=== PATIENT | male | born 1970 | race African-American/Black ===

== ENCOUNTER 2016-12-25 21:01 | Observation (INO) | payer OTHER ==
[2016-12-25 21:15] VITALS: BMI 26.3
--- NOTE | 2016-12-25 22:12 | PDOC ---
History of Present Illness - General History Source: Patient Exam Limitations: No Limitations - History of Present Illness Initial Comments: 12/25/16 22:19 The patient is a 46-year-old male, with a significant past medical history of NIDDM, hyperlipidemia, and hypertension, who presents to the ED with 3 days of chest pain. Patient states that the pain came on when he was ambulating. He states that the pain is intermittent, lasting 10-15 minutes before resolving when he sits down. Pts pain worsens about 1 hour after eating meals. He denies experiencing this pain in the past. The patient denies any shortness of breath. He denies any fever, chills, nausea , vomiting, or diarrhea. <Laury Henderson - Last Filed: 12/25/16 22:18> <Evelin Mosley - Last Filed: 12/26/16 00:54> - General Chief Complaint: Pain Stated Complaint: CHEST PAIN Time Seen by Provider: 12/25/16 21:17 Past History <Laury Henderson - Last Filed: 12/25/16 22:18> - Past Medical History Diabetes: Yes Hypercholesterolemia: Yes - Psycho/Social/Smoking Cessation Hx Anxiety: No Suicidal Ideation: No Smoking Status: Yes Smoking History: Current every day smoker Number of Cigarettes Smoked Daily: 1 Information on smoking cessation initiated: No Hx Alcohol Use: No Drug/Substance Use Hx: No Substance Use Type: None <Evelin Mosley - Last Filed: 12/26/16 00:54> - Past Medical History Allergies/Adverse Reactions: Allergies Allergy/AdvReac Type Severity Reaction Status Date / Time No Known Allergies Allergy Verified 12/25/16 21:10 Home Medications: Ambulatory Orders Albuterol Sulfate Inhaler - [Ventolin HFA Inhaler -] 2 inh IH PRN PRN 12/25/16 Metformin HCl [Metformin HCl ER] 1,000 mg PO BID 12/25/16 Simvastatin [Zocor] 5 mg PO HS 12/25/16 Review of Systems - Review of Systems Able to Perform ROS?: Yes Comments:: 12/25/16 22:19 GENERAL/CONSTITUTIONAL: No fever or chills. No weakness. HEAD, EYES, EARS, NOSE AND THROAT: No change in vision. No ear pain or discharge. No sore throat. CARDIOVASCULAR: +Chest pain. No shortness of breath. RESPIRATORY: No cough, wheezing, or hemoptysis. GASTROINTESTINAL: No nausea, vomiting, diarrhea or constipation. GENITOURINARY: No dysuria, frequency, or change in urination. MUSCULOSKELETAL: No joint or muscle swelling or pain. No neck or back pain. SKIN: No rash NEUROLOGIC: No headache, vertigo, loss of consciousness, or change in strength/ sensation. ENDOCRINE: No increased thirst. No abnormal weight change. HEMATOLOGIC/LYMPHATIC: No anemia, easy bleeding, or history of blood clots. ALLERGIC/IMMUNOLOGIC: No hives or skin allergy. <Laury Henderson - Last Filed: 12/25/16 22:18> *Physical Exam - Vital Signs Last Vital Signs Temp Pulse Resp BP Pulse Ox 97.9 F 78 18 150/88 99 12/25/16 21:10 12/25/16 21:10 12/25/16 21:10 12/25/16 21:10 12/25/16 21:10 <Laury Henderson - Last Filed: 12/25/16 22:18> - Vital Signs Last Vital Signs Temp Pulse Resp BP Pulse Ox 97.9 F 78 18 150/88 99 12/25/16 21:10 12/25/16 21:10 12/25/16 21:10 12/25/16 21:10 12/25/16 21:10 - Physical Exam Comments: GENERAL: Awake, alert, and fully oriented, in no acute distress HEAD: No signs of trauma EYES: PERRLA, EOMI, sclera anicteric, conjunctiva clear ENT: Auricles normal inspection, hearing grossly normal, nares patent, oropharynx clear without exudates. Moist mucosa NECK: Normal ROM, supple, no lymphadenopathy, JVD, or masses LUNGS: Breath sounds equal, clear to auscultation bilaterally. No wheezes, and no crackles HEART: Regular rate and rhythm, normal S1 and S2, no murmurs, rubs or gallops ABDOMEN: Soft, nontender, normoactive bowel sounds. No guarding, no rebound. No masses EXTREMITIES: Normal range of motion, no edema. No clubbing or cyanosis. No cords, erythema, or tenderness NEUROLOGICAL: Cranial nerves II through XII grossly intact. Normal speech, normal gait SKIN: Warm, Dry, normal turgor, no rashes or lesions noted. <Evelin Mosley - Last Filed: 12/26/16 00:54> Heart Score/ECG Review - History History: Moderately suspicious - Electrocardiogram EKG: Non specific repolarization disturbance - Age Age: 45-65 - Risk Factors Risk Factors Heart Score: Yes Hx Hypercholesterolemia, Yes Hx Diabetes, Yes Smoking History Based on the list above the patient has:: 1-2 risk factors - Troponin Troponin: </= normal limit - Score Heart Score - Total: 4 <Evelin Mosley - Last Filed: 12/26/16 00:54> ED Treatment Course - LABORATORY CBC & Chemistry Diagram: 12/25/16 22:18 12/25/16 22:18 <Evelin Mosley - Last Filed: 12/26/16 00:54> Medical Decision Making - Medical Decision Making Pt with history of DM, HL, smoker presents with chest pain intermittently for the past few days. It is associated with exertion. Today on the way into the ED he required a wheelchair, because the pain was so severe he could not walk. He denies SOB, N/V, diaphoresis, leg swelling. No recent travel. Low risk for PE by clinical eval. Concerning for possible ACS, and he has not had a prior workup for ACS. Will admit. <Evelin Mosley - Last Filed: 12/26/16 00:54> *DC/Admit/Observation/Transfer - Attestations Scribe Attestion: 12/25/16 22:20 Documentation prepared by Laury Henderson, acting as medical instructor for Evelin Mosley MD. <Laury Henderson - Last Filed: 12/25/16 22:18> - Discharge Dispostion Admit: Yes <Evelin Mosley - Last Filed: 12/26/16 00:54> Diagnosis at time of Disposition: Chest pain Qualifiers: Chest pain type: unspecified Qualified Code(s): R07.9 - Chest pain, unspecified - Discharge Dispostion Condition at time of disposition: Stable
[2016-12-25 22:33] LABS: BASOPHIL 1.1 % (0-2.0); EOSINOPHIL 6.8 % (0-4.5); MCH 29.1 pg (25.7-33.7); MCHC 32.5 g/dl (32.0-35.9); MEAN CELL VOLUME 89.6 fl (80-96); NEUTROPHILS 37.6 % (42.8-82.8); PLATELET COUNT 180 K/MM3 (134-434); RDW 13.5 % (11.9-15.9); WHITE BLOOD COUNT 6.3 K/mm3 (4.0-10.0)
[2016-12-25 23:04] LABS: ALBUMIN 3.7 g/dl (3.4-5.0); ANION GAP 7 (8-16); BILIRUBIN,TOTAL 0.3 mg/dL (0.2-1.0); CALCIUM 8.7 mg/dL (8.5-10.1); CO2 30 mmol/L (21-32); CREATININE 1.3 mg/dL (0.7-1.3); SGOT/AST 13 U/L (15-37); SGPT/ALT 32 U/L (12-78)
[2016-12-25 23:07] LABS: ALK PHOS 97 U/L (45-117); CPK 220 IU/L (39-308); TROPONIN I < 0.02 ng/ml (0.00-0.05)
[2016-12-25 23:09] LABS: GLUCOSE,RANDOM 418 mg/dL (74-106)
[2016-12-25] MEDS ORDERED: INSULIN REGULAR HUMAN 100 UNITS/ML *VIAL SQ ONE (23:44)
[2016-12-25] MEDS ORDERED: ASPIRIN 81 MG CHEWABLE TABLETS PO ONE (23:45)
--- NOTE | 2016-12-26 00:04 | HP ---
CHIEF COMPLAINT: "my chest really hurts while i walk" PCP: Does not remember name HISTORY OF PRESENT ILLNESS: Patient reports a 7/10 stabbing mid sternal chest pain radiating to his back, elicited by minimal physical activity and alleviated by rest, associated with dizziness. He has never has pain like this before. He denies associated LOC, sob , palpitations or cough. He has one episode on wed after dinner, no episodes on and several episodes today, to the point where he had to be placed into wheel chair because he could not get out of car in hospital parking lot. He has never had a cardiac workup. He denies recent travel, LE pain, edema or hemoptysis. CT chest from 2012 showed 1.1 cm RLL nodule ER course was notable for: (1)labs (2)ekg, chr (3)asa, 4 u insulin Recent Travel: denies PAST MEDICAL HISTORY: as above PAST SURGICAL HISTORY: denies Social History: lives with family Smoking: daily Alcohol:denieis Drugs: denies Family History: DM Allergies No Known Allergies Allergy (Verified 12/25/16 21:10) HOME MEDICATIONS: Home Medications Medication Instructions Recorded Albuterol Sulfate Inhaler - 2 inh IH PRN PRN 12/25/16 [Ventolin HFA Inhaler -] Metformin HCl [Metformin HCl ER] 1,000 mg PO BID 12/25/16 Simvastatin [Zocor] 5 mg PO HS 12/25/16 REVIEW OF SYSTEMS CONSTITUTIONAL: Absent: fever, chills, malaise, loss of appetite, weight change HEENT: Absent: rhinorrhea, nasal congestion, throat pain CARDIOVASCULAR: Absent: syncope, palpitations, irregular heart rate, peripheral edema RESPIRATORY: Absent: cough, shortness of breath, dyspnea with exertion, orthopnea, wheezing, stridor, hemoptysis GASTROINTESTINAL: Absent: abdominal pain, abdominal distension, nausea, vomiting, diarrhea, constipation, melena, hematochezia GENITOURINARY: Absent: dysuria, flank pain MUSCULOSKELETAL: Absent: myalgia, arthralgia SKIN: Absent: rash, itching, pallor HEMATOLOGIC/IMMUNOLOGIC: Absent: easy bleeding, easy bruising, frequent infections ENDOCRINE: Absent: unexplained weight gain, unexplained weight loss, heat intolerance, cold intolerance NEUROLOGIC: Absent: headache, focal weakness or paresthesias PSYCHIATRIC: Absent: anxiety, depression PHYSICAL EXAMINATION Vital Signs - 24 hr 12/25/16 12/25/16 21:10 22:51 Temperature 97.9 F 98.6 F Pulse Rate 78 Pulse Rate [ 79 Left Apical] Respiratory 18 16 Rate Blood Pressure 150/88 Blood Pressure 129/85 [Right Arm] O2 Sat by Pulse 99 98 Oximetry (%) GENERAL: Awake, alert, and fully oriented, in no acute distress. HEAD: Normal with no signs of trauma. EYES: Pupils equal, round and reactive to light, extraocular movements intact, sclera anicteric, conjunctiva clear. No lid lag. EARS, NOSE, THROAT: Moist mucous membranes. NECK: supple + JVD, + hepatojugular reflex, no masses, no adenopathy. LUNGS: bibasilar crackles HEART: Regular rate and rhythm, normal S1 and S2 ABDOMEN: Soft, nontender, not distended, normoactive bowel sounds, no guarding, no rebound, no masses. No hepatomegaly or splenomegaly. negative murphys MUSCULOSKELETAL: No CVA tenderness. UPPER EXTREMITIES: 2+ pulses, warm, well-perfused. No cyanosis. No clubbing. No peripheral edema. LOWER EXTREMITIES: 2+ pulses, warm, well-perfused. No calf tenderness. No peripheral edema. NEUROLOGICAL: Cranial nerves II-XII intact. Normal speech. PSYCHIATRIC: Cooperative. Good eye contact. Appropriate mood and affect. SKIN: Warm, dry Laboratory Results - last 24 hr 12/25/16 12/25/16 22:18 22:18 WBC 6.3 D RBC 4.74 Hgb 13.8 Hct 42.5 MCV 89.6 MCH 29.1 MCHC 32.5 RDW 13.5 Plt Count 180 D MPV 11.0 D Neutrophils % 37.6 L Lymphocytes % 42.7 H Monocytes % 11.8 H Eosinophils % 6.8 H D Basophils % 1.1 Sodium 138 Potassium 4.6 Chloride 101 Carbon Dioxide 30 Anion Gap 7 L BUN 22 H Creatinine 1.3 Creat Clearance w eGFR 59.17 Random Glucose 418 H* Calcium 8.7 Total Bilirubin 0.3 AST 13 L ALT 32 Alkaline Phosphatase 97 Creatine Kinase 220 Troponin I < 0.02 Total Protein 7.0 Albumin 3.7 ASSESSMENT/PLAN: This is a 46 yo M current smoker with PMH of HTN, HLD, IDDM (noncompliant), who presents with exertional severe chest pain since wed night. Severe stable exertional angina -trop negative x 1, trend -EKG nonspecific t inversions in inferior leads. No strain or sign of ACS. appears to be atrial bigeminy -s/p asa, lipitor in ed -TTE -NTG PRN for chest pain -TFTs, Lipid panel -Cardiology consult -anticipate need for stress test -tele monitoring HTN -currently normotensive -reconcile meds tomorrow am form pharmacy HLD -continue lipitor 80 hs IDDM -poorly controlled -gluc 418, given 4 u insulin in ed; no elevated gap -BGM TIDHS -Sliding scale -f/u a1c -f/u ua Pulmonary nodule -chest CT 2012 1.1 cm RLL nodule -CXR widened mediastinum -no supraclavicular adenopathy -requires pulm/ct f/u outpatient Current smoker -counseling on quitting FEN no ivf lytes stable diabetic Na restricted diet Hep, ppi Dispo: adm tele Problem List - Problem (1) Chest pain Code(s): R07.9 - CHEST PAIN, UNSPECIFIED Qualifiers: Chest pain type: unspecified Qualified Code(s): R07.9 - Chest pain, unspecified (2) Stable angina Code(s): I20.8 - OTHER FORMS OF ANGINA PECTORIS (3) Uncontrolled diabetes mellitus Code(s): E11.65 - TYPE 2 DIABETES MELLITUS WITH HYPERGLYCEMIA (4) HTN (hypertension) Code(s): I10 - ESSENTIAL (PRIMARY) HYPERTENSION (5) HLD (hyperlipidemia) Code(s): E78.5 - HYPERLIPIDEMIA, UNSPECIFIED Visit type - Emergency Visit Emergency Visit: Yes Care time: The patient presented to the Emergency Department on the above date and was hospitalized for further evaluation of their emergent condition. - New Patient This patient is new to me today: Yes Date on this admission: 12/26/16 - Critical Care Critical Care patient: No
[2016-12-26] MEDS ORDERED: ATORVASTATIN CA 80 MG TABLET (FP) PO ONE (00:12)
[2016-12-26] MEDS ORDERED: ALBUTEROL SO4 6.7 GM HFA INHALER IH PRN (00:13)
--- NOTE | 2016-12-26 00:14 | PN ---
Teaching Attending Note Name of Resident: Hugo Bellamy ATTENDING PHYSICIAN STATEMENT I saw and evaluated the patient. I reviewed the resident's note and discussed the case with the resident. I agree with the resident's findings and plan as documented. SUBJECTIVE: This patient is a 46-year-old male, with a significant past medical history of NIDDM, hyperlipidemia, and hypertension, who presents to the ED with 3 days of chest pain. Stated that every time he drinks alcohol with dinner, develops sub-sternal chest pain, this started this past 3 days. Pain is non-radiating to the back or to the Jaw. Denies any fever or chills, no shortness of breath. Each episode lasted around 15minutes. OBJECTIVE: Vital Signs Temperature 98.6 F 12/25/16 22:51 Pulse Rate 79 12/25/16 22:51 Respiratory Rate 16 12/25/16 22:51 Blood Pressure 129/85 12/25/16 22:51 O2 Sat by Pulse Oximetry (%) 98 12/25/16 22:51 CBCD WBC 6.3 K/mm3 (4.0-10.0) D 12/25/16 22:18 RBC 4.74 M/mm3 (4.00-5.60) 12/25/16 22:18 Hgb 13.8 GM/dL (11.7-16.9) 12/25/16 22:18 Hct 42.5 % (35.4-49) 12/25/16 22:18 MCV 89.6 fl (80-96) 12/25/16 22:18 MCHC 32.5 g/dl (32.0-35.9) 12/25/16 22:18 RDW 13.5 % (11.9-15.9) 12/25/16 22:18 Plt Count 180 K/MM3 (134-434) D 12/25/16 22:18 MPV 11.0 fl (7.5-11.1) D 12/25/16 22:18 CMP Sodium 138 mmol/L (136-145) 12/25/16 22:18 Potassium 4.6 mmol/L (3.5-5.1) 12/25/16 22:18 Chloride 101 mmol/L (98-107) 12/25/16 22:18 Carbon Dioxide 30 mmol/L (21-32) 12/25/16 22:18 Anion Gap 7 (8-16) L 12/25/16 22:18 BUN 22 mg/dL (7-18) H 12/25/16 22:18 Creatinine 1.3 mg/dL (0.7-1.3) 12/25/16 22:18 Creat Clearance w eGFR 59.17 (>60) 12/25/16 22:18 Random Glucose 418 mg/dL (74-106) H* 12/25/16 22:18 Calcium 8.7 mg/dL (8.5-10.1) 12/25/16 22:18 Total Bilirubin 0.3 mg/dL (0.2-1.0) 12/25/16 22:18 AST 13 U/L (15-37) L 12/25/16 22:18 ALT 32 U/L (12-78) 12/25/16 22:18 Alkaline Phosphatase 97 U/L (45-117) 12/25/16 22:18 Total Protein 7.0 g/dl (6.4-8.2) 12/25/16 22:18 Albumin 3.7 g/dl (3.4-5.0) 12/25/16 22:18 CARDIAC ENZYMES Creatine Kinase 220 IU/L (39-308) 12/25/16 22:18 Troponin I < 0.02 ng/ml (0.00-0.05) 12/25/16 22:18 Current Medications Generic Name Dose Route Start Last Admin Trade Name Freq PRN Reason Stop Dose Admin Atorvastatin Calcium 80 mg 12/26/16 00:12 Lipitor - PO 12/26/16 00:13 ONCE ONE Heparin Sodium (Porcine) 5,000 unit 12/26/16 10:00 Heparin - SQ BID [facility] Insulin Aspart 0 vial 12/26/16 07:00 Novolog Vial Sliding Scale - SQ ACHS [facility] Protocol Pantoprazole Sodium 40 mg 12/26/16 10:00 Protonix - PO DAILY [facility] Home Medications Medication Instructions Recorded Albuterol Sulfate Inhaler - 2 inh IH PRN PRN 12/25/16 [Ventolin HFA Inhaler -] Metformin HCl [Metformin HCl ER] 1,000 mg PO BID 12/25/16 Simvastatin [Zocor] 5 mg PO HS 12/25/16 PE: per resident's notes ASSESSMENT AND PLAN: The patient is a 46-year-old male, with a significant past medical history of NIDDM, hyperlipidemia, and hypertension, who presents to the ED with 3 days of chest pain. # Acute Chest Pain r/o ACS troponin q6h x 3 sets, EKG in am, Echo will order, cardiology consult , ecotrin 81mg daily Pain exacerbated on exertion relieved by rest : Stable angina . EKG nonspecific T- inversions in inferior leads. # T2DM on Metformin will hold it for now, SS with coverage, check hemoglobin A1c #Hx of HLD continue Zocor # Hx of Asthma continue as needed # HTN controlled now #Pulmonary nodule chest CT 2012 1.1 cm RLL nodule ; CXR widened mediastinum follow repeat chest CT # Smoker Current smoker ,counseling on quitting DVT Px: Heparin sq.
[2016-12-26] MEDS ORDERED: ASPIRIN 325 MG TABLET ONE (00:16)
[2016-12-26] MEDS ORDERED: INSULIN REGULAR HUMAN 100 UNITS/ML *VIAL ONE (00:16)
[2016-12-26] MEDS: INSULIN SLIDING SCALE (NOVOLOG) 1 VIAL SQ SCH ×4 (06:13→21:21)
[2016-12-26] MEDS: PANTOPRAZOLE 40 MG TABLET (FP) PO SCH (09:43)
[2016-12-26] MEDS: HEPARIN NA (PORCINE) 5,000 UNITS/ML 1ML VIAL SQ SCH ×2 (09:43→21:21)
--- NOTE | 2016-12-26 15:18 | PN ---
Progress Note (short form) - Note Progress Note: asymptomatic. states pain has resolved and had no repeated episodes since admission. had only 2 episodes both on exertion with assoc with SOB. no other symptoms. states he does smoke. not compliant with his medications as he often forgets (never takes his meds twice a day). denies CP, SOB, fever, chills, N/V/C /D Current Medications Generic Name Dose Route Start Last Admin Trade Name Freq PRN Reason Stop Dose Admin Albuterol Sulfate 2 puff 12/26/16 00:13 Ventolin Hfa Inhaler - IH Q4H PRN SHORT OF BREATH/WHEEZING Atorvastatin Calcium 80 mg 12/27/16 22:00 Lipitor - PO HS [facility] Heparin Sodium (Porcine) 5,000 unit 12/26/16 10:00 12/26/16 09:43 Heparin - SQ 5,000 unit BID [facility] Administration Insulin Aspart 1 vial 12/26/16 07:00 12/26/16 11:36 Novolog Vial Sliding Scale - SQ 6 units ACHS [facility] Administration Protocol Pantoprazole Sodium 40 mg 12/26/16 10:00 12/26/16 09:43 Protonix - PO 40 mg DAILY [facility] Administration Last Vital Signs Temp Pulse Resp BP Pulse Ox 98.8 F 62 18 125/78 100 12/26/16 10:00 12/26/16 10:00 12/26/16 10:00 12/26/16 10:00 12/26/16 10:00 General NAD CV S1 S2 RRR no murmur/rub/gallop Lungs CTA B/L no wheezing/rales/rhonchi ABdomen soft NT/ND Extremities no pedal edema CBCD WBC 6.3 K/mm3 (4.0-10.0) D 12/25/16 22:18 RBC 4.74 M/mm3 (4.00-5.60) 12/25/16 22:18 Hgb 13.8 GM/dL (11.7-16.9) 12/25/16 22:18 Hct 42.5 % (35.4-49) 12/25/16 22:18 MCV 89.6 fl (80-96) 12/25/16 22:18 MCHC 32.5 g/dl (32.0-35.9) 12/25/16 22:18 RDW 13.5 % (11.9-15.9) 12/25/16 22:18 Plt Count 180 K/MM3 (134-434) D 12/25/16 22:18 MPV 11.0 fl (7.5-11.1) D 12/25/16 22:18 CMP Sodium 138 mmol/L (136-145) 12/25/16 22:18 Potassium 4.6 mmol/L (3.5-5.1) 12/25/16 22:18 Chloride 101 mmol/L (98-107) 12/25/16 22:18 Carbon Dioxide 30 mmol/L (21-32) 12/25/16 22:18 Anion Gap 7 (8-16) L 12/25/16 22:18 BUN 22 mg/dL (7-18) H 12/25/16 22:18 Creatinine 1.3 mg/dL (0.7-1.3) 12/25/16 22:18 Creat Clearance w eGFR 59.17 (>60) 12/25/16 22:18 Calcium 8.7 mg/dL (8.5-10.1) 12/25/16 22:18 Total Bilirubin 0.3 mg/dL (0.2-1.0) 12/25/16 22:18 AST 13 U/L (15-37) L 12/25/16 22:18 ALT 32 U/L (12-78) 12/25/16 22:18 Alkaline Phosphatase 97 U/L (45-117) 12/25/16 22:18 Total Protein 7.0 g/dl (6.4-8.2) 12/25/16 22:18 Albumin 3.7 g/dl (3.4-5.0) 12/25/16 22:18 A/P 46yo M with PMH HLD, IDDM (noncompliant), who presents with exertional severe chest pain since wed night. 1. Atypical CP- no longer symptomatic. several insignificant pauses noted on radiation monitor. cardiac ensymes neg x2. no cardiac workup in the past. due to risk factors would recommend stress test. unsure if pt is likely to f/u as outpatient due to hx of non-compliance. echo pending. cardio consult. lipid panel pending 2. DM- uncontrolled. does not comply with home oral agents. iss and bgm for now. check A1c 3. RLL pulmonary nodule- seen on CT in 2012 and never followed up. will obtain repeat here as pt does not follow up as outpatient 4. Dyslipidemia- on low intensity statin. f/u lipid panel 5. DVT ppx- EAM Visit type - Emergency Visit Emergency Visit: Yes ED Registration Date: 12/25/16 Care time: The patient presented to the Emergency Department on the above date and was hospitalized for further evaluation of their emergent condition. - New Patient This patient is new to me today: Yes Date on this admission: 12/26/16 - Critical Care Critical Care patient: No - Discharge Referral Referred to [facility] No
--- NOTE | 2016-12-26 16:17 | CON.CARD ---
Consult Consult Specialty:: Cardiology Referred by:: Hospitalist Reason for Consultation:: Cardiac evaluation - History of Present Illness Chief Complaint: Chest pain History of Present Illness: Patient is a 46 year old male with underlying history of type 2 diabetes mellitus and hypertension who presented with 3 days of mid sternal chest discomfort. He states chest pain with exertion and has been intermittent. He denies shortness of breath or palpitations. He denies paroxysmal nocturnal dyspnea or orthopnea. He denies fever or chills. He denies headache or lightheadedness. He denies nausea, vomiting, diarrhea or abdominal pain. Cardiology consultation was called for further evaluation. - History Source History Provided By: Patient, Medical Record Limitations to Obtaining History: No Limitations - Past Medical History Cardio/Vascular: Yes: HTN Endocrine: Yes: Diabetes Mellitus - Alcohol/Substance Use Hx Alcohol Use: No - Smoking History Smoking history: Former smoker Have you smoked in the past 12 months: No Aproximately how many cigarettes per day: 1 Home Medications - Allergies Allergies/Adverse Reactions: Allergies Allergy/AdvReac Type Severity Reaction Status Date / Time No Known Allergies Allergy Verified 12/25/16 21:10 - Home Medications Home Medications: Ambulatory Orders Albuterol Sulfate Inhaler - [Ventolin HFA Inhaler -] 2 inh IH PRN PRN 12/25/16 Metformin HCl [Metformin HCl ER] 1,000 mg PO BID 12/25/16 Simvastatin [Zocor] 5 mg PO HS 12/25/16 Review of Systems - Review of Systems Constitutional: denies: Chills, Fever Cardiovascular: reports: Chest Pain. denies: Palpitations, Shortness of Breath Respiratory: denies: Cough, Hemoptysis, Orthopnea, PND, SOB, SOB on Exertion Gastrointestinal: denies: Abdominal Pain, Constipation, Diarrhea, Melena, Nausea , Rectal Bleeding, Vomiting Musculoskeletal: denies: Joint Pain Vital Signs: Vital Signs Temperature 981 F H 12/26/16 15:00 Pulse Rate 65 12/26/16 15:00 Respiratory Rate 16 12/26/16 15:00 Blood Pressure 133/75 12/26/16 15:00 O2 Sat by Pulse Oximetry (%) 100 12/26/16 10:00 Neck: Yes: Supple Respiratory: Yes: Regular, CTA Bilaterally Gastrointestinal: Yes: Normal Bowel Sounds, Soft. No: Tenderness Cardiovascular: Yes: Regular Rate and Rhythm JVD: No Carotid Bruit: No PMI: Non-Displaced Heart Sounds: Yes: S1, S2. No: Gallop Murmur: No: Systolic Murmur Edema: No Neurological: Yes: WNL - Other Data Labs, Other Data: 12/26/16 02:45 Troponin I < 0.02 CARDIAC ENZYMES Creatine Kinase 220 IU/L (39-308) 12/25/16 22:18 Troponin I < 0.02 ng/ml (0.00-0.05) 12/26/16 02:45 Sinus rhythm with nonspecific ST-T abnormality Echo: Pending Imaging - Results Chest X-ray: Report Reviewed (Unremarkable) EKG: Report Reviewed Problem List - Problems (1) Chest pain Code(s): R07.9 - CHEST PAIN, UNSPECIFIED Qualifiers: Chest pain type: unspecified Qualified Code(s): R07.9 - Chest pain, unspecified (2) HLD (hyperlipidemia) Code(s): E78.5 - HYPERLIPIDEMIA, UNSPECIFIED (3) HTN (hypertension) Code(s): I10 - ESSENTIAL (PRIMARY) HYPERTENSION (4) Uncontrolled diabetes mellitus Code(s): E11.65 - TYPE 2 DIABETES MELLITUS WITH HYPERGLYCEMIA Assessment/Plan 1. Chest pain syndrome, rule out coronary artery disease with abnormal ECG 2. Type 2 diabetes mellitus 3. Hypertension 4. Hypercholesterolemia PLAN: 1. Start ASA 81 mg once a day 2. Consider Amlodipine 5 mg once a day 3. Continue Atorvastatin and follow lipid panel 4. Continue diabetes management 5. Transthoracic echocardiography to assess LV/RV and valvular function 6. Consider nuclear myocardial perfusion imaging. Further plans are to follow Edi Sage MD
[2016-12-26] MEDS ORDERED: INSULIN (NOVOLOG) ASPART 100 UNITS/ML 10ML VIAL ONE (20:51)
[2016-12-27] MEDS: INSULIN SLIDING SCALE (NOVOLOG) 1 VIAL SQ SCH ×4 (06:03→21:23)
[2016-12-27 07:54] LABS: MCH 29.8 pg (25.7-33.7); MCHC 33.3 g/dl (32.0-35.9); MEAN CELL VOLUME 89.5 fl (80-96); MEAN PLT VOLUME 11.1 fl (7.5-11.1); PLATELET COUNT 177 K/MM3 (134-434); RDW 13.5 % (11.9-15.9); WHITE BLOOD COUNT 5.7 K/mm3 (4.0-10.0)
[2016-12-27 08:32] LABS: ALBUMIN 3.5 g/dl (3.4-5.0); ANION GAP 7 (8-16); CALCIUM 8.3 mg/dL (8.5-10.1); CO2 30 mmol/L (21-32); GLUCOSE,RANDOM 238 mg/dL (74-106)
[2016-12-27 08:39] LABS: ALK PHOS 80 U/L (45-117); BILIRUBIN,TOTAL 0.3 mg/dL (0.2-1.0); CHOLESTEROL 198 mg/dL (50-200); CREATININE 0.9 mg/dL (0.7-1.3); LDL CHOLESTEROL (ONLY SJRH) 127 mg/dL (5-100); PHOSPHOROUS 3.3 mg/dL (2.5-4.9); SGOT/AST 16 U/L (15-37); SGPT/ALT 27 U/L (12-78); THYROID STIMULATING HORMONE 2.77 uIU/ml (0.358-3.74); TOT PROT 6.7 g/dl (6.4-8.2)
--- NOTE | 2016-12-27 08:45 | PN ---
Progress Note (short form) - Note Progress Note: asymptomatic. states pain has resolved and had no repeated episodes since admission. had only 2 episodes both on exertion with assoc with SOB. no other symptoms. states he does smoke. not compliant with his medications as he often forgets (never takes his meds twice a day). denies CP, SOB, fever, chills, N/V/C /D Current Medications Generic Name Dose Route Start Last Admin Trade Name Freq PRN Reason Stop Dose Admin Albuterol Sulfate 2 puff 12/26/16 00:13 Ventolin Hfa Inhaler - IH Q4H PRN SHORT OF BREATH/WHEEZING Atorvastatin Calcium 80 mg 12/27/16 22:00 Lipitor - PO HS CHETNA Heparin Sodium (Porcine) 5,000 unit 12/26/16 10:00 12/26/16 21:21 Heparin - SQ 5,000 unit BID CHETNA Administration Insulin Aspart 1 vial 12/26/16 07:00 12/27/16 06:03 Novolog Vial Sliding Scale - SQ 4 units ACHS CHETNA Administration Protocol Pantoprazole Sodium 40 mg 12/26/16 10:00 12/26/16 09:43 Protonix - PO 40 mg DAILY CHETNA Administration Last Vital Signs Temp Pulse Resp BP Pulse Ox 98 F 60 18 142/74 100 12/27/16 06:00 12/27/16 06:00 12/27/16 06:00 12/27/16 06:00 12/26/16 21:00 General NAD CV S1 S2 RRR no murmur/rub/gallop Lungs CTA B/L no wheezing/rales/rhonchi ABdomen soft NT/ND Extremities no pedal edema A/P 46yo M with PMH HLD, IDDM (noncompliant), who presents with exertional severe chest pain since wed. 1. Atypical CP- no longer symptomatic. several insignificant pauses noted on chip mucker. cardiac ensymes neg x2. no cardiac workup in the past. due to risk factors would recommend stress test. unsure if pt is likely to f/u as outpatient due to hx of non-compliance. echo pending. cardio consult. lipid panel pending 2. DM- uncontrolled. does not comply with home oral agents. iss and bgm for now. check A1c 3. RLL pulmonary nodule- seen on CT in 2012 and never followed up. will obtain repeat here as pt does not follow up as outpatient 4. Dyslipidemia- on low intensity statin. f/u lipid panel 5. DVT ppx- EAM Visit type - Emergency Visit Emergency Visit: Yes ED Registration Date: 12/25/16 Care time: The patient presented to the Emergency Department on the above date and was hospitalized for further evaluation of their emergent condition. - New Patient This patient is new to me today: No - Critical Care Critical Care patient: No - Discharge Referral Referred to [facility] Med P.C.: No
[2016-12-27] MEDS ORDERED: INSULIN DETEMIR 100 UNITS/ML MDV SQ STA (08:55)
[2016-12-27] MEDS: PANTOPRAZOLE 40 MG TABLET (FP) PO SCH (09:20)
[2016-12-27] MEDS: HEPARIN NA (PORCINE) 5,000 UNITS/ML 1ML VIAL SQ SCH ×2 (09:20→21:24)
--- NOTE | 2016-12-27 10:12 | PN ---
Progress Note, Physician Chief Complaint: Not in distress History of Present Illness: Patient was seen and examined. Awake and alert. Chart was reviewed Denies chest pain, SOB or palpitations - Current Medication List Current Medications: Active Medications Albuterol Sulfate (Ventolin Hfa Inhaler -) 2 puff IH Q4H PRN PRN Reason: SHORT OF BREATH/WHEEZING Atorvastatin Calcium (Lipitor -) 80 mg PO HS CHETNA Heparin Sodium (Porcine) (Heparin -) 5,000 unit SQ BID [facility] Last Admin: 12/26/16 21:21 Dose: 5,000 unit Insulin Aspart (Novolog Vial Sliding Scale -) 1 vial SQ ACHS CHETNA PRN Reason: Protocol Last Admin: 12/27/16 06:03 Dose: 4 units Pantoprazole Sodium (Protonix -) 40 mg PO DAILY [facility] Last Admin: 12/26/16 09:43 Dose: 40 mg - Objective Vital Signs: Vital Signs Temperature 98 F 12/27/16 06:00 Pulse Rate 60 12/27/16 06:00 Respiratory Rate 18 12/27/16 06:00 Blood Pressure 142/74 12/27/16 06:00 O2 Sat by Pulse Oximetry (%) 100 12/26/16 21:00 Neck: Yes: Supple Cardiovascular: Yes: Regular Rate and Rhythm, S1, S2. No: Murmur Respiratory: Yes: CTA Bilaterally Gastrointestinal: Yes: Normal Bowel Sounds, Soft. No: Tenderness Edema: No Additional Findings/Remarks: - Review of Systems Constitutional: denies: Chills, Fever Cardiovascular: reports: Chest Pain. denies: Palpitations, Shortness of Breath Respiratory: denies: Cough, Hemoptysis, Orthopnea, PND, SOB, SOB on Exertion Gastrointestinal: denies: Abdominal Pain, Constipation, Diarrhea, Melena, Nausea , Rectal Bleeding, Vomiting Musculoskeletal: denies: Joint Pain Labs: CBC, BMP 12/27/16 05:35 12/27/16 05:35 INR, PTT INR 1.00 (0.82-1.09) 12/27/16 05:35 Problem List - Problems (1) Chest pain Code(s): R07.9 - CHEST PAIN, UNSPECIFIED Qualifiers: Chest pain type: unspecified Qualified Code(s): R07.9 - Chest pain, unspecified (2) HLD (hyperlipidemia) Code(s): E78.5 - HYPERLIPIDEMIA, UNSPECIFIED (3) HTN (hypertension) Code(s): I10 - ESSENTIAL (PRIMARY) HYPERTENSION (4) Uncontrolled diabetes mellitus Code(s): E11.65 - TYPE 2 DIABETES MELLITUS WITH HYPERGLYCEMIA Assessment/Plan 1. Chest pain syndrome, rule out coronary artery disease with abnormal ECG 2. Type 2 diabetes mellitus 3. Hypertension 4. Hypercholesterolemia PLAN: 1. ASA 81 mg once a day 2. Consider initiating Amlodipine 5 mg once a day 3. Continue Atorvastatin and follow lipid panel 4. Continue diabetes management 5. Transthoracic echocardiography to assess LV/RV and valvular function 6. Nuclear myocardial perfusion imaging in AM Further plans are to follow Edi Sage MD
--- NOTE | 2016-12-27 10:16 | PN ---
Progress Note (short form) - Note Progress Note: asymptomatic. no repeated episodes of CP. denies CP, SOB, fever, chills, N/V/C/D Current Medications Generic Name Dose Route Start Last Admin Trade Name Angella PRN Reason Stop Dose Admin Albuterol Sulfate 2 puff 12/26/16 00:13 Ventolin Hfa Inhaler - IH Q4H PRN SHORT OF BREATH/WHEEZING Atorvastatin Calcium 80 mg 12/27/16 22:00 Lipitor - PO HS CHETNA Heparin Sodium (Porcine) 5,000 unit 12/26/16 10:00 12/26/16 21:21 Heparin - SQ 5,000 unit BID CHETNA Administration Insulin Aspart 1 vial 12/26/16 07:00 12/27/16 06:03 Novolog Vial Sliding Scale - SQ 4 units ACHS CHETNA Administration Protocol Pantoprazole Sodium 40 mg 12/26/16 10:00 12/26/16 09:43 Protonix - PO 40 mg DAILY CHETNA Administration Last Vital Signs Temp Pulse Resp BP Pulse Ox 98 F 60 18 142/74 100 12/27/16 06:00 12/27/16 06:00 12/27/16 06:00 12/27/16 06:00 12/26/16 21:00 General NAD CV S1 S2 RRR no murmur/rub/gallop Lungs CTA B/L no wheezing/rales/rhonchi ABdomen soft NT/ND Extremities no pedal edema CBCD WBC 5.7 K/mm3 (4.0-10.0) 12/27/16 05:35 RBC 5.04 M/mm3 (4.00-5.60) 12/27/16 05:35 Hgb 15.0 GM/dL (11.7-16.9) 12/27/16 05:35 Hct 45.1 % (35.4-49) 12/27/16 05:35 MCV 89.5 fl (80-96) 12/27/16 05:35 MCHC 33.3 g/dl (32.0-35.9) 12/27/16 05:35 RDW 13.5 % (11.9-15.9) 12/27/16 05:35 Plt Count 177 K/MM3 (134-434) 12/27/16 05:35 MPV 11.1 fl (7.5-11.1) 12/27/16 05:35 CMP Sodium 139 mmol/L (136-145) 12/27/16 05:35 Potassium 3.8 mmol/L (3.5-5.1) 12/27/16 05:35 Chloride 102 mmol/L (98-107) 12/27/16 05:35 Carbon Dioxide 30 mmol/L (21-32) 12/27/16 05:35 Anion Gap 7 (8-16) L 12/27/16 05:35 BUN 14 mg/dL (7-18) D 12/27/16 05:35 Creatinine 0.9 mg/dL (0.7-1.3) D 12/27/16 05:35 Creat Clearance w eGFR > 60 (>60) 12/27/16 05:35 Calcium 8.3 mg/dL (8.5-10.1) L 12/27/16 05:35 Total Bilirubin 0.3 mg/dL (0.2-1.0) 12/27/16 05:35 AST 16 U/L (15-37) D 12/27/16 05:35 ALT 27 U/L (12-78) 12/27/16 05:35 Alkaline Phosphatase 80 U/L (45-117) 12/27/16 05:35 Total Protein 6.7 g/dl (6.4-8.2) 12/27/16 05:35 Albumin 3.5 g/dl (3.4-5.0) 12/27/16 05:35 A/P 46yo M with PMH HLD, IDDM (noncompliant), who presents with exertional severe chest pain since wed. 1. Atypical CP- asymptomatic. plan for NMST tomorrow. NPO tonight. cont asa/ statin cardio consult. 2. DM- A1c 12.2. will need to be on insulin therapy at this time. start levemir 10 units now and then titrate to improve control. insulin administration teaching by RN. counseled on importance of diabetic control and risks associated without controlling it is not limited to blindness, cardiac disease, renal failure needing HD and infection with loss of limb, verbalized understanding of risk. 3. elevated BP -started on acei 4. RLL pulmonary nodule- seen on CT in 2012 and never followed up. will obtain repeat here as pt does not follow up as outpatient 5. Dyslipidemia- statin 6. DVT ppx- EAM 7. family present at bedside. explained plan. answered all questions. verbalized understanding of plan and agreement Visit type - Emergency Visit Emergency Visit: Yes ED Registration Date: 12/25/16 Care time: The patient presented to the Emergency Department on the above date and was hospitalized for further evaluation of their emergent condition. - New Patient This patient is new to me today: No - Critical Care Critical Care patient: No - Discharge Referral Referred to [facility] Med P.C.: No
[2016-12-27] MEDS: LISINOPRIL 5 MG TABLET (FP) PO SCH (12:13)
[2016-12-27] MEDS: ASPIRIN COATED 81 MG TABLET.EC PO SCH (12:13)
--- NOTE | 2016-12-27 18:43 | EKG ---
Test Reason : Blood Pressure : / mmHG Vent. Rate : 076 BPM Atrial Rate : 076 BPM P-R Int : 150 ms QRS Dur : 094 ms QT Int : 338 ms P-R-T Axes : 012 049 -36 degrees QTc Int : 380 ms SINUS RHYTHM WITH PREMATURE ATRIAL COMPLEXES IN A PATTERN OF BIGEMINY NONSPECIFIC T WAVE ABNORMALITY ABNORMAL ECG NO PREVIOUS ECGS AVAILABLE REPEAT INDICATED Confirmed by ALIYA RICO MD ([id number]) on 12/27/2016 6:43:13 PM Referred By: Confirmed By:ALIYA RICO MD
[2016-12-27] MEDS ORDERED: INSULIN (NOVOLOG) ASPART 100 UNITS/ML 10ML VIAL ONE (21:10)
[2016-12-27] MEDS ORDERED: LORATADINE 10 MG TABLET PO ONE (21:49)
[2016-12-27] MEDS ORDERED: ATORVASTATIN CA 80 MG TABLET (FP) PO SCH (22:00)
[2016-12-27] MEDS ORDERED: ATORVASTATIN CA 40 MG TABLET (FP) PO SCH (22:00)
[2016-12-28] MEDS ORDERED: INSULIN (NOVOLOG) ASPART 100 UNITS/ML 10ML VIAL ONE (05:23)
[2016-12-28] MEDS: INSULIN SLIDING SCALE (NOVOLOG) 1 VIAL SQ SCH ×3 (06:24→17:02)
[2016-12-28] MEDS ORDERED: INSULIN DETEMIR 100 UNITS/ML MDV SQ ONE (08:29)
--- NOTE | 2016-12-28 12:14 | PN ---
Teaching Attending Note Name of Resident: Hugo Bellamy ATTENDING PHYSICIAN STATEMENT I saw and evaluated the patient. I reviewed the resident's note and discussed the case with the resident. I agree with the resident's findings and plan as documented. SUBJECTIVE:asymptomatic. denies CP, SOB<fever, chills, N/V/C/D OBJECTIVE: Last Vital Signs Temp Pulse Resp BP Pulse Ox 98.2 F 64 14 120/72 99 12/28/16 08:00 12/28/16 08:00 12/28/16 08:00 12/28/16 08:00 12/27/16 20:34 General NAD CV S1 S2 RRR no murmur/rub/gallop ASSESSMENT AND PLAN: 46yo M with PMH HLD, IDDM (noncompliant), who presents with exertional severe chest pain since wed night. 1. Atypical CP- asymptomatic. NMST today. will f/u results. cont asa/statin cardio consult. 2. DM- A1c 12.2. started on levemir 10 units. sugars improved. will ronnie require further titration. explained to pt to document and log his fingersticks and amount amount of insulin he uses and bring to appt with PMD this week. will ronnie require further adjustment. 3. elevated BP -improved. on acei 4. RLL pulmonary nodule- seen on CT in 2012, repeat done is not visable. cont routine screening. 5. Dyslipidemia- statin 6. DVT ppx- EAM 7. d/c planning pending result of stress test
--- NOTE | 2016-12-28 12:42 | PN ---
Progress Note, Physician History of Present Illness: No chest pain or dyspnea, awaiting study results. - Current Medication List Current Medications: Active Medications Albuterol Sulfate (Ventolin Hfa Inhaler -) 2 puff IH Q4H PRN PRN Reason: SHORT OF BREATH/WHEEZING Aspirin (Ecotrin -) 81 mg PO DAILY [facility] Last Admin: 12/27/16 12:13 Dose: 81 mg Atorvastatin Calcium (Lipitor -) 40 mg PO HS [facility] Last Admin: 12/27/16 21:25 Dose: 40 mg Heparin Sodium (Porcine) (Heparin -) 5,000 unit SQ BID [facility] Last Admin: 12/27/16 21:24 Dose: 5,000 unit Insulin Aspart (Novolog Vial Sliding Scale -) 1 vial SQ ACHS [facility] PRN Reason: Protocol Last Admin: 12/28/16 06:24 Dose: Not Given Lisinopril (Prinivil) 5 mg PO DAILY [facility] Last Admin: 12/27/16 12:13 Dose: 5 mg Pantoprazole Sodium (Protonix -) 40 mg PO DAILY [facility] Last Admin: 12/27/16 09:20 Dose: 40 mg - Objective Vital Signs: Vital Signs Temperature 98.2 F 12/28/16 08:00 Pulse Rate 64 12/28/16 08:00 Respiratory Rate 14 12/28/16 08:00 Blood Pressure 120/72 12/28/16 08:00 O2 Sat by Pulse Oximetry (%) 96 12/28/16 08:00 Constitutional: Yes: No Distress, Calm Neck: Yes: Supple Cardiovascular: Yes: Regular Rate and Rhythm, Murmur (2/6 SM) Respiratory: Yes: Regular, CTA Bilaterally Gastrointestinal: Yes: Normal Bowel Sounds, Soft Edema: No Labs: CBC, BMP 12/27/16 05:35 12/27/16 05:35 INR, PTT INR 1.00 (0.82-1.09) 12/27/16 05:35 Problem List - Problems (1) Chest pain Code(s): R07.9 - CHEST PAIN, UNSPECIFIED Qualifiers: Chest pain type: unspecified Qualified Code(s): R07.9 - Chest pain, unspecified (2) HLD (hyperlipidemia) Code(s): E78.5 - HYPERLIPIDEMIA, UNSPECIFIED Qualifiers: Hyperlipidemia type: pure hypercholesterolemia Qualified Code(s): E78.00 - Pure hypercholesterolemia, unspecified; E78.0 - Pure hypercholesterolemia (3) HTN (hypertension) Code(s): I10 - ESSENTIAL (PRIMARY) HYPERTENSION Qualifiers: Hypertension type: essential hypertension Qualified Code(s): I10 - Essential (primary) hypertension (4) Stable angina Code(s): I20.8 - OTHER FORMS OF ANGINA PECTORIS (5) Uncontrolled diabetes mellitus Code(s): E11.65 - TYPE 2 DIABETES MELLITUS WITH HYPERGLYCEMIA Qualifiers: Diabetes mellitus type: type 2 (6) Abnormal pharmacologic myocardial perfusion study Code(s): R94.30 - ABNORMAL RESULT OF CARDIOVASCULAR FUNCTION STUDY, [facility] Assessment/Plan 12/28/2016 Echo: Normal LV size and fxn, mod TR, mild MR 12/28/2016 ETT-Myoview: Small-moderate size mild inferolateral ischemia, LVEF 57 % 1. Chest pain syndrome with mildly abnormal MPI 2. Type 2 diabetes mellitus (poorly controlled) 3. Hypertension 4. Hypercholesterolemia PLAN: 1. Continue ASA 81 mg once a day, Lipitor 40 qhs, added Lisinopril 5 qd 2. Initiated carvedilol 3.125 bid with uptitration as tolerated 3. Optimize antidiabetic regimen 4. May d/c from cardiovascular standpoint with f/u in office.
[2016-12-28] MEDS ORDERED: DIPYRIDAMOLE 50 MG/10 ML VIAL IVPB ONE ×2 (12:48→13:00)
[2016-12-28] MEDS: HEPARIN NA (PORCINE) 5,000 UNITS/ML 1ML VIAL SQ SCH (14:22)
[2016-12-28] MEDS: PANTOPRAZOLE 40 MG TABLET (FP) PO SCH (14:22)
[2016-12-28] MEDS: LISINOPRIL 5 MG TABLET (FP) PO SCH (14:22)
[2016-12-28] MEDS: ASPIRIN COATED 81 MG TABLET.EC PO SCH (14:22)
--- NOTE | 2016-12-28 17:03 | PN ---
Physical Exam: SUBJECTIVE: Patient seen and examined No acute events overnight. Patient is asymptomatic this morning OBJECTIVE: Vital Signs Period Temp Pulse Resp BP Sys/Coffman Pulse Ox Last 24 Hr 97.7 F-98.2 F 56-74 14-18 100-137/55-74 96-99 GENERAL: The patient is awake, alert, and fully oriented, in no acute distress. HEAD: Normal with no signs of trauma. EYES: Extraocular movements intact, sclera anicteric, conjunctiva clear. No ptosis. ENT: Oropharynx clear without exudates, moist mucous membranes. NECK: Trachea midline, full range of motion, supple. LUNGS: Breath sounds equal, clear to auscultation bilaterally, no wheezes, no crackles, no accessory muscle use. HEART: Regular rate and rhythm, S1, S2 without murmur, rub or gallop. ABDOMEN: Soft, nontender, nondistended, normoactive bowel sounds, no guarding, no rebound, no hepatosplenomegaly, no masses. EXTREMITIES: 2+ pulses, warm, well-perfused, no edema. NEUROLOGICAL: Cranial nerves II through XII grossly intact. Normal speech, gait not observed. PSYCH: Normal mood, normal affect. SKIN: Warm, dry, normal turgor, no rashes or lesions noted Laboratory Results - last 24 hr 12/27/16 12/27/16 12/28/16 16:51 21:20 05:27 POC Glucometer 256 233 203 12/28/16 14:20 POC Glucometer 254 Active Medications Generic Name Dose Route Start Last Admin Trade Name Freq PRN Reason Stop Dose Admin Albuterol Sulfate 2 puff 12/26/16 00:13 Ventolin Hfa Inhaler - IH Q4H PRN SHORT OF BREATH/WHEEZING Aspirin 81 mg 12/27/16 10:15 12/28/16 14:22 Ecotrin - PO 81 mg DAILY CHETNA Administration Atorvastatin Calcium 40 mg 12/27/16 22:00 12/27/16 21:25 Lipitor - PO 40 mg HS CHETNA Administration Heparin Sodium (Porcine) 5,000 unit 12/26/16 10:00 12/28/16 14:22 Heparin - SQ 5,000 unit BID CHETNA Administration Insulin Aspart 1 vial 12/26/16 07:00 12/28/16 14:22 Novolog Vial Sliding Scale - SQ 4 units ACHS CHETNA Administration Protocol Lisinopril 5 mg 12/27/16 10:15 12/28/16 14:22 Prinivil PO 5 mg DAILY CHETNA Administration Pantoprazole Sodium 40 mg 12/26/16 10:00 12/28/16 14:22 Protonix - PO 40 mg DAILY CHETNA Administration ASSESSMENT/PLAN: This is a 46 yo M current smoker with PMH of HTN, HLD, IDDM (noncompliant), who presents with exertional severe chest pain since wed night. #Atypical Chest pain -Stress test pending -Continue aspirin 81 mg po daily -Continue Lipitor 40 mg PO hs -Cardiology on board #HTN -currently normotensive -on lisinopril 5 mg po daily #HLD -continue lipitor 80 hs #IDDM -poorly controlled -A1c is 12.2 -Continue levemir 10 units -BGM TIDHS -Insulin Sliding scale #Pulmonary nodule -chest CT 2012 1.1 cm RLL nodule -Repeat chest ct today shows no evidence of pulmonary nodule -Should follow up in 3 months for routine screening with pulm #Dyslipidemia -Continue lipitor 40 mg po hs #Dvt/GI ppx -heparin 5000 units sq bid -Protonix 40 mg po daily #FEN -no ivf -Electrolytes stable -Diabetic Na restricted diet Visit type - Emergency Visit Emergency Visit: No - New Patient This patient is new to me today: Yes Date on this admission: 12/28/16 - Critical Care Critical Care patient: No
[2016-12-28] MEDS ORDERED: CARVEDILOL 3.125 MG TABLET (FP) PO ONE (17:15)
[2016-12-28] MEDS ORDERED: CARVEDILOL 3.125 MG TABLET (FP) PO SCH ×2 (19:00→22:00)
--- NOTE | 2016-12-28 20:13 | DS ---
Physical Exam: LABS Laboratory Results - last 24 hr Selected Entries 12/25/16 12/28/16 21:10 15:00 Temperature 97.9 F 97.7 F Pulse Rate 63 Respiratory 18 Rate Blood Pressure 150/88 115/74 Laboratory Tests 12/25/16 12/25/16 12/26/16 22:18 22:18 06:08 WBC 6.3 D Sodium Potassium Chloride Carbon Dioxide Anion Gap BUN Creatinine POC Glucometer 294 Random Glucose 418 H* Hemoglobin A1c % Calcium Total Protein Albumin Triglycerides Cholesterol Total LDL Cholesterol HDL Cholesterol 12/27/16 12/27/16 12/27/16 05:35 05:35 05:35 WBC 5.7 Sodium 139 Potassium 3.8 Chloride 102 Carbon Dioxide 30 Anion Gap 7 L BUN 14 D Creatinine 0.9 D POC Glucometer Random Glucose 238 H D Hemoglobin A1c % 12.2 H Calcium 8.3 L Total Protein 6.7 Albumin 3.5 Triglycerides 165 H Cholesterol 198 Total LDL Cholesterol 127 H HDL Cholesterol 32 L 12/27/16 12/27/16 12/28/16 12:06 21:20 17:01 WBC Sodium Potassium Chloride Carbon Dioxide Anion Gap BUN Creatinine POC Glucometer 222 233 326 Random Glucose Hemoglobin A1c % Calcium Total Protein Albumin Triglycerides Cholesterol Total LDL Cholesterol HDL Cholesterol 12/25- Chest X ray - no acute pathology12/25- EKG- Sinus rhythm with PAC12/27- Chest CT- No abnormalities in chest, small left renal stone and 2 small accessory spleens vs nodes in LUQ12/28- NMST- small to moderate zone of inferolateral reversible defect suggesting mild intensity ischemia with underlying diaphragmatic attenuation artifact. EF 57%12/28- Echo- LV normal size , LV function is normal, no wall notion abnormalities HOSPITAL COURSE: Date of Admission:12/25/16 Date of Discharge: 12/28/16 46 yo M current smoker with PMH of HTN, HLD, IDDM (noncompliant), who presents with exertional severe chest pain. Patient reports a 7/10 stabbing mid sternal chest pain radiating to his back, elicited by minimal physical activity and alleviated by rest, associated with dizziness. He has never has pain like this before. He denies associated LOC, sob, palpitations or cough. He has one episode on wed night after dinner, no episodes on and several episodes today, to the point where he had to be placed into wheel chair because he could not get out of car in hospital parking lot. He has never had a cardiac workup. He denies recent travel, LE pain, edema or hemoptysis. CT chest from 2012 showed 1.1 cm RLL nodule.Patient was admitted for r/o ACS.Patient was found to have negative trops x2. Patient underwent echo and NMST (results above). Patient will follow up with cardiology within 1 week.Patient was found to have uncontrolled DM. A1c was 12.2. He was started on levemir 10 units. Patient's sugars improved. Patient was told to log his fingersticks and insulin usage and bring to his PCP.Patient had a previous RLL pulmonary nodule in 2013. A repeat was done, which was not visible. Patient was told to follow up with routine screening with pulmonology. Minutes to complete discharge: 30 Discharge Summary Reason For Visit: CHEST PAIN Current Active Problems Abnormal pharmacologic myocardial perfusion study (Acute) Pulmonary nodule (Acute) Stable angina (Acute) Uncontrolled diabetes mellitus (Acute) HLD (hyperlipidemia) (Chronic) HTN (hypertension) (Chronic) Condition: Stable - Instructions Diet, Activity, Other Instructions: You were in the hospital due to chest pain. Please follow up with your primary care provider in 1 week. Keep a log of your sugars and the amount amount of insulin you use and bring it to the appointment with your primary care provider. You will need to have your A1c (diabetic number ) checked in [address] scan of your chest was negative for nodule. you should continue routine screening. Monitor for signs of low blood sugar. refer to hand out. if you experience any of these symptoms check your sugar immediately. and then drink OJ or eat a piece of candy. Insulin sliding scale sugar #units of insulin <200 0 201-250 2 251-300 4 301-350 6 351-400 8 >401 10 and call your primary care doctor Please follow up with cardiology within 1 week. Start these medications: -Aspirin 81 mg by mouth daily -Insulin as needed based on your sugars -Levemir 10 units subcutaneously in the morning before eating breakfast -Lisinopril 5 mg by mouth daily -Protonix 40 mg by mouth daily -coreg 3.125mg by mouth twice a day -Lipitor 40mg by mouth at bedtime Stop taking these medications: -Metformin 1000 mg by mouth twice per day -Zocor 5 mg by mouth at night Continue taking these medicatinos -Albuterol inhaler as needed If you have chest pain, shortness of breath, or any new symptoms please return to the hospital immediately. Referrals: Juan Ramon Joshua MD [Staff Physician] - Tess Tian MD [Staff Physician] - Disposition: HOME - Home Medications Comprehensive Discharge Medication List: Ambulatory Orders Albuterol Sulfate Inhaler - [Ventolin HFA Inhaler -] 2 inh IH PRN PRN 12/25/16 Simvastatin [Zocor] 5 mg PO HS 12/25/16 Aspirin Coated [Ecotrin -] 81 mg PO DAILY #30 tablet 12/28/16 Atorvastatin Ca [Lipitor] 40 mg PO HS #30 tablet 12/28/16 Carvedilol [Coreg -] 3.125 mg PO BID #60 tablet 12/28/16 Insulin (Levemir) [Levemir Flexpen -] 10 units SQ AM #1 pen 12/28/16 Insulin Aspart [Novolog Flexpen] 100 unit SQ ACHS #1 insuln.pen 12/28/16 Lisinopril [Prinivil] 5 mg PO DAILY #30 tablet 12/28/16 Pantoprazole Sodium [Protonix -] 40 mg PO DAILY #30 tablet 12/28/16 This patient is new to me today: Yes Date on this admission: 12/29/16 Emergency Visit: No Critical Care patient: No - Discharge Referral Referred to [facility] No
[2016-12-28 20:50] VITALS: BP 128/62; PULSE 61; TEMP 98
== END 2016-12-28 20:17 | disposition home or self-care (01) ==
LOC: JER 21:01 → JERBED 23:47 → UNDOADMOB 23:58 → J4W 12-26 00:54
PROVIDERS: ADMIT Internal Medicine; ATTEND Internal Medicine
PROC: 3E033GC Introduction of Other Therapeutic Substance into Peripheral Vein, Percutaneous Approach (ICD-10-PCS; principal; 2016-12-25)
PROC: 3E013VG Introduction of Insulin into Subcutaneous Tissue, Percutaneous Approach (ICD-10-PCS; 2016-12-25)
DX: R07.9 Chest pain, unspecified (principal); I10 Essential (primary) hypertension; E11.9 Type 2 diabetes mellitus without complications; Z72.0 Tobacco use; Z79.84 Long term (current) use of oral hypoglycemic drugs; Z91.14 Patient's other noncompliance with medication regimen; R91.1 Solitary pulmonary nodule; I20.8 Other forms of angina pectoris; R94.30 Abnormal result of cardiovascular function study, unspecified; Z79.4 Long term (current) use of insulin
CPT/HCPCS: 36415; 71010-TC; 71250-TC; 78452-TC; 80048; 80053; 80061; 83036; 83721; 83735; 84100; 84443; 84484; 85025; 85027; 85610; 93005; 93010; 93017; 93306-TC; 99283-25; A9502; G0378; J1644

== ENCOUNTER 2017-07-26 16:23 | Emergency (ER) | payer OTHER ==
--- NOTE | 2017-07-26 16:42 | PDOC ---
Rapid Medical Evaluation Time Seen by Provider: 07/26/17 16:40 Medical Evaluation: Allergies Allergy/AdvReac Type Severity Reaction Status Date / Time No Known Allergies Allergy Verified 12/25/16 21:10 07/26/17 16:40 Brief RME eval: c/o splinter [facility]
[2017-07-26 16:45] VITALS: BP 160/77; PULSE 85; TEMP 97.6; BMI 25.9
[2017-07-26] MEDS ORDERED: DIPHTH,PERTUSS(ACELL),TET 0.5 ML DISP.SYRIN IM ONE (17:10)
--- NOTE | 2017-07-26 17:44 | PDOC ---
History of Present Illness - General Chief Complaint: Injury Stated Complaint: PAIN Time Seen by Provider: 07/26/17 16:40 History Source: Patient Exam Limitations: No Limitations - History of Present Illness Occurred: reports: just prior to arrival Pain Location: reports: upper extremity Modifying Factors: improves with: None Past History - Travel Traveled outside of the country in the last 30 days: No Close contact w/someone who was outside of country & ill: No - Past Medical History Allergies/Adverse Reactions: Allergies Allergy/AdvReac Type Severity Reaction Status Date / Time No Known Allergies Allergy Verified 07/26/17 16:42 Home Medications: Ambulatory Orders Albuterol Sulfate Inhaler - [Ventolin HFA Inhaler -] 2 inh IH PRN PRN 12/25/16 Simvastatin [Zocor] 5 mg PO HS 12/25/16 Aspirin Coated [Ecotrin -] 81 mg PO DAILY #30 tablet 12/28/16 Atorvastatin Ca [Lipitor] 40 mg PO HS #30 tablet 12/28/16 Carvedilol [Coreg -] 3.125 mg PO BID #60 tablet 12/28/16 Insulin (Levemir) [Levemir Flexpen -] 10 units SQ AM #1 pen 12/28/16 Insulin Aspart [Novolog Flexpen] 100 unit SQ ACHS #1 insuln.pen 12/28/16 Lisinopril [Prinivil] 5 mg PO DAILY #30 tablet 12/28/16 Pantoprazole Sodium [Protonix -] 40 mg PO DAILY #30 tablet 12/28/16 COPD: No DVT: No Diabetes: Yes HTN: Yes Hypercholesterolemia: Yes - Suicide/Smoking/Psychosocial Hx Smoking Status: Yes Smoking History: Former smoker Have you smoked in the past 12 months: No Number of Cigarettes Smoked Daily: 2 Information on smoking cessation initiated: No Hx Alcohol Use: No Drug/Substance Use Hx: No Substance Use Type: None Review of Systems - Review of Systems Able to Perform ROS?: Yes Is the patient limited [place] proficient: Yes Constitutional: Yes: Symptoms Reported, See HPI, Malaise HEENTM: No: Symptoms Reported Integumentary: Yes: Symptoms Reported, See HPI *Physical Exam - Vital Signs Last Vital Signs Temp Pulse Resp BP Pulse Ox 97.6 F 85 18 160/77 100 07/26/17 16:42 07/26/17 16:42 07/26/17 16:42 07/26/17 16:42 07/26/17 16:42 ED Treatment Course - Medications Given in the ED: ED Medications Discontinued Medications Generic Name Dose Route Start Last Admin Trade Name Angella PRN Reason Stop Dose Admin Diphtheria/Tetanus/Acell Pertussis 0.5 ml 07/26/17 17:10 07/26/17 17:22 Boostrix - IM 07/26/17 17:11 0.5 ml .ONCE ONE Administration *DC/Admit/Observation/Transfer Diagnosis at time of Disposition: Splinter in skin - Discharge Dispostion Disposition: HOME Condition at time of disposition: Stable Admit: No - Referrals Referrals: Silver Underwood [Primary Care Provider] - - Patient Instructions Printed Discharge Instructions: DI for Splinter Removal Additional Instructions: Rest, keep area elevated. Avoid strenuous activity or exercise until wound is healed Use hot soaks to area to bring more blood to the surface and encourage drainage 4-5 times daily until healed and reapply bacitracin ointment May change dressings as needed to keep clean Change his dressing daily until the wound is completely healed. May use Tylenol or Motrin for mild pain relief Followup with private physician in 2-3 days for wound check as needed Return to emergency Department for worsening swelling, pain, redness, fevers as needed - Post Discharge Activity Forms/Work/School Notes: Back to Work
== END 2017-07-26 17:56 | disposition home or self-care (01) ==
LOC: JERFT 16:23
PROC: 0HCFXZZ Extirpation of Matter from Right Hand Skin, External Approach (ICD-10-PCS; principal; 2017-07-26)
PROC: 3E0234Z Introduction of Serum, Toxoid and Vaccine into Muscle, Percutaneous Approach (ICD-10-PCS; 2017-07-26)
DX: S60.452A Superficial foreign body of right middle finger, initial encounter (principal); W45.8XXA Other foreign body or object entering through skin, initial encounter; Y93.89 Activity, other specified; Y92.59 Other trade areas as the place of occurrence of the external cause; Y99.0 Civilian activity done for income or pay
CPT/HCPCS: 10120-25; 90471; 90715; 99281-25

== ENCOUNTER 2020-02-26 10:27 | Emergency (ER) | payer OTHER ==
[2020-02-26 10:38] VITALS: BP 153/87; PULSE 75; TEMP 97.1; BMI 25.8
[2020-02-26] MEDS ORDERED: FLUORESCEIN NA 1 EA STRIP ONE (10:58)
--- NOTE | 2020-02-26 11:15 | PDOC ---
History of Present Illness - General Chief Complaint: Eye Problem Stated Complaint: EYE PROBLEM Time Seen by Provider: 02/26/20 10:43 History Source: Patient Exam Limitations: Clinical Condition - History of Present Illness Initial Comments: 02/26/20 11:36 Patient with history of diabetes presented with complaint of persistent left eye pain for a week status post accidentally spilling a chemical on his body a week ago while doing car cleaning. Patient reported chemical did not go into his eye. Patient reported he washes body of from the chemical immediately but the next morning started having pain in bilateral eye upon wake. Reported right eye pain is improved by left eye pain still persisting keep him up at night. Denies blurry vision, change in vision, headache, nausea, vomiting, dizziness. Denies any other symptoms. Patient has not taken anything for symptoms. Patient reported getting frequent annual eye checks due to history of diabetes. Is this a multiple visit Asthma Patient?: No Timing/Duration: 1 week Past History - Medical History Allergies/Adverse Reactions: Allergies Allergy/AdvReac Type Severity Reaction Status Date / Time No Known Allergies Allergy Verified 02/26/20 10:35 Home Medications: Ambulatory Orders Albuterol Sulfate Inhaler - [Ventolin HFA Inhaler -] 2 inh IH PRN PRN 12/25/16 Simvastatin [Zocor] 5 mg PO HS 12/25/16 Aspirin Coated [Ecotrin -] 81 mg PO DAILY #30 tablet 12/28/16 Atorvastatin Ca [Lipitor] 40 mg PO HS #30 tablet 12/28/16 Carvedilol [Coreg -] 3.125 mg PO BID #60 tablet 12/28/16 Insulin (Levemir) [Levemir Flexpen -] 10 units SQ AM #1 pen 12/28/16 Insulin Aspart [Novolog Flexpen] 100 unit SQ ACHS #1 insuln.pen 12/28/16 Lisinopril [Prinivil] 5 mg PO DAILY #30 tablet 12/28/16 Pantoprazole Sodium [Protonix -] 40 mg PO DAILY #30 tablet 12/28/16 COPD: No DVT: No Diabetes: Yes HTN: Yes Hypercholesterolemia: Yes - Immunization History Immunization Up to Date: Yes - Psycho-Social/Smoking History Smoking Status: Yes Smoking History: Never smoked Have you smoked in the past 12 months: No Number of Cigarettes Smoked Daily: 2 - Substance Abuse Hx (Audit-C & DAST Scrn) How often the patient has a drink containing alcohol: Never Score: In Men: 4 or > Positive; In Women: 3 or > Positive: 0 Screen Result (Pos requires Nsg. Audit-10AR): Negative In the last yr the pt used illegal drug/Rx for NonMed reason: No Score: Yes response is considered Positive: 0 Screen Result (Positive result requires Nsg. DAST-10): Negative Review of Systems - Review of Systems Able to Perform ROS?: Yes Is the patient limited [place] proficient: No Constitutional: No: Chills, Fever HEENTM: Yes: Symptoms Reported, See HPI, Eye Pain (left eye pain). No: Blurred Vision, Tearing, Recent change in vision, Double Vision, Cataracts, Ear Pain, Ocular Prothesis, Ear Discharge, Nose Pain, Nose Congestion, Tinnitus, Nose Bleeding, Hearing Loss, Throat Pain, Throat Swelling, Mouth Pain, Dental Problems, Difficulty Swallowing, Mouth Swelling, Other Respiratory: No: Symptoms reported, See HPI, Cough, Orthopnea, Shortness of Breath, SOB with Exertion, SOB at Rest, Stridor, Wheezing, Productive cough, Hemoptysis, Other Cardiac (ROS): No: Symptoms Reported, See HPI, Chest Pain, Edema, Irregular Heart Rate, Lightheadedness, Palpitations, Syncope, Chest Tightness, Other ABD/GI: No: Symptoms Reported, Nausea, Vomiting Musculoskeletal: No: Symptoms Reported Integumentary: No: Symptoms Reported Neurological: No: Symptoms reported, Headache, Dizziness All Other Systems: Reviewed and Negative *Physical Exam - Vital Signs Last Vital Signs Temp Pulse Resp BP Pulse Ox 97.1 F L 75 18 153/87 100 02/26/20 10:36 02/26/20 10:36 02/26/20 10:36 02/26/20 10:36 02/26/20 10:36 - Physical Exam 02/26/20 11:10 GENERAL: Well developed, well nourished. Awake and alert. No acute distress. HEENT: Mildly injected left conjunctiva. No evidence of foreign body or corneal abrasion on exam with fluorescein stain. Eye pH 7.5. Normocephalic, atraumatic. 20/20 in right eye, 20/40 in left eye and 20/20 in bilateral eyes on visual acuity test. PERRLA, EOMI. No conjunctival pallor. Sclera are non- icteric. Moist mucous membranes. Oropharynx is clear. NECK: Supple. Full ROM. PULMONARY: No evidence of respiratory distress. MUSCULOSKELETAL Normal range of motion at all joints. SKIN: Warm and dry. Normal capillary refill. No erythema or swelling to bilateral eyelids NEUROLOGICAL: Alert, awake, appropriate. Gait is normal without ataxia. PSYCHIATRIC: Cooperative. Good eye contact. Appropriate mood General Appearance: Yes: Nourished, Appropriately Dressed. No: Apparent Distress Medical Decision Making - Medical Decision Making 02/26/20 11:41 Patient with history of diabetes presented with complaint of persistent left eye pain for a week status post accidentally spilling a chemical on his body a week ago while doing car cleaning. Patient reported chemical did not go into his eye. Patient reported he washes body of from the chemical immediately but the next morning started having pain in bilateral eye upon wake. Reported right eye pain is improved by left eye pain still persisting keep him up at night. Denies blurry vision, change in vision, headache, nausea, vomiting, dizziness. Denies any other symptoms. Patient has not taken anything for symptoms. Patient reported getting frequent annual eye checks due to history of diabetes. Exam significant for mildly injected left conjunctiva otherwise unremarkable exam. Pupil equal and reflective to light bilateral. Extraocular muscle intact bilateral. pH 7.5. No foreign body or corneal abrasion on exam with fluorescein stain and tetracaine. Bilateral eyes irrigated and eyewash station. Repeat pH is 7.0. Patient reported improvement of pain. Patient stable for discharge with ophthalmology follow-up. Patient left department without discomfort with normal gait Discharge - Discharge Information Problems reviewed: Yes Clinical Impression/Diagnosis: Acute left eye pain Condition: Stable Disposition: HOME - Admission No - Follow up/Referral Referrals: Koffi Lomeli MD [Staff Physician] - Uzair Ott MD [Staff Physician] - - Patient Discharge Instructions Patient Printed Discharge Instructions: DI for Eye Pain Additional Instructions: No cut or abrasion is seen in the eye on exam. Follow-up with referred eye doctor soon as possible - Post Discharge Activity
--- OUTSIDE RECORDS SUMMARY | 2020-02-26 11:28 | XMS ---
:[address] [facility] Care Team Providers Name Role Phone KEILY BONDS PATRICIA Unavailable KEILY BONDS VALDEZ Unavailable MiguelGlendy cool Unavailable Unavailable Miguel, Glendy Unavailable Unavailable Miguel, Glendy Unavailable Unavailable Miguel, Glendy Unavailable Unavailable Miguel, Glendy Unavailable Unavailable MELINA WHYTE MD Unavailable NAHUM DUDLEY Unavailable Unavailable MiVangie louise Unavailable [email or web address] [email or web address] Velitchka Unavailable [email or web address] Miaspen Velitchka Unavailable [email or web address] [email or web address] Velitchka Unavailable [email or web address] Miaspen Velitchka Unavailable [email or web address] MIKKI KULKARNI Unavailable MIKKI KULKARNI Unavailable PHIL MONROY MD Unavailable Unavailable PHIL MONROY MD Unavailable Unavailable PHIL MONROY MD Unavailable Unavailable PHIL MONROY MD Unavailable Unavailable PHIL MONROY MD Unavailable Unavailable PHIL MONROY MD Unavailable Unavailable PHIL MONROY MD Unavailable Unavailable PHIL MONROY MD Unavailable Unavailable PHIL MONROY MD Unavailable Unavailable PHIL MONROY MD Unavailable Unavailable PHIL MONROY MD Unavailable Unavailable ARIN DPRosa, MAZDA Unavailable ARIN MUÑOZM, MAZDA Unavailable ROSIE FARI MD Unavailable DEON MUELLER MD Unavailable AMI SUMMERS, DARALYN Unavailable SANJANA SUMMERS, MARLIN Unavailable SANJANA SUMMERS, MARLIN Unavailable SANJANA SUMMERS, MARLIN Unavailable Trae Underwood Unavailable [email or web address] Clayton Underwood Unavailable [email or web address] Clayton Underwood Unavailable [email or web address] Clayton Underwood Unavailable [email or web address] Clayton Underwood Unavailable [email or web address] [place] DPM Unavailable [place] DPM Unavailable BACON Unavailable MONIQUE SUMMERS Unavailable SHAHRAM PT BREEZY Unavailable HAILE TECH Unavailable HANSEN Unavailable Re-disclosure Warning The records that you are about to access may contain information from federally- assisted alcohol or drug abuse programs. If such information is present, then the following federally mandated warning applies: This information has been disclosed to you from records protected by federal confidentiality rules (42 CFR part 2). The federal rules prohibit you from making any further disclosure of this information unless further disclosure is expressly permitted by the written consent of the person to whom it pertains or as otherwise permitted by 42 CFR part 2. A general authorization for the release of medical or other information is NOT sufficient for this purpose. The Federal rules restrict any use of the information to criminally investigate or prosecute any alcohol or drug abuse patient.The records that you are about to access may contain highly sensitive health information, the redisclosure of which is protected by Article 27-F of the [facility] Public Health law. If you continue you may haveaccess to information: Regarding HIV / AIDS; Provided by facilities licensed or operated by the [facility] Office of Mental Health; or Provided by the [facility] Office for People With Developmental Disabilities. If such information is present, then the following [facility] mandated warning applies: This information has been disclosed to you from confidential records which are protected by state law. State law prohibits you from making any further disclosure of this information without the specific written consent of the person to whom it pertains, or as otherwise permitted by law. Any unauthorized further disclosure in violation of state law may result in a fine or care home sentence or both. A general authorization for the release of medical or other information is NOT sufficient authorization for further disclosure. Allergies and Adverse Reactions Type Description Substance Reaction Status Data Source(s ) Allergy to No Known Allergies No known GREENW AY ([place] substance allergies [facility] ) Allergy to No Known Allergies No known GREENW AY ([facility] substance allergies [facility] ([facility] ) Allergy to No Known Allergies No known GREENW AY ([facility] substance allergies [facility] ) Allergy to No Known Allergies No known GREENW AY ([facility] substance allergies [facility] ([facility] ) Allergy to No Known Allergies No known GREENW AY ([facility] ([facility] ) Allergy to No Known Allergies No known GREENW AY ([facility] ([facility] ) Allergy to No Known Allergies No known GREENW AY ([place] substance [facility] ([facility] ) Allergy to No Known Allergies No known GREENW AY ([place] substance [facility] ) Allergy to No Known Allergies No known GREENW AY ([place] substance [facility] ([facility] ) Allergy to No Known Allergies No known GREENW AY ([place] substance [facility] ([facility] ) Allergy to No Known Allergies No known GREENW AY ([place] substance [facility] ([facility] ) Allergy to No Known Allergies No known GREENW AY ([place] [facility] ) Allergy to No Known Allergies No known GREENW AY ([place] substance [facility] ([facility] ) Allergy to No Known Allergies No known GREENW AY ([place] substance [facility] ) Allergy to No Known Allergies No known GREENW AY ([place] substance [facility] ([facility] ) Allergy to No Known Allergies No known GREENW AY ([facility] substance allergies [facility] (situation[facility] ) Allergy to No Known Allergies No known GREENW AY ([facility] substance allergies [facility] ([facility]) [facility] ) Encounters Encounter Providers Location Date Indications Data Source(s ) Outpatient<td Attender: Jimbo Triplett Diab W/ Diab GREENWA Y ID="encounterTypeDe [facility] 020 Retinopathy Mi ld ([place] scriptionID0">[facility] 11:00:0 [facility] VISIT</td><td>TREE EDT - [facility] PEBBLES FAIR Diabetic </td><td>[facility] 020 Retinopathy [facility] 11:59:0 Nonproliferative Health 0 PM Mild Left Eye Center</td><td>05 EDT 12/2019</td><td><con tent ID="encounterDiagno sisID0-0">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</content>, <content ID="encounterDiagno sisID0-1">Diab W/ Diab Retinopathy Mild Nonprolif Without Macular Edema</content></td > Diab W/ Diab Retinopathy Mild Nonprolif Without Macular Edema Diabetes with Diabetic Retinopathy Nonpr oliferative Mild Left Eye Outpatient<td Attender: Jimbo Triplett 10/02/2019 JOSE ID="encounterTypeDescriptionID1">OFFICE [facility] 10:30 :00 AM ([place] VISIT</td><td>ROSIE FAIR MD Health Center EDT - [facility] </td><td>[facility] 10/02/2019 Health Health 11:59:00 PM Center) Center</td><td>10/02/2019</td><td></td> EDT Outpatient<td Attender: Jimbo Triplett 08/08/2019 JOSE ID="encounterTypeDescriptionID2">PATIENT LADY Aviles 02:2 6:00 PM (Jimbo Triplett ADVOCACY</td><td>[facility] EDT - [facility] HANSEN</td><td>[facility] 2019 Health Health 11:59:00 PM Center) Center</td><td>08/08/2019</td><td></td> EDT Outpatient<td Attender: [place] 08/07/2019 E JOSE ID="encounterTypeDescriptionID3">OFFICE Trae [facility] 04:00 :00 PM s ([place] VISIT</td><td>TRAE UNDERWOOD [facility] EDT - s Neighborhood MD</td><td>[facility] 08/07/2019 e [facility] Health 04:40:02 PM n [place]) [place]</td><td>08/07/2019</td><td><doug EDT t nt ID="encounterDiagnosisID3-0">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, a Uncontrolled</content>, <content l ID="encounterDiagnosisID3-1">Essential H Hypertension Benign</content>, <content y ID="encounterDiagnosisID3-2">Hyperlipide p roberto carlos</content>, <content e ID="encounterDiagnosisID3-3">Noncomplian r ce with Medical Treatment</content></td> t e n s i o n B e n i g n E s s e n t i a l H y p e r t e n s i o n B e n i g n E s s e n t i a l H y p e r t e n s i o n B e n i g n H y p e r l i p i d e m i a H y p e r l i p i d e m i a H y p e r l i p i d e m i a N o n c o m p l i a n c e w i t h M e d i c a l T r e a t m e n t N o n c o m p l i a n c e w i t h M e d i c a l T r e a t m e n t N o n c o m p l i a n c e w i t h M e d i c a l T r e a t m e n t D i a b e t e s M e l l i t u s T y p e 2 - U n c o m p l i c a t e d , U n c o n t r o l l e d D i a b e t e s M e l l i t u s T y p e 2 - U n c o m p l i c a t e d , U n c o n t r o l l e d D i a b e t e s M e l l i t u s T y p e 2 - U n c o m p l i c a t e d , U n c o n t r o l l e d Essential Hypertension Benign Essential Hypertension Benign Essential Hypertension Benign Hyperlipidemia Hyperlipidemia Hyperlipidemia Noncompliance with Medical Treatment Noncompliance with Medical Treatment Noncompliance with Medical Treatment Diabetes Mellitus Type 2 - Uncomplicated , 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 , 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 , Uncontrolled Outpatient<td Attender: [place] 06/28/2019 Diabetes Mellitus [facility] ID="encounterTypeDescriptionID4">ENDOCRINOLOGY MARLIN romero 03:30:00 PM Poorly ([place] OFFICE VISIT</td><td>MARLIN ALLAN (ENDO) SANJANA DE [facility] EST - ControlledMatthew [facility] </td><td>[facility] Mellitus [facility] Health [place]</td><td>06/28/2019</td><td><content 05:5 3:55 PM [facility]) ID="encounterDiagnosisID4-0">Hypertension EST Mellitus Poorly (systemic)</content>, <content [facility] ID="encounterDiagnosisID4-1">Diabetes Mellitus Mellitus Poorly Poorly Controlled</content></td> Con trolledHypertension (systemic)Hypertension (systemic)Hypertension (systemic)Hypertension (systemic) Diabetes Mellitus Poorly Controlled Diabetes Mellitus Poorly Controlled Diabetes Mellitus Poorly Controlled Diabetes Mellitus Poorly Controlled Hypertension (systemic) Hypertension (systemic) Hypertension (systemic) Hypertension (systemic) Outpatient<td Attender: [place] 06/09/2019 [place] ID="encounterTypeDescriptionID5">*[facility] PHIL Aviles 04:04 :00 PM ([place] Update*</td><td>PHIL MONROY MD Health Center EST - Neighborhood </td><td>[facility] 06/09/2019 Health Health 11:59:00 PM Center) Center</td><td>06/09/2019</td><td></td> EST Outpatient<td Attender: Jimbo Triplett 05/16/2019 Aga GARCIA ID="encounterTypeDescriptionID6">[facility] 03[facility]00 PM i (Jimbo Triplett VISIT</td><td>[facility] EST - a Neighborhood </td><td>[place] Av[place] MD 05/16/2019 Health Health 05:38:08 PM e Center) Center</td><td>05/16/2019</td><td><doug EST t nt e ID="encounterDiagnosisID6-0">Presbyopia< s /content>, <content M ID="encounterDiagnosisID6-1">Diabetes e Mellitus Type 2 Without Complication l Retinopathy</content></td> l i t u s T y p e 2 W i t h o u t C o m p l i c a t i o n R e t i n o p a t h y P r e s b y o p i a D i a b e t e s M e l l i t u s T y p e 2 W i t h o u t C o m p l i c a t i o n R e t i n o p a t h y P r e s b y o p i a D i a b e t e s M e l l i t u s T y p e 2 W i t h o u t C o m p l i c a t i o n R e t i n o p a t h y P r e s b y o p i a D i a b e t e s M e l l i t u s T y p e 2 W i t h o u t C o m p l i c a t i o n R e t i n o p a t h y P r e s b y o p i a D i a b e t e s M e l l i t u s T y p e 2 W i t h o u t C o m p l i c a t i o n R e t i n o p a t h y P r e s b y o p i a Diabetes Mellitus Type 2 Without Complic ation Retinopathy Presbyopia Diabetes Mellitus Type 2 Without Complic ation Retinopathy Presbyopia Diabetes Mellitus Type 2 Without Complic ation Retinopathy Presbyopia Diabetes Mellitus Type 2 Without Complic ation Retinopathy Presbyopia Diabetes Mellitus Type 2 Without Complic ation Retinopathy Presbyopia Outpatient<td Attender: [place] 04/10/2019 [place] ID="encounterTypeDescriptionID7">*No ROSIE [facility] 03:39:00 PM ([place] Show*</td><td>ROSIE FAIR MD Health Center EST - Neighborhood </td><td>[facility] 04/10/2019 Health Health 11:59:00 PM Center) Center</td><td>04/10/2019</td><td></td> EST Outpatient<td Attender: 03/23/2019 [place] ID="encounterTypeDescriptionID8">*JACQUELINE Sheppard 11:12: 00 AM ([place] CH*</td><td>TRAE UNDERWOOD MD</td><td> Kj EDT - Neighborhood 03/23/2019 Health </td><td>03/23/2019</td><td></td> 11:59:00 PM Center) EDT Outpatient<td Attender: Jimbo Triplett 03/20/2019 E [place] ID="encounterTypeDescriptionID9">OFFICE Trae [facility] 02:30 :00 PM s ([place] VISIT</td><td>[facility] s Neighborhood </td><td>[facility] 03/20/2019 e Health Health 03:46:24 PM n Center) Center</td><td>03/20/2019</td><td><doug EDT t nt ID="encounterDiagnosisID9-0">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, a Uncontrolled</content>, <content l ID="encounterDiagnosisID9-1">Essential H Hypertension Benign</content>, <content y ID="encounterDiagnosisID9-2">Hyperlipide p roberto carlos</content>, <content e ID="encounterDiagnosisID9-3">Noncomplian r ce with Medical Treatment</content>, t <content e ID="encounterDiagnosisID9-4">Overweight< n /content></td> s i o n B e n i g n E s s e n t i a l H y p e r t e n s i o n B e n i g n E s s e n t i a l H y p e r t e n s i o n B e n i g n E s s e n t i a l H y p e r t e n s i o n B e n i g n E s s e n t i a l H y p e r t e n s i o n B e n i g n E s s e n t i a l H y p e r t e n s i o n B e n i g n E s s e n t i a l H y p e r t e n s i o n B e n i g n E s s e n t i a l H y p e r t e n s i o n B e n i g n H y p e r l i p i d e m i a H y p e r l i p i d e m i a H y p e r l i p i d e m i a H y p e r l i p i d e m i a H y p e r l i p i d e m i a H y p e r l i p i d e m i a H y p e r l i p i d e m i a H y p e r l i p i d e m i a O v e r w e i g h t N o n c o m p l i a n c e w i t h M e d i c a l T r e a t m e n t O v e r w e i g h t N o n c o m p l i a n c e w i t h M e d i c a l T r e a t m e n t O v e r w e i g h t N o n c o m p l i a n c e w i t h M e d i c a l T r e a t m e n t O v e r w e i g h t N o n c o m p l i a n c e w i t h M e d i c a l T r e a t m e n t O v e r w e i g h t N o n c o m p l i a n c e w i t h M e d i c a l T r e a t m e n t O v e r w e i g h t N o n c o m p l i a n c e w i t h M e d i c a l T r e a t m e n t O v e r w e i g h t N o n c o m p l i a n c e w i t h M e d i c a l T r e a t m e n t O v e r w e i g h t N o n c o m p l i a n c e w i t h M e d i c a l T r e a t m e n t D i a b e t e s M e l l i t u s T y p e 2 - U n c o m p l i c a t e d , U n c o n t r o l l e d D i a b e t e s M e l l i t u s T y p e 2 - U n c o m p l i c a t e d , U n c o n t r o l l e d D i a b e t e s M e l l i t u s T y p e 2 - U n c o m p l i c a t e d , U n c o n t r o l l e d D i a b e t e s M e l l i t u s T y p e 2 - U n c o m p l i c a t e d , U n c o n t r o l l e d D i a b e t e s M e l l i t u s T y p e 2 - U n c o m p l i c a t e d , U n c o n t r o l l e d D i a b e t e s M e l l i t u s T y p e 2 - U n c o m p l i c a t e d , U n c o n t r o l l e d D i a b e t e s M e l l i t u s T y p e 2 - U n c o m p l i c a t e d , U n c o n t r o l l e d D i a b e t e s M e l l i t u s T y p e 2 - U n c o m p l i c a t e d , U n c o n t r o l l e d Essential Hypertension 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 Hypertension Benign Hyperlipidemia Hyperlipidemia Hyperlipidemia Hyperlipidemia Hyperlipidemia Hyperlipidemia Hyperlipidemia Hyperlipidemia Overweight Noncompliance with Medical Treatment Overweight Noncompliance with Medical Treatment Overweight Noncompliance with Medical Treatment Overweight Noncompliance with Medical Treatment Overweight Noncompliance with Medical Treatment Overweight Noncompliance with Medical Treatment Overweight Noncompliance with Medical Treatment Overweight Noncompliance with Medical Treatment Diabetes Mellitus Type 2 - Uncomplicated , 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 , 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 , 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 , 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 , 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 , 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 , 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 , Uncontrolled Outpatient<td Attender: 02/14/2019 [place] ID="[id number]">*OUTREACH*</td><td>PHIL MEYERS MONICO 09:34:00 AM (Jimbo MONROY MD</td><td> ELIANA SUMMERS EDT - [facility] o </td><td>02/14/2019</td><td></td> 02/14/2019 Health 11:59:00 PM [place]) EDT Outpatient<td Attender: 08/22/2018 [place] ID="[id number]">*OUTREACH*</td><td>TRAE Sheppard 06:46:00 PM (Jimbo UNDERWOOD MD</td><td> [place] EDT - [place] </td><td>08/22/2018</td><td></td> 08/22/2018 Health 11:59:00 PM [place]) EDT Outpatient<td ID="[id number]">OFFICE Attender: 08/10/2018 E [place] VISIT</td><td>TRAE UNDERWOOD MD</td><td>Jimbo Sheppard o 04:30:00 PM s (Jimbo Underwood u EDT - s [facility]</td><td>08/10/2018</td><td><content n 07/29 e Health ID="[id number]">Diabetes Mellitus Type 2 - t 06:14:20 PM n Center) Uncomplicated, Uncontrolled</content>, <content V EDT t ID="[id number]">Essential Hypertension e i Benign</content>, <content r a ID="[id number]">Hyperlipidemia</content>, n l <content ID="[id number]">Noncompliance with o H Medical Treatment</content>, <content n y ID="[id number]">Trichomoniasis N p Urethritis</content></td> e e i r g t h e b n o s r i h o o n o B d e H n e i a g l n t E h s C s e e n n t t e i r a l H y p e r t e n s i o n B e n i g n E s s e n t i a l H y p e r t e n s i o n B e n i g n E s s e n t i a l H y p e r t e n s i o n B e n i g n E s s e n t i a l H y p e r t e n s i o n B e n i g n E s s e n t i a l H y p e r t e n s i o n B e n i g n E s s e n t i a l H y p e r t e n s i o n B e n i g n E s s e n t i a l H y p e r t e n s i o n B e n i g n E s s e n t i a l H y p e r t e n s i o n B e n i g n E s s e n t i a l H y p e r t e n s i o n B e n i g n T r i c h o m o n i a s i s U r e t h r i t i s H y p e r l i p i d e m i a T r i c h o m o n i a s i s U r e t h r i t i s H y p e r l i p i d e m i a T r i c h o m o n i a s i s U r e t h r i t i s H y p e r l i p i d e m i a T r i c h o m o n i a s i s U r e t h r i t i s H y p e r l i p i d e m i a T r i c h o m o n i a s i s U r e t h r i t i s H y p e r l i p i d e m i a T r i c h o m o n i a s i s U r e t h r i t i s H y p e r l i p i d e m i a T r i c h o m o n i a s i s U r e t h r i t i s H y p e r l i p i d e m i a T r i c h o m o n i a s i s U r e t h r i t i s H y p e r l i p i d e m i a T r i c h o m o n i a s i s U r e t h r i t i s H y p e r l i p i d e m i a T r i c h o m o n i a s i s U r e t h r i t i s H y p e r l i p i d e m i a N o n c o m p l i a n c e w i t h M e d i c a l T r e a t m e n t N o n c o m p l i a n c e w i t h M e d i c a l T r e a t m e n t N o n c o m p l i a n c e w i t h M e d i c a l T r e a t m e n t N o n c o m p l i a n c e w i t h M e d i c a l T r e a t m e n t N o n c o m p l i a n c e w i t h M e d i c a l T r e a t m e n t N o n c o m p l i a n c e w i t h M e d i c a l T r e a t m e n t N o n c o m p l i a n c e w i t h M e d i c a l T r e a t m e n t N o n c o m p l i a n c e w i t h M e d i c a l T r e a t m e n t N o n c o m p l i a n c e w i t h M e d i c a l T r e a t m e n t N o n c o m p l i a n c e w i t h M e d i c a l T r e a t m e n t D i a b e t e s M e l l i t u s T y p e 2 - U n c o m p l i c a t e d , U n c o n t r o l l e d D i a b e t e s M e l l i t u s T y p e 2 - U n c o m p l i c a t e d , U n c o n t r o l l e d D i a b e t e s M e l l i t u s T y p e 2 - U n c o m p l i c a t e d , U n c o n t r o l l e d D i a b e t e s M e l l i t u s T y p e 2 - U n c o m p l i c a t e d , U n c o n t r o l l e d D i a b e t e s M e l l i t u s T y p e 2 - U n c o m p l i c a t e d , U n c o n t r o l l e d D i a b e t e s M e l l i t u s T y p e 2 - U n c o m p l i c a t e d , U n c o n t r o l l e d D i a b e t e s M e l l i t u s T y p e 2 - U n c o m p l i c a t e d , U n c o n t r o l l e d D i a b e t e s M e l l i t u s T y p e 2 - U n c o m p l i c a t e d , U n c o n t r o l l e d D i a b e t e s M e l l i t u s T y p e 2 - U n c o m p l i c a t e d , U n c o n t r o l l e d D i a b e t e s M e l l i t u s T y p e 2 - U n c o m p l i c a t e d , U n c o n t r o l l e d Essential Hypertension 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 Hypertension Benign Trichomoniasis Urethritis Hyperlipidemia Trichomoniasis Urethritis Hyperlipidemia Trichomoniasis Urethritis Hyperlipidemia Trichomoniasis Urethritis Hyperlipidemia Trichomoniasis Urethritis Hyperlipidemia Trichomoniasis Urethritis Hyperlipidemia Trichomoniasis Urethritis Hyperlipidemia Trichomoniasis Urethritis Hyperlipidemia Trichomoniasis Urethritis Hyperlipidemia Trichomoniasis Urethritis Hyperlipidemia Noncompliance with Medical Treatment Noncompliance with Medical Treatment Noncompliance with Medical Treatment Noncompliance with Medical Treatment Noncompliance with Medical Treatment Noncompliance with Medical Treatment Noncompliance with Medical Treatment Noncompliance with Medical Treatment Noncompliance with Medical Treatment Noncompliance with Medical Treatment Diabetes Mellitus Type 2 - Uncomplicated , 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 , 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 , 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 , 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 , 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 , 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 , 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 , 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 , 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 , Uncontrolled Outpatient<td Attender: Jimbo Triplett 06/27/2018 [place] ID="[id number]">OFFICE [facility] 12:3 0:00 PM (iJmbo Triplett VISIT</td><td>[facility]nie [facility] Health Center EST - Neighborhood [facility]</td><td>[place] [facility] [address] [place] [address] Health 12:56:11 PM Center) Center</td><td>06/27/2018</td><td></td> EST Outpatient<td Attender: [place] 06/06/2018 [place] ID="[id number]">*No ROSIE Aviles 03:37:0 0 PM ([place] Show*</td><td>[facility] EST - Neighborhood MD</td><td>[facility] 06/06/2018 Health Health 11:59:00 PM Center) Center</td><td>06/06/2018</td><td></td> EST Outpatient<td Attender: [place] 05/26/2018 D [place] ID="[id number]">WALK-IN [facility] 03: 30:00 PM i ([place] SPECIALTY</td><td>[facility] ([place] EST - a Neighborhood </td><td>[facility] 05/26/2018 b Health Health 11:59:00 PM e Center) Center</td><td>05/26/2018</td><td><conten EST t t ID="[id number]">Diabetes e Mellitus Poorly Controlled</content>, s <content M ID="[id number]">Overweight< e /content>, <content l ID="[id number]">Hyperlipide l roberto carlos</content></td> i t u s P o o r l y C o n t r o l l e d D i a b e t e s M e l l i t u s P o o r l y C o n t r o l l e d D i a b e t e s M e l l i t u s P o o r l y C o n t r o l l e d D i a b e t e s M e l l i t u s P o o r l y C o n t r o l l e d D i a b e t e s M e l l i t u s P o o r l y C o n t r o l l e d D i a b e t e s M e l l i t u s P o o r l y C o n t r o l l e d D i a b e t e s M e l l i t u s P o o r l y C o n t r o l l e d D i a b e t e s M e l l i t u s P o o r l y C o n t r o l l e d D i a b e t e s M e l l i t u s P o o r l y C o n t r o l l e d D i a b e t e s M e l l i t u s P o o r l y C o n t r o l l e d D i a b e t e s M e l l i t u s P o o r l y C o n t r o l l e d D i a b e t e s M e l l i t u s P o o r l y C o n t r o l l e d D i a b e t e s M e l l i t u s P o o r l y C o n t r o l l e d H y p e r l i p i d e m i a H y p e r l i p i d e m i a H y p e r l i p i d e m i a H y p e r l i p i d e m i a H y p e r l i p i d e m i a H y p e r l i p i d e m i a H y p e r l i p i d e m i a H y p e r l i p i d e m i a H y p e r l i p i d e m i a H y p e r l i p i d e m i a H y p e r l i p i d e m i a H y p e r l i p i d e m i a H y p e r l i p i d e m i a O v e r w e i g h t O v e r w e i g h t O v e r w e i g h t O v e r w e i g h t O v e r w e i g h t O v e r w e i g h t O v e r w e i g h t O v e r w e i g h t O v e r w e i g h t O v e r w e i g h t O v e r w e i g h t O v e r w e i g h t O v e r w e i g h t Diabetes Mellitus Poorly Controlled Diabetes Mellitus Poorly Controlled Diabetes Mellitus Poorly Controlled Diabetes Mellitus Poorly Controlled Diabetes Mellitus Poorly Controlled Diabetes Mellitus Poorly Controlled Diabetes Mellitus Poorly Controlled Diabetes Mellitus Poorly Controlled Diabetes Mellitus Poorly Controlled Diabetes Mellitus Poorly Controlled Diabetes Mellitus Poorly Controlled Diabetes Mellitus Poorly Controlled Diabetes Mellitus Poorly Controlled Hyperlipidemia Hyperlipidemia Hyperlipidemia Hyperlipidemia Hyperlipidemia Hyperlipidemia Hyperlipidemia Hyperlipidemia Hyperlipidemia Hyperlipidemia Hyperlipidemia Hyperlipidemia Hyperlipidemia Overweight Overweight Overweight Overweight Overweight Overweight Overweight Overweight Overweight Overweight Overweight Overweight Overweight Outpatient<td Attender: Jimbo Triplett 05/23/2018 [place] ID="[id number]">OFFICE [facility] 03:3 0:00 PM (Jimbo Triplett VISIT</td><td>[facility] EST - Neighborhood D[facility]</td><td>[facility] Health Health 02:27:38 PM Center) Center</td><td>05/23/2018</td><td></td> EST Outpatient<td Attender: Jimbo Triplett 05/23/2018 [place] ID="[id number]">[facility] 02: 26:00 PM (Jimbo Triplett NAVIGATION</td><td>[facility] EST - Neighborhood Patient Navigator</td><td>Jimbo Triplett 05/23/[address] [facility] Health 11:59:00 PM Cent er) Center</td><td>05/23/2018</td><td></td> EST Outpatient<td Attender: Jimbo Triplett 05/23/2018 [place] ID="[id number]">NUTRITI NAHUM Neighborhood 01: 30:00 PM (Jimbo Triplett ON</td><td>NAHUM [facility] EST - Neighborhood RD</td><td>[facility] 05/23/2018 Health Health 02:46:09 PM Center) Center</td><td>05/23/2018</td><td></td> EST Outpatient<td Attender: Jimbo Triplett 05/16/2018 [place] ID="[id number]">[facility] 12: [facility] PM (Jimbo Triplett </td><td[facility] EST - Neighborhood MD</td><td>[facility] 05/16/2018 Health Health 04:19:52 PM Center) Center</td><td>05/16/2018</td><td></td> EST Outpatient<td Attender: 04/25/2018 [place] ID="[id number]">*JACQUELINE Sheppard 07:08 :00 PM ([place] CH*</td><td>TRAE UNDERWOOD MD</td><td> Kj EST - Neighborhood 04/25/2018 Health </td><td>04/25/2018</td><td></td> 11:59:00 PM Center) EST Outpatient<td Attender: [place] 04/18/2018 E [place] ID="[id number]">OFFICE [facility] 12:3 0:00 PM s ([place] VISIT</td><td>[facility] s Neighborhood </td><td>[facility] 04/18/2018 e Health Health 02:48:16 PM n Center) Center</td><td>04/18/2018</td><td><conten EST t t ID="[id number]">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, a Uncontrolled</content>, <content l ID="[id number]">Essential H Hypertension Benign</content>, <content y ID="[id number]">Hyperlipide p roberto carlos</content>, <content e ID="[id number]">Noncomplian r ce with Medical Treatment</content></td> t e n s i o n B e n i g n E s s e n t i a l H y p e r t e n s i o n B e n i g n E s s e n t i a l H y p e r t e n s i o n B e n i g n E s s e n t i a l H y p e r t e n s i o n B e n i g n E s s e n t i a l H y p e r t e n s i o n B e n i g n E s s e n t i a l H y p e r t e n s i o n B e n i g n E s s e n t i a l H y p e r t e n s i o n B e n i g n E s s e n t i a l H y p e r t e n s i o n B e n i g n E s s e n t i a l H y p e r t e n s i o n B e n i g n E s s e n t i a l H y p e r t e n s i o n B e n i g n E s s e n t i a l H y p e r t e n s i o n B e n i g n E s s e n t i a l H y p e r t e n s i o n B e n i g n E s s e n t i a l H y p e r t e n s i o n B e n i g n E s s e n t i a l H y p e r t e n s i o n B e n i g n E s s e n t i a l H y p e r t e n s i o n B e n i g n E s s e n t i a l H y p e r t e n s i o n B e n i g n E s s e n t i a l H y p e r t e n s i o n B e n i g n H y p e r l i p i d e m i a H y p e r l i p i d e m i a H y p e r l i p i d e m i a H y p e r l i p i d e m i a H y p e r l i p i d e m i a H y p e r l i p i d e m i a H y p e r l i p i d e m i a H y p e r l i p i d e m i a H y p e r l i p i d e m i a H y p e r l i p i d e m i a H y p e r l i p i d e m i a H y p e r l i p i d e m i a H y p e r l i p i d e m i a H y p e r l i p i d e m i a H y p e r l i p i d e m i a H y p e r l i p i d e m i a H y p e r l i p i d e m i a N o n c o m p l i a n c e w i t h M e d i c a l T r e a t m e n t N o n c o m p l i a n c e w i t h M e d i c a l T r e a t m e n t N o n c o m p l i a n c e w i t h M e d i c a l T r e a t m e n t N o n c o m p l i a n c e w i t h M e d i c a l T r e a t m e n t N o n c o m p l i a n c e w i t h M e d i c a l T r e a t m e n t N o n c o m p l i a n c e w i t h M e d i c a l T r e a t m e n t N o n c o m p l i a n c e w i t h M e d i c a l T r e a t m e n t N o n c o m p l i a n c e w i t h M e d i c a l T r e a t m e n t N o n c o m p l i a n c e w i t h M e d i c a l T r e a t m e n t N o n c o m p l i a n c e w i t h M e d i c a l T r e a t m e n t N o n c o m p l i a n c e w i t h M e d i c a l T r e a t m e n t N o n c o m p l i a n c e w i t h M e d i c a l T r e a t m e n t N o n c o m p l i a n c e w i t h M e d i c a l T r e a t m e n t N o n c o m p l i a n c e w i t h M e d i c a l T r e a t m e n t N o n c o m p l i a n c e w i t h M e d i c a l T r e a t m e n t N o n c o m p l i a n c e w i t h M e d i c a l T r e a t m e n t N o n c o m p l i a n c e w i t h M e d i c a l T r e a t m e n t D i a b e t e s M e l l i t u s T y p e 2 - U n c o m p l i c a t e d , U n c o n t r o l l e d D i a b e t e s M e l l i t u s T y p e 2 - U n c o m p l i c a t e d , U n c o n t r o l l e d D i a b e t e s M e l l i t u s T y p e 2 - U n c o m p l i c a t e d , U n c o n t r o l l e d D i a b e t e s M e l l i t u s T y p e 2 - U n c o m p l i c a t e d , U n c o n t r o l l e d D i a b e t e s M e l l i t u s T y p e 2 - U n c o m p l i c a t e d , U n c o n t r o l l e d D i a b e t e s M e l l i t u s T y p e 2 - U n c o m p l i c a t e d , U n c o n t r o l l e d D i a b e t e s M e l l i t u s T y p e 2 - U n c o m p l i c a t e d , U n c o n t r o l l e d D i a b e t e s M e l l i t u s T y p e 2 - U n c o m p l i c a t e d , U n c o n t r o l l e d D i a b e t e s M e l l i t u s T y p e 2 - U n c o m p l i c a t e d , U n c o n t r o l l e d D i a b e t e s M e l l i t u s T y p e 2 - U n c o m p l i c a t e d , U n c o n t r o l l e d D i a b e t e s M e l l i t u s T y p e 2 - U n c o m p l i c a t e d , U n c o n t r o l l e d D i a b e t e s M e l l i t u s T y p e 2 - U n c o m p l i c a t e d , U n c o n t r o l l e d D i a b e t e s M e l l i t u s T y p e 2 - U n c o m p l i c a t e d , U n c o n t r o l l e d D i a b e t e s M e l l i t u s T y p e 2 - U n c o m p l i c a t e d , U n c o n t r o l l e d D i a b e t e s M e l l i t u s T y p e 2 - U n c o m p l i c a t e d , U n c o n t r o l l e d D i a b e t e s M e l l i t u s T y p e 2 - U n c o m p l i c a t e d , U n c o n t r o l l e d D i a b e t e s M e l l i t u s T y p e 2 - U n c o m p l i c a t e d , U n c o n t r o l l e d Essential Hypertension 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 Hypertension Benign Hyperlipidemia Hyperlipidemia Hyperlipidemia Hyperlipidemia Hyperlipidemia Hyperlipidemia Hyperlipidemia Hyperlipidemia Hyperlipidemia Hyperlipidemia Hyperlipidemia Hyperlipidemia Hyperlipidemia Hyperlipidemia Hyperlipidemia Hyperlipidemia Hyperlipidemia Noncompliance with Medical Treatment Noncompliance with Medical Treatment Noncompliance with Medical Treatment Noncompliance with Medical Treatment Noncompliance with Medical Treatment Noncompliance with Medical Treatment Noncompliance with Medical Treatment Noncompliance with Medical Treatment Noncompliance with Medical Treatment Noncompliance with Medical Treatment Noncompliance with Medical Treatment Noncompliance with Medical Treatment Noncompliance with Medical Treatment Noncompliance with Medical Treatment Noncompliance with Medical Treatment Noncompliance with Medical Treatment Noncompliance with Medical Treatment Diabetes Mellitus Type 2 - Uncomplicated , 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 , 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 , 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 , 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 , 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 , 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 , 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 , 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 , 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 , 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 , 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 , 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 , 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 , 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 , 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 , 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 , Uncontrolled Outpatient<td Attender: Jimbo Triplett 11/22/2017 [place] ID="[id number]">[facility] ([place] [facility]*</td><td>[facility] EDT - Neighborhood RD</td><td>[place] Traci 11/22/2017 Health Health 11:59:00 PM Center) Center</td><td>11/22/2017</td><td></td> EDT Outpatient<td Attender: Jimbo Triplett 10/19/2017 [place] ID="[id number]">*[facility] ([place] Show*</td><td[facility] </td><td>[place] 10/19/2017 Health Health 11:59:00 PM Center) Center</td><td>10/19/2017</td><td></td> EDT Outpatient<td Attender: [place] 10/18/2017 E [place] ID="[id number]">OFFICE [facility] 03:3 0:00 PM s (Jimbo Triplett VISIT</td><td>TRAE UNDEROWOD [facility] EDT - s Neighborhood MD</td><td>[facility] 10/18/2017 e [facility] 02:52:04 PM [facility]</td><td>10/18/2017</td><td><doug EDT t nt i ID="[id number]">Diabetes a Mellitus Type 2 - Uncomplicated, l Uncontrolled</content>, <content H ID="[id number]">Essential y Hypertension Benign</content>, <content p ID="[id number]">Hyperlipid e emia</content>, <content r ID="[id number]">Noncomplia t nce with Medical e Treatment</content></td> n s i o n B e n i g n E s s e n t i a l H y p e r t e n s i o n B e n i g n E s s e n t i a l H y p e r t e n s i o n B e n i g n E s s e n t i a l H y p e r t e n s i o n B e n i g n E s s e n t i a l H y p e r t e n s i o n B e n i g n E s s e n t i a l H y p e r t e n s i o n B e n i g n E s s e n t i a l H y p e r t e n s i o n B e n i g n E s s e n t i a l H y p e r t e n s i o n B e n i g n E s s e n t i a l H y p e r t e n s i o n B e n i g n E s s e n t i a l H y p e r t e n s i o n B e n i g n E s s e n t i a l H y p e r t e n s i o n B e n i g n E s s e n t i a l H y p e r t e n s i o n B e n i g n E s s e n t i a l H y p e r t e n s i o n B e n i g n E s s e n t i a l H y p e r t e n s i o n B e n i g n E s s e n t i a l H y p e r t e n s i o n B e n i g n E s s e n t i a l H y p e r t e n s i o n B e n i g n E s s e n t i a l H y p e r t e n s i o n B e n i g n H y p e r l i p i d e m i a H y p e r l i p i d e m i a H y p e r l i p i d e m i a H y p e r l i p i d e m i a H y p e r l i p i d e m i a H y p e r l i p i d e m i a H y p e r l i p i d e m i a H y p e r l i p i d e m i a H y p e r l i p i d e m i a H y p e r l i p i d e m i a H y p e r l i p i d e m i a H y p e r l i p i d e m i a H y p e r l i p i d e m i a H y p e r l i p i d e m i a H y p e r l i p i d e m i a H y p e r l i p i d e m i a H y p e r l i p i d e m i a N o n c o m p l i a n c e w i t h M e d i c a l T r e a t m e n t N o n c o m p l i a n c e w i t h M e d i c a l T r e a t m e n t N o n c o m p l i a n c e w i t h M e d i c a l T r e a t m e n t N o n c o m p l i a n c e w i t h M e d i c a l T r e a t m e n t N o n c o m p l i a n c e w i t h M e d i c a l T r e a t m e n t N o n c o m p l i a n c e w i t h M e d i c a l T r e a t m e n t N o n c o m p l i a n c e w i t h M e d i c a l T r e a t m e n t N o n c o m p l i a n c e w i t h M e d i c a l T r e a t m e n t N o n c o m p l i a n c e w i t h M e d i c a l T r e a t m e n t N o n c o m p l i a n c e w i t h M e d i c a l T r e a t m e n t N o n c o m p l i a n c e w i t h M e d i c a l T r e a t m e n t N o n c o m p l i a n c e w i t h M e d i c a l T r e a t m e n t N o n c o m p l i a n c e w i t h M e d i c a l T r e a t m e n t N o n c o m p l i a n c e w i t h M e d i c a l T r e a t m e n t N o n c o m p l i a n c e w i t h M e d i c a l T r e a t m e n t N o n c o m p l i a n c e w i t h M e d i c a l T r e a t m e n t N o n c o m p l i a n c e w i t h M e d i c a l T r e a t m e n t D i a b e t e s M e l l i t u s T y p e 2 - U n c o m p l i c a t e d , U n c o n t r o l l e d D i a b e t e s M e l l i t u s T y p e 2 - U n c o m p l i c a t e d , U n c o n t r o l l e d D i a b e t e s M e l l i t u s T y p e 2 - U n c o m p l i c a t e d , U n c o n t r o l l e d D i a b e t e s M e l l i t u s T y p e 2 - U n c o m p l i c a t e d , U n c o n t r o l l e d D i a b e t e s M e l l i t u s T y p e 2 - U n c o m p l i c a t e d , U n c o n t r o l l e d D i a b e t e s M e l l i t u s T y p e 2 - U n c o m p l i c a t e d , U n c o n t r o l l e d D i a b e t e s M e l l i t u s T y p e 2 - U n c o m p l i c a t e d , U n c o n t r o l l e d D i a b e t e s M e l l i t u s T y p e 2 - U n c o m p l i c a t e d , U n c o n t r o l l e d D i a b e t e s M e l l i t u s T y p e 2 - U n c o m p l i c a t e d , U n c o n t r o l l e d D i a b e t e s M e l l i t u s T y p e 2 - U n c o m p l i c a t e d , U n c o n t r o l l e d D i a b e t e s M e l l i t u s T y p e 2 - U n c o m p l i c a t e d , U n c o n t r o l l e d D i a b e t e s M e l l i t u s T y p e 2 - U n c o m p l i c a t e d , U n c o n t r o l l e d D i a b e t e s M e l l i t u s T y p e 2 - U n c o m p l i c a t e d , U n c o n t r o l l e d D i a b e t e s M e l l i t u s T y p e 2 - U n c o m p l i c a t e d , U n c o n t r o l l e d D i a b e t e s M e l l i t u s T y p e 2 - U n c o m p l i c a t e d , U n c o n t r o l l e d D i a b e t e s M e l l i t u s T y p e 2 - U n c o m p l i c a t e d , U n c o n t r o l l e d D i a b e t e s M e l l i t u s T y p e 2 - U n c o m p l i c a t e d , U n c o n t r o l l e d Essential Hypertension 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 Hypertension Benign Hyperlipidemia Hyperlipidemia Hyperlipidemia Hyperlipidemia Hyperlipidemia Hyperlipidemia Hyperlipidemia Hyperlipidemia Hyperlipidemia Hyperlipidemia Hyperlipidemia Hyperlipidemia Hyperlipidemia Hyperlipidemia Hyperlipidemia Hyperlipidemia Hyperlipidemia Noncompliance with Medical Treatment Noncompliance with Medical Treatment Noncompliance with Medical Treatment Noncompliance with Medical Treatment Noncompliance with Medical Treatment Noncompliance with Medical Treatment Noncompliance with Medical Treatment Noncompliance with Medical Treatment Noncompliance with Medical Treatment Noncompliance with Medical Treatment Noncompliance with Medical Treatment Noncompliance with Medical Treatment Noncompliance with Medical Treatment Noncompliance with Medical Treatment Noncompliance with Medical Treatment Noncompliance with Medical Treatment Noncompliance with Medical Treatment Diabetes Mellitus Type 2 - Uncomplicated , 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 , 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 , 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 , 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 , 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 , 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 , 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 , 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 , 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 , 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 , 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 , 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 , 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 , 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 , 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 , 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 , Uncontrolled Outpatient<td Attender: Jimbo Triplett 10/11/2017 [place] ID="[id number]">[facility] Neighborhood 0 2:00:00 PM (Jimbo Triplett INITIAL VISIT</td><td>[facility] EDT - Neighborhood RD</td><td>[facility]</td><td>10/11/2017</td><td></td> 03:10:1 5 PM Center) EDT Outpatient<td Attender: 10/07/2017 [place] ID="[id number]">*OUTREACH* Trae 02 :08:00 PM (Jimbo Triplett </td><td>TRAE UNDERWOOD MD</td><td> Kj EDT - [facility] </td><td>10/07/2017</td><td></td> 09/28 Health 11:59:00 PM Center) EDT Outpatient<td Attender: Jimbo Triplett 10/04/2017 [place] ID="[id number]">OFFICE Trae [facility] 01:0 0:00 PM s (Jimbo Triplett VISIT</td><td>[facility]</td><td>[facility] 11[facility]2017 [facility]</td><td>10/04/2017</td><td><content 02:4 5:38 PM Center) ID="[id number]">Chronic EDT t Sinusitis - Maxillary</content>, <content i ID="[id number]">Diabetes a Mellitus Type 2 - Uncomplicated, l Uncontrolled</content>, <content H ID="[id number]">Essential y Hypertension Benign</content>, <content p ID="[id number]">Hyperlipidemia e </content>, <content r ID="[id number]">Noncompliance t with Medical Treatment</content></td> e n s i o n B e n i g n C h r o n i c S i n u s i t i s - M a x i l l a r y E s s e n t i a l H y p e r t e n s i o n B e n i g n C h r o n i c S i n u s i t i s - M a x i l l a r y E s s e n t i a l H y p e r t e n s i o n B e n i g n C h r o n i c S i n u s i t i s - M a x i l l a r y E s s e n t i a l H y p e r t e n s i o n B e n i g n C h r o n i c S i n u s i t i s - M a x i l l a r y E s s e n t i a l H y p e r t e n s i o n B e n i g n C h r o n i c S i n u s i t i s - M a x i l l a r y E s s e n t i a l H y p e r t e n s i o n B e n i g n C h r o n i c S i n u s i t i s - M a x i l l a r y E s s e n t i a l H y p e r t e n s i o n B e n i g n C h r o n i c S i n u s i t i s - M a x i l l a r y E s s e n t i a l H y p e r t e n s i o n B e n i g n C h r o n i c S i n u s i t i s - M a x i l l a r y E s s e n t i a l H y p e r t e n s i o n B e n i g n C h r o n i c S i n u s i t i s - M a x i l l a r y E s s e n t i a l H y p e r t e n s i o n B e n i g n C h r o n i c S i n u s i t i s - M a x i l l a r y E s s e n t i a l H y p e r t e n s i o n B e n i g n C h r o n i c S i n u s i t i s - M a x i l l a r y E s s e n t i a l H y p e r t e n s i o n B e n i g n C h r o n i c S i n u s i t i s - M a x i l l a r y E s s e n t i a l H y p e r t e n s i o n B e n i g n C h r o n i c S i n u s i t i s - M a x i l l a r y E s s e n t i a l H y p e r t e n s i o n B e n i g n C h r o n i c S i n u s i t i s - M a x i l l a r y E s s e n t i a l H y p e r t e n s i o n B e n i g n C h r o n i c S i n u s i t i s - M a x i l l a r y E s s e n t i a l H y p e r t e n s i o n B e n i g n C h r o n i c S i n u s i t i s - M a x i l l a r y E s s e n t i a l H y p e r t e n s i o n B e n i g n C h r o n i c S i n u s i t i s - M a x i l l a r y H y p e r l i p i d e m i a H y p e r l i p i d e m i a H y p e r l i p i d e m i a H y p e r l i p i d e m i a H y p e r l i p i d e m i a H y p e r l i p i d e m i a H y p e r l i p i d e m i a H y p e r l i p i d e m i a H y p e r l i p i d e m i a H y p e r l i p i d e m i a H y p e r l i p i d e m i a H y p e r l i p i d e m i a H y p e r l i p i d e m i a H y p e r l i p i d e m i a H y p e r l i p i d e m i a H y p e r l i p i d e m i a H y p e r l i p i d e m i a N o n c o m p l i a n c e w i t h M e d i c a l T r e a t m e n t N o n c o m p l i a n c e w i t h M e d i c a l T r e a t m e n t N o n c o m p l i a n c e w i t h M e d i c a l T r e a t m e n t N o n c o m p l i a n c e w i t h M e d i c a l T r e a t m e n t N o n c o m p l i a n c e w i t h M e d i c a l T r e a t m e n t N o n c o m p l i a n c e w i t h M e d i c a l T r e a t m e n t N o n c o m p l i a n c e w i t h M e d i c a l T r e a t m e n t N o n c o m p l i a n c e w i t h M e d i c a l T r e a t m e n t N o n c o m p l i a n c e w i t h M e d i c a l T r e a t m e n t N o n c o m p l i a n c e w i t h M e d i c a l T r e a t m e n t N o n c o m p l i a n c e w i t h M e d i c a l T r e a t m e n t N o n c o m p l i a n c e w i t h M e d i c a l T r e a t m e n t N o n c o m p l i a n c e w i t h M e d i c a l T r e a t m e n t N o n c o m p l i a n c e w i t h M e d i c a l T r e a t m e n t N o n c o m p l i a n c e w i t h M e d i c a l T r e a t m e n t N o n c o m p l i a n c e w i t h M e d i c a l T r e a t m e n t N o n c o m p l i a n c e w i t h M e d i c a l T r e a t m e n t D i a b e t e s M e l l i t u s T y p e 2 - U n c o m p l i c a t e d , U n c o n t r o l l e d D i a b e t e s M e l l i t u s T y p e 2 - U n c o m p l i c a t e d , U n c o n t r o l l e d D i a b e t e s M e l l i t u s T y p e 2 - U n c o m p l i c a t e d , U n c o n t r o l l e d D i a b e t e s M e l l i t u s T y p e 2 - U n c o m p l i c a t e d , U n c o n t r o l l e d D i a b e t e s M e l l i t u s T y p e 2 - U n c o m p l i c a t e d , U n c o n t r o l l e d D i a b e t e s M e l l i t u s T y p e 2 - U n c o m p l i c a t e d , U n c o n t r o l l e d D i a b e t e s M e l l i t u s T y p e 2 - U n c o m p l i c a t e d , U n c o n t r o l l e d D i a b e t e s M e l l i t u s T y p e 2 - U n c o m p l i c a t e d , U n c o n t r o l l e d D i a b e t e s M e l l i t u s T y p e 2 - U n c o m p l i c a t e d , U n c o n t r o l l e d D i a b e t e s M e l l i t u s T y p e 2 - U n c o m p l i c a t e d , U n c o n t r o l l e d D i a b e t e s M e l l i t u s T y p e 2 - U n c o m p l i c a t e d , U n c o n t r o l l e d D i a b e t e s M e l l i t u s T y p e 2 - U n c o m p l i c a t e d , U n c o n t r o l l e d D i a b e t e s M e l l i t u s T y p e 2 - U n c o m p l i c a t e d , U n c o n t r o l l e d D i a b e t e s M e l l i t u s T y p e 2 - U n c o m p l i c a t e d , U n c o n t r o l l e d D i a b e t e s M e l l i t u s T y p e 2 - U n c o m p l i c a t e d , U n c o n t r o l l e d D i a b e t e s M e l l i t u s T y p e 2 - U n c o m p l i c a t e d , U n c o n t r o l l e d D i a b e t e s M e l l i t u s T y p e 2 - U n c o m p l i c a t e d , U n c o n t r o l l e d 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 - Maxillary Hyperlipidemia Hyperlipidemia Hyperlipidemia Hyperlipidemia Hyperlipidemia Hyperlipidemia Hyperlipidemia Hyperlipidemia Hyperlipidemia Hyperlipidemia Hyperlipidemia Hyperlipidemia Hyperlipidemia Hyperlipidemia Hyperlipidemia Hyperlipidemia Hyperlipidemia Noncompliance with Medical Treatment Noncompliance with Medical Treatment Noncompliance with Medical Treatment Noncompliance with Medical Treatment Noncompliance with Medical Treatment Noncompliance with Medical Treatment Noncompliance with Medical Treatment Noncompliance with Medical Treatment Noncompliance with Medical Treatment Noncompliance with Medical Treatment Noncompliance with Medical Treatment Noncompliance with Medical Treatment Noncompliance with Medical Treatment Noncompliance with Medical Treatment Noncompliance with Medical Treatment Noncompliance with Medical Treatment Noncompliance with Medical Treatment Diabetes Mellitus Type 2 - Uncomplicated , 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 , 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 , 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 , 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 , 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 , 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 , 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 , 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 , 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 , 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 , 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 , 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 , 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 , 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 , 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 , 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 , Uncontrolled Outpatient<td Attender: 09/27/2017 [employer] ID="[id number]">*OUTREACH*</td><td>TRAE Sheppard 12:31:00 PM (Jimbo UNDERWOOD MD</td><td> [facility] </td><td>09/27/2017</td><td></td> 09/27/2017 Health 11:59:00 PM Center) EDT Outpatient<td ID="[id number]">OFFICE Attender: 02/22/2017 A [employer] VISIT</td><td>TRAE UNDERWOOD MD</td><td>Jimbo Sheppard o 05:00:00 PM n ([facility] EDT - [facility]</td><td>02/22/2017</td><td><content n 01/30 i Health ID="[id number]">Diabetes Mellitus Type 2 - t 06:43:58 PM n [place]) Uncomplicated, Uncontrolled</content>, <content V EDT a ID="[id number]">Essential Hypertension e P Benign</content>, <content r e ID="[id number]">Hyperlipidemia</content>, n c <content ID="[id number]">Angina o t Pectoris</content></td> n o N r e i i s g A h n b g o i r n h a o P o e d c H t e o a r l i t s h A C n e g n i t n e a r P e c t o r i s A n g i n a P e c t o r i s A n g i n a P e c t o r i s A n g i n a P e c t o r i s A n g i n a P e c t o r i s A n g i n a P e c t o r i s A n g i n a P e c t o r i s A n g i n a P e c t o r i s A n g i n a P e c t o r i s A n g i n a P e c t o r i s A n g i n a P e c t o r i s A n g i n a P e c t o r i s A n g i n a P e c t o r i s A n g i n a P e c t o r i s A n g i n a P e c t o r i s E s s e n t i a l H y p e r t e n s i o n B e n i g n E s s e n t i a l H y p e r t e n s i o n B e n i g n E s s e n t i a l H y p e r t e n s i o n B e n i g n E s s e n t i a l H y p e r t e n s i o n B e n i g n E s s e n t i a l H y p e r t e n s i o n B e n i g n E s s e n t i a l H y p e r t e n s i o n B e n i g n E s s e n t i a l H y p e r t e n s i o n B e n i g n E s s e n t i a l H y p e r t e n s i o n B e n i g n E s s e n t i a l H y p e r t e n s i o n B e n i g n E s s e n t i a l H y p e r t e n s i o n B e n i g n E s s e n t i a l H y p e r t e n s i o n B e n i g n E s s e n t i a l H y p e r t e n s i o n B e n i g n E s s e n t i a l H y p e r t e n s i o n B e n i g n E s s e n t i a l H y p e r t e n s i o n B e n i g n E s s e n t i a l H y p e r t e n s i o n B e n i g n E s s e n t i a l H y p e r t e n s i o n B e n i g n E s s e n t i a l H y p e r t e n s i o n B e n i g n H y p e r l i p i d e m i a H y p e r l i p i d e m i a H y p e r l i p i d e m i a H y p e r l i p i d e m i a H y p e r l i p i d e m i a H y p e r l i p i d e m i a H y p e r l i p i d e m i a H y p e r l i p i d e m i a H y p e r l i p i d e m i a H y p e r l i p i d e m i a H y p e r l i p i d e m i a H y p e r l i p i d e m i a H y p e r l i p i d e m i a H y p e r l i p i d e m i a H y p e r l i p i d e m i a H y p e r l i p i d e m i a H y p e r l i p i d e m i a D i a b e t e s M e l l i t u s T y p e 2 - U n c o m p l i c a t e d , U n c o n t r o l l e d D i a b e t e s M e l l i t u s T y p e 2 - U n c o m p l i c a t e d , U n c o n t r o l l e d D i a b e t e s M e l l i t u s T y p e 2 - U n c o m p l i c a t e d , U n c o n t r o l l e d D i a b e t e s M e l l i t u s T y p e 2 - U n c o m p l i c a t e d , U n c o n t r o l l e d D i a b e t e s M e l l i t u s T y p e 2 - U n c o m p l i c a t e d , U n c o n t r o l l e d D i a b e t e s M e l l i t u s T y p e 2 - U n c o m p l i c a t e d , U n c o n t r o l l e d D i a b e t e s M e l l i t u s T y p e 2 - U n c o m p l i c a t e d , U n c o n t r o l l e d D i a b e t e s M e l l i t u s T y p e 2 - U n c o m p l i c a t e d , U n c o n t r o l l e d D i a b e t e s M e l l i t u s T y p e 2 - U n c o m p l i c a t e d , U n c o n t r o l l e d D i a b e t e s M e l l i t u s T y p e 2 - U n c o m p l i c a t e d , U n c o n t r o l l e d D i a b e t e s M e l l i t u s T y p e 2 - U n c o m p l i c a t e d , U n c o n t r o l l e d D i a b e t e s M e l l i t u s T y p e 2 - U n c o m p l i c a t e d , U n c o n t r o l l e d D i a b e t e s M e l l i t u s T y p e 2 - U n c o m p l i c a t e d , U n c o n t r o l l e d D i a b e t e s M e l l i t u s T y p e 2 - U n c o m p l i c a t e d , U n c o n t r o l l e d D i a b e t e s M e l l i t u s T y p e 2 - U n c o m p l i c a t e d , U n c o n t r o l l e d D i a b e t e s M e l l i t u s T y p e 2 - U n c o m p l i c a t e d , U n c o n t r o l l e d D i a b e t e s M e l l i t u s T y p e 2 - U n c o m p l i c a t e d , U n c o n t r o l l e d Angina Pectoris Angina Pectoris Angina Pectoris Angina Pectoris Angina Pectoris Angina Pectoris Angina Pectoris Angina Pectoris Angina Pectoris Angina Pectoris Angina Pectoris Angina Pectoris Angina Pectoris Angina Pectoris Angina Pectoris Angina Pectoris Angina Pectoris Essential Hypertension 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 Hypertension Benign Hyperlipidemia Hyperlipidemia Hyperlipidemia Hyperlipidemia Hyperlipidemia Hyperlipidemia Hyperlipidemia Hyperlipidemia Hyperlipidemia Hyperlipidemia Hyperlipidemia Hyperlipidemia Hyperlipidemia Hyperlipidemia Hyperlipidemia Hyperlipidemia Hyperlipidemia Diabetes Mellitus Type 2 - Uncomplicated , 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 , 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 , 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 , 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 , 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 , 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 , 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 , 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 , 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 , 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 , 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 , 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 , 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 , 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 , 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 , 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 , Uncontrolled Outpatient<td Attender: Jimbo Triplett 02/17/2017 [place] ID="[id number]">*No [facility] 01:34:0 0 PM (Jimbo Triplett Show*</td><td>[facility] SRAVANIT Stephie Aviles MD</td><td>[facility] 02/17/2017 Health Health 11:59:00 PM Center) [place]</td><td>02/17/2017</td><td></td> EDT Outpatient<td Attender: Jimbo Triplett 01/04/2017 [facility] [employer] ID="[id number]">OFFICE [facility] 05:4 5:00 PM h (Jimbo Triplett VISIT</td><td>[facility] ERNIE Aviles MD</td><td>Jimbo Triplett [facility] 01/04/2017 o Health [facility] 07:21:20 PM [facility]</td><td>01/04/2017</td><td><doug EDT i nt c ID="[id number]">Diabetes O Mellitus Type 2 - Uncomplicated, b Uncontrolled</content>, <content s ID="[id number]">Essential t Hypertension Benign</content>, <content r ID="[id number]">Chronic u Obstructive Pulmonary Disease</content>, c <content t ID="[id number]">Hyperlipid i emia</content></td> v e P u l m o n a r y D i s e a s e E s s e n t i a l H y p e r t e n s i o n B e n i g n C h r o n i c O b s t r u c t i v e P u l m o n a r y D i s e a s e E s s e n t i a l H y p e r t e n s i o n B e n i g n C h r o n i c O b s t r u c t i v e P u l m o n a r y D i s e a s e E s s e n t i a l H y p e r t e n s i o n B e n i g n C h r o n i c O b s t r u c t i v e P u l m o n a r y D i s e a s e E s s e n t i a l H y p e r t e n s i o n B e n i g n C h r o n i c O b s t r u c t i v e P u l m o n a r y D i s e a s e E s s e n t i a l H y p e r t e n s i o n B e n i g n C h r o n i c O b s t r u c t i v e P u l m o n a r y D i s e a s e E s s e n t i a l H y p e r t e n s i o n B e n i g n C h r o n i c O b s t r u c t i v e P u l m o n a r y D i s e a s e E s s e n t i a l H y p e r t e n s i o n B e n i g n C h r o n i c O b s t r u c t i v e P u l m o n a r y D i s e a s e E s s e n t i a l H y p e r t e n s i o n B e n i g n C h r o n i c O b s t r u c t i v e P u l m o n a r y D i s e a s e E s s e n t i a l H y p e r t e n s i o n B e n i g n C h r o n i c O b s t r u c t i v e P u l m o n a r y D i s e a s e E s s e n t i a l H y p e r t e n s i o n B e n i g n C h r o n i c O b s t r u c t i v e P u l m o n a r y D i s e a s e E s s e n t i a l H y p e r t e n s i o n B e n i g n C h r o n i c O b s t r u c t i v e P u l m o n a r y D i s e a s e E s s e n t i a l H y p e r t e n s i o n B e n i g n C h r o n i c O b s t r u c t i v e P u l m o n a r y D i s e a s e E s s e n t i a l H y p e r t e n s i o n B e n i g n C h r o n i c O b s t r u c t i v e P u l m o n a r y D i s e a s e E s s e n t i a l H y p e r t e n s i o n B e n i g n C h r o n i c O b s t r u c t i v e P u l m o n a r y D i s e a s e E s s e n t i a l H y p e r t e n s i o n B e n i g n C h r o n i c O b s t r u c t i v e P u l m o n a r y D i s e a s e E s s e n t i a l H y p e r t e n s i o n B e n i g n C h r o n i c O b s t r u c t i v e P u l m o n a r y D i s e a s e E s s e n t i a l H y p e r t e n s i o n B e n i g n H y p e r l i p i d e m i a H y p e r l i p i d e m i a H y p e r l i p i d e m i a H y p e r l i p i d e m i a H y p e r l i p i d e m i a H y p e r l i p i d e m i a H y p e r l i p i d e m i a H y p e r l i p i d e m i a H y p e r l i p i d e m i a H y p e r l i p i d e m i a H y p e r l i p i d e m i a H y p e r l i p i d e m i a H y p e r l i p i d e m i a H y p e r l i p i d e m i a H y p e r l i p i d e m i a H y p e r l i p i d e m i a H y p e r l i p i d e m i a D i a b e t e s M e l l i t u s T y p e 2 - U n c o m p l i c a t e d , U n c o n t r o l l e d D i a b e t e s M e l l i t u s T y p e 2 - U n c o m p l i c a t e d , U n c o n t r o l l e d D i a b e t e s M e l l i t u s T y p e 2 - U n c o m p l i c a t e d , U n c o n t r o l l e d D i a b e t e s M e l l i t u s T y p e 2 - U n c o m p l i c a t e d , U n c o n t r o l l e d D i a b e t e s M e l l i t u s T y p e 2 - U n c o m p l i c a t e d , U n c o n t r o l l e d D i a b e t e s M e l l i t u s T y p e 2 - U n c o m p l i c a t e d , U n c o n t r o l l e d D i a b e t e s M e l l i t u s T y p e 2 - U n c o m p l i c a t e d , U n c o n t r o l l e d D i a b e t e s M e l l i t u s T y p e 2 - U n c o m p l i c a t e d , U n c o n t r o l l e d D i a b e t e s M e l l i t u s T y p e 2 - U n c o m p l i c a t e d , U n c o n t r o l l e d D i a b e t e s M e l l i t u s T y p e 2 - U n c o m p l i c a t e d , U n c o n t r o l l e d D i a b e t e s M e l l i t u s T y p e 2 - U n c o m p l i c a t e d , U n c o n t r o l l e d D i a b e t e s M e l l i t u s T y p e 2 - U n c o m p l i c a t e d , U n c o n t r o l l e d D i a b e t e s M e l l i t u s T y p e 2 - U n c o m p l i c a t e d , U n c o n t r o l l e d D i a b e t e s M e l l i t u s T y p e 2 - U n c o m p l i c a t e d , U n c o n t r o l l e d D i a b e t e s M e l l i t u s T y p e 2 - U n c o m p l i c a t e d , U n c o n t r o l l e d D i a b e t e s M e l l i t u s T y p e 2 - U n c o m p l i c a t e d , U n c o n t r o l l e d D i a b e t e s M e l l i t u s T y p e 2 - U n c o m p l i c a t e d , U n c o n t r o l l e d Chronic Obstructive Pulmonary Disease Essential Hypertension Benign Chronic Obstructive Pulmonary Disease Essential Hypertension Benign Chronic Obstructive Pulmonary Disease Essential Hypertension Benign Chronic Obstructive Pulmonary Disease Essential Hypertension Benign Chronic Obstructive Pulmonary Disease Essential Hypertension Benign Chronic Obstructive Pulmonary Disease Essential Hypertension Benign Chronic Obstructive Pulmonary Disease Essential Hypertension Benign Chronic Obstructive Pulmonary Disease Essential Hypertension Benign Chronic Obstructive Pulmonary Disease Essential Hypertension Benign Chronic Obstructive Pulmonary Disease Essential Hypertension Benign Chronic Obstructive Pulmonary Disease Essential Hypertension Benign Chronic Obstructive Pulmonary Disease Essential Hypertension Benign Chronic Obstructive Pulmonary Disease Essential Hypertension Benign Chronic Obstructive Pulmonary Disease Essential Hypertension Benign Chronic Obstructive Pulmonary Disease Essential Hypertension Benign Chronic Obstructive Pulmonary Disease Essential Hypertension Benign Chronic Obstructive Pulmonary Disease Essential Hypertension Benign Hyperlipidemia Hyperlipidemia Hyperlipidemia Hyperlipidemia Hyperlipidemia Hyperlipidemia Hyperlipidemia Hyperlipidemia Hyperlipidemia Hyperlipidemia Hyperlipidemia Hyperlipidemia Hyperlipidemia Hyperlipidemia Hyperlipidemia Hyperlipidemia Hyperlipidemia Diabetes Mellitus Type 2 - Uncomplicated , 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 , 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 , 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 , 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 , 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 , 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 , 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 , 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 , 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 , 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 , 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 , 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 , 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 , 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 , 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 , 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 , Uncontrolled Outpatient<td ID="[id number]">OFFICE Attender: Jimbo Triplett 11/04/2016 Essential Hypertension BenignEssential H ypertension BenignEssential Hypertension BenignEssential Hypertension BenignEssential Hypertension BenignEssential Hypertension BenignEssential Hypertension BenignEssential [facility]SE VISIT</td><td>TRAE UNDERWOOD MD</td><td>[facility] 04:00:00 PM Hypertension BenignEssential Hypertensio n BenignEssential Hypertension BenignEssential Hypertension BenignEssential Hypertension BenignEssential Hypertension BenignEssential Hypertension BenignEssential Hypertension ([facility] EDT - BenignE ssential Hypertension BenignEssential Hypertension [facility]</td><td>11/04/2016</td><td><content 11/04/2016 BenignHyperlipidemiaHyperlipidemiaHyperlipidemiaHyperlipidemiaHyperlipidemiaHype iaHyperlipidemiaBer[facility] ID="[id number]">Diabetes Mellitus Type 2 - 02:20:08 PM yperlipidemiaHyperlipidemiaNoncompliance with Medical TreatmentNoncompliance with Medical TreatmentNoncompliance with Medical TreatmentNoncompliance with Medical TreatmentNoncompliance with Medical Center) Uncomplicated, Uncontrolled</content>, <content EDT TreatmentNoncompliance with Medical TreatmentNoncompliance with Medical TreatmentNoncompliance with Medical TreatmentNoncompliance with Medical TreatmentNoncompliance with Medical TreatmentNoncompliance with Medical ID="[id number]">Essential Hypertension TreatmentNoncompliance with Medical TreatmentNoncompliance with Medical TreatmentNoncompliance with Medical TreatmentNoncompliance with Medical TreatmentNoncompliance with Medical TreatmentNoncompliance with Medical Benign</content>, <content T reatmentDiabetes Mellitus Type 2 - Uncomplicated, UncontrolledDiabetes Mellitus Type 2 - Uncomplicated, UncontrolledDiabetes Mellitus Type 2 - Uncomplicated, UncontrolledDiabetes Mellitus Type 2 - Un complicated, [id number]">Hyperlipidemia</content>, UncontrolledDiabetes Mellitus Type 2 - Uncomplicated, UncontrolledDiabetes Mellitus Type 2 - Uncomplicated, UncontrolledDiabetes Mellitus Type 2 - Uncomplicated, UncontrolledDiabetes Mellitus Type 2 - Uncomplicated, <content ID="[id number]">Noncompliance UncontrolledDiabetes Mellitus Type 2 - Uncomplicated, UncontrolledDiabetes Mellitus Type 2 - Uncomplicated, UncontrolledDiabetes Mellitus Type 2 - Uncomplicated, UncontrolledDiabetes Mellitus Type 2 - Uncomplicated, with Medical Treatment</content></td> UncontrolledDiabetes Mellitus Type 2 - Uncomplicated, UncontrolledDiabetes Mellitus Type 2 - Uncomplicated, UncontrolledDiabetes Mellitus Type 2 - Uncomplicated, UncontrolledDiabetes Mellitus Type 2 - Uncomplicated, UncontrolledDiabetes Pam itus Type 2 - Uncomplicated, Uncontrolled Essential Hypertension 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 Hypertension Benign Hyperlipidemia Hyperlipidemia Hyperlipidemia Hyperlipidemia Hyperlipidemia Hyperlipidemia Hyperlipidemia Hyperlipidemia Hyperlipidemia Hyperlipidemia Hyperlipidemia Hyperlipidemia Hyperlipidemia Hyperlipidemia Hyperlipidemia Hyperlipidemia Hyperlipidemia Noncompliance with Medical Treatment Noncompliance with Medical Treatment Noncompliance with Medical Treatment Noncompliance with Medical Treatment Noncompliance with Medical Treatment Noncompliance with Medical Treatment Noncompliance with Medical Treatment Noncompliance with Medical Treatment Noncompliance with Medical Treatment Noncompliance with Medical Treatment Noncompliance with Medical Treatment Noncompliance with Medical Treatment Noncompliance with Medical Treatment Noncompliance with Medical Treatment Noncompliance with Medical Treatment Noncompliance with Medical Treatment Noncompliance with Medical Treatment Diabetes Mellitus Type 2 - Uncomplicated , 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 , 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 , 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 , 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 , 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 , 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 , 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 , 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 , 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 , 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 , 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 , 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 , 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 , 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 , 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 , 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 , Uncontrolled Outpatient<td Attender: Jimbo Triplett 10/29/2016 [place] ID="[id number]">*[facility] Trae Traci 11:2 3:00 AM (Jimbo Triplett Update*</td><td>TRAE [facility] EDT - Traci [place]</td><td>Jimbo Aviles 10/29/2016 Health Health 11:59:00 PM Center) Center</td><td>10/29/2016</td><td></td> EDT Outpatient<td Attender: Jimbo Triplett 09/14/2016 Oralia GARCIA ID="[id number]">OFFICE Trae [place] 05:3 0:00 PM s ([place] VISIT</td><td>TRAE UNDERWOOD [facility] EDT - s Neighborhood </td><td>[facility] 09/14/2016 e Health Health 06:53:22 PM n Center) Center</td><td>09/14/2016</td><td><conten EDT t t ID="[id number]">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, a Uncontrolled</content>, <content l ID="[id number]">Essential H Hypertension Benign</content>, <content y ID="[id number]">Hyperlipide p roberto carlos</content>, <content e ID="[id number]">Overweight< r /content></td> t e n s i o n B e n i g n E s s e n t i a l H y p e r t e n s i o n B e n i g n E s s e n t i a l H y p e r t e n s i o n B e n i g n E s s e n t i a l H y p e r t e n s i o n B e n i g n E s s e n t i a l H y p e r t e n s i o n B e n i g n E s s e n t i a l H y p e r t e n s i o n B e n i g n E s s e n t i a l H y p e r t e n s i o n B e n i g n E s s e n t i a l H y p e r t e n s i o n B e n i g n E s s e n t i a l H y p e r t e n s i o n B e n i g n E s s e n t i a l H y p e r t e n s i o n B e n i g n E s s e n t i a l H y p e r t e n s i o n B e n i g n E s s e n t i a l H y p e r t e n s i o n B e n i g n E s s e n t i a l H y p e r t e n s i o n B e n i g n E s s e n t i a l H y p e r t e n s i o n B e n i g n E s s e n t i a l H y p e r t e n s i o n B e n i g n E s s e n t i a l H y p e r t e n s i o n B e n i g n E s s e n t i a l H y p e r t e n s i o n B e n i g n H y p e r l i p i d e m i a H y p e r l i p i d e m i a H y p e r l i p i d e m i a H y p e r l i p i d e m i a H y p e r l i p i d e m i a H y p e r l i p i d e m i a H y p e r l i p i d e m i a H y p e r l i p i d e m i a H y p e r l i p i d e m i a H y p e r l i p i d e m i a H y p e r l i p i d e m i a H y p e r l i p i d e m i a H y p e r l i p i d e m i a H y p e r l i p i d e m i a H y p e r l i p i d e m i a H y p e r l i p i d e m i a H y p e r l i p i d e m i a O v e r w e i g h t O v e r w e i g h t O v e r w e i g h t O v e r w e i g h t O v e r w e i g h t O v e r w e i g h t O v e r w e i g h t O v e r w e i g h t O v e r w e i g h t O v e r w e i g h t O v e r w e i g h t O v e r w e i g h t O v e r w e i g h t O v e r w e i g h t O v e r w e i g h t O v e r w e i g h t O v e r w e i g h t D i a b e t e s M e l l i t u s T y p e 2 - U n c o m p l i c a t e d , U n c o n t r o l l e d D i a b e t e s M e l l i t u s T y p e 2 - U n c o m p l i c a t e d , U n c o n t r o l l e d D i a b e t e s M e l l i t u s T y p e 2 - U n c o m p l i c a t e d , U n c o n t r o l l e d D i a b e t e s M e l l i t u s T y p e 2 - U n c o m p l i c a t e d , U n c o n t r o l l e d D i a b e t e s M e l l i t u s T y p e 2 - U n c o m p l i c a t e d , U n c o n t r o l l e d D i a b e t e s M e l l i t u s T y p e 2 - U n c o m p l i c a t e d , U n c o n t r o l l e d D i a b e t e s M e l l i t u s T y p e 2 - U n c o m p l i c a t e d , U n c o n t r o l l e d D i a b e t e s M e l l i t u s T y p e 2 - U n c o m p l i c a t e d , U n c o n t r o l l e d D i a b e t e s M e l l i t u s T y p e 2 - U n c o m p l i c a t e d , U n c o n t r o l l e d D i a b e t e s M e l l i t u s T y p e 2 - U n c o m p l i c a t e d , U n c o n t r o l l e d D i a b e t e s M e l l i t u s T y p e 2 - U n c o m p l i c a t e d , U n c o n t r o l l e d D i a b e t e s M e l l i t u s T y p e 2 - U n c o m p l i c a t e d , U n c o n t r o l l e d D i a b e t e s M e l l i t u s T y p e 2 - U n c o m p l i c a t e d , U n c o n t r o l l e d D i a b e t e s M e l l i t u s T y p e 2 - U n c o m p l i c a t e d , U n c o n t r o l l e d D i a b e t e s M e l l i t u s T y p e 2 - U n c o m p l i c a t e d , U n c o n t r o l l e d D i a b e t e s M e l l i t u s T y p e 2 - U n c o m p l i c a t e d , U n c o n t r o l l e d D i a b e t e s M e l l i t u s T y p e 2 - U n c o m p l i c a t e d , U n c o n t r o l l e d Essential Hypertension 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 Hypertension Benign Hyperlipidemia Hyperlipidemia Hyperlipidemia Hyperlipidemia Hyperlipidemia Hyperlipidemia Hyperlipidemia Hyperlipidemia Hyperlipidemia Hyperlipidemia Hyperlipidemia Hyperlipidemia Hyperlipidemia Hyperlipidemia Hyperlipidemia Hyperlipidemia Hyperlipidemia Overweight Overweight Overweight Overweight Overweight Overweight Overweight Overweight Overweight Overweight Overweight Overweight Overweight Overweight Overweight Overweight Overweight Diabetes Mellitus Type 2 - Uncomplicated , 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 , 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 , 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 , 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 , 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 , 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 , 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 , 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 , 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 , 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 , 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 , 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 , 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 , 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 , 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 , 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 , Uncontrolled Outpatient<td Attender: Jimbo Triplett 09/07/2016 [place] ID="[id number]">*No NAHUM [facility] 05:36:0 0 PM (Jimbo Triplett Show*</td><td>[facility] EDT - Neighborhood RD</td><td>Jimbo Triplett [facility] 09/07/2016 [facility] Health 11:59:00 PM Center) Center</td><td>09/07/2016</td><td></td> EDT Outpatient<td Attender: 08/27/2016 [place] ID="[id number]">*JAMEL Sheppard 05:20: 00 PM ([place] [facility]*</td><td>TRAE UNDERWOOD MD</td><td> Kj EDT - Neighborhood 08/27/2016 [facility] </td><td>08/27/2016</td><td></td> 11:59:00 PM Center) EDT Outpatient<td Attender: Jimbo Triplett 08/24/2016 [place] ID="[id number]">MIGUEL JACOB [facility] 02:5 8:00 PM (Jimbo Triplett T NAVIGATION</td><td>[facility] EDT - Neighborhood Patient Navigator</td><td>Jimbo Triplett 08/25/[address] [facility] Health 11:59:00 PM Cent ) Center</td><td>08/24/2016</td><td></td> EDT Outpatient<td Attender: [place] 08/24/2016 E JOSE ID="[id number]">OFFICE Trae [facility] 12:4 5:00 PM s (Jimbo Triplett VISIT</td><td>TRAE UNDERWOOD [facility] EDT - s Neighborhood </td><td>[place] [facility] 08/24/2016 e [facility] Health 02:32:51 PM n Center) [place]</td><td>08/24/2016</td><td><doug EDT t nt i ID="[id number]">Diabetes a Mellitus Type 2 - Uncomplicated, l Uncontrolled</content>, <content H ID="[id number]">Essential y Hypertension Benign</content>, <content p ID="[id number]">Hyperlipid e emia</content>, <content r ID="[id number]">Noncomplia t nce with Medical Treatment</content>, e <content n ID="[id number]">Overweight s </content></td> i o n B e n i g n E s s e n t i a l H y p e r t e n s i o n B e n i g n E s s e n t i a l H y p e r t e n s i o n B e n i g n E s s e n t i a l H y p e r t e n s i o n B e n i g n E s s e n t i a l H y p e r t e n s i o n B e n i g n E s s e n t i a l H y p e r t e n s i o n B e n i g n E s s e n t i a l H y p e r t e n s i o n B e n i g n E s s e n t i a l H y p e r t e n s i o n B e n i g n E s s e n t i a l H y p e r t e n s i o n B e n i g n E s s e n t i a l H y p e r t e n s i o n B e n i g n E s s e n t i a l H y p e r t e n s i o n B e n i g n E s s e n t i a l H y p e r t e n s i o n B e n i g n E s s e n t i a l H y p e r t e n s i o n B e n i g n E s s e n t i a l H y p e r t e n s i o n B e n i g n E s s e n t i a l H y p e r t e n s i o n B e n i g n E s s e n t i a l H y p e r t e n s i o n B e n i g n E s s e n t i a l H y p e r t e n s i o n B e n i g n H y p e r l i p i d e m i a H y p e r l i p i d e m i a H y p e r l i p i d e m i a H y p e r l i p i d e m i a H y p e r l i p i d e m i a H y p e r l i p i d e m i a H y p e r l i p i d e m i a H y p e r l i p i d e m i a H y p e r l i p i d e m i a H y p e r l i p i d e m i a H y p e r l i p i d e m i a H y p e r l i p i d e m i a H y p e r l i p i d e m i a H y p e r l i p i d e m i a H y p e r l i p i d e m i a H y p e r l i p i d e m i a H y p e r l i p i d e m i a O v e r w e i g h t N o n c o m p l i a n c e w i t h M e d i c a l T r e a t m e n t O v e r w e i g h t N o n c o m p l i a n c e w i t h M e d i c a l T r e a t m e n t O v e r w e i g h t N o n c o m p l i a n c e w i t h M e d i c a l T r e a t m e n t O v e r w e i g h t N o n c o m p l i a n c e w i t h M e d i c a l T r e a t m e n t O v e r w e i g h t N o n c o m p l i a n c e w i t h M e d i c a l T r e a t m e n t O v e r w e i g h t N o n c o m p l i a n c e w i t h M e d i c a l T r e a t m e n t O v e r w e i g h t N o n c o m p l i a n c e w i t h M e d i c a l T r e a t m e n t O v e r w e i g h t N o n c o m p l i a n c e w i t h M e d i c a l T r e a t m e n t O v e r w e i g h t N o n c o m p l i a n c e w i t h M e d i c a l T r e a t m e n t O v e r w e i g h t N o n c o m p l i a n c e w i t h M e d i c a l T r e a t m e n t O v e r w e i g h t N o n c o m p l i a n c e w i t h M e d i c a l T r e a t m e n t O v e r w e i g h t N o n c o m p l i a n c e w i t h M e d i c a l T r e a t m e n t O v e r w e i g h t N o n c o m p l i a n c e w i t h M e d i c a l T r e a t m e n t O v e r w e i g h t N o n c o m p l i a n c e w i t h M e d i c a l T r e a t m e n t O v e r w e i g h t N o n c o m p l i a n c e w i t h M e d i c a l T r e a t m e n t O v e r w e i g h t N o n c o m p l i a n c e w i t h M e d i c a l T r e a t m e n t O v e r w e i g h t N o n c o m p l i a n c e w i t h M e d i c a l T r e a t m e n t D i a b e t e s M e l l i t u s T y p e 2 - U n c o m p l i c a t e d , U n c o n t r o l l e d D i a b e t e s M e l l i t u s T y p e 2 - U n c o m p l i c a t e d , U n c o n t r o l l e d D i a b e t e s M e l l i t u s T y p e 2 - U n c o m p l i c a t e d , U n c o n t r o l l e d D i a b e t e s M e l l i t u s T y p e 2 - U n c o m p l i c a t e d , U n c o n t r o l l e d D i a b e t e s M e l l i t u s T y p e 2 - U n c o m p l i c a t e d , U n c o n t r o l l e d D i a b e t e s M e l l i t u s T y p e 2 - U n c o m p l i c a t e d , U n c o n t r o l l e d D i a b e t e s M e l l i t u s T y p e 2 - U n c o m p l i c a t e d , U n c o n t r o l l e d D i a b e t e s M e l l i t u s T y p e 2 - U n c o m p l i c a t e d , U n c o n t r o l l e d D i a b e t e s M e l l i t u s T y p e 2 - U n c o m p l i c a t e d , U n c o n t r o l l e d D i a b e t e s M e l l i t u s T y p e 2 - U n c o m p l i c a t e d , U n c o n t r o l l e d D i a b e t e s M e l l i t u s T y p e 2 - U n c o m p l i c a t e d , U n c o n t r o l l e d D i a b e t e s M e l l i t u s T y p e 2 - U n c o m p l i c a t e d , U n c o n t r o l l e d D i a b e t e s M e l l i t u s T y p e 2 - U n c o m p l i c a t e d , U n c o n t r o l l e d D i a b e t e s M e l l i t u s T y p e 2 - U n c o m p l i c a t e d , U n c o n t r o l l e d D i a b e t e s M e l l i t u s T y p e 2 - U n c o m p l i c a t e d , U n c o n t r o l l e d D i a b e t e s M e l l i t u s T y p e 2 - U n c o m p l i c a t e d , U n c o n t r o l l e d D i a b e t e s M e l l i t u s T y p e 2 - U n c o m p l i c a t e d , U n c o n t r o l l e d Essential Hypertension 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 Hypertension Benign Hyperlipidemia Hyperlipidemia Hyperlipidemia Hyperlipidemia Hyperlipidemia Hyperlipidemia Hyperlipidemia Hyperlipidemia Hyperlipidemia Hyperlipidemia Hyperlipidemia Hyperlipidemia Hyperlipidemia Hyperlipidemia Hyperlipidemia Hyperlipidemia Hyperlipidemia Overweight Noncompliance with Medical Treatment Overweight Noncompliance with Medical Treatment Overweight Noncompliance with Medical Treatment Overweight Noncompliance with Medical Treatment Overweight Noncompliance with Medical Treatment Overweight Noncompliance with Medical Treatment Overweight Noncompliance with Medical Treatment Overweight Noncompliance with Medical Treatment Overweight Noncompliance with Medical Treatment Overweight Noncompliance with Medical Treatment Overweight Noncompliance with Medical Treatment Overweight Noncompliance with Medical Treatment Overweight Noncompliance with Medical Treatment Overweight Noncompliance with Medical Treatment Overweight Noncompliance with Medical Treatment Overweight Noncompliance with Medical Treatment Overweight Noncompliance with Medical Treatment Diabetes Mellitus Type 2 - Uncomplicated , 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 , 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 , 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 , 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 , 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 , 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 , 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 , 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 , 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 , 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 , 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 , 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 , 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 , 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 , 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 , 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 , Uncontrolled Outpatient<td ID="[id number]">OFFICE Attender: [place] 12/31/2015 PresbyopiaPresbyopiaPresbyopiaPresbyopiaPresbyopiaPresbyopiaPresbyopiaPresbyopia PresbyopiaPresbyopiaPresbyopiaPresbyopiaPresbyopiaPresbyopiaPresbyopiaPresbyopia Presbyopia JOSE VISIT</td><td>MELINA WHYTE MD</td><td>[facility] 03:00:00 PM ([facility] EDT - [facility]</td><td>12/31/2015</td><td><content MD 07/2015 Health ID="[id number]">Presbyopia</content></td> 04:45:08 PM Center) EDT Presbyopia Presbyopia Presbyopia Presbyopia Presbyopia Presbyopia Presbyopia Presbyopia Presbyopia Presbyopia Presbyopia Presbyopia Presbyopia Presbyopia Presbyopia Presbyopia Presbyopia Outpatient<td ID="[id number]">OFFICE Attender: Jimbo Triplett 12/24/2015 PresbyopiaPresbyopiaPresbyopiaPresbyopiaPresbyopiaPresbyopiaPresbyopiaPresbyopia PresbyopiaPresbyopiaPresbyopiaPresbyopiaPresbyopiaPresbyopiaPresbyopiaPresbyopia Presbyopia JOSE VISIT</td><td>MELINA WHYTE MD</td><td>[facility] 03:00:00 PM ([facility] EDT - Ne [facility]</td><td>12/24/2015</td><td><content MD 11/29 Health ID="[id number]">Presbyopia</content></td> 05:13:33 PM Center) EDT Presbyopia Presbyopia Presbyopia Presbyopia Presbyopia Presbyopia Presbyopia Presbyopia Presbyopia Presbyopia Presbyopia Presbyopia Presbyopia Presbyopia Presbyopia Presbyopia Presbyopia Outpatient<td Attender: [place] 11/18/2015 JOSE ID="[id number]">PATIENT YONATAN [place] 07: 10:00 PM ([place] NAVIGATION</td><td>YONATAN [facility] EDT - [facility] BREEZY</td><td>[facility] [place]REEZ[place] [address] [place] [address] Health 11:59:00 PM Center) Center</td><td>11/18/2015</td><td></td> EDT Outpatient<td Attender: [place] 11/18/2015 [place] ID="[id number]">WALKINS< Trae [facility] 04 :00:00 PM u ([place] /td><td>TRAE UNDERWOOD MD</td><td>[facility] 11/18/2015 [facility]</td><td>11/18/2015</td><td><content 07:3 6:45 PM [facility]) ID="[id number]">Diabetes EDT a Mellitus Type 2 - Uncomplicated, s Uncontrolled</content>, <content s ID="[id number]">Essential E Hypertension Benign</content>, <content s ID="[id number]">Hyperlipidem s ia</content>, <content e ID="[id number]">Noncomplianc n e with Medical Treatment</content>, t <content i ID="[id number]">Chronic a Obstructive Pulmonary Disease</content>, l <content H ID="[id number]">Chronic y Sinusitis - Maxillary</content>, <content p ID="[id number]">Diabetes e Mellitus Type 2 - Uncomplicated, r Uncontrolled</content>, <content t ID="[id number]">Essential e Hypertension Benign</content>, <content n ID="[id number]">Hyperlipidem s ia</content>, <content i ID="[id number]">Lung o Mass</content></td> n B e n i g n C h r o n i c S i n u s i t i s - M a x i l l a r y C h r o n i c O b s t r u c t i v e P u l m o n a r y D i s e a s e E s s e n t i a l H y p e r t e n s i o n B e n i g n L u n g M a s s E s s e n t i a l H y p e r t e n s i o n B e n i g n C h r o n i c S i n u s i t i s - M a x i l l a r y C h r o n i c O b s t r u c t i v e P u l m o n a r y D i s e a s e E s s e n t i a l H y p e r t e n s i o n B e n i g n L u n g M a s s E s s e n t i a l H y p e r t e n s i o n B e n i g n C h r o n i c S i n u s i t i s - M a x i l l a r y C h r o n i c O b s t r u c t i v e P u l m o n a r y D i s e a s e E s s e n t i a l H y p e r t e n s i o n B e n i g n L u n g M a s s E s s e n t i a l H y p e r t e n s i o n B e n i g n C h r o n i c S i n u s i t i s - M a x i l l a r y C h r o n i c O b s t r u c t i v e P u l m o n a r y D i s e a s e E s s e n t i a l H y p e r t e n s i o n B e n i g n L u n g M a s s E s s e n t i a l H y p e r t e n s i o n B e n i g n C h r o n i c S i n u s i t i s - M a x i l l a r y C h r o n i c O b s t r u c t i v e P u l m o n a r y D i s e a s e E s s e n t i a l H y p e r t e n s i o n B e n i g n L u n g M a s s E s s e n t i a l H y p e r t e n s i o n B e n i g n C h r o n i c S i n u s i t i s - M a x i l l a r y C h r o n i c O b s t r u c t i v e P u l m o n a r y D i s e a s e E s s e n t i a l H y p e r t e n s i o n B e n i g n L u n g M a s s E s s e n t i a l H y p e r t e n s i o n B e n i g n C h r o n i c S i n u s i t i s - M a x i l l a r y C h r o n i c O b s t r u c t i v e P u l m o n a r y D i s e a s e E s s e n t i a l H y p e r t e n s i o n B e n i g n L u n g M a s s E s s e n t i a l H y p e r t e n s i o n B e n i g n C h r o n i c S i n u s i t i s - M a x i l l a r y C h r o n i c O b s t r u c t i v e P u l m o n a r y D i s e a s e E s s e n t i a l H y p e r t e n s i o n B e n i g n L u n g M a s s E s s e n t i a l H y p e r t e n s i o n B e n i g n C h r o n i c S i n u s i t i s - M a x i l l a r y C h r o n i c O b s t r u c t i v e P u l m o n a r y D i s e a s e E s s e n t i a l H y p e r t e n s i o n B e n i g n L u n g M a s s E s s e n t i a l H y p e r t e n s i o n B e n i g n C h r o n i c S i n u s i t i s - M a x i l l a r y C h r o n i c O b s t r u c t i v e P u l m o n a r y D i s e a s e E s s e n t i a l H y p e r t e n s i o n B e n i g n L u n g M a s s E s s e n t i a l H y p e r t e n s i o n B e n i g n C h r o n i c S i n u s i t i s - M a x i l l a r y C h r o n i c O b s t r u c t i v e P u l m o n a r y D i s e a s e E s s e n t i a l H y p e r t e n s i o n B e n i g n L u n g M a s s E s s e n t i a l H y p e r t e n s i o n B e n i g n C h r o n i c S i n u s i t i s - M a x i l l a r y C h r o n i c O b s t r u c t i v e P u l m o n a r y D i s e a s e E s s e n t i a l H y p e r t e n s i o n B e n i g n L u n g M a s s E s s e n t i a l H y p e r t e n s i o n B e n i g n C h r o n i c S i n u s i t i s - M a x i l l a r y C h r o n i c O b s t r u c t i v e P u l m o n a r y D i s e a s e E s s e n t i a l H y p e r t e n s i o n B e n i g n L u n g M a s s E s s e n t i a l H y p e r t e n s i o n B e n i g n C h r o n i c S i n u s i t i s - M a x i l l a r y C h r o n i c O b s t r u c t i v e P u l m o n a r y D i s e a s e E s s e n t i a l H y p e r t e n s i o n B e n i g n L u n g M a s s E s s e n t i a l H y p e r t e n s i o n B e n i g n C h r o n i c S i n u s i t i s - M a x i l l a r y C h r o n i c O b s t r u c t i v e P u l m o n a r y D i s e a s e E s s e n t i a l H y p e r t e n s i o n B e n i g n L u n g M a s s E s s e n t i a l H y p e r t e n s i o n B e n i g n C h r o n i c S i n u s i t i s - M a x i l l a r y C h r o n i c O b s t r u c t i v e P u l m o n a r y D i s e a s e E s s e n t i a l H y p e r t e n s i o n B e n i g n L u n g M a s s E s s e n t i a l H y p e r t e n s i o n B e n i g n C h r o n i c S i n u s i t i s - M a x i l l a r y C h r o n i c O b s t r u c t i v e P u l m o n a r y D i s e a s e E s s e n t i a l H y p e r t e n s i o n B e n i g n H y p e r l i p i d e m i a H y p e r l i p i d e m i a H y p e r l i p i d e m i a H y p e r l i p i d e m i a H y p e r l i p i d e m i a H y p e r l i p i d e m i a H y p e r l i p i d e m i a H y p e r l i p i d e m i a H y p e r l i p i d e m i a H y p e r l i p i d e m i a H y p e r l i p i d e m i a H y p e r l i p i d e m i a H y p e r l i p i d e m i a H y p e r l i p i d e m i a H y p e r l i p i d e m i a H y p e r l i p i d e m i a H y p e r l i p i d e m i a H y p e r l i p i d e m i a H y p e r l i p i d e m i a H y p e r l i p i d e m i a H y p e r l i p i d e m i a H y p e r l i p i d e m i a H y p e r l i p i d e m i a H y p e r l i p i d e m i a H y p e r l i p i d e m i a H y p e r l i p i d e m i a H y p e r l i p i d e m i a H y p e r l i p i d e m i a H y p e r l i p i d e m i a H y p e r l i p i d e m i a H y p e r l i p i d e m i a H y p e r l i p i d e m i a H y p e r l i p i d e m i a H y p e r l i p i d e m i a N o n c o m p l i a n c e w i t h M e d i c a l T r e a t m e n t N o n c o m p l i a n c e w i t h M e d i c a l T r e a t m e n t N o n c o m p l i a n c e w i t h M e d i c a l T r e a t m e n t N o n c o m p l i a n c e w i t h M e d i c a l T r e a t m e n t N o n c o m p l i a n c e w i t h M e d i c a l T r e a t m e n t N o n c o m p l i a n c e w i t h M e d i c a l T r e a t m e n t N o n c o m p l i a n c e w i t h M e d i c a l T r e a t m e n t N o n c o m p l i a n c e w i t h M e d i c a l T r e a t m e n t N o n c o m p l i a n c e w i t h M e d i c a l T r e a t m e n t N o n c o m p l i a n c e w i t h M e d i c a l T r e a t m e n t N o n c o m p l i a n c e w i t h M e d i c a l T r e a t m e n t N o n c o m p l i a n c e w i t h M e d i c a l T r e a t m e n t N o n c o m p l i a n c e w i t h M e d i c a l T r e a t m e n t N o n c o m p l i a n c e w i t h M e d i c a l T r e a t m e n t N o n c o m p l i a n c e w i t h M e d i c a l T r e a t m e n t N o n c o m p l i a n c e w i t h M e d i c a l T r e a t m e n t N o n c o m p l i a n c e w i t h M e d i c a l T r e a t m e n t D i a b e t e s M e l l i t u s T y p e 2 - U n c o m p l i c a t e d , U n c o n t r o l l e d D i a b e t e s M e l l i t u s T y p e 2 - U n c o m p l i c a t e d , U n c o n t r o l l e d D i a b e t e s M e l l i t u s T y p e 2 - U n c o m p l i c a t e d , U n c o n t r o l l e d D i a b e t e s M e l l i t u s T y p e 2 - U n c o m p l i c a t e d , U n c o n t r o l l e d D i a b e t e s M e l l i t u s T y p e 2 - U n c o m p l i c a t e d , U n c o n t r o l l e d D i a b e t e s M e l l i t u s T y p e 2 - U n c o m p l i c a t e d , U n c o n t r o l l e d D i a b e t e s M e l l i t u s T y p e 2 - U n c o m p l i c a t e d , U n c o n t r o l l e d D i a b e t e s M e l l i t u s T y p e 2 - U n c o m p l i c a t e d , U n c o n t r o l l e d D i a b e t e s M e l l i t u s T y p e 2 - U n c o m p l i c a t e d , U n c o n t r o l l e d D i a b e t e s M e l l i t u s T y p e 2 - U n c o m p l i c a t e d , U n c o n t r o l l e d D i a b e t e s M e l l i t u s T y p e 2 - U n c o m p l i c a t e d , U n c o n t r o l l e d D i a b e t e s M e l l i t u s T y p e 2 - U n c o m p l i c a t e d , U n c o n t r o l l e d D i a b e t e s M e l l i t u s T y p e 2 - U n c o m p l i c a t e d , U n c o n t r o l l e d D i a b e t e s M e l l i t u s T y p e 2 - U n c o m p l i c a t e d , U n c o n t r o l l e d D i a b e t e s M e l l i t u s T y p e 2 - U n c o m p l i c a t e d , U n c o n t r o l l e d D i a b e t e s M e l l i t u s T y p e 2 - U n c o m p l i c a t e d , U n c o n t r o l l e d D i a b e t e s M e l l i t u s T y p e 2 - U n c o m p l i c a t e d , U n c o n t r o l l e d D i a b e t e s M e l l i t u s T y p e 2 - U n c o m p l i c a t e d , U n c o n t r o l l e d D i a b e t e s M e l l i t u s T y p e 2 - U n c o m p l i c a t e d , U n c o n t r o l l e d D i a b e t e s M e l l i t u s T y p e 2 - U n c o m p l i c a t e d , U n c o n t r o l l e d D i a b e t e s M e l l i t u s T y p e 2 - U n c o m p l i c a t e d , U n c o n t r o l l e d D i a b e t e s M e l l i t u s T y p e 2 - U n c o m p l i c a t e d , U n c o n t r o l l e d D i a b e t e s M e l l i t u s T y p e 2 - U n c o m p l i c a t e d , U n c o n t r o l l e d D i a b e t e s M e l l i t u s T y p e 2 - U n c o m p l i c a t e d , U n c o n t r o l l e d D i a b e t e s M e l l i t u s T y p e 2 - U n c o m p l i c a t e d , U n c o n t r o l l e d D i a b e t e s M e l l i t u s T y p e 2 - U n c o m p l i c a t e d , U n c o n t r o l l e d D i a b e t e s M e l l i t u s T y p e 2 - U n c o m p l i c a t e d , U n c o n t r o l l e d D i a b e t e s M e l l i t u s T y p e 2 - U n c o m p l i c a t e d , U n c o n t r o l l e d D i a b e t e s M e l l i t u s T y p e 2 - U n c o m p l i c a t e d , U n c o n t r o l l e d D i a b e t e s M e l l i t u s T y p e 2 - U n c o m p l i c a t e d , U n c o n t r o l l e d D i a b e t e s M e l l i t u s T y p e 2 - U n c o m p l i c a t e d , U n c o n t r o l l e d D i a b e t e s M e l l i t u s T y p e 2 - U n c o m p l i c a t e d , U n c o n t r o l l e d D i a b e t e s M e l l i t u s T y p e 2 - U n c o m p l i c a t e d , U n c o n t r o l l e d D i a b e t e s M e l l i t u s T y p e 2 - U n c o m p l i c a t e d , U n c o n t r o l l e d Lung Mass Essential Hypertension 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 Essential Hypertension Benign Lung Mass Essential Hypertension 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 Essential Hypertension Benign Lung Mass Essential Hypertension 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 Essential Hypertension Benign Lung Mass Essential Hypertension 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 Essential Hypertension Benign Lung Mass Essential Hypertension 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 Essential Hypertension Benign Lung Mass Essential Hypertension 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 Essential Hypertension Benign Lung Mass Essential Hypertension 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 Essential Hypertension Benign Lung Mass Essential Hypertension 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 Essential Hypertension Benign Lung Mass Essential Hypertension 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 Essential Hypertension Benign Lung Mass Essential Hypertension 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 Essential Hypertension Benign Lung Mass Essential Hypertension 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 Essential Hypertension Benign Lung Mass Essential Hypertension 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 Essential Hypertension Benign Lung Mass Essential Hypertension 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 Essential Hypertension Benign Lung Mass Essential Hypertension 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 Essential Hypertension Benign Lung Mass Essential Hypertension 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 Essential Hypertension Benign Lung Mass Essential Hypertension 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 Essential Hypertension Benign Lung Mass Essential Hypertension 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 Essential Hypertension Benign Hyperlipidemia Hyperlipidemia Hyperlipidemia Hyperlipidemia Hyperlipidemia Hyperlipidemia Hyperlipidemia Hyperlipidemia Hyperlipidemia Hyperlipidemia Hyperlipidemia Hyperlipidemia Hyperlipidemia Hyperlipidemia Hyperlipidemia Hyperlipidemia Hyperlipidemia Hyperlipidemia Hyperlipidemia Hyperlipidemia Hyperlipidemia Hyperlipidemia Hyperlipidemia Hyperlipidemia Hyperlipidemia Hyperlipidemia Hyperlipidemia Hyperlipidemia Hyperlipidemia Hyperlipidemia Hyperlipidemia Hyperlipidemia Hyperlipidemia Hyperlipidemia Noncompliance with Medical Treatment Noncompliance with Medical Treatment Noncompliance with Medical Treatment Noncompliance with Medical Treatment Noncompliance with Medical Treatment Noncompliance with Medical Treatment Noncompliance with Medical Treatment Noncompliance with Medical Treatment Noncompliance with Medical Treatment Noncompliance with Medical Treatment Noncompliance with Medical Treatment Noncompliance with Medical Treatment Noncompliance with Medical Treatment Noncompliance with Medical Treatment Noncompliance with Medical Treatment Noncompliance with Medical Treatment Noncompliance with Medical Treatment Diabetes Mellitus Type 2 - Uncomplicated , 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 , 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 , 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 , 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 , 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 , 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 , 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 , 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 , 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 , 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 , 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 , 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 , 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 , 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 , 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 , 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 , 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 , 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 , 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 , 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 , 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 , 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 , 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 , 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 , 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 , 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 , 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 , 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 , 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 , 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 , 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 , 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 , 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 , Uncontrolled Outpatient<td Attender: 11/08/2015 [employer] ID="[id number]">*OUTREACH*</td><td>TRAE Sheppard 05:25:00 PM (Jimbo UNDERWOOD MD</td><td> Kj [facility]ASSITERT - [facility] </td><td>11/08/2015</td><td></td> 11/08/2015 Health 11:59:00 PM [place]) EDT Outpatient<td ID="[id number]">[Patient Attender: 10/25/2015 [employer] Encounter]</td><td>PHIL MONROY MD</td><td>Jimbo VILLARREAL o 04:34:00 PM ([facility]</td><td>10/25/2015</td><td></td> ELIANA SUMMERS u EDT - [facility] n 10/25/2015 Health t 11:59:00 PM [place]) V EDT e r n o n N e i g h b o r h o o d H e a l t h C e n t e r Outpatient<td ID="[id number]">COMPLETE Attender: 10/21/2015 [facility] PHYSICAL EXAM</td><td>TRAE UNDERWOOD MD</td><td>Jimbo Sheppard [facility] 02:30:00 [facility]</td><td>10/21/2015</td><td><content n 09/29 e Health ID="[id number]">Diabetes Mellitus Type 2 - t 06:11:13 PM n Center) Uncomplicated, Uncontrolled</content>, <content V EDT t ID="[id number]">Essential Hypertension e i Benign</content>, <content r a ID="[id number]">Hyperlipidemia</content></td> n l o H n y N p e e i r g t h e b n o s r i h o o n o B d e H n e i a g l n t E h s C s e e n n t t e i r a l H y p e r t e n s i o n B e n i g n E s s e n t i a l H y p e r t e n s i o n B e n i g n E s s e n t i a l H y p e r t e n s i o n B e n i g n E s s e n t i a l H y p e r t e n s i o n B e n i g n E s s e n t i a l H y p e r t e n s i o n B e n i g n E s s e n t i a l H y p e r t e n s i o n B e n i g n E s s e n t i a l H y p e r t e n s i o n B e n i g n E s s e n t i a l H y p e r t e n s i o n B e n i g n E s s e n t i a l H y p e r t e n s i o n B e n i g n E s s e n t i a l H y p e r t e n s i o n B e n i g n E s s e n t i a l H y p e r t e n s i o n B e n i g n E s s e n t i a l H y p e r t e n s i o n B e n i g n E s s e n t i a l H y p e r t e n s i o n B e n i g n E s s e n t i a l H y p e r t e n s i o n B e n i g n E s s e n t i a l H y p e r t e n s i o n B e n i g n E s s e n t i a l H y p e r t e n s i o n B e n i g n H y p e r l i p i d e m i a H y p e r l i p i d e m i a H y p e r l i p i d e m i a H y p e r l i p i d e m i a H y p e r l i p i d e m i a H y p e r l i p i d e m i a H y p e r l i p i d e m i a H y p e r l i p i d e m i a H y p e r l i p i d e m i a H y p e r l i p i d e m i a H y p e r l i p i d e m i a H y p e r l i p i d e m i a H y p e r l i p i d e m i a H y p e r l i p i d e m i a H y p e r l i p i d e m i a H y p e r l i p i d e m i a H y p e r l i p i d e m i a D i a b e t e s M e l l i t u s T y p e 2 - U n c o m p l i c a t e d , U n c o n t r o l l e d D i a b e t e s M e l l i t u s T y p e 2 - U n c o m p l i c a t e d , U n c o n t r o l l e d D i a b e t e s M e l l i t u s T y p e 2 - U n c o m p l i c a t e d , U n c o n t r o l l e d D i a b e t e s M e l l i t u s T y p e 2 - U n c o m p l i c a t e d , U n c o n t r o l l e d D i a b e t e s M e l l i t u s T y p e 2 - U n c o m p l i c a t e d , U n c o n t r o l l e d D i a b e t e s M e l l i t u s T y p e 2 - U n c o m p l i c a t e d , U n c o n t r o l l e d D i a b e t e s M e l l i t u s T y p e 2 - U n c o m p l i c a t e d , U n c o n t r o l l e d D i a b e t e s M e l l i t u s T y p e 2 - U n c o m p l i c a t e d , U n c o n t r o l l e d D i a b e t e s M e l l i t u s T y p e 2 - U n c o m p l i c a t e d , U n c o n t r o l l e d D i a b e t e s M e l l i t u s T y p e 2 - U n c o m p l i c a t e d , U n c o n t r o l l e d D i a b e t e s M e l l i t u s T y p e 2 - U n c o m p l i c a t e d , U n c o n t r o l l e d D i a b e t e s M e l l i t u s T y p e 2 - U n c o m p l i c a t e d , U n c o n t r o l l e d D i a b e t e s M e l l i t u s T y p e 2 - U n c o m p l i c a t e d , U n c o n t r o l l e d D i a b e t e s M e l l i t u s T y p e 2 - U n c o m p l i c a t e d , U n c o n t r o l l e d D i a b e t e s M e l l i t u s T y p e 2 - U n c o m p l i c a t e d , U n c o n t r o l l e d D i a b e t e s M e l l i t u s T y p e 2 - U n c o m p l i c a t e d , U n c o n t r o l l e d D i a b e t e s M e l l i t u s T y p e 2 - U n c o m p l i c a t e d , U n c o n t r o l l e d Essential Hypertension 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 Hypertension Benign Hyperlipidemia Hyperlipidemia Hyperlipidemia Hyperlipidemia Hyperlipidemia Hyperlipidemia Hyperlipidemia Hyperlipidemia Hyperlipidemia Hyperlipidemia Hyperlipidemia Hyperlipidemia Hyperlipidemia Hyperlipidemia Hyperlipidemia Hyperlipidemia Hyperlipidemia Diabetes Mellitus Type 2 - Uncomplicated , 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 , 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 , 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 , 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 , 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 , 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 , 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 , 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 , 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 , 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 , 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 , 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 , 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 , 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 , 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 , 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 , Uncontrolled Outpatient<td Attender: Jimbo Triplett 08/29/2015 [place] (hordeolu m Externum) - Left EyeStye (hordeolum Externum) - Left EyeStye (hordeolum Externum) - [employer] ID="[id number]">LILIAINS</td><td>MIKKI [facility] 03:00:00 PM Left EyeStye (hordeolum Externum) - Left EyeStye (hordeolum Externum) - Left EyeStye (hordeolum ([facility] 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</td><td>[facility] EDT - Externum) - Left EyeStye (hordeolum Exte rnum) - Left EyeStye (hordeolum Externum) - Left EyeStye [facility]</td><td>08/29/2015</td><td><content 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 08/29/2015 (hordeolum Externum) - Left EyeStye (hordeolum Externum) - Left EyeStye (hordeolum Externum) - [facility] ID="[id number]">Stye (hordeolum Externum) 06:27:24 PM EyeStye (hordeolum Externum) - Left EyeStye (hordeolum Externum) - Left EyeStye (hordeolum Externum) Center) - Left Eye</content>, <content EDT - Left EyeStye (hordeolum Externum) - Left EyeStye (hordeolum Externum) - Left EyeStye (hordeolum ID="[id number]">Overweight</content></td> Externum) - Left EyeOverweightOverweightOverweightOverweightOverweightOverweightOverweightOverwei ghtOverweightOverweig htOverweightOverweightOve rweightOverweightOverweightOverweightOverweight Stye (hordeolum Externum) - Left Eye Stye (hordeolum Externum) - Left Eye Stye (hordeolum Externum) - Left Eye Stye (hordeolum Externum) - Left Eye Stye (hordeolum Externum) - Left Eye Stye (hordeolum Externum) - Left Eye Stye (hordeolum Externum) - Left Eye Stye (hordeolum Externum) - Left Eye Stye (hordeolum Externum) - Left Eye Stye (hordeolum Externum) - Left Eye Stye (hordeolum Externum) - Left Eye Stye (hordeolum Externum) - Left Eye Stye (hordeolum Externum) - Left Eye Stye (hordeolum Externum) - Left Eye Stye (hordeolum Externum) - Left Eye Stye (hordeolum Externum) - Left Eye Stye (hordeolum Externum) - Left Eye Overweight Overweight Overweight Overweight Overweight Overweight Overweight Overweight Overweight Overweight Overweight Overweight Overweight Overweight Overweight Overweight Overweight Outpatient<td Attender: [place] 07/26/2015 [employer] ID="[id number]">*No ROSIE [facility] 03:50:0 0 PM ([place] [facility]*</td><td>[facility] EST - Neighborhood </td><td>[facility] 07/26/2015 Health Health 11:59:00 PM Center) Center</td><td>07/26/2015</td><td></td> EST Outpatient<td Attender: [place] 04/23/2015 E [employer] ID="[id number]">PENNIE Sheppard [facility] 04:1 5:00 PM s ([facility]</td><td>TRAETALITA UNDEROWOD [facility] Center EST - s Neighborhood </td><td>[facility] 04/23/2015 e Health Health 04:42:02 PM n Center) Center</td><td>04/23/2015</td><td><doug EST t nt i ID="[id number]">Diabetes a Mellitus Type 2 - Uncomplicated, l Uncontrolled</content>, <content H ID="[id number]">Essential y Hypertension Benign</content>, <content p ID="[id number]">Hyperlipid e emia</content>, <content r ID="[id number]">Noncomplia t nce with Medical e Treatment</content></td> n s i o n B e n i g n E s s e n t i a l H y p e r t e n s i o n B e n i g n E s s e n t i a l H y p e r t e n s i o n B e n i g n E s s e n t i a l H y p e r t e n s i o n B e n i g n E s s e n t i a l H y p e r t e n s i o n B e n i g n E s s e n t i a l H y p e r t e n s i o n B e n i g n E s s e n t i a l H y p e r t e n s i o n B e n i g n E s s e n t i a l H y p e r t e n s i o n B e n i g n E s s e n t i a l H y p e r t e n s i o n B e n i g n E s s e n t i a l H y p e r t e n s i o n B e n i g n E s s e n t i a l H y p e r t e n s i o n B e n i g n E s s e n t i a l H y p e r t e n s i o n B e n i g n E s s e n t i a l H y p e r t e n s i o n B e n i g n E s s e n t i a l H y p e r t e n s i o n B e n i g n E s s e n t i a l H y p e r t e n s i o n B e n i g n E s s e n t i a l H y p e r t e n s i o n B e n i g n E s s e n t i a l H y p e r t e n s i o n B e n i g n H y p e r l i p i d e m i a H y p e r l i p i d e m i a H y p e r l i p i d e m i a H y p e r l i p i d e m i a H y p e r l i p i d e m i a H y p e r l i p i d e m i a H y p e r l i p i d e m i a H y p e r l i p i d e m i a H y p e r l i p i d e m i a H y p e r l i p i d e m i a H y p e r l i p i d e m i a H y p e r l i p i d e m i a H y p e r l i p i d e m i a H y p e r l i p i d e m i a H y p e r l i p i d e m i a H y p e r l i p i d e m i a H y p e r l i p i d e m i a N o n c o m p l i a n c e w i t h M e d i c a l T r e a t m e n t N o n c o m p l i a n c e w i t h M e d i c a l T r e a t m e n t N o n c o m p l i a n c e w i t h M e d i c a l T r e a t m e n t N o n c o m p l i a n c e w i t h M e d i c a l T r e a t m e n t N o n c o m p l i a n c e w i t h M e d i c a l T r e a t m e n t N o n c o m p l i a n c e w i t h M e d i c a l T r e a t m e n t N o n c o m p l i a n c e w i t h M e d i c a l T r e a t m e n t N o n c o m p l i a n c e w i t h M e d i c a l T r e a t m e n t N o n c o m p l i a n c e w i t h M e d i c a l T r e a t m e n t N o n c o m p l i a n c e w i t h M e d i c a l T r e a t m e n t N o n c o m p l i a n c e w i t h M e d i c a l T r e a t m e n t N o n c o m p l i a n c e w i t h M e d i c a l T r e a t m e n t N o n c o m p l i a n c e w i t h M e d i c a l T r e a t m e n t N o n c o m p l i a n c e w i t h M e d i c a l T r e a t m e n t N o n c o m p l i a n c e w i t h M e d i c a l T r e a t m e n t N o n c o m p l i a n c e w i t h M e d i c a l T r e a t m e n t N o n c o m p l i a n c e w i t h M e d i c a l T r e a t m e n t D i a b e t e s M e l l i t u s T y p e 2 - U n c o m p l i c a t e d , U n c o n t r o l l e d D i a b e t e s M e l l i t u s T y p e 2 - U n c o m p l i c a t e d , U n c o n t r o l l e d D i a b e t e s M e l l i t u s T y p e 2 - U n c o m p l i c a t e d , U n c o n t r o l l e d D i a b e t e s M e l l i t u s T y p e 2 - U n c o m p l i c a t e d , U n c o n t r o l l e d D i a b e t e s M e l l i t u s T y p e 2 - U n c o m p l i c a t e d , U n c o n t r o l l e d D i a b e t e s M e l l i t u s T y p e 2 - U n c o m p l i c a t e d , U n c o n t r o l l e d D i a b e t e s M e l l i t u s T y p e 2 - U n c o m p l i c a t e d , U n c o n t r o l l e d D i a b e t e s M e l l i t u s T y p e 2 - U n c o m p l i c a t e d , U n c o n t r o l l e d D i a b e t e s M e l l i t u s T y p e 2 - U n c o m p l i c a t e d , U n c o n t r o l l e d D i a b e t e s M e l l i t u s T y p e 2 - U n c o m p l i c a t e d , U n c o n t r o l l e d D i a b e t e s M e l l i t u s T y p e 2 - U n c o m p l i c a t e d , U n c o n t r o l l e d D i a b e t e s M e l l i t u s T y p e 2 - U n c o m p l i c a t e d , U n c o n t r o l l e d D i a b e t e s M e l l i t u s T y p e 2 - U n c o m p l i c a t e d , U n c o n t r o l l e d D i a b e t e s M e l l i t u s T y p e 2 - U n c o m p l i c a t e d , U n c o n t r o l l e d D i a b e t e s M e l l i t u s T y p e 2 - U n c o m p l i c a t e d , U n c o n t r o l l e d D i a b e t e s M e l l i t u s T y p e 2 - U n c o m p l i c a t e d , U n c o n t r o l l e d D i a b e t e s M e l l i t u s T y p e 2 - U n c o m p l i c a t e d , U n c o n t r o l l e d Essential Hypertension 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 Hypertension Benign Hyperlipidemia Hyperlipidemia Hyperlipidemia Hyperlipidemia Hyperlipidemia Hyperlipidemia Hyperlipidemia Hyperlipidemia Hyperlipidemia Hyperlipidemia Hyperlipidemia Hyperlipidemia Hyperlipidemia Hyperlipidemia Hyperlipidemia Hyperlipidemia Hyperlipidemia Noncompliance with Medical Treatment Noncompliance with Medical Treatment Noncompliance with Medical Treatment Noncompliance with Medical Treatment Noncompliance with Medical Treatment Noncompliance with Medical Treatment Noncompliance with Medical Treatment Noncompliance with Medical Treatment Noncompliance with Medical Treatment Noncompliance with Medical Treatment Noncompliance with Medical Treatment Noncompliance with Medical Treatment Noncompliance with Medical Treatment Noncompliance with Medical Treatment Noncompliance with Medical Treatment Noncompliance with Medical Treatment Noncompliance with Medical Treatment Diabetes Mellitus Type 2 - Uncomplicated , 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 , 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 , 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 , 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 , 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 , Uncontrolled Diabetes Mellitus Type 2 - Uncomplicated , Uncontrolled Diabetes Mellitus Type 2 - Uncomplicated , Uncontrolled Diabetes Mellitus Type 2 - Uncomplicated , Uncontrolled Diabetes Mellitus Type 2 - Uncomplicated , Uncontrolled Diabetes Mellitus Type 2 - Uncomplicated , Uncontrolled Diabetes Mellitus Type 2 - Uncomplicated , Uncontrolled Diabetes Mellitus Type 2 - Uncomplicated , Uncontrolled Diabetes Mellitus Type 2 - Uncomplicated , Uncontrolled Diabetes Mellitus Type 2 - Uncomplicated , Uncontrolled Diabetes Mellitus Type 2 - Uncomplicated , Uncontrolled Diabetes Mellitus Type 2 - Uncomplicated , Uncontrolled Outpatient<td Attender: Jimbo Triplett 04/15/2015 JOSE ID="[id number]">*[facility] 02:4 9:00 PM ([place] Update*</td><td>[facility] EST - Neighborhood MD</td><td>[facility] 04/15/2015 Health Health 11:59:00 PM Center) Center</td><td>04/15/2015</td><td></td> EST Outpatient<td Attender: Jimbo Triplett 03/25/2015 JOSE ID="[id number]">PATIENT YONATAN [place] 12: 34:00 PM (Jimbo Triplett NAVIGATION</td><td>YONATAN [facility] EDT - Neighborhood BREEZY</td><td>[facility] PT BREEZY Health Health 11:59:00 PM Center) Center</td><td>03/25/2015</td><td></td> EDT Outpatient<td Attender: Jimbo Triplett 03/15/2015 A JOSE ID="[id number]">Follow [facility] 03:0 0:00 PM b (Jimbo Triplett Up</td><td>[facility] EDT - n Neighborhood MD</td><td>[facility] 03/15/2015 o Health Health 04:25:38 PM r Center) Center</td><td>03/15/2015</td><td><conten EDT m t ID="[id number]">Chronic a Obstructive Pulmonary Disease</content>, l <content E ID="[id number]">Diabetes l Mellitus Type 2 - Uncomplicated, e Uncontrolled</content>, <content c ID="[id number]">Essential t Hypertension Benign</content>, <content r ID="[id number]">Hematuria</ o content>, <content c ID="[id number]">Hyperlipide a roberto carlos</content>, <content r ID="[id number]">Lung d Mass</content>, <content i ID="[id number]">Nicotine o Dependence</content>, <content g ID="[id number]">Overweight< r /content>, <content a ID="[id number]">[place]om[place] m sis Urethritis</content>, <content C ID="[id number]">Chronic h Sinusitis - Maxillary</content>, <content r ID="[id number]">Abnormal o Electrocardiogram</content></td> n i c S i n u s i t i s - M a x i l l a r y L u n g M a s s E s s e n t i a l H y p e r t e n s i o n B e n i g n C h r o n i c O b s t r u c t i v e P u l m o n a r y D i s e a s e A b n o r m a l E l e c t r o c a r d i o g r a m C h r o n i c S i n u s i t i s - M a x i l l a r y L u n g M a s s E s s e n t i a l H y p e r t e n s i o n B e n i g n C h r o n i c O b s t r u c t i v e P u l m o n a r y D i s e a s e A b n o r m a l E l e c t r o c a r d i o g r a m C h r o n i c S i n u s i t i s - M a x i l l a r y L u n g M a s s E s s e n t i a l H y p e r t e n s i o n B e n i g n C h r o n i c O b s t r u c t i v e P u l m o n a r y D i s e a s e A b n o r m a l E l e c t r o c a r d i o g r a m C h r o n i c S i n u s i t i s - M a x i l l a r y L u n g M a s s E s s e n t i a l H y p e r t e n s i o n B e n i g n C h r o n i c O b s t r u c t i v e P u l m o n a r y D i s e a s e A b n o r m a l E l e c t r o c a r d i o g r a m C h r o n i c S i n u s i t i s - M a x i l l a r y L u n g M a s s E s s e n t i a l H y p e r t e n s i o n B e n i g n C h r o n i c O b s t r u c t i v e P u l m o n a r y D i s e a s e A b n o r m a l E l e c t r o c a r d i o g r a m C h r o n i c S i n u s i t i s - M a x i l l a r y L u n g M a s s E s s e n t i a l H y p e r t e n s i o n B e n i g n C h r o n i c O b s t r u c t i v e P u l m o n a r y D i s e a s e A b n o r m a l E l e c t r o c a r d i o g r a m C h r o n i c S i n u s i t i s - M a x i l l a r y L u n g M a s s E s s e n t i a l H y p e r t e n s i o n B e n i g n C h r o n i c O b s t r u c t i v e P u l m o n a r y D i s e a s e A b n o r m a l E l e c t r o c a r d i o g r a m C h r o n i c S i n u s i t i s - M a x i l l a r y L u n g M a s s E s s e n t i a l H y p e r t e n s i o n B e n i g n C h r o n i c O b s t r u c t i v e P u l m o n a r y D i s e a s e A b n o r m a l E l e c t r o c a r d i o g r a m C h r o n i c S i n u s i t i s - M a x i l l a r y L u n g M a s s E s s e n t i a l H y p e r t e n s i o n B e n i g n C h r o n i c O b s t r u c t i v e P u l m o n a r y D i s e a s e A b n o r m a l E l e c t r o c a r d i o g r a m C h r o n i c S i n u s i t i s - M a x i l l a r y L u n g M a s s E s s e n t i a l H y p e r t e n s i o n B e n i g n C h r o n i c O b s t r u c t i v e P u l m o n a r y D i s e a s e A b n o r m a l E l e c t r o c a r d i o g r a m C h r o n i c S i n u s i t i s - M a x i l l a r y L u n g M a s s E s s e n t i a l H y p e r t e n s i o n B e n i g n C h r o n i c O b s t r u c t i v e P u l m o n a r y D i s e a s e A b n o r m a l E l e c t r o c a r d i o g r a m C h r o n i c S i n u s i t i s - M a x i l l a r y L u n g M a s s E s s e n t i a l H y p e r t e n s i o n B e n i g n C h r o n i c O b s t r u c t i v e P u l m o n a r y D i s e a s e A b n o r m a l E l e c t r o c a r d i o g r a m C h r o n i c S i n u s i t i s - M a x i l l a r y L u n g M a s s E s s e n t i a l H y p e r t e n s i o n B e n i g n C h r o n i c O b s t r u c t i v e P u l m o n a r y D i s e a s e A b n o r m a l E l e c t r o c a r d i o g r a m C h r o n i c S i n u s i t i s - M a x i l l a r y L u n g M a s s E s s e n t i a l H y p e r t e n s i o n B e n i g n C h r o n i c O b s t r u c t i v e P u l m o n a r y D i s e a s e A b n o r m a l E l e c t r o c a r d i o g r a m C h r o n i c S i n u s i t i s - M a x i l l a r y L u n g M a s s E s s e n t i a l H y p e r t e n s i o n B e n i g n C h r o n i c O b s t r u c t i v e P u l m o n a r y D i s e a s e A b n o r m a l E l e c t r o c a r d i o g r a m C h r o n i c S i n u s i t i s - M a x i l l a r y L u n g M a s s E s s e n t i a l H y p e r t e n s i o n B e n i g n C h r o n i c O b s t r u c t i v e P u l m o n a r y D i s e a s e A b n o r m a l E l e c t r o c a r d i o g r a m C h r o n i c S i n u s i t i s - M a x i l l a r y L u n g M a s s E s s e n t i a l H y p e r t e n s i o n B e n i g n C h r o n i c O b s t r u c t i v e P u l m o n a r y D i s e a s e T r i c h o m o n i a s i s U r e t h r i t i s H y p e r l i p i d e m i a H e m a t u r i a T r i c h o m o n i a s i s U r e t h r i t i s H y p e r l i p i d e m i a H e m a t u r i a T r i c h o m o n i a s i s U r e t h r i t i s H y p e r l i p i d e m i a H e m a t u r i a T r i c h o m o n i a s i s U r e t h r i t i s H y p e r l i p i d e m i a H e m a t u r i a T r i c h o m o n i a s i s U r e t h r i t i s H y p e r l i p i d e m i a H e m a t u r i a T r i c h o m o n i a s i s U r e t h r i t i s H y p e r l i p i d e m i a H e m a t u r i a T r i c h o m o n i a s i s U r e t h r i t i s H y p e r l i p i d e m i a H e m a t u r i a T r i c h o m o n i a s i s U r e t h r i t i s H y p e r l i p i d e m i a H e m a t u r i a T r i c h o m o n i a s i s U r e t h r i t i s H y p e r l i p i d e m i a H e m a t u r i a T r i c h o m o n i a s i s U r e t h r i t i s H y p e r l i p i d e m i a H e m a t u r i a T r i c h o m o n i a s i s U r e t h r i t i s H y p e r l i p i d e m i a H e m a t u r i a T r i c h o m o n i a s i s U r e t h r i t i s H y p e r l i p i d e m i a H e m a t u r i a T r i c h o m o n i a s i s U r e t h r i t i s H y p e r l i p i d e m i a H e m a t u r i a T r i c h o m o n i a s i s U r e t h r i t i s H y p e r l i p i d e m i a H e m a t u r i a T r i c h o m o n i a s i s U r e t h r i t i s H y p e r l i p i d e m i a H e m a t u r i a T r i c h o m o n i a s i s U r e t h r i t i s H y p e r l i p i d e m i a H e m a t u r i a T r i c h o m o n i a s i s U r e t h r i t i s H y p e r l i p i d e m i a H e m a t u r i a O v e r w e i g h t N i c o t i n e D e p e n d e n c e O v e r w e i g h t N i c o t i n e D e p e n d e n c e O v e r w e i g h t N i c o t i n e D e p e n d e n c e O v e r w e i g h t N i c o t i n e D e p e n d e n c e O v e r w e i g h t N i c o t i n e D e p e n d e n c e O v e r w e i g h t N i c o t i n e D e p e n d e n c e O v e r w e i g h t N i c o t i n e D e p e n d e n c e O v e r w e i g h t N i c o t i n e D e p e n d e n c e O v e r w e i g h t N i c o t i n e D e p e n d e n c e O v e r w e i g h t N i c o t i n e D e p e n d e n c e O v e r w e i g h t N i c o t i n e D e p e n d e n c e O v e r w e i g h t N i c o t i n e D e p e n d e n c e O v e r w e i g h t N i c o t i n e D e p e n d e n c e O v e r w e i g h t N i c o t i n e D e p e n d e n c e O v e r w e i g h t N i c o t i n e D e p e n d e n c e O v e r w e i g h t N i c o t i n e D e p e n d e n c e O v e r w e i g h t N i c o t i n e D e p e n d e n c e D i a b e t e s M e l l i t u s T y p e 2 - U n c o m p l i c a t e d , U n c o n t r o l l e d D i a b e t e s M e l l i t u s T y p e 2 - U n c o m p l i c a t e d , U n c o n t r o l l e d D i a b e t e s M e l l i t u s T y p e 2 - U n c o m p l i c a t e d , U n c o n t r o l l e d D i a b e t e s M e l l i t u s T y p e 2 - U n c o m p l i c a t e d , U n c o n t r o l l e d D i a b e t e s M e l l i t u s T y p e 2 - U n c o m p l i c a t e d , U n c o n t r o l l e d D i a b e t e s M e l l i t u s T y p e 2 - U n c o m p l i c a t e d , U n c o n t r o l l e d D i a b e t e s M e l l i t u s T y p e 2 - U n c o m p l i c a t e d , U n c o n t r o l l e d D i a b e t e s M e l l i t u s T y p e 2 - U n c o m p l i c a t e d , U n c o n t r o l l e d D i a b e t e s M e l l i t u s T y p e 2 - U n c o m p l i c a t e d , U n c o n t r o l l e d D i a b e t e s M e l l i t u s T y p e 2 - U n c o m p l i c a t e d , U n c o n t r o l l e d D i a b e t e s M e l l i t u s T y p e 2 - U n c o m p l i c a t e d , U n c o n t r o l l e d D i a b e t e s M e l l i t u s T y p e 2 - U n c o m p l i c a t e d , U n c o n t r o l l e d D i a b e t e s M e l l i t u s T y p e 2 - U n c o m p l i c a t e d , U n c o n t r o l l e d D i a b e t e s M e l l i t u s T y p e 2 - U n c o m p l i c a t e d , U n c o n t r o l l e d D i a b e t e s M e l l i t u s T y p e 2 - U n c o m p l i c a t e d , U n c o n t r o l l e d D i a b e t e s M e l l i t u s T y p e 2 - U n c o m p l i c a t e d , U n c o n t r o l l e d D i a b e t e s M e l l i t u s T y p e 2 - U n c o m p l i c a t e d , U n c o n t r o l l e d Abnormal Electrocardiogram Chronic Sinusitis - Maxillary Lung Mass Essential Hypertension Benign Chronic Obstructive Pulmonary Disease Abnormal Electrocardiogram Chronic Sinusitis - Maxillary Lung Mass Essential Hypertension Benign Chronic Obstructive Pulmonary Disease Abnormal Electrocardiogram Chronic Sinusitis - Maxillary Lung Mass Essential Hypertension Benign Chronic Obstructive Pulmonary Disease Abnormal Electrocardiogram Chronic Sinusitis - Maxillary Lung Mass Essential Hypertension Benign Chronic Obstructive Pulmonary Disease Abnormal Electrocardiogram Chronic Sinusitis - Maxillary Lung Mass Essential Hypertension Benign Chronic Obstructive Pulmonary Disease Abnormal Electrocardiogram Chronic Sinusitis - Maxillary Lung Mass Essential Hypertension Benign Chronic Obstructive Pulmonary Disease Abnormal Electrocardiogram Chronic Sinusitis - Maxillary Lung Mass Essential Hypertension Benign Chronic Obstructive Pulmonary Disease Abnormal Electrocardiogram Chronic Sinusitis - Maxillary Lung Mass Essential Hypertension Benign Chronic Obstructive Pulmonary Disease Abnormal Electrocardiogram Chronic Sinusitis - Maxillary Lung Mass Essential Hypertension Benign Chronic Obstructive Pulmonary Disease Abnormal Electrocardiogram Chronic Sinusitis - Maxillary Lung Mass Essential Hypertension Benign Chronic Obstructive Pulmonary Disease Abnormal Electrocardiogram Chronic Sinusitis - Maxillary Lung Mass Essential Hypertension Benign Chronic Obstructive Pulmonary Disease Abnormal Electrocardiogram Chronic Sinusitis - Maxillary Lung Mass Essential Hypertension Benign Chronic Obstructive Pulmonary Disease Abnormal Electrocardiogram Chronic Sinusitis - Maxillary Lung Mass Essential Hypertension Benign Chronic Obstructive Pulmonary Disease Abnormal Electrocardiogram Chronic Sinusitis - Maxillary Lung Mass Essential Hypertension Benign Chronic Obstructive Pulmonary Disease Abnormal Electrocardiogram Chronic Sinusitis - Maxillary Lung Mass Essential Hypertension Benign Chronic Obstructive Pulmonary Disease Abnormal Electrocardiogram Chronic Sinusitis - Maxillary Lung Mass Essential Hypertension Benign Chronic Obstructive Pulmonary Disease Abnormal Electrocardiogram Chronic Sinusitis - Maxillary Lung Mass Essential Hypertension Benign Chronic Obstructive Pulmonary Disease Trichomoniasis Urethritis Hyperlipidemia Hematuria Trichomoniasis Urethritis Hyperlipidemia Hematuria Trichomoniasis Urethritis Hyperlipidemia Hematuria Trichomoniasis Urethritis Hyperlipidemia Hematuria Trichomoniasis Urethritis Hyperlipidemia Hematuria Trichomoniasis Urethritis Hyperlipidemia Hematuria Trichomoniasis Urethritis Hyperlipidemia Hematuria Trichomoniasis Urethritis Hyperlipidemia Hematuria Trichomoniasis Urethritis Hyperlipidemia Hematuria Trichomoniasis Urethritis Hyperlipidemia Hematuria Trichomoniasis Urethritis Hyperlipidemia Hematuria Trichomoniasis Urethritis Hyperlipidemia Hematuria Trichomoniasis Urethritis Hyperlipidemia Hematuria Trichomoniasis Urethritis Hyperlipidemia Hematuria Trichomoniasis Urethritis Hyperlipidemia Hematuria Trichomoniasis Urethritis Hyperlipidemia Hematuria Trichomoniasis Urethritis Hyperlipidemia Hematuria Overweight Nicotine Dependence Overweight Nicotine Dependence Overweight Nicotine Dependence Overweight Nicotine Dependence Overweight Nicotine Dependence Overweight Nicotine Dependence Overweight Nicotine Dependence Overweight Nicotine Dependence Overweight Nicotine Dependence Overweight Nicotine Dependence Overweight Nicotine Dependence Overweight Nicotine Dependence Overweight Nicotine Dependence Overweight Nicotine Dependence Overweight Nicotine Dependence Overweight Nicotine Dependence Overweight Nicotine Dependence Diabetes Mellitus Type 2 - Uncomplicated , 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 , Uncontrolled Diabetes Mellitus Type 2 - Uncomplicated , Uncontrolled Diabetes Mellitus Type 2 - Uncomplicated , Uncontrolled Diabetes Mellitus Type 2 - Uncomplicated , Uncontrolled Diabetes Mellitus Type 2 - Uncomplicated , Uncontrolled Diabetes Mellitus Type 2 - Uncomplicated , Uncontrolled Diabetes Mellitus Type 2 - Uncomplicated , Uncontrolled Diabetes Mellitus Type 2 - Uncomplicated , Uncontrolled Diabetes Mellitus Type 2 - Uncomplicated , Uncontrolled Diabetes Mellitus Type 2 - Uncomplicated , Uncontrolled Diabetes Mellitus Type 2 - Uncomplicated , Uncontrolled Diabetes Mellitus Type 2 - Uncomplicated , Uncontrolled Diabetes Mellitus Type 2 - Uncomplicated , Uncontrolled Diabetes Mellitus Type 2 - Uncomplicated , Uncontrolled Diabetes Mellitus Type 2 - Uncomplicated , Uncontrolled Diabetes Mellitus Type 2 - Uncomplicated , Uncontrolled Outpatient<td Attender: 03/12/2015 [place] [employer] ID="[id number]">*OUTREACH*</td><td>DEON MORENO 04:07:00 PM (Jimbo MUELLER MD</td><td> [facility] EDT - [facility] </td><td>03/12/2015</td><td></td> 03/12/2015 Health 11:59:00 PM Center) EDT Outpatient<td ID="[id number]">OFFICE Attender: 03/06/2015 D [place] VISIT</td><td>BO HINKLE DPM</td><td>[place] [facility] o 05:45:00 PM i ([facility] ARIN DPM u EDT - a [facility]</td><td>03/06/2015</td><td><content n 11/2014 b Health ID="[id number]">Diabetes t 07:17:30 PM e Center) Mellitus</content></td> V EDT t e e r s n M o e n l N l e i i t g u h s b D o i r a h b o e o t d e H s e M a e l l t l h i C t e u n s t D e i r a b e t e s M e l l i t u s D i a b e t e s M e l l i t u s D i a b e t e s M e l l i t u s D i a b e t e s M e l l i t u s D i a b e t e s M e l l i t u s D i a b e t e s M e l l i t u s D i a b e t e s M e l l i t u s D i a b e t e s M e l l i t u s D i a b e t e s M e l l i t u s D i a b e t e s M e l l i t u s D i a b e t e s M e l l i t u s D i a b e t e s M e l l i t u s D i a b e t e s M e l l i t u s D i a b e t e s M e l l i t u s D i a b e t e s M e l l i t u s Diabetes Mellitus Diabetes Mellitus Diabetes Mellitus Diabetes Mellitus Diabetes Mellitus Diabetes Mellitus Diabetes Mellitus Diabetes Mellitus Diabetes Mellitus Diabetes Mellitus Diabetes Mellitus Diabetes Mellitus Diabetes Mellitus Diabetes Mellitus Diabetes Mellitus Diabetes Mellitus Diabetes Mellitus Outpatient<td Attender: Jimbo Triplett 03/04/2015 [employer] [employer] ID="[id number]">[facility] 04[facility] PM (Jimbo OSUNA</td><td>KIKI AMAYA MD</td><td>Jimbo AMAYA MD Health Center ED T - Neighborhood [facility] 03/04/2015 Health Center</td><td>03/04/2015</td><td></td> 05:18:0 1 PM Center) EDT Outpatient<td Attender: Jimbo Triplett 03/01/2015 [place] [employer] ID="[id number]">*No [facility] 04:30:0 0 PM (Jimbo Triplett Show*</td><td>DEON MUELLER MD Health Center EDT - Tr[facility]</td><td>[facility] 03/01/2015 [facility] Health 11:59:00 PM Center) Center</td><td>03/01/2015</td><td></td> EDT Outpatient<td Attender: Jimbo Triplett 03/01/2015 R [employer] [employer] ID="[id number]">Follow [facility] 04:0 0:00 PM o (Jimbo Triplett Up</td><td>DEON MUELLER MD Health Center EDT - u [facility]</td><td>[facility] 03/01/2015 [facility] 04:57:45 PM i [facility] [place]</td><td>03/01/2015</td><td><content EDT n ID="[id number]">Routine e History and Physical</content></td> H i s t o r y a n d P h y s i c a l R o u t i n e H i s t o r y a n d P h y s i c a l R o u t i n e H i s t o r y a n d P h y s i c a l R o u t i n e H i s t o r y a n d P h y s i c a l R o u t i n e H i s t o r y a n d P h y s i c a l R o u t i n e H i s t o r y a n d P h y s i c a l R o u t i n e H i s t o r y a n d P h y s i c a l R o u t i n e H i s t o r y a n d P h y s i c a l R o u t i n e H i s t o r y a n d P h y s i c a l R o u t i n e H i s t o r y a n d P h y s i c a l R o u t i n e H i s t o r y a n d P h y s i c a l R o u t i n e H i s t o r y a n d P h y s i c a l R o u t i n e H i s t o r y a n d P h y s i c a l R o u t i n e H i s t o r y a n d P h y s i c a l R o u t i n e H i s t o r y a n d P h y s i c a l R o u t i n e H i s t o r y a n d P h y s i c a l R o u t i n e H i s t o r y a n d P h y s i c a l Routine History and Physical Routine History and Physical Routine History and Physical Routine History and Physical Routine History and Physical Routine History and Physical Routine History and Physical Routine History and Physical Routine History and Physical Routine History and Physical Routine History and Physical Routine History and Physical Routine History and Physical Routine History and Physical Routine History and Physical Routine History and Physical Routine History and Physical Outpatient<td Attender: Jimbo Triplett 02/27/2015 [employer] [employer] ID="[id number]">EKG</td><td>[facility] ([place] [facility]</td><td>[facility] - [facility]</td><td>02/27/2015</td><td></td> TECH [address] [place] [address] 05:19:28 PM Center) EDT Outpatient<td Attender: [place] 02/26/2015 [employer] [employer] ID="[id number]">REGULAR KIKI [facility] 04: 00:00 PM ([place] XR</td><td>KIKI AMAYA MD</td><td>Jimbo AMAYA MD Health Ce nter EDT - [facility] 02/26/[address] [facility]</td><td>02/26/2015</td><td></td> 04:38:5 9 PM [place]) EDT Outpatient<td Attender: [place] 02/21/2015 [place] ID="[id number]">[place]</td><td>SOFI DEON [facility] 04:00:00 PM b ([place] BOBBY MUELLER MD</td><td>[place] Traci [facility]UE[facility] EDT - [facility]</td><td>02/21/2015</td><td><content 02/21/2015 [facility] ID="[id number]">Otorhinolaryngology - 06:55:23 PM Center) Nose Disorder</content>, <content EDT t ID="[id number]">Diabetes Mellitus Type 2 y with Complication Uncontrolled</content>, <content P ID="[id number]">Diabetes Mellitus Type 2 r with Complication</content>, <content e ID="[id number]">Diabetes Mellitus Type v 2</content>, <content e ID="[id number]">Diabetes n Mellitus</content>, <content t ID="[id number]">Preventive Med i Standardized Depression Screening: Negative For v Symptoms</content>, <content e ID="[id number]">Obesity</content></td> M e d S t a n d a r d i z e d D e p r e s s i o n S c r e e n i n g : N e g a t i v e F o r S y m p t o m s D i a b e t e s M e l l i t u s D i a b e t e s M e l l i t u s T y p e 2 D i a b e t e s M e l l i t u s T y p e 2 w i t h C o m p l i c a t i o n D i a b e t e s M e l l i t u s T y p e 2 w i t h C o m p l i c a t i o n U n c o n t r o l l e d O t o r h i n o l a r y n g o l o g y - N o s e D i s o r d e r O b e s i t y P r e v e n t i v e M e d S t a n d a r d i z e d D e p r e s s i o n S c r e e n i n g : N e g a t i v e F o r S y m p t o m s D i a b e t e s M e l l i t u s D i a b e t e s M e l l i t u s T y p e 2 D i a b e t e s M e l l i t u s T y p e 2 w i t h C o m p l i c a t i o n D i a b e t e s M e l l i t u s T y p e 2 w i t h C o m p l i c a t i o n U n c o n t r o l l e d O t o r h i n o l a r y n g o l o g y - N o s e D i s o r d e r O b e s i t y P r e v e n t i v e M e d S t a n d a r d i z e d D e p r e s s i o n S c r e e n i n g : N e g a t i v e F o r S y m p t o m s D i a b e t e s M e l l i t u s D i a b e t e s M e l l i t u s T y p e 2 D i a b e t e s M e l l i t u s T y p e 2 w i t h C o m p l i c a t i o n D i a b e t e s M e l l i t u s T y p e 2 w i t h C o m p l i c a t i o n U n c o n t r o l l e d O t o r h i n o l a r y n g o l o g y - N o s e D i s o r d e r O b e s i t y P r e v e n t i v e M e d S t a n d a r d i z e d D e p r e s s i o n S c r e e n i n g : N e g a t i v e F o r S y m p t o m s D i a b e t e s M e l l i t u s D i a b e t e s M e l l i t u s T y p e 2 D i a b e t e s M e l l i t u s T y p e 2 w i t h C o m p l i c a t i o n D i a b e t e s M e l l i t u s T y p e 2 w i t h C o m p l i c a t i o n U n c o n t r o l l e d O t o r h i n o l a r y n g o l o g y - N o s e D i s o r d e r O b e s i t y P r e v e n t i v e M e d S t a n d a r d i z e d D e p r e s s i o n S c r e e n i n g : N e g a t i v e F o r S y m p t o m s D i a b e t e s M e l l i t u s D i a b e t e s M e l l i t u s T y p e 2 D i a b e t e s M e l l i t u s T y p e 2 w i t h C o m p l i c a t i o n D i a b e t e s M e l l i t u s T y p e 2 w i t h C o m p l i c a t i o n U n c o n t r o l l e d O t o r h i n o l a r y n g o l o g y - N o s e D i s o r d e r O b e s i t y P r e v e n t i v e M e d S t a n d a r d i z e d D e p r e s s i o n S c r e e n i n g : N e g a t i v e F o r S y m p t o m s D i a b e t e s M e l l i t u s D i a b e t e s M e l l i t u s T y p e 2 D i a b e t e s M e l l i t u s T y p e 2 w i t h C o m p l i c a t i o n D i a b e t e s M e l l i t u s T y p e 2 w i t h C o m p l i c a t i o n U n c o n t r o l l e d O t o r h i n o l a r y n g o l o g y - N o s e D i s o r d e r O b e s i t y P r e v e n t i v e M e d S t a n d a r d i z e d D e p r e s s i o n S c r e e n i n g : N e g a t i v e F o r S y m p t o m s D i a b e t e s M e l l i t u s D i a b e t e s M e l l i t u s T y p e 2 D i a b e t e s M e l l i t u s T y p e 2 w i t h C o m p l i c a t i o n D i a b e t e s M e l l i t u s T y p e 2 w i t h C o m p l i c a t i o n U n c o n t r o l l e d O t o r h i n o l a r y n g o l o g y - N o s e D i s o r d e r O b e s i t y P r e v e n t i v e M e d S t a n d a r d i z e d D e p r e s s i o n S c r e e n i n g : N e g a t i v e F o r S y m p t o m s D i a b e t e s M e l l i t u s D i a b e t e s M e l l i t u s T y p e 2 D i a b e t e s M e l l i t u s T y p e 2 w i t h C o m p l i c a t i o n D i a b e t e s M e l l i t u s T y p e 2 w i t h C o m p l i c a t i o n U n c o n t r o l l e d O t o r h i n o l a r y n g o l o g y - N o s e D i s o r d e r O b e s i t y P r e v e n t i v e M e d S t a n d a r d i z e d D e p r e s s i o n S c r e e n i n g : N e g a t i v e F o r S y m p t o m s D i a b e t e s M e l l i t u s D i a b e t e s M e l l i t u s T y p e 2 D i a b e t e s M e l l i t u s T y p e 2 w i t h C o m p l i c a t i o n D i a b e t e s M e l l i t u s T y p e 2 w i t h C o m p l i c a t i o n U n c o n t r o l l e d O t o r h i n o l a r y n g o l o g y - N o s e D i s o r d e r O b e s i t y P r e v e n t i v e M e d S t a n d a r d i z e d D e p r e s s i o n S c r e e n i n g : N e g a t i v e F o r S y m p t o m s D i a b e t e s M e l l i t u s D i a b e t e s M e l l i t u s T y p e 2 D i a b e t e s M e l l i t u s T y p e 2 w i t h C o m p l i c a t i o n D i a b e t e s M e l l i t u s T y p e 2 w i t h C o m p l i c a t i o n U n c o n t r o l l e d O t o r h i n o l a r y n g o l o g y - N o s e D i s o r d e r O b e s i t y P r e v e n t i v e M e d S t a n d a r d i z e d D e p r e s s i o n S c r e e n i n g : N e g a t i v e F o r S y m p t o m s D i a b e t e s M e l l i t u s D i a b e t e s M e l l i t u s T y p e 2 D i a b e t e s M e l l i t u s T y p e 2 w i t h C o m p l i c a t i o n D i a b e t e s M e l l i t u s T y p e 2 w i t h C o m p l i c a t i o n U n c o n t r o l l e d O t o r h i n o l a r y n g o l o g y - N o s e D i s o r d e r O b e s i t y P r e v e n t i v e M e d S t a n d a r d i z e d D e p r e s s i o n S c r e e n i n g : N e g a t i v e F o r S y m p t o m s D i a b e t e s M e l l i t u s D i a b e t e s M e l l i t u s T y p e 2 D i a b e t e s M e l l i t u s T y p e 2 w i t h C o m p l i c a t i o n D i a b e t e s M e l l i t u s T y p e 2 w i t h C o m p l i c a t i o n U n c o n t r o l l e d O t o r h i n o l a r y n g o l o g y - N o s e D i s o r d e r O b e s i t y P r e v e n t i v e M e d S t a n d a r d i z e d D e p r e s s i o n S c r e e n i n g : N e g a t i v e F o r S y m p t o m s D i a b e t e s M e l l i t u s D i a b e t e s M e l l i t u s T y p e 2 D i a b e t e s M e l l i t u s T y p e 2 w i t h C o m p l i c a t i o n D i a b e t e s M e l l i t u s T y p e 2 w i t h C o m p l i c a t i o n U n c o n t r o l l e d O t o r h i n o l a r y n g o l o g y - N o s e D i s o r d e r O b e s i t y P r e v e n t i v e M e d S t a n d a r d i z e d D e p r e s s i o n S c r e e n i n g : N e g a t i v e F o r S y m p t o m s D i a b e t e s M e l l i t u s D i a b e t e s M e l l i t u s T y p e 2 D i a b e t e s M e l l i t u s T y p e 2 w i t h C o m p l i c a t i o n D i a b e t e s M e l l i t u s T y p e 2 w i t h C o m p l i c a t i o n U n c o n t r o l l e d O t o r h i n o l a r y n g o l o g y - N o s e D i s o r d e r O b e s i t y P r e v e n t i v e M e d S t a n d a r d i z e d D e p r e s s i o n S c r e e n i n g : N e g a t i v e F o r S y m p t o m s D i a b e t e s M e l l i t u s D i a b e t e s M e l l i t u s T y p e 2 D i a b e t e s M e l l i t u s T y p e 2 w i t h C o m p l i c a t i o n D i a b e t e s M e l l i t u s T y p e 2 w i t h C o m p l i c a t i o n U n c o n t r o l l e d O t o r h i n o l a r y n g o l o g y - N o s e D i s o r d e r O b e s i t y P r e v e n t i v e M e d S t a n d a r d i z e d D e p r e s s i o n S c r e e n i n g : N e g a t i v e F o r S y m p t o m s D i a b e t e s M e l l i t u s D i a b e t e s M e l l i t u s T y p e 2 D i a b e t e s M e l l i t u s T y p e 2 w i t h C o m p l i c a t i o n D i a b e t e s M e l l i t u s T y p e 2 w i t h C o m p l i c a t i o n U n c o n t r o l l e d O t o r h i n o l a r y n g o l o g y - N o s e D i s o r d e r O b e s i t y P r e v e n t i v e M e d S t a n d a r d i z e d D e p r e s s i o n S c r e e n i n g : N e g a t i v e F o r S y m p t o m s D i a b e t e s M e l l i t u s D i a b e t e s M e l l i t u s T y p e 2 D i a b e t e s M e l l i t u s T y p e 2 w i t h C o m p l i c a t i o n D i a b e t e s M e l l i t u s T y p e 2 w i t h C o m p l i c a t i o n U n c o n t r o l l e d O t o r h i n o l a r y n g o l o g y - N o s e D i s o r d e r Obesity Preventive Med Standardized Depression S creening: Negative For Symptoms Diabetes Mellitus Diabetes Mellitus Type 2 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 with Complicati on Uncontrolled Otorhinolaryngology - Nose Disorder Obesity Preventive Med Standardized Depression S creening: Negative For Symptoms Diabetes Mellitus Diabetes Mellitus Type 2 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 with Complicati on Uncontrolled Otorhinolaryngology - Nose Disorder Obesity Preventive Med Standardized Depression S creening: Negative For Symptoms Diabetes Mellitus Diabetes Mellitus Type 2 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 with Complicati on Uncontrolled Otorhinolaryngology - Nose Disorder Obesity Preventive Med Standardized Depression S creening: Negative For Symptoms Diabetes Mellitus Diabetes Mellitus Type 2 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 with Complicati on Uncontrolled Otorhinolaryngology - Nose Disorder Obesity Preventive Med Standardized Depression S creening: Negative For Symptoms Diabetes Mellitus Diabetes Mellitus Type 2 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 with Complicati on Uncontrolled Otorhinolaryngology - Nose Disorder Obesity Preventive Med Standardized Depression S creening: Negative For Symptoms Diabetes Mellitus Diabetes Mellitus Type 2 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 with Complicati on Uncontrolled Otorhinolaryngology - Nose Disorder Obesity Preventive Med Standardized Depression S creening: Negative For Symptoms Diabetes Mellitus Diabetes Mellitus Type 2 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 with Complicati on Uncontrolled Otorhinolaryngology - Nose Disorder Obesity Preventive Med Standardized Depression S creening: Negative For Symptoms Diabetes Mellitus Diabetes Mellitus Type 2 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 with Complicati on Uncontrolled Otorhinolaryngology - Nose Disorder Obesity Preventive Med Standardized Depression S creening: Negative For Symptoms Diabetes Mellitus Diabetes Mellitus Type 2 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 with Complicati on Uncontrolled Otorhinolaryngology - Nose Disorder Obesity Preventive Med Standardized Depression S creening: Negative For Symptoms Diabetes Mellitus Diabetes Mellitus Type 2 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 with Complicati on Uncontrolled Otorhinolaryngology - Nose Disorder Obesity Preventive Med Standardized Depression S creening: Negative For Symptoms Diabetes Mellitus Diabetes Mellitus Type 2 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 with Complicati on Uncontrolled Otorhinolaryngology - Nose Disorder Obesity Preventive Med Standardized Depression S creening: Negative For Symptoms Diabetes Mellitus Diabetes Mellitus Type 2 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 with Complicati on Uncontrolled Otorhinolaryngology - Nose Disorder Obesity Preventive Med Standardized Depression S creening: Negative For Symptoms Diabetes Mellitus Diabetes Mellitus Type 2 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 with Complicati on Uncontrolled Otorhinolaryngology - Nose Disorder Obesity Preventive Med Standardized Depression S creening: Negative For Symptoms Diabetes Mellitus Diabetes Mellitus Type 2 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 with Complicati on Uncontrolled Otorhinolaryngology - Nose Disorder Obesity Preventive Med Standardized Depression S creening: Negative For Symptoms Diabetes Mellitus Diabetes Mellitus Type 2 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 with Complicati on Uncontrolled Otorhinolaryngology - Nose Disorder Obesity Preventive Med Standardized Depression S creening: Negative For Symptoms Diabetes Mellitus Diabetes Mellitus Type 2 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 with Complicati on Uncontrolled Otorhinolaryngology - Nose Disorder Obesity Preventive Med Standardized Depression S creening: Negative For Symptoms Diabetes Mellitus Diabetes Mellitus Type 2 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 with Complicati on Uncontrolled Otorhinolaryngology - Nose Disorder Outpatient<td Attender: [place] 08/21/2014 Disorder of Nasal GR EENWAY ID="[id number]">[facility]</td><td>[facility] 03:30:00 PM SinusesDisorder of ([facility]</td><td>[facility] EDT - [facility]</td><td>08/21/2014</td><td><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 SinusesDisorder of Health ID="[id number]">Disorder of Nasal 04:45:47 PM Nasal Center) Sinuses</content>, <content EDT SinusesD isorder of ID="[id number]">Nicotine Nasal Dependence</content></td> SinusesDis order of Nasal SinusesDisorder of Nasal SinusesDisorder of Nasal SinusesDisorder of Nasal SinusesDisorder of Nasal SinusesDisorder of Nasal SinusesDisorder of Nasal SinusesDisorder of Nasal SinusesDisorder of Nasal SinusesDisorder of Nasal SinusesDisorder of Nasal SinusesDisorder of Nasal SinusesDisorder of Nasal SinusesNicotine DependenceNicotine DependenceNicotine DependenceNicotine DependenceNicotine DependenceNicotine DependenceNicotine DependenceNicotine DependenceNicotine DependenceNicotine DependenceNicotine DependenceNicotine DependenceNicotine DependenceNicotine DependenceNicotine DependenceNicotine DependenceNicotine Dependence Disorder of Nasal Sinuses Disorder of Nasal Sinuses Disorder of Nasal Sinuses Disorder of Nasal Sinuses Disorder of Nasal Sinuses Disorder of Nasal Sinuses Disorder of Nasal Sinuses Disorder of Nasal Sinuses Disorder of Nasal Sinuses Disorder of Nasal Sinuses Disorder of Nasal Sinuses Disorder of Nasal Sinuses Disorder of Nasal Sinuses Disorder of Nasal Sinuses Disorder of Nasal Sinuses Disorder of Nasal Sinuses Disorder of Nasal Sinuses Nicotine Dependence Nicotine Dependence Nicotine Dependence Nicotine Dependence Nicotine Dependence Nicotine Dependence Nicotine Dependence Nicotine Dependence Nicotine Dependence Nicotine Dependence Nicotine Dependence Nicotine Dependence Nicotine Dependence Nicotine Dependence Nicotine Dependence Nicotine Dependence Nicotine Dependence Outpatient<td Attender: [place] 05/22/2014 JOSE ID="[id number]">*[facility] PHIL [facility] 03:0 5:00 PM ([place] Update*</td><td>PHIL MONROY MD Health Center EST - Neighborhood </td><td>[facility] 05/22/2014 Health Health 11:59:00 PM Center) Center</td><td>05/22/2014</td><td></td> EST Outpatient<td Attender: [place] 04/20/2014 JOSE ID="[id number]">*[facility] 01:2 9:00 PM ([place] Update*</td><td>DEON MUELLER MD Health Center EST - Neighborhood </td><td>[facility] 04/20/2014 Health Health 11:59:00 PM Center) Center</td><td>04/20/2014</td><td></td> EST Outpatient<td Attender: 03/07/2014 JOSE ID="[id number]">*No DEON 04:24:00 PM ([place] Show*</td><td>DEON MUELLER MD</td><td> [facility] EDT - Neighborhood 03/07/2014 Health </td><td>03/07/2014</td><td></td> 11:59:00 PM Center) EDT Outpatient<td Attender: [place] 02/28/2014 JOSE ID="[id number]">*Chart PHIL [facility] 12:1 8:00 PM ([place] Update*</td><td>PHIL [facility]ROY DE [facility] EDT - [facility]</td><td>[facility] 02/28/2014 Health Health 11:59:00 PM Center) Center</td><td>02/28/2014</td><td></td> EDT Outpatient<td Attender: [place] 02/14/2014 Aga GARCIA ID="[id number]">Follow DEON [facility] 02:4 8:00 PM i ([place] Up</td><td>DEON MUELLER MD Health Center EDT - a [facility]</td><td>[facility] 02/14/2014 b Health Health 04:08:59 PM e Center) Center</td><td>02/14/2014</td><td><conten EDT t t ID="[id number]">Diabetes e Mellitus with Complication</content>, s <content M ID="[id number]">Diabetes e Mellitus Type 2</content>, <content l ID="[id number]">Diabetes l Mellitus</content></td> i t u s D i a b e t e s M e l l i t u s T y p e 2 D i a b e t e s M e l l i t u s w i t h C o m p l i c a t i o n D i a b e t e s M e l l i t u s D i a b e t e s M e l l i t u s T y p e 2 D i a b e t e s M e l l i t u s w i t h C o m p l i c a t i o n D i a b e t e s M e l l i t u s D i a b e t e s M e l l i t u s T y p e 2 D i a b e t e s M e l l i t u s w i t h C o m p l i c a t i o n D i a b e t e s M e l l i t u s D i a b e t e s M e l l i t u s T y p e 2 D i a b e t e s M e l l i t u s w i t h C o m p l i c a t i o n D i a b e t e s M e l l i t u s D i a b e t e s M e l l i t u s T y p e 2 D i a b e t e s M e l l i t u s w i t h C o m p l i c a t i o n D i a b e t e s M e l l i t u s D i a b e t e s M e l l i t u s T y p e 2 D i a b e t e s M e l l i t u s w i t h C o m p l i c a t i o n D i a b e t e s M e l l i t u s D i a b e t e s M e l l i t u s T y p e 2 D i a b e t e s M e l l i t u s w i t h C o m p l i c a t i o n D i a b e t e s M e l l i t u s D i a b e t e s M e l l i t u s T y p e 2 D i a b e t e s M e l l i t u s w i t h C o m p l i c a t i o n D i a b e t e s M e l l i t u s D i a b e t e s M e l l i t u s T y p e 2 D i a b e t e s M e l l i t u s w i t h C o m p l i c a t i o n D i a b e t e s M e l l i t u s D i a b e t e s M e l l i t u s T y p e 2 D i a b e t e s M e l l i t u s w i t h C o m p l i c a t i o n D i a b e t e s M e l l i t u s D i a b e t e s M e l l i t u s T y p e 2 D i a b e t e s M e l l i t u s w i t h C o m p l i c a t i o n D i a b e t e s M e l l i t u s D i a b e t e s M e l l i t u s T y p e 2 D i a b e t e s M e l l i t u s w i t h C o m p l i c a t i o n D i a b e t e s M e l l i t u s D i a b e t e s M e l l i t u s T y p e 2 D i a b e t e s M e l l i t u s w i t h C o m p l i c a t i o n D i a b e t e s M e l l i t u s D i a b e t e s M e l l i t u s T y p e 2 D i a b e t e s M e l l i t u s w i t h C o m p l i c a t i o n D i a b e t e s M e l l i t u s D i a b e t e s M e l l i t u s T y p e 2 D i a b e t e s M e l l i t u s w i t h C o m p l i c a t i o n D i a b e t e s M e l l i t u s D i a b e t e s M e l l i t u s T y p e 2 D i a b e t e s M e l l i t u s w i t h C o m p l i c a t i o n D i a b e t e s M e l l i t u s D i a b e t e s M e l l i t u s T y p e 2 D i a b e t e s M e l l i t u s w i t h C o m p l i c a t i o n Diabetes Mellitus Diabetes Mellitus Type 2 Diabetes Mellitus with Complication Diabetes Mellitus Diabetes Mellitus Type 2 Diabetes Mellitus with Complication Diabetes Mellitus Diabetes Mellitus Type 2 Diabetes Mellitus with Complication Diabetes Mellitus Diabetes Mellitus Type 2 Diabetes Mellitus with Complication Diabetes Mellitus Diabetes Mellitus Type 2 Diabetes Mellitus with Complication Diabetes Mellitus Diabetes Mellitus Type 2 Diabetes Mellitus with Complication Diabetes Mellitus Diabetes Mellitus Type 2 Diabetes Mellitus with Complication Diabetes Mellitus Diabetes Mellitus Type 2 Diabetes Mellitus with Complication Diabetes Mellitus Diabetes Mellitus Type 2 Diabetes Mellitus with Complication Diabetes Mellitus Diabetes Mellitus Type 2 Diabetes Mellitus with Complication Diabetes Mellitus Diabetes Mellitus Type 2 Diabetes Mellitus with Complication Diabetes Mellitus Diabetes Mellitus Type 2 Diabetes Mellitus with Complication Diabetes Mellitus Diabetes Mellitus Type 2 Diabetes Mellitus with Complication Diabetes Mellitus Diabetes Mellitus Type 2 Diabetes Mellitus with Complication Diabetes Mellitus Diabetes Mellitus Type 2 Diabetes Mellitus with Complication Diabetes Mellitus Diabetes Mellitus Type 2 Diabetes Mellitus with Complication Diabetes Mellitus Diabetes Mellitus Type 2 Diabetes Mellitus with Complication Outpatient<td Attender: [place] 01/31/2014 JOSE ID="[id number]">[place]</td><td>VANGIE [facility] 03:54:00 PM (Jimbo ANNE MD</td><td>[facility] EDT [facility]</td><td>01/31/2014</td><td></td> 014 Health 05:54:17 PM Center) EDT Outpatient<td ID="[id number]">*No Attender: [place] 12/15/2013 JOSE Show*</td><td>DEON [facility]LLER [facility]</td><[facility] ([facility]</td><td>12/15/2013</td><td></td> [facility] 12/15/2013 Health 11:59:00 PM Center) EDT Outpatient<td Attender: [place] 11/16/2013 [facility] [employer] ID="[id number]">WALKINS</td><td>DEON [facility] 05:16:00 PM e (Jimbo MUELLER MD</td><td>[facility] EDT [facility]</td><td>11/16/2013</td><td><content 10/29 a Health ID="[id number]">Hematuria</content>, <content 07:23:57 PM t Center) ID="[id number]">Urinary Tract EDT u Infection</content>, <content r ID="[id number]">Diabetes Mellitus</content>, i <content ID="[id number]">Diabetes Mellitus a Type 2</content>, <content H ID="[id number]">Allergic e Rhinitis</content></td> m a t u r i a H e m a t u r i a H e m a t u r i a H e m a t u r i a H e m a t u r i a H e m a t u r i a H e m a t u r i a H e m a t u r i a H e m a t u r i a H e m a t u r i a H e m a t u r i a H e m a t u r i a H e m a t u r i a H e m a t u r i a H e m a t u r i a H e m a t u r i a A l l e r g i c R h i n i t i s D i a b e t e s M e l l i t u s T y p e 2 D i a b e t e s M e l l i t u s U r i n a r y T r a c t I n f e c t i o n A l l e r g i c R h i n i t i s D i a b e t e s M e l l i t u s T y p e 2 D i a b e t e s M e l l i t u s U r i n a r y T r a c t I n f e c t i o n A l l e r g i c R h i n i t i s D i a b e t e s M e l l i t u s T y p e 2 D i a b e t e s M e l l i t u s U r i n a r y T r a c t I n f e c t i o n A l l e r g i c R h i n i t i s D i a b e t e s M e l l i t u s T y p e 2 D i a b e t e s M e l l i t u s U r i n a r y T r a c t I n f e c t i o n A l l e r g i c R h i n i t i s D i a b e t e s M e l l i t u s T y p e 2 D i a b e t e s M e l l i t u s U r i n a r y T r a c t I n f e c t i o n A l l e r g i c R h i n i t i s D i a b e t e s M e l l i t u s T y p e 2 D i a b e t e s M e l l i t u s U r i n a r y T r a c t I n f e c t i o n A l l e r g i c R h i n i t i s D i a b e t e s M e l l i t u s T y p e 2 D i a b e t e s M e l l i t u s U r i n a r y T r a c t I n f e c t i o n A l l e r g i c R h i n i t i s D i a b e t e s M e l l i t u s T y p e 2 D i a b e t e s M e l l i t u s U r i n a r y T r a c t I n f e c t i o n A l l e r g i c R h i n i t i s D i a b e t e s M e l l i t u s T y p e 2 D i a b e t e s M e l l i t u s U r i n a r y T r a c t I n f e c t i o n A l l e r g i c R h i n i t i s D i a b e t e s M e l l i t u s T y p e 2 D i a b e t e s M e l l i t u s U r i n a r y T r a c t I n f e c t i o n A l l e r g i c R h i n i t i s D i a b e t e s M e l l i t u s T y p e 2 D i a b e t e s M e l l i t u s U r i n a r y T r a c t I n f e c t i o n A l l e r g i c R h i n i t i s D i a b e t e s M e l l i t u s T y p e 2 D i a b e t e s M e l l i t u s U r i n a r y T r a c t I n f e c t i o n A l l e r g i c R h i n i t i s D i a b e t e s M e l l i t u s T y p e 2 D i a b e t e s M e l l i t u s U r i n a r y T r a c t I n f e c t i o n A l l e r g i c R h i n i t i s D i a b e t e s M e l l i t u s T y p e 2 D i a b e t e s M e l l i t u s U r i n a r y T r a c t I n f e c t i o n A l l e r g i c R h i n i t i s D i a b e t e s M e l l i t u s T y p e 2 D i a b e t e s M e l l i t u s U r i n a r y T r a c t I n f e c t i o n A l l e r g i c R h i n i t i s D i a b e t e s M e l l i t u s T y p e 2 D i a b e t e s M e l l i t u s U r i n a r y T r a c t I n f e c t i o n A l l e r g i c R h i n i t i s D i a b e t e s M e l l i t u s T y p e 2 D i a b e t e s M e l l i t u s U r i n a r y T r a c t I n f e c t i o n Hematuria Hematuria Hematuria Hematuria Hematuria Hematuria Hematuria Hematuria Hematuria Hematuria Hematuria Hematuria Hematuria Hematuria Hematuria Hematuria Hematuria Allergic Rhinitis Diabetes Mellitus Type 2 Diabetes Mellitus Urinary Tract Infection Allergic Rhinitis Diabetes Mellitus Type 2 Diabetes Mellitus Urinary Tract Infection Allergic Rhinitis Diabetes Mellitus Type 2 Diabetes Mellitus Urinary Tract Infection Allergic Rhinitis Diabetes Mellitus Type 2 Diabetes Mellitus Urinary Tract Infection Allergic Rhinitis Diabetes Mellitus Type 2 Diabetes Mellitus Urinary Tract Infection Allergic Rhinitis Diabetes Mellitus Type 2 Diabetes Mellitus Urinary Tract Infection Allergic Rhinitis Diabetes Mellitus Type 2 Diabetes Mellitus Urinary Tract Infection Allergic Rhinitis Diabetes Mellitus Type 2 Diabetes Mellitus Urinary Tract Infection Allergic Rhinitis Diabetes Mellitus Type 2 Diabetes Mellitus Urinary Tract Infection Allergic Rhinitis Diabetes Mellitus Type 2 Diabetes Mellitus Urinary Tract Infection Allergic Rhinitis Diabetes Mellitus Type 2 Diabetes Mellitus Urinary Tract Infection Allergic Rhinitis Diabetes Mellitus Type 2 Diabetes Mellitus Urinary Tract Infection Allergic Rhinitis Diabetes Mellitus Type 2 Diabetes Mellitus Urinary Tract Infection Allergic Rhinitis Diabetes Mellitus Type 2 Diabetes Mellitus Urinary Tract Infection Allergic Rhinitis Diabetes Mellitus Type 2 Diabetes Mellitus Urinary Tract Infection Allergic Rhinitis Diabetes Mellitus Type 2 Diabetes Mellitus Urinary Tract Infection Allergic Rhinitis Diabetes Mellitus Type 2 Diabetes Mellitus Urinary Tract Infection Outpatient<td Attender: [place] 07/28/2013 JOSE ID="[id number]">*[facility] 04:50:0 0 PM ([place] Show*</td><td>DEON MUELLER MD Health Center EST - Neighborhood </td><td>[facility] 07/28/2013 Health Health 11:59:00 PM [place]) [place]</td><td>07/28/2013</td><td></td> EST Outpatient<td Attender: 07/25/2013 JOSE ID="[id number]">*Chart DARALYJeff 03:27: 00 PM ([place] Update*</td><td>DEON MUELLER MD EST - Neighborhood </td><td> 07/25/2013 Health </td><td>07/25/2013</td><td></td> 11:59:00 PM [place]) EST Outpatient<td Attender: 07/25/2013 [place] ID="[id number]">*Chart DEON 03:25: 00 PM ([place] Update*</td><td>DEON MUELLER MD EST - Neighborhood </td><td> 07/25/2013 Health </td><td>07/25/2013</td><td></td> 11:59:00 PM Center) EST Outpatient<td Attender: Jimbo Triplett 07/20/2013 Aga GARCIA ID="[id number]">PENNIE Aviles 04:1 8:00 PM i ([place] </td><td>DEON MUELLER MD Health Center EST - a Neighborhood </td><td>[place] [facility] 07/20/2013 b Health Health 07:44:13 PM e Center) Center</td><td>07/20/2013</td><td><doug EST t nt e ID="[id number]">Diabetes s Mellitus</content></td> M e l l i t u s D i a b e t e s M e l l i t u s D i a b e t e s M e l l i t u s D i a b e t e s M e l l i t u s D i a b e t e s M e l l i t u s D i a b e t e s M e l l i t u s D i a b e t e s M e l l i t u s D i a b e t e s M e l l i t u s D i a b e t e s M e l l i t u s D i a b e t e s M e l l i t u s D i a b e t e s M e l l i t u s D i a b e t e s M e l l i t u s D i a b e t e s M e l l i t u s D i a b e t e s M e l l i t u s D i a b e t e s M e l l i t u s D i a b e t e s M e l l i t u s D i a b e t e s M e l l i t u s Diabetes Mellitus Diabetes Mellitus Diabetes Mellitus Diabetes Mellitus Diabetes Mellitus Diabetes Mellitus Diabetes Mellitus Diabetes Mellitus Diabetes Mellitus Diabetes Mellitus Diabetes Mellitus Diabetes Mellitus Diabetes Mellitus Diabetes Mellitus Diabetes Mellitus Diabetes Mellitus Diabetes Mellitus Outpatient<td Attender: 07/15/2012 JOSE ID="[id number]">*Chart Glendy 09:09: 00 AM ([place] Update*</td><td>SUSY WEI</td><td> Miguel EST - Neighborhood 07/15/2012 Health </td><td>07/15/2012</td><td></td> 11:59:00 PM Center) EST Outpatient<td Attender: [facility] 06/01/2012 [place] ID="[id number]">*No Trae Elias 04:26:00 PM ([place] Show*</td><td>TRAE cool EST - Neighborhood </td><td>[facility] Neigh 06/01/2012 [facility] 11:59:00 PM Center) Center</td><td>06/01/2012</td><td></td> od EST Healt h Cente r Outpatient<td Attender: [facility] 05/09/2012 [place] ID="[id number]">TERRANCE Elias 03:16 :00 PM ([place] </td><td>DEON MUELLER MD</td><td>[facility] AMI cool EST - [facility] 05/09/2012 Health Center</td><td>05/09/2012</td><td></td> [facility] 06:27:2 9 PM Center) od EST Healt h Cente r Outpatient<td Attender: [facility] 03/21/2012 [place] ID="[id number]">NUTRITI NAHUM Elias 05:33 :00 PM ([place] ON</td><td>NAHUM OCTAVIA DUDLEY n EDT - Neighborhood RD</td><td>[facility] Neigh 03/21/2012 [facility] 11:59:00 PM Center) Center</td><td>03/21/2012</td><td></td> od EDT Healt h Cente r Outpatient<td Attender: [facility] 03/07/2012 Frida [place] ID="[id number]">WALKMAXI Elias 03:53 :00 PM ry (Jimbo Triplett </td><td>SUSY BERNAL PA</td><td>[place] n EDT - Tract [facility] 03/07/2012 [facility]</td><td>03/07/2012</td><td><dougn maximino 07:29 :56 PM tionE Center) t ID="[id number]">Diabetes od EDT ssent Mellitus Type 2 - Uncomplicated, Healt ial Uncontrolled</content>, <content h Hyp er ID="[id number]">Hypertensio Cente tensi n (systemic)</content>, <content r onH yp ID="[id number]">Essential erten Hypertension</content>, <content sio n ID="[id number]">Urinary (syst Tract Infection</content></td> emic) Urina ry Tract Infec tionE ssent ial Hyper tensi onHyp erten manjit (syst emic) Urina ry Tract Infec tionE ssent ial Hyper tensi onHyp erten manjit (syst emic) Urina ry Tract Infec tionE ssent ial Hyper tensi onHyp erten manjit (syst emic) Urina ry Tract Infec tionE ssent ial Hyper tensi onHyp erten manjit (syst emic) Urina ry Tract Infec tionE ssent ial Hyper tensi onHyp erten manjit (syst emic) Urina ry Tract Infec tionE ssent ial Hyper tensi onHyp erten manjit (syst emic) Urina ry Tract Infec tionE ssent ial Hyper tensi onHyp erten manjit (syst emic) Urina ry Tract Infec tionE ssent ial Hyper tensi onHyp erten manjit (syst emic) Urina ry Tract Infec tionE ssent ial Hyper tensi onHyp erten manjit (syst emic) Urina ry Tract Infec tionE ssent ial Hyper tensi onHyp erten manjit (syst emic) Urina ry Tract Infec tionE ssent ial Hyper tensi onHyp erten manjit (syst emic) Urina ry Tract Infec tionE ssent ial Hyper tensi onHyp erten manjit (syst emic) Urina ry Tract Infec tionE ssent ial Hyper tensi onHyp erten manjit (syst emic) Urina ry Tract Infec tionE ssent ial Hyper tensi onHyp erten manjit (syst emic) Urina ry Tract Infec tionE ssent ial Hyper tensi onHyp erten manjit (syst emic) Urina ry Tract Infec tionE ssent ial Hyper tensi onHyp erten manjit (syst emic) Diabe adrianna Melli tus Type 2 - Uncom plica jayde, Uncon troll edDia betes Melli tus Type 2 - Uncom plica jayde, Uncon troll edDia betes Melli tus Type 2 - Uncom plica jayde, Uncon troll edDia betes Melli tus Type 2 - Uncom plica jayde, Uncon troll edDia betes Melli tus Type 2 - Uncom plica jayde, Uncon troll edDia betes Melli tus Type 2 - Uncom plica jayde, Uncon troll edDia betes Melli tus Type 2 - Uncom plica jayde, Uncon troll edDia betes Melli tus Type 2 - Uncom plica jayde, Uncon troll edDia betes Melli tus Type 2 - Uncom plica jayde, Uncon troll edDia betes Melli tus Type 2 - Uncom plica jayde, Uncon troll edDia betes Melli tus Type 2 - Uncom plica jayde, Uncon troll edDia betes Melli tus Type 2 - Uncom plica jayde, Uncon troll edDia betes Melli tus Type 2 - Uncom plica jayde, Uncon troll edDia betes Melli tus Type 2 - Uncom plica jayde, Uncon troll edDia betes Melli tus Type 2 - Uncom plica jayde, Uncon troll edDia betes Melli tus Type 2 - Uncom plica jayde, Uncon troll edDia betes Melli tus Type 2 - Uncom plica jayde, Uncon troll ed Urinary Tract Infection Essential Hypertension Hypertension (systemic) Urinary Tract Infection Essential Hypertension Hypertension (systemic) Urinary Tract Infection Essential Hypertension Hypertension (systemic) Urinary Tract Infection Essential Hypertension Hypertension (systemic) Urinary Tract Infection Essential Hypertension Hypertension (systemic) Urinary Tract Infection Essential Hypertension Hypertension (systemic) Urinary Tract Infection Essential Hypertension Hypertension (systemic) Urinary Tract Infection Essential Hypertension Hypertension (systemic) Urinary Tract Infection Essential Hypertension Hypertension (systemic) Urinary Tract Infection Essential Hypertension Hypertension (systemic) Urinary Tract Infection Essential Hypertension Hypertension (systemic) Urinary Tract Infection Essential Hypertension Hypertension (systemic) Urinary Tract Infection Essential Hypertension Hypertension (systemic) Urinary Tract Infection Essential Hypertension Hypertension (systemic) Urinary Tract Infection Essential Hypertension Hypertension (systemic) Urinary Tract Infection Essential Hypertension Hypertension (systemic) Urinary Tract Infection Essential Hypertension Hypertension (systemic) Diabetes Mellitus Type 2 - Uncomplicated , Uncontrolled Diabetes Mellitus Type 2 - Uncomplicated , Uncontrolled Diabetes Mellitus Type 2 - Uncomplicated , Uncontrolled Diabetes Mellitus Type 2 - Uncomplicated , Uncontrolled Diabetes Mellitus Type 2 - Uncomplicated , Uncontrolled Diabetes Mellitus Type 2 - Uncomplicated , Uncontrolled Diabetes Mellitus Type 2 - Uncomplicated , Uncontrolled Diabetes Mellitus Type 2 - Uncomplicated , Uncontrolled Diabetes Mellitus Type 2 - Uncomplicated , Uncontrolled Diabetes Mellitus Type 2 - Uncomplicated , Uncontrolled Diabetes Mellitus Type 2 - Uncomplicated , Uncontrolled Diabetes Mellitus Type 2 - Uncomplicated , Uncontrolled Diabetes Mellitus Type 2 - Uncomplicated , Uncontrolled Diabetes Mellitus Type 2 - Uncomplicated , Uncontrolled Diabetes Mellitus Type 2 - Uncomplicated , Uncontrolled Diabetes Mellitus Type 2 - Uncomplicated , Uncontrolled Diabetes Mellitus Type 2 - Uncomplicated , Uncontrolled Outpatient<td Attender: 03/03/2012 [place] ID="[id number]">Mayank Trae 05:43: 00 PM ([place] Update*</td><td>TRAE Under[place] EDT [facility] </td><td> 03/03/2012 Health </td><td>03/03/2012</td><td></td> 11:59:00 PM [place]) EDT Outpatient<td Attender: [facility] 02/29/2012 [place] ID="[id number]">TERRANCE Triplett 04:44 :00 PM ([place] </td><td>TRAE UNDERWOOD MD</td><td>[facility] EDT - [facility] Health ood 02/29/2012 Health Center</td><td>02/29/2012</td><td></td> Health 07:49:0 5 PM Center) Center EDT Outpatient<td Attender: [facility] 06/03/2011 [place] ID="[id number]">TERRANCE Triplett 10:30 :00 AM ([place] </td><td>VALDEZ NNAETUK, NNAET, [facility] ANP</td><td>[facility] ANP ood [address] [place] [address] Health Health 01:50:09 PM Center) Center</td><td>06/03/2011</td><td></td> [place] EST Immunizations Vaccine Date Status Description Data Source(s) IIV3. This 03/20/2019 completed Influenza 3 03/20/2019 Right Active [place] is one of 03:39:00 PM Deltoid (Administered) Neighborhood ([facility] Neighborhood replacing [address] ) which is being retired. Note: [facility] [id number] Tdap 05/16/2018 completed Tdap 1 05/16/2018 Left Active [place] 04:09:00 PM Deltoid (Administered) [facility] ([facility]) Note: [facility] [phone] IIV3. This 04/18/2018 completed Influenza 2 04/18/2018 Left Active [place] is one of 02:45:00 PM Deltoid (Administered) Neighborhood ([facility] Neighborhood replacing [address] ) which is being retired. IIV3. This 04/23/2015 completed Influenza 1 04/23/2015 Left Arm Active [place] is one of 04:47:00 PM (Administered) [facility] ([facility] Neighborhood replacing [address] ) which is being retired. Medications Medication Brand Start Product Dose Route Administrative Pharmacy St at Indications Reaction Description Data Name Date Form Instructions Instructions Source(s) Coreg Coreg 08/06/ UNIT 1 active Coreg JOSE 3.125MG 3.125M 2020 ([place] Oral Tablet G Oral 12:00: [place] on Tablet 00 AM [facility]) atorvastati Atorva 08/06/ UNIT 1 active Atorvas tatin JOSE n 40 MG statin 2019 Calcium ([place] Oral Tablet Calciu 12:00: [place] on Atorvastati m 40MG 00 AM Neigh borho n Calcium Oral EDT od Health 40MG Oral Tablet Center) Tablet Basaglar Basagl UNIT 1 active Lantus [place] KwikPen ar 2019 ([place] 100UNIT/ML KwikPe 12:00: [place] n Subcutaneou n 00 AM [place] rho s Solution 100UNI EDT od Heal Pen-injecto T/ML Center) r Subcut aneous Soluti on Pen-in jector Alcohol Alcoho UNIT 1 active Alcohol Pad s JOSE Pads 70% l Pads 2019 ([place] 70% 12:00: Uziel 00 AM [facility] EDT Health [place]) Neurontin [place] UNIT 1 active Neurontin JOSE 100MG Oral tin 2019 ([place] Capsule 100MG 12:00: Uziel Oral 00 AM [facility] Capsul EDT od Health e Center) Enalapril Enalap UNIT 1 active Enalapril JOSE Maleate 5 ril 2020 Maleate ([place] MG Oral Maleat 12:00: Uziel Tablet e 5MG 00 AM [facility] Enalapril Oral EDT od Health Maleate 5MG Tablet Center ) Oral Tablet FreeStyle FreeSt UNIT 1 active FreeStyle JOSE Lite Test yle 2019 Lite Test (Moun t In Vitro Lite 12:00: Uziel Strip Test 00 AM [facility] In EDT Health Vitro Center) Strip Pen [place] Pen UNIT 1 active Pen Needl es JOSE 31G X 6 MM Needle 2019 ([place] Miscellaneo s 31G 12:00: Verno n us X 6 MM 00 AM [facility] Miscel EDT od Health laneou Center) s Admelog Admelo UNIT 1 active Admelog [place] SoloStar g 2019 ([place] 100UNIT/ML SoloSt 12:00: Vern[place] n Subcutaneou ar 00 AM [place] rho s Solution 100UNI EDT od Heal th Pen-injecto T/ML Center) r Subcut aneous Soluti on Pen-in jector Basaglar Basagl UNIT 1 suspend Lantus GR [place] KwikPen ar 2018 ed ([place] 100UNIT/ML KwikPe 12:00: [place] n Subcutaneou n 00 AM [place]bo rho s Solution 100UNI EDT od Heal th Pen-injecto T/ML Center) r Subcut aneous Soluti on Pen-in jector Admelog Admelo 03/20/ UNIT 1 suspend Admelog GR EENWAY SoloStar g 2019 ed ([place] 100UNIT/ML SoloSt 12:00: Verno n Subcutaneou ar 00 AM [place]bo rho s Solution 100UNI EDT od Heal th Pen-injecto T/ML Center) r Subcut aneous Soluti on Pen-in jector atorvastati Atorva 03/20/ UNIT 1 suspend Atorva statin JOSE n 40 MG statin 2019 ed Calcium ([place] Oral Tablet Calciu 12:00: [place] on Atorvastati m 40MG 00 AM Neigh borho n Calcium Oral EDT od [facility] 40MG Oral Tablet Center) Tablet Enalapril Enalap UNIT 1 suspend Enalapri l JOES Maleate 5 ril 2019 ed Maleate ([place] MG Oral Maleat 12:00: Uziel Tablet e 5MG 00 AM [facility] Enalapril Oral EDT od [facility] Maleate 5MG Tablet Center ) Oral Tablet Coreg Coreg UNIT 1 suspend Coreg [place] 3.125MG 3.125M 2019 ed ([place] Oral Tablet G Oral 12:00: [place] on Tablet 00 AM [facility] EDT Health [place]) Alcohol Alcoho UNIT 1 suspend Alcohol Pa ds JOSE Pads 70% l Pads 2019 ed ([place] 70% 12:00: Uziel 00 AM [facility] EDT Health [place]) Pen [place] Pen UNIT 1 suspend Pen Need les JOSE 31G X 6 MM Needle 2019 ed ([place] Miscellaneo s 31G 12:00: Verno n us X 6 MM 00 AM [facility] Miscel EDT od [facility] laneou [place]) s FreeStyle FreeSt UNIT 1 suspend FreeStyl e JOSE Lite Test yle 2019 ed Lite Test (Moun t In Vitro Lite 12:00: Uziel Strip Test 00 AM [facility] In EDT od Health Vitro Center) Strip Flonase Flonas 08/10/ CAPFUL 1 active Flonase G REENWAY Allergy e 2019 DOSING ([place] Relief Allerg 12:00: UNIT Uziel 50MCG/ACT y 00 AM Neighborh o Nasal Relief EDT od Health Suspension 50MCG/ Center) ACT Nasal Suspen manjit NovoLOG NovoLO 08/10/ UNIT active NovoLog [place] FlexPen G 2019 ([place] 100UNIT/ML FlexPe 12:00: Verno n Subcutaneou n 00 AM Ne[place]bo rho s Solution 100UNI EDT od Heal th Pen-injecto T/ML Center) r Subcut aneous Soluti on Pen-in jector Enalapril Enalap UNIT 1 suspend Enalapri l JOSE Maleate 5 ril 2018 ed Maleate ([place] MG Oral Maleat 12:00: Uziel Tablet e 5MG 00 AM [facility] Enalapril Oral EDT od [facility] Maleate 5MG Tablet Center ) Oral Tablet Alcohol Alcoho 08/10/ UNIT 1 suspend Alcohol Pa ds JOSE Pads 70% l Pads 2018 ed ([place] 70% 12:00: Uziel 00 AM [facility] atorvastati Atorva 08/10/ UNIT 1 suspend Atorva statin JOSE n 40 MG statin 2018 ed Calcium ([place] Oral Tablet Calciu 12:00: [place] on Atorvastati m 40MG 00 AM Neigh bor n Calcium Oral EDT od [facility] 40MG Oral Tablet [place]) Tablet Admelog Admelo 08/10/ UNIT 1 suspend Admelog GR EENWAY SoloStar g 2019 ed ([place] 100UNIT/ML SoloSt 12:00: Verno n Subcutaneou ar 00 AM Neighbo rho s Solution 100UNI EDT od Heal Pen-injecto T/ML Center) r Subcut aneous Soluti on Pen-in jector Pen [place] Pen UNIT 1 suspend Pen Need les JOSE 31G X 6 MM Needle 2018 ed ([place] Miscellaneo s 31G 12:00: Verno n us X 6 MM 00 AM [facility] Miscel EDT od [facility] s Loratadine Lorata 08/10/ UNIT 1 active Loratadi ne JOSE 10 MG Oral dine 2018 ([place] Capsule 10MG 12:00: Uziel Loratadine Oral 00 AM Neighbor ho 10MG Oral Capsul EDT od Healt h Capsule e Center) FreeStyle FreeSt 08/10/ UNIT 1 suspend FreeStyl e JOSE Lite Test yle 2019 ed Lite Test (Moun t In Vitro Lite 12:00: Uziel Strip Test 00 AM [place] In EDT od Health Vitro Center) Strip Basaglar Basagl 08/10/ UNIT 1 suspend Lantus GR [place] KwikPen ar 2019 ed ([place] 100UNIT/ML KwikPe 12:00: Verno n Subcutaneou n 00 AM Neighbo rho s Solution 100UNI EDT od Heal Pen-injecto T/ML Center) r Subcut aneous Soluti on Pen-in jector Coreg Coreg 08/10/ UNIT 1 suspend Coreg [place] 3.125MG 3.125M 2018 ed ([place] Oral Tablet G Oral 12:00: [place] on Tablet 00 AM Neighbor EDT od Health Center) Ketoconazol Ketoco 06/27/ APPLICAT 1 complet Ke toconazole JOSE e 20 MG/ML nazole 2019 ION UNIT ed (Mo unt Topical 2% 12:00: Uziel Cream Collateral Specialist 00 AM [facility] Ketoconazol al EST od Healt h e 2% Cream Center) External Cream Ketoconazol Ketoco 05/23/ APPLICAT 1 complet Ke toconazole JOSE e 20 MG/ML nazole 2017 ION UNIT ed (Mo unt Topical 2% 12:00: Uziel Cream Collateral Specialist 00 AM [facility] Ketoconazol al EST od Healt h e 2% Cream Center) External Cream Boostrix Boostr 05/16/ CAPFUL active Boostrix JOSE 5-2.5-18.5L ix 2018 DOSING ([place] F-MCG/0.5 5-2.5- 12:00: UNIT Uziel Intramuscul 18.5LF 00 AM Neigh borho ar -MCG/0 EST od Health Suspension .5 Center) Intram uscula r Suspen manjit Boostrix Boostr 05/16/ CAPFUL suspend Boostri x JOSE 5-2.5-18.5L ix 2018 DOSING ed ([place] F-MCG/0.5 5-2.5- 12:00: UNIT Uziel Intramuscul 18.5LF 00 AM Neigh borho ar -MCG/0 EST od Health Suspension .5 Center) Intram uscula r Suspen manjit Ultra-Thin Ultra- 05/16/ UNIT 1 suspend Ultra-T hin JOSE II Pen Thin 2018 ed II Pen ([facility] Needle II Pen 12:00: Needle Short V ernon Short 31G X Needle 00 AM Neigh borho 8 MM Short EST od Health Miscellaneo 31G X Center) us 8 [address] Miscel laneou s Enalapril Enalap 04/18/ UNIT 1 suspend Enalapri l JOSE Maleate 5 2017 ed Maleate ([place] MG Oral Maleat 12:00: Uziel Tablet e 5MG 00 AM Neighborho Enalapril Oral EST od Health Maleate 5MG Tablet Center ) Oral Tablet Basaglar Basagl 04/18/ UNIT 1 suspend Lantus GR EENWAY KwikPen ar 2018 ed ([facility] 100UNIT/ML KwikPe 12:00: Verno n Subcutaneou n 00 AM Neighbo rho s Solution 100UNI EST od Heal th Pen-injecto T/ML Center) r Subcut aneous Soluti on Pen-in jector Flonase Flonas 04/18/ CAPFUL 1 suspend Flonase JOSE Allergy e 2018 DOSING ed ([facility] Relief Allerg 12:00: UNIT Uziel 50MCG/ACT y 00 AM Neighborh o Nasal Relief EST od Health Suspension 50MCG/ Center) ACT Nasal Suspen manjit Enalapril Enalap 04/18/ UNIT 1 suspend Enalapri l JOSE Maleate 5 2018 ed Maleate ([place] MG Oral Maleat 12:00: Uziel Tablet e 5MG 00 AM Neighborho Enalapril Oral EST od Health Maleate 5MG Tablet Center ) Oral Tablet FreeStyle FreeSt 04/18/ UNIT 1 suspend FreeStyl e JOSE Lancets yle 2018 ed Lancets ([place] Miscellaneo Lancet 12:00: [place] on us s 00 AM Neighborho Miscel EST od Health laneou Center) s atorvastati Atorva 04/18/ UNIT 1 suspend Atorva statin JOSE n 40 MG statin 2018 ed Calcium ([place] Oral Tablet Calciu 12:00: [place] on Atorvastati m 40MG 00 AM Neigh borho n Calcium Oral EST od Health 40MG Oral Tablet Center) Tablet FreeStyle FreeSt 04/18/ UNIT 1 active FreeStyle JOSE Lancets yle 2018 Lancets ([place] Miscellaneo Lancet 12:00: Devonte on us s 00 AM [facility]) s Alcohol Alcoho 04/18/ UNIT 1 suspend Alcohol Pa ds JOSE Pads 70% l Pads 2018 ed ([place] 70% 12:00: Uziel 00 AM [facility] Center) Loratadine Lorata 04/18/ UNIT 1 suspend Loratad ine JOSE 10 MG Oral dine 2018 ed ([place] Capsule 10MG 12:00: Uziel Loratadine Oral 00 AM Neighbor ho 10MG Oral Capsul EST od Heal h Capsule e Center) Alcohol Alcoho 04/18/ UNIT 1 suspend Alcohol Pa ds JOSE Pads 70% l Pads 2018 ed ([place] 70% 12:00: Uziel 00 AM [facility] Health [place]) Pen [place] Pen UNIT 1 suspend Pen Need les JOSE 31G X 6 MM Needle 2018 ed ([place] Miscellaneo s 31G 12:00: Verno n us X 6 MM 00 AM [facility]) s NovoLOG Mix NovoLO 04/18/ UNIT 1 suspend NovoLo g Mix JOSE 70/30 G Mix 2018 ed ([facility] FlexPen 70/30 12:00: Uziel (70-30) FlexPe 00 AM [facility] o 100UNIT/ML n EST Health Subcutane (70-30 Center ) s ) Suspension 100UNI Pen-injecto T/ML r Subcut aneous Suspen manjit Pen-in jector Coreg Coreg 04/18/ UNIT 1 suspend Coreg [place] Y 3.125MG 3.125M 2018 ed ([facility] Oral Tablet G Oral 12:00: Devonte on Tablet 00 AM [facility] Center) FreeStyle FreeSt 10/04/ UNIT 1 suspend FreeStyl e JOSE Lite Test yle 2018 ed Lite Test (Moun t In Vitro Lite 12:00: Uziel Strip Test 00 AM [facility] In [facility] Vitro Center) Strip Coreg Coreg 10/04/ UNIT 1 suspend Coreg GREEN[place] Y 3.125MG 3.125M 2018 ed ([facility] Oral Tablet G Oral 12:00: Devonte on Tablet 00 AM [facility] Center) Enalapril Enalap UNIT 1 suspend Enalapri l JOSE Maleate 5 ril 2018 ed Maleate ([place] MG Oral Maleat 12:00: Uziel Tablet e 5MG 00 AM Neighbor Enalapril Oral EDT od Health Maleate 5MG Tablet Center ) Oral Tablet Pen [place] Pen UNIT 1 suspend Pen Need les JOSE 31G X 6 MM Needle 2018 ed ([place] Miscellaneo s 31G 12:00: Verno n us X 6 MM 00 AM Neighbor Miscel EDT od [facility] lane Center) s Simvastatin Simvas UNIT 1 suspend Simvas tatin JOSE 20 MG Oral tatin 2018 ed ([place] Tablet 20MG 12:00: Uziel Simvastatin Oral 00 AM Neighbo rho 20MG Oral Tablet EDT od [facility] h Tablet Center) Alcohol Alcoho UNIT 1 suspend Alcohol Pa ds JOSE Pads 70% l Pads 2018 ed ([place] 70% 12:00: Uziel 00 AM [facility] EDT od Health Center) Coreg Coreg UNIT 1 suspend Coreg [place] Y 3.125MG 3.125M 2018 ed ([place] Oral Tablet G Oral 12:00: [place] on Tablet 00 AM Neighbor EDT od Health Center) NovoLOG Mix NovoLO UNIT 1 suspend NovoLo g Mix JOSE 70/30 G Mix 2018 ed ([place] FlexPen 70/30 12:00: Uziel (70-30) FlexPe 00 AM Neighborh o 100UNIT/ML n EDT [facility] Center ) s ) Suspension 100UNI Pen-injecto T/ML r Subcut aneous Suspen manjit Pen-in jector Basaglar Basagl UNIT 1 suspend Lantus GR EENWAY KwikPen ar 2018 ed ([place] 100UNIT/ML KwikPe 12:00: Verno n Subcutaneou n 00 AM Neighbo rho s Solution 100UNI EDT od Heal th Pen-injecto T/ML Center) r Subcut aneous Soluti on Pen-in jector NovoLOG Mix NovoLO 10/04/ UNIT 1 suspend NovoLo g Mix JOSE 70/30 G Mix 2018 ed ([place] FlexPen 70/30 12:00: Uziel (70-30) FlexPe 00 AM Neighborh o 100UNIT/ML n EDT od Health [facility] (70-30 [place] ) s ) Suspension 100UNI Pen-injecto T/ML r Subcut aneous Suspen manjit Pen-in jector Enalapril Enalap 10/04/ UNIT 1 suspend Enalapri l JOSE Maleate 5 ril 2018 ed Maleate ([place] MG Oral Maleat 12:00: Uziel Tablet e 5MG 00 AM Neighborho Enalapril Oral EDT od Health Maleate 5MG Tablet Center ) Oral Tablet NovoLOG Mix NovoLO 10/04/ UNIT 1 suspend NovoLo g Mix JOSE 70/30 G Mix 2018 ed ([facility] FlexPen 70/30 12:00: Uziel (70-30) FlexPe 00 AM Neighborh o 100UNIT/ML n EDT od [facility] (70-30 [place] ) s ) Suspension 100UNI Pen-injecto T/ML r Subcut aneous Suspen manjit Pen-in jector Pen [place] Pen 10/04/ UNIT 1 suspend Pen Need les JOSE 31G X 6 MM Needle 2018 ed ([facility] Miscellaneo s 31G 12:00: Verno n us X 6 MM 00 AM Neighborho Miscel EDT od [facility]) s atorvastati Atorva 10/04/ UNIT 1 suspend Atorva statin JOSE n 40 MG statin 2018 ed Calcium ([facility] Oral Tablet Calciu 12:00: Devonte on Atorvastati m 40MG 00 AM Ne[place] borho n Calcium Oral EDT od Health 40MG Oral Tablet Center) Tablet FreeStyle FreeSt 10/04/ UNIT 1 suspend FreeStyl e JOSE Lancets yle 2018 ed Lancets ([facility] Miscellaneo Lancet 12:00: Devonte on us s 00 AM Neighbor[place] Miscel EDT od [facility]) s Flonase Flonas 10/04/ CAPFUL 1 suspend Flonase JOSE Allergy e 2018 DOSING ed ([facility] Relief Allerg 12:00: UNIT Uziel 50MCG/ACT y 00 AM Neighbor[facility] o Nasal Relief EDT od Health Suspension 50MCG/ Center) ACT Nasal Suspen manjit Loratadine Lorata 10/04/ UNIT 1 suspend Loratad ine JOSE 10 MG Oral dine 2018 ed ([place] Capsule 10MG 12:00: Uziel Loratadine Oral 00 AM Neighbor ho 10MG Oral Capsul EDT od Healt h Capsule e Center) Alcohol Alcoho 10/04/ UNIT 1 suspend Alcohol Pa ds JOSE Pads 70% l Pads 2018 ed ([facility] 70% 12:00: Uziel 00 AM [facility] EDT od Health Center) FreeStyle FreeSt UNIT 1 suspend FreeStyl e JOSE Lite Test yle 2018 ed Lite Test ([facility] t In Vitro Lite 12:00: Uziel Strip Test 00 AM [place] In EDT od Health Vitro Center) Strip Coreg Coreg 02/22/ UNIT 1 suspend Coreg GREENWA Y 3.125MG 3.125M 2017 ed ([place] Oral Tablet G Oral 12:00: Devonte on Tablet 00 AM Neighbor EDT od Health Center) Alcohol Alcoho 02/22/ UNIT 1 suspend Alcohol Pa ds JOSE Pads 70% l Pads 2017 ed ([facility] 70% 12:00: Uziel 00 AM [facility] EDT od Health Center) NovoLOG Mix NovoLO 02/22/ UNIT 1 suspend NovoLo g Mix JOSE 70/30 G Mix 2017 ed ([place] FlexPen 70/30 12:00: Uziel (70-30) FlexPe 00 AM Neighborh o 100UNIT/ML n EDT od Health Subcutaneou (70-30 Center ) s ) Suspension 100UNI Pen-injecto T/ML r Subcut aneous Suspen manjit Pen-in jector NovoLOG NovoLO 01/06/ UNIT suspend NovoLog GR EENWAY FlexPen G 2017 ed ([place] 100UNIT/ML FlexPe 12:00: Verno n Subcutaneou n 00 AM Neighbo rho s Solution 100UNI EDT od Heal th Pen-injecto T/ML Center) r Subcut aneous Soluti on Pen-in jector Enalapril Enalap UNIT 1 suspend Enalapri l JOSE Maleate 5 ril 2017 ed Maleate ([facility] MG Oral Maleat 12:00: Uziel Tablet e 5MG 00 AM [facility] Enalapril Oral EDT od [facility] Maleate 5MG Tablet Center ) Oral Tablet atorvastati Atorva 01/04/ UNIT 1 suspend Atorva statin JOSE n 40 MG statin 2017 ed Calcium ([place] Oral Tablet Calciu 12:00: Devonte on Atorvastati m 40MG 00 AM Neigh borho n Calcium Oral EDT od Health 40MG Oral Tablet Center) Tablet Pen [place] Pen UNIT 1 suspend Pen Need les JOSE 31G X 6 MM Needle 2016 ed ([place] Miscellaneo s 31G 12:00: Verno n us X 6 MM 00 AM [facility] s Loratadine Lorata UNIT 1 suspend Loratad ine JOSE 10 MG Oral dine 2016 ed ([place] Capsule 10MG 12:00: Uziel Loratadine Oral 00 AM Neighbor ho 10MG Oral Capsul EDT od Healt h Capsule e Center) FreeStyle FreeSt UNIT 1 suspend FreeStyl e JOSE Lancets yle 2016 ed Lancets ([facility] Miscellaneo Lancet 12:00: Devonte on us s 00 AM Ne[facility] Miscel EDT od Health lane Center) s FreeStyle FreeSt UNIT 1 suspend FreeStyl e JOSE Lite Test yle 2016 ed Lite Test (Moun t In Vitro Lite 12:00: Uziel Strip Test 00 AM Neighborho In EDT od Health Vitro Center) Strip NovoLOG Mix NovoLO UNIT suspend NovoLo g Mix JOSE 70/30 G Mix 2016 ed ([facility] FlexPen 70/30 12:00: Uziel (70-30) FlexPe 00 AM Neighborh o 100UNIT/ML n EDT od Health Subcutaneou (70-30 Center ) s ) Suspension 100UNI Pen-injecto T/ML r Subcut aneous Suspen manjit Pen-in jector Basaglar Basagl 11/04/ UNIT 1 suspend Lantus GR EENWAY KwikPen ar 2017 ed ([facility] 100UNIT/ML KwikPe 12:00: Verno n Subcutaneou n 00 AM Neighbo rho s Solution 100UNI EDT od Heal th Pen-injecto T/ML Center) r Subcut aneous Soluti on Pen-in jector Basaglar Basagl 09/14/ UNIT 1 suspend Lantus GR EENWAY KwikPen 100 ar 2017 ed ([facility] UNIT/ML KwikPe 12:00: Uziel Solution n 100 00 AM Neighborh o Pen-injecto UNIT/M EDT od Hea lt r L [place]) Soluti on Pen-in jector FreeStyle FreeSt 08/24/ UNIT 1 suspend FreeStyl e JOSE Lancets yle 2017 ed Lancets ([place] Miscellaneo Lancet 12:00: Devonte on us s 00 AM [facility]iscel [facility] s Loratadine- Lorata 08/24/ UNIT 1 suspend Lorata dine-D JOSE D 24HR dine-D 2017 ed 24HR ([place] 10-240 MG 24HR 12:00: Uziel Tablet 10-240 00 AM Neighbor Extended MG EDT od Health Release 24 Tablet Center) Hour Extend ed Releas e 24 Hour NovoLIN R NovoLI 08/24/ CAPFUL complet Novoli n R JOSE 100UNIT/ML N R 2016 DOSING ed ([facility] IJ SOLN 100UNI 12:00: UNIT Uziel T/ML 00 AM [facility] IJ EDT [facility]) Medication administered onsite [facility]:[id number] Metformin MetFORMIN 08/24/2016 UNIT 1 suspended metFORMIN JOSE hydrochloride HCl 1000 MG 12:00:00 AM HCl ([place] 1000 MG Oral Tablet [facility] MetFORMIN HCl [place] ) 1000 MG Tablet Simvastatin 20 Simvastatin 08/24/2016 UNIT 1 suspended Simvastatin JOSE MG Oral Tablet 20 MG Tablet 12:00:00 AM ([place] Simvastatin 20 [facility]) Glipizide 5 MG GlipiZIDE 5 08/24/2016 UNIT 1 suspended glipiZIDE JOSE Oral Tablet MG Tablet 12:00:00 AM ([place] GlipiZIDE 5 MG [facility]) Enalapril Enalapril 08/24/2016 UNIT 1 suspended Enalapril JOSE Maleate 5 MG Maleate 5 MG 12:00:00 AM Maleate ([place] Oral Tablet Tablet [facility] Enalapril [facility] Maleate 5 MG [place]) Tablet Lantus Lantus 08/24/2016 UNIT 1 suspended Lantu s JOSE SoloStar 100 SoloStar 100 12:00:00 AM ([place] UNIT/ML UNIT/ML EDT [facility] ood Solution Solution Health Pen-injector Pen-injector Center) FreeStyle Lite FreeStyle 08/24/2016 UNIT 1 suspended FreeStyle JOSE Test Strip Lite Test 12:00:00 AM Li te Test ([place] Strip [facility]) Basaglar Basaglar 08/24/2016 UNIT 1 suspended L antus JOSE KwikPen 100 KwikPen 100 12:00:00 AM ([place] UNIT/ML UNIT/ML EDT [facility] ood Solution Solution Health Pen-injector Pen-injector Center) Pen [place] Pen [place] 08/24/2016 UNIT 1 suspended Pen [place] JOSE 31G X 6 MM 31G X 6 MM 12:00:00 AM ([place] [facility]) Bacitracin 0.5 Bacitracin 12/24/2015 APPLIC 1 completed Bacitracin JOSE UNT/MG 500 UNIT/GM 12:00:00 AM ATION ([place] Ophthalmic Ointment EDT UNIT [facility] Ointment Health Bacitracin 500 Cente r) UNIT/GM Ointment Erythromycin Erythromycin 12/24/2015 APPLIC 1 completed Erythromyci JOSE 0.005 MG/MG 5 MG/GM 12:00:00 AM ATION n ([place] Ophthalmic Ointment EDT UNIT [facility] Ointment [facility] Erythromycin 5 Cente r) MG/GM Ointment Ultra-Thin II Ultra-Thin 11/18/2015 UNIT 1 suspended Ultra-Thin JOSE Pen Needle II Pen 12:00:00 AM II Pe n ([place] Short 31G X 8 Needle Short EDT [place] MM 31G X 8 MM [facility]) s Lantus Lantus 11/18/2015 UNIT 1 suspended Lantu s JOSE SoloStar 100 SoloStar 100 12:00:00 AM ([place] UNIT/ML UNIT/ML EDT [facility] ood Solution Solution [facility] Pen-injector Pen-injector Center) Loratadine-D Loratadine-D 11/18/2015 UNIT 1 suspended Loratadine- JOSE 24HR 10-240 MG 24HR 10-240 12:00:00 AM D 24HR ([place] Tablet MG Tablet EDT Neighbor le Extended Extended Health Release [address]) Hour Hour Flonase Flonase 10/21/2015 CAPFUL 1 suspended F lonase JOSE Allergy Relief Allergy 12:00:00 AM DOSING ([place] 50 MCG/ACT Relief 50 EDT UNIT [facility]hood Suspension MCG/ACT Health Suspension Center) Metformin MetFORMIN 10/21/2015 UNIT 1 suspended metFORMIN JOSE hydrochloride HCl 1000 MG 12:00:00 AM HCl ([place] 1000 MG Oral Tablet EDT [facility] MetFORMIN HCl [place] ) 1000 MG Tablet Glipizide 5 MG GlipiZIDE 5 10/21/2015 UNIT 1 suspended glipiZIDE JOSE Oral Tablet MG Tablet 12:00:00 AM ([place] GlipiZIDE [address] [facility]) Simvastatin 20 Simvastatin 10/21/2015 UNIT 1 suspended Simvastatin JOSE MG Oral Tablet 20 MG Tablet 12:00:00 AM ([place] Simvastatin 20 EDT [facility]) FreeStyle Lite FreeStyle 10/21/2015 UNIT 1 suspended FreeStyle JOSE Test Strip Lite Test 12:00:00 AM Li te Test ([place] Strip [facility]) FreeStyle FreeStyle 10/21/2015 UNIT 1 suspended FreeStyle JOSE Lancets Lancets 12:00:00 AM Lancets ([place] Miscellaneous Miscellaneou [facility]) Enalapril Enalapril 10/21/2015 UNIT 1 suspended Enalapril JOSE Maleate 5 MG Maleate 5 MG 12:00:00 AM Maleate ([place] Oral Tablet Tablet T [facility] Enalapril Health Maleate 5 MG [place]) Tablet Erythromycin Erythromycin 08/29/2015 APPLIC 1 completed Erythromyci JOSE 0.005 MG/MG 5 MG/GM 12:00:00 AM ATION n ([place] Ophthalmic Ointment EDT UNIT [facility] Ointment [facility] Erythromycin 5 Cente r) MG/GM Ointment Simvastatin 20 Simvastatin 04/23/2015 UNIT 1 suspended Simvastatin JOSE MG Oral Tablet 20 MG Tablet 12:00:00 AM ([place] Simvastatin 20 [facility]) Metformin MetFORMIN 04/23/2015 UNIT 1 suspended metFORMIN JOSE hydrochloride HCl 1000 MG 12:00:00 AM HCl ([place] 1000 MG Oral Tablet [facility] MetFORMIN HCl [place] ) 1000 MG Tablet Glipizide 5 MG GlipiZIDE 5 04/23/2015 UNIT 1 suspended glipiZIDE JOSE Oral Tablet MG Tablet 12:00:00 AM ([place] GlipiZIDE 5 MG [facility]) FreeStyle FreeStyle 04/23/2015 UNIT 1 suspended FreeStyle JOSE Lancets Lancets 12:00:00 AM Lancets ([facility]) FreeStyle Lite FreeStyle 04/23/2015 UNIT 1 suspended FreeStyle JOSE Test Strip Lite Test 12:00:00 AM Li te Test ([facility]) Enalapril Enalapril 04/23/2015 UNIT 1 suspended Enalapril JOSE Maleate 5 MG Maleate 5 MG 12:00:00 AM Maleate ([place] Oral Tablet Tablet [facility] Enalapril Health Maleate 5 MG [place]) Tablet Enalapril Enalapril 03/15/2015 UNIT 1 suspended Enalapril JOSE Maleate 5 MG Maleate 5 MG 12:00:00 AM Maleate ([place] Oral Tablet Tablet [facility] Enalapril Health Maleate 5 MG [place]) Tablet FreeStyle Lite FreeStyle 03/15/2015 UNIT 1 suspended FreeStyle JOSE Device Lite Device 12:00:00 AM Lite ([facility]) FreeStyle FreeStyle 03/15/2015 UNIT 1 suspended FreeStyle JOSE Lancets Lancets 12:00:00 AM Lancets ([facility]) FreeStyle Lite FreeStyle 03/15/2015 UNIT 1 active FreeStyle JOSE Device Lite Device 12:00:00 AM Lite ([facility]) Glipizide 5 MG GlipiZIDE 5 03/15/2015 UNIT 1 suspended glipiZIDE JOSE Oral Tablet MG Tablet 12:00:00 AM ([place] GlipiZIDE 5 MG [facility]) Metronidazole MetroNIDAZOL 03/15/2015 UNIT 1 suspended metroNIDAZO JOSE 500 MG Oral E 500 MG 12:00:00 AM LE ([place] Tablet Tablet EDT Neighborhoo d MetroNIDAZOLE Health 500 MG Tablet [place] ) Enalapril Enalapril 03/15/2015 UNIT 1 suspended Enalapril JOSE Maleate 5 MG Maleate 5 MG 12:00:00 AM Maleate ([place] Oral Tablet Tablet [facility] Enalapril Health Maleate 5 MG [place]) Tablet Aspirin 81 MG Aspirin 81 03/15/2015 UNIT 1 suspended Aspirin JOSE Oral Tablet MG Tablet 12:00:00 AM ([place] Aspirin 81 MG [facility]) FreeStyle Lite FreeStyle 03/15/2015 UNIT 1 suspended FreeStyle JOSE Test Strip Lite Test 12:00:00 AM Li te Test ([facility]) FreeStyle FreeStyle 03/15/2015 UNIT 1 suspended FreeStyle JOSE Lancets Lancets 12:00:00 AM Lancets ([place] Miscellaneous Miscellaneou [facility]) Aspirin 81 MG Aspirin 81 03/15/2015 UNIT 1 suspended Aspirin JOSE Oral Tablet MG Tablet 12:00:00 AM ([place] Aspirin 81 MG [facility]) Metformin MetFORMIN 03/15/2015 UNIT 1 suspended metFORMIN JOSE hydrochloride HCl 1000 MG 12:00:00 AM HCl ([place] 1000 MG Oral Tablet [facility] MetFORMIN HCl [place] ) 1000 MG Tablet Metronidazole MetroNIDAZOL 03/15/2015 UNIT 1 suspended metroNIDAZO JOSE 500 MG Oral E 500 MG 12:00:00 AM LE ([place] Tablet Tablet [facility] MetroNIDAZOLE Health 500 MG Tablet [place] ) FreeStyle Lite FreeStyle 03/15/2015 UNIT 1 suspended FreeStyle JOSE Test Strip Lite Test 12:00:00 AM [facility] te [facility] Glipizide 5 MG GlipiZIDE 5 03/15/2015 UNIT 1 suspended glipiZIDE JOSE Oral Tablet MG Tablet 12:00:00 AM ([place] GlipiZIDE 5 MG [facility]) Flonase Flonase 03/15/2015 CAPFUL 1 suspended F lonase JOSE Allergy Relief Allergy 12:00:00 AM DOSING ([place] 50 MCG/ACT Relief 50 EDT UNIT [facility] Suspension MCG/ACT Health Suspension [place]) Flonase Flonase 03/15/2015 CAPFUL 1 suspended F lonase JOSE Allergy Relief Allergy 12:00:00 AM DOSING ([place] 50 MCG/ACT Relief 50 EDT UNIT [facility] Suspension MCG/ACT Health Suspension [place]) Lantus Lantus 03/15/2015 UNIT suspended Lantu s JOSE SoloStar 100 SoloStar 100 12:00:00 AM ([place] UNIT/ML UNIT/ML EDT [facility] ood Solution Solution [facility] Pen-injector Pen-injector Center) Ultra-Thin II Ultra-Thin 03/15/2015 UNIT 1 suspended Ultra-Thin JOSE Pen Needle II Pen 12:00:00 AM II Pe n ([place] Short 31G X 8 Needle Short EDT [facility] [facility] MM 31G X 8 MM [facility]) s Simvastatin 20 Simvastatin 03/15/2015 UNIT 1 suspended Simvastatin JOSE MG Oral Tablet 20 MG Tablet 12:00:00 AM ([place] Simvastatin 20 EDT [facility] MG [facility]) Ultra-Thin II Ultra-Thin 03/15/2015 UNIT 1 suspended Ultra-Thin JOSE Pen Needle II Pen 12:00:00 AM II Pe n ([place] Short 31G X 8 Needle Short EDT [facility] MM 31G X 8 MM [facility]) s Enalapril Enalapril 03/15/2015 UNIT 1 suspended Enalapril JOSE Maleate 5 MG Maleate 5 MG 12:00:00 AM Maleate ([place] [facility] Maleate 5 MG [place]) Tablet Augmentin Augmentin 02/21/2015 UNIT 1 completed Augmentin JOSE 500-125MG OR 500-125MG OR 12:00:00 AM ([place] TABS TABS [facility]) Ramonita Contour Ramonita 02/21/2015 UNIT 1 suspended Ramonita JOSE Test STRP Contour Test 12:00:00 AM Contour ([place] STRP EDT Test [facility]) Saline 0.9 % Saline 0.9 % 02/21/2015 CAPFUL 1 suspended Saline JOSE SOLN SOLN 12:00:00 AM DOSING ([place] EDT UNIT [facility]) Saline 0.9 % Saline 0.9 % 08/21/2014 CAPFUL 1 suspended Saline JOSE SOLN SOLN 12:00:00 AM DOSING ([place] EDT [facility]) Triamcinolone Triamcinolon 08/21/2014 INHALA 1 completed Triamcinolo JOSE Acetonide e Acetonide 12:00:00 AM TION n e ([place] 55MCG/ACT NA 55MCG/ACT NA EDT DOSING Ac etonide [facility]) Simvastatin 20 Simvastatin 02/14/2014 UNIT suspended Simvastatin JOSE MG Oral Tablet 20MG OR TABS 12:00:00 AM ([place] Simvastatin EDT Neighbor le 20MG OR [facility]) Metformin metFORMIN 02/14/2014 UNIT 1 suspended metFORMIN JOSE hydrochloride HCl 1000MG 12:00:00 AM HCl ([place] 1000 MG Oral TABS EDT [facility] metFORMIN HCl [place] ) 1000MG TABS cetirizine Cetirizine 02/14/2014 UNIT suspended Cetirizine JOSE hydrochloride HCl 10MG OR 12:00:00 AM HCl ([place] 10 MG Oral TABS EDT [facility] Cetirizine HCl Cente r) 10MG OR TABS Flonase Flonase 02/14/2014 CAPFUL suspended F lonase JOSE 50MCG/ACT NA 50MCG/ACT NA 12:00:00 AM DOSING (Jimbo Triplett SUSP SUSP [facility]) Metformin Glucophage 01/31/2014 TABLET 1 OR completed [facility] hydrochloride 500 mg oral 11:29:50 PM {t [facility] 500 MG Oral tablet EDT ab Tablet (s [Glucophage] )} Glucophage 500 mg oral tablet Check with your doctor before becoming p regnant.Do not drink alcoholic beverages when taking this medication.It is very import ant that you take or use this exactly as directed. Do not skip doses or disconti nue unless directed by your doctor.Obtain medical advice before taking any non-pre scription drugs as some may affect the action of this medication.Take with food or mil k. Augmentin Augmentin 11/16/2013 UNIT 1 suspended Augmentin JOSE 500-125MG OR 500-125MG OR 12:00:00 AM ([place] TABS TABS [facility]) Flonase Flonase 11/16/2013 CAPFUL 1 suspended F lonase JOSE 50MCG/ACT NA 50MCG/ACT NA 12:00:00 AM DOSING ([place] SUSP SUSP EDT UNIT [facility]) ZyrTEC ZyrTEC 11/16/2013 UNIT 1 suspended Aller off JOSE Allergy 10MG Allergy 10MG 12:00:00 AM ([place] OR TABS OR TABS EDT [facility]) Enalapril Enalapril 05/09/2012 UNIT 1 completed Enalapril JOSE Maleate 2.5 Maleate 2.5 12:00:00 AM Maleate ([place] MG Oral MG TABS EST [facility] Health Enalapril [place]) Maleate 2.5 MG TABS Glyburide 5 glyBURIDE-me 05/09/2012 UNIT 1 completed glyBURIDE-m JOSE MG / tFORMIN 12:00:00 AM etFORMIN ( [place] Metformin 5-500MG TABS EST [facility] e 500 MG [place]) Oral Tablet glyBURIDE-me tFORMIN 5-500MG TABS Viagra 25MG Viagra 25MG 05/09/2012 UNIT suspended Viagra JOSE OR TABS OR TABS 12:00:00 AM ([facility]) Glyburide 5 glyBURIDE-me 03/07/2012 UNIT 1 suspended glyBURIDE-m JOSE MG / tFORMIN 12:00:00 AM etFORMIN ( [place] Met[facility] 5-500MG [facility] e 500 MG [place]) Oral Tablet glyBURIDE-me tFORMIN 5-500MG TABS Ramonita Ramonita 03/07/2012 UNIT completed Ramonita G REENWAY Contour Contour 12:00:00 AM Contour ([place] Monitor Monitor EDT Monitor [facility] w/Device KIT w/Device [facility] Ramonita Ramonita 03/07/2012 UNIT suspended Ramonita G REENWAY Contour Test Contour Test 12:00:00 AM Contour ([place] STRP STRP EDT Test [facility]) Monolet Monolet 03/07/2012 UNIT suspended Mon olet JOSE Lancets MISC Lancets MISC 12:00:00 AM [facility] [facility] Enalapril Enalapril 03/07/2012 UNIT 1 suspended Enalapril JOSE Maleate 2.5 Maleate 2.5 12:00:00 AM Maleate ([place] MG Oral MG TABS EDT Neighbor[facility] ood Tablet Health Enalapril [place]) Maleate 2.5 MG TABS Ciprofloxaci Ciprofloxaci 03/07/2012 UNIT 1 suspended Ciprofloxac JOSE n 500 MG n HCl 500MG 12:00:00 AM in HCl ([place] Oral Tablet OR TABS EDT [place] Ciprofloxaci [facility] n HCl 500MG [place]) OR TABS Basaglar 10 FRENCH completed [facility] KwikPen 100 Health S ystem units/mL UT subcutaneous AN solution EO US Simvastatin simvastatin TABLET 1 OR completed [facility] 20 MG Oral 20 mg oral {ta AL Hea lth System Tablet tablet b(s simvastatin )} 20 mg oral tablet Aspirin 81 Aspir 81 1 OR completed [facility] MG Delayed oral delayed {ta AL H ealth System Release Oral release b(s Tablet Aspir tablet )} 81 oral delayed release tablet Glipizide 5 glipiZIDE 5 TABLET 1 OR completed [facility] MG Oral mg oral {ta AL Health stem Tablet tablet b(s glipiZIDE 5 )} mg oral tablet Enalapril enalapril 5 TABLET 1 OR completed [facility] Maleate 5 MG mg oral {ta AL Heal th System Oral Tablet tablet b(s enalapril 5 )} mg oral tablet 3 ML Insulin Lantus 10 FRENCH completed [facility] Glargine 100 Solostar Pen Health System UNT/ML Pen 100 units/mL UT Injector subcutaneous AN [Lantus] solution EO Lantus US Solostar Pen 100 units/mL subcutaneous solution Metformin metFORMIN TABLET 1 OR completed [facility] hydrochlorid 1000 mg oral {ta [facility] e 1000 MG tablet b(s Oral Tablet )} metFORMIN 1000 mg oral tablet Insurance Providers Payer name Policy type / Policy ID Covered Covered alliance party's Policy Plan Coverage type alliance party ID relationship to Allan Information allan [place] Care Individual 0 Self 0 [place] Policy Chris Care Individual 0 Self 0 [place] Policy [place] Care Individual 0 Self 0 Burke Policy Chris Care Individual 0 Self 0 Burke Policy Chris Care Individual 0 Self 0 [place] Policy [place] Care Individual 0 Self 0 [place] Policy [place] Care Individual 0 Self 0 Burke Policy Chris Care Individual 0 Self 0 [place] Policy [place] FFS [id number] S [id number] Medicaid Dental [id number] S [id number] Dentaquest MKD Cosmo Vision [id number] S [id number] Medicaid [id number] S [id number] Regular Clinic Visit Chris Care [id number] S [id number] [place] Medicaid Chris Care Individual 0 Self 0 Burke Policy Chris Care Individual 0 Self 0 Burke Policy Chris Care Individual 0 Self 0 Burke Policy [place] Care Individual 0 Self 0 Burke Policy [place] Care Individual 0 Self 0 [place] Policy [place] Care Individual 0 Self 0 Burke Policy [place] Care Individual 0 Self 0 [place] Policy [place] Care Individual 0 Self 0 Burke Policy Chris Care Individual 0 Self 0 Burke Policy Problems, Conditions, and Diagnoses Code Display Name Description Problem Effective Data Source (s) Type Dates [id number] Microalbuminuria Microalbuminuria Finding 05/16/2018 [facility] EENWAY (finding) 12:00:00 AM ([facility]) [id number] Microalbuminuria Microalbuminuria Finding 05/16/2018 GR EENWAY (finding) 12:00:00 AM ([facility]) [id number] Microalbuminuria Microalbuminuria Finding 05/16/2018 GR EENWAY (finding) 12:00:00 AM ([facility]) [id number] Microalbuminuria Microalbuminuria Finding 05/16/2018 GR EENWAY (finding) 12:00:00 AM ([facility]) [id number] Microalbuminuria Microalbuminuria Finding 05/16/2018 GR EENWAY (finding) 12:00:00 AM ([facility]) [id number] Microalbuminuria Microalbuminuria Finding 05/16/2018 GR EENWAY (finding) 12:00:00 AM ([facility]) [id number] Microalbuminuria Microalbuminuria Finding 05/16/2018 GR EENWAY (finding) 12:00:00 AM ([facility]) [id number] Microalbuminuria Microalbuminuria Finding 05/16/2018 GR EENWAY (finding) 12:00:00 AM ([facility]) [id number] Microalbuminuria Microalbuminuria Finding 05/16/2018 GR EENWAY (finding) 12:00:00 AM ([facility]) [id number] Microalbuminuria Microalbuminuria Finding 05/16/2018 GR EENWAY (finding) 12:00:00 AM ([facility]) [id number] Microalbuminuria Microalbuminuria Finding 05/16/2018 GR EENWAY (finding) 12:00:00 AM ([facility]) [id number] Microalbuminuria Microalbuminuria Finding 05/16/2018 GR EENWAY (finding) 12:00:00 AM ([facility]) [id number] Microalbuminuria Microalbuminuria Finding 05/16/2018 GR EENWAY (finding) 12:00:00 AM ([facility]) [id number] Microalbuminuria Microalbuminuria Finding 05/16/2018 GR EENWAY (finding) 12:00:00 AM ([facility]) [id number] Microalbuminuria Microalbuminuria Finding 05/16/2018 GR EENWAY (finding) 12:00:00 AM ([facility]) [id number] Lung mass (finding) Lung Mass Finding 03/15/[address] 12:00:00 AM ([facility]) [id number] Benign essential Essential Problem 03/15/2015 [place] hypertension Hypertension Benign 12:00:00 AM (Rosa Triplett (disorder) [facility]) [id number] Chronic obstructive Chronic Obstructive Problem 015 [place] lung disease Pulmonary Disease 12:00:00 AM (Annalise nt Uziel (disorder) [facility]) [id number] Chronic maxillary Chronic Sinusitis - Problem 5 [place] sinusitis (disorder) Maxillary 12:00:00 AM (Mo unt Uziel [facility]) [id number] Electrocardiogram Abnormal Finding 03/15/2015 [facility] Y abnormal (finding) Electrocardiogram 12:00:00 A M ([facility]) [id number] Lung mass (finding) Lung Mass Finding 03/15/[address] 12:00:00 AM ([facility]) [id number] Benign essential Essential Problem 03/15/2015 [place] hypertension Hypertension Benign 12:00:00 AM (M ount Uziel (disorder) [facility] [place]) [id number] Chronic obstructive Chronic Obstructive Problem 015 [place] lung disease Pulmonary Disease 12:00:00 AM ([facility] (disorder) [facility]) [id number] Chronic maxillary Chronic Sinusitis - Problem 5 [place] sinusitis (disorder) Maxillary 12:00:00 AM ([facility]) [id number] Electrocardiogram Abnormal Finding 03/15/2015 [place] abnormal (finding) Electrocardiogram 12:00:00 A M ([facility]) [id number] Lung mass (finding) Lung Mass Finding 03/15/[address] 12:00:00 AM ([facility]) [id number] Benign essential Essential Problem 03/15/2015 [place] hypertension Hypertension Benign 12:00:00 AM ([place] [facility] Uziel (disorder) [facility]) [id number] Chronic obstructive Chronic Obstructive Problem 015 [place] lung disease Pulmonary Disease 12:00:00 AM ([facility] (disorder) [facility]) [id number] Chronic maxillary Chronic Sinusitis - Problem 5 [place] sinusitis (disorder) Maxillary 12:00:00 AM ([facility]) [id number] Electrocardiogram Abnormal Finding 03/15/2015 [place] abnormal (finding) Electrocardiogram 12:00:00 A M ([facility]) [id number] Lung mass (finding) Lung Mass Finding 03/15/[address] 12:00:00 AM ([facility]) [id number] Benign essential Essential Problem 03/15/2015 [place] hypertension Hypertension Benign 12:00:00 AM (M ount Uziel (disorder) [facility]) [id number] Chronic obstructive Chronic Obstructive Problem 015 [place] lung disease Pulmonary Disease 12:00:00 AM ([facility] (disorder) [facility]) [id number] Chronic maxillary Chronic Sinusitis - Problem 5 JOSE sinusitis (disorder) Maxillary 12:00:00 AM ([facility]) [id number] Lung mass (finding) Lung Mass Finding 03/15/[address] 12:00:00 AM ([facility]) [id number] Benign essential Essential Problem 03/15/2015 [place] hypertension Hypertension Benign 12:00:00 AM (M [facility] [place] (disorder) [facility]) [id number] Chronic obstructive Chronic Obstructive Problem 015 [place] lung disease Pulmonary Disease 12:00:00 AM ([facility] (disorder) [facility]) [id number] Chronic maxillary Chronic Sinusitis - Problem 5 [place] sinusitis (disorder) Maxillary 12:00:00 AM ([facility]) [id number] Electrocardiogram Abnormal Finding 03/15/2015 [place] abnormal (finding) Electrocardiogram 12:00:00 A M ([facility]) [id number] Lung mass (finding) Lung Mass Finding 03/15/[address] 12:00:00 AM ([facility]) [id number] Benign essential Essential Problem 03/15/2015 [place] hypertension Hypertension Benign 12:00:00 AM ( ount [place] (disorder) [facility]) [id number] Chronic obstructive Chronic Obstructive Problem 015 [place] lung disease Pulmonary Disease 12:00:00 AM ([facility] (disorder) [facility]) 37311148 Chronic maxillary Chronic Sinusitis - Problem 5 [place] sinusitis (disorder) Maxillary 12:00:00 AM ([facility]) [id number] Electrocardiogram Abnormal Finding 03/15/2015 [place] abnormal (finding) Electrocardiogram 12:00:00 A M ([facility]) [id number] Lung mass (finding) Lung Mass Finding 03/15/[address] 12:00:00 AM ([facility]) [id number] Benign essential Essential Problem 03/15/2015 [place] hypertension Hypertension Benign 12:00:00 AM (M [facility] [place] (disorder) [facility]) 85022395 Chronic obstructive Chronic Obstructive Problem 015 [place] lung disease Pulmonary Disease 12:00:00 AM ([facility] (disorder) [facility]) 91485281 Chronic maxillary Chronic Sinusitis - Problem 5 JO[place] sinusitis (disorder) Maxillary 12:00:00 AM ([facility]) [id number] Electrocardiogram Abnormal Finding 03/15/2015 [place] abnormal (finding) Electrocardiogram 12:00:00 A M ([facility]) [id number] Electrocardiogram Abnormal Finding 03/15/2015 [place] abnormal (finding) Electrocardiogram 12:00:00 A M ([facility]) [id number] Lung mass (finding) Lung Mass Finding 03/15/[address] 12:00:00 AM ([facility]) [id number] Benign essential Essential Problem 03/15/2015 [place] hypertension Hypertension Benign 12:00:00 AM ( ount [place]ziel (disorder) [facility]) [id number] Chronic obstructive Chronic Obstructive Problem 015 [place] lung disease Pulmonary Disease 12:00:00 AM ([facility] (disorder) [facility]) [id number] Chronic maxillary Chronic Sinusitis - Problem 5 JO[place] sinusitis (disorder) Maxillary 12:00:00 AM ([facility]) [id number] Electrocardiogram Abnormal Finding 03/15/2015 [place] abnormal (finding) Electrocardiogram 12:00:00 A M ([facility]) [id number] Lung mass (finding) Lung Mass Finding 03/15/[address] 12:00:00 AM ([facility]) [id number] Benign essential Essential Problem 03/15/2015 [place] hypertension Hypertension Benign 12:00:00 AM ([place] [facility] (disorder) [facility]) 65780775 Chronic obstructive Chronic Obstructive Problem 015 [place] lung disease Pulmonary Disease 12:00:00 AM ([facility]ise [facility]ziel (disorder) [facility]) 56493005 Chronic maxillary Chronic Sinusitis - Problem 5 JOSE sinusitis (disorder) Maxillary 12:00:00 AM ([facility]) [id number] Electrocardiogram Abnormal Finding 03/15/2015 [place] abnormal (finding) Electrocardiogram 12:00:00 A M ([facility]) [id number] Lung mass (finding) Lung Mass Finding 03/15/[address] 12:00:00 AM ([facility]) [id number] Benign essential Essential Problem 03/15/2015 [place] hypertension Hypertension Benign 12:00:00 AM (M ount Uziel (disorder) [facility]) [id number] Chronic obstructive Chronic Obstructive Problem 015 [place] lung disease Pulmonary Disease 12:00:00 AM ([facility]ise [facility]ziel (disorder) [facility]) 11570194 Chronic maxillary Chronic Sinusitis - Problem 5 JO[place] sinusitis (disorder) Maxillary 12:00:00 AM ([facility]) [id number] Electrocardiogram Abnormal Finding 03/15/2015 [place] abnormal (finding) Electrocardiogram 12:00:00 A M ([facility]) [id number] Lung mass (finding) Lung Mass Finding 03/15/[address] 12:00:00 AM ([facility]) [id number] Benign essential Essential Problem 03/15/2015 [place] hypertension Hypertension Benign 12:00:00 AM ( ount Uziel (disorder) [facility]) 41237112 Chronic obstructive Chronic Obstructive Problem 015 [place] lung disease Pulmonary Disease 12:00:00 AM ([facility]ise [facility] Uziel (disorder) [facility]) 38728503 Chronic maxillary Chronic Sinusitis - Problem 5 [place] sinusitis (disorder) Maxillary 12:00:00 AM ([facility]) [id number] Electrocardiogram Abnormal Finding 03/15/2015 [place] abnormal (finding) Electrocardiogram 12:00:00 A M ([facility]) [id number] Lung mass (finding) Lung Mass Finding 03/15/[address] 12:00:00 AM ([facility]) [id number] Benign essential Essential Problem 03/15/2015 [place] hypertension Hypertension Benign 12:00:00 AM (M ount Uziel (disorder) [facility]) [id number] Chronic obstructive Chronic Obstructive Problem 015 [place] lung disease Pulmonary Disease 12:00:00 AM ([facility]ise [facility] Uziel (disorder) [facility]) 58744004 Chronic maxillary Chronic Sinusitis - Problem 5 [place] sinusitis (disorder) Maxillary 12:00:00 AM ([facility]) [id number] Electrocardiogram Abnormal Finding 03/15/2015 [place] abnormal (finding) Electrocardiogram 12:00:00 A M ([facility]) [id number] Lung mass (finding) Lung Mass Finding 03/15/[address] 12:00:00 AM ([facility]) [id number] Benign essential Essential Problem 03/15/2015 [place] hypertension Hypertension Benign 12:00:[facility] [id number] Chronic obstructive Chronic Obstructive Problem 015 [place] lung disease Pulmonary Disease 12:00:00 AM ([facility]ise nt Uziel (disorder) [facility]) 06730614 Chronic maxillary Chronic Sinusitis - Problem 5 [place] sinusitis (disorder) Maxillary 12:00:00 AM ([facility]) [id number] Electrocardiogram Abnormal Finding 03/15/2015 [place] abnormal (finding) Electrocardiogram 12:00:00 A M ([facility]) [id number] Lung mass (finding) Lung Mass Finding 03/15/[address] 12:00:00 AM ([facility]) [id number] Benign essential Essential Problem 03/15/2015 [place] hypertension Hypertension Benign 12:00:00 AM ( ount Uziel (disorder) [facility]) [id number] Chronic obstructive Chronic Obstructive Problem 015 [place] lung disease Pulmonary Disease 12:00:00 AM ([facility]ise nt Uziel (disorder) [facility]) 95556077 Chronic maxillary Chronic Sinusitis - Problem 5 [place] sinusitis (disorder) Maxillary 12:00:00 AM ([facility]) [id number] Electrocardiogram Abnormal Finding 03/15/2015 [place] abnormal (finding) Electrocardiogram 12:00:00 A M ([facility]) [id number] Lung mass (finding) Lung Mass Finding 03/15/[address] 12:00:00 AM ([facility]) [id number] Benign essential Essential Problem 03/15/2015 [place] hypertension Hypertension Benign 12:00:00 AM (M ount Uziel (disorder) [facility]) 06516731 Chronic obstructive Chronic Obstructive Problem 015 [place] lung disease Pulmonary Disease 12:00:00 AM ([facility]ise nt Uziel (disorder) [facility]) 23967914 Chronic maxillary Chronic Sinusitis - Problem 5 [place] sinusitis (disorder) Maxillary 12:00:00 AM ([facility]) [id number] Electrocardiogram Abnormal Finding 03/15/2015 [place] abnormal (finding) Electrocardiogram 12:00:00 A M ([facility]) [id number] Lung mass (finding) Lung Mass Finding 03/15/[address] 12:00:00 AM ([facility]) [id number] Benign essential Essential Problem 03/15/2015 [place] hypertension Hypertension Benign 12:00:00 AM ([place] o[place] Uziel (disorder) [facility]) 75271779 Chronic obstructive Chronic Obstructive Problem 015 [place] lung disease Pulmonary Disease 12:00:00 AM (Annalise nt Uziel (disorder) [facility]) 01778057 Chronic maxillary Chronic Sinusitis - Problem 5 [place] sinusitis (disorder) Maxillary 12:00:00 AM ([facility]) [id number] Electrocardiogram Abnormal Finding 03/15/2015 [place] abnormal (finding) Electrocardiogram 12:00:00 A M ([facility]) [id number] Lung mass (finding) Lung Mass Finding 03/15/[address] 12:00:00 AM ([facility]) [id number] Benign essential Essential Problem 03/15/2015 [place] hypertension Hypertension Benign 12:00:00 AM (M ount Uziel (disorder) [facility]) [id number] Chronic obstructive Chronic Obstructive Problem 015 [place] lung disease Pulmonary Disease 12:00:00 AM ([facility]ise nt Uziel (disorder) [facility]) 62046410 Chronic maxillary Chronic Sinusitis - Problem 5 [place] sinusitis (disorder) Maxillary 12:00:00 AM ([facility]) [id number] Electrocardiogram Abnormal Finding 03/15/2015 [place] abnormal (finding) Electrocardiogram 12:00:00 A M ([facility]) [id number] Trichomonal Trichomoniasis Problem 03/12/2015 [place] urethritis Urethritis 12:00:00 AM ([place] (disorder) [facility]) 97397324 Hyperlipidemia Hyperlipidemia Problem 03/12/2015 [place] (disorder) 12:00:00 AM ([facility]) [id number] Hematuria syndrome Hematuria Problem 03/12/2015 [place] (disorder) 12:00:00 AM ([facility]) [id number] Trichomonal Trichomoniasis Problem 03/12/2015 [place] urethritis Urethritis 12:00:00 AM ([place] (disorder) [facility]) 94069154 Hyperlipidemia Hyperlipidemia Problem 03/12/2015 [place] (disorder) 12:00:00 AM ([facility]) [id number] Hematuria syndrome Hematuria Problem 03/12/2015 [place] (disorder) 12:00:00 AM ([facility]) 72803810 Trichomonal Trichomoniasis Problem 03/12/2015 [place] urethritis Urethritis 12:00:00 AM ([place] (disorder) [facility]) [id number] Hyperlipidemia Hyperlipidemia Problem 03/12/2015 [place] (disorder) 12:00:00 AM ([facility]) [id number] Hematuria syndrome Hematuria Problem 03/12/2015 [place] (disorder) 12:00:00 AM ([facility]) [id number] Trichomonal Trichomoniasis Problem 03/12/2015 [place] urethritis Urethritis 12:00:00 AM ([place] (disorder) [facility]) 39907925 Hyperlipidemia Hyperlipidemia Problem 03/12/2015 [place] (disorder) 12:00:00 AM ([facility]) [id number] Hematuria syndrome Hematuria Problem 03/12/2015 [place] (disorder) 12:00:00 AM ([facility]) [id number] Hyperlipidemia Hyperlipidemia Problem 03/12/2015 [place] (disorder) 12:00:00 AM ([facility]) [id number] Hematuria syndrome Hematuria Problem 03/12/2015 [place] (disorder) 12:00:00 AM ([facility]) [id number] Trichomonal Trichomoniasis Problem 03/12/2015 [place] urethritis Urethritis 12:00:00 AM ([place] (disorder) [facility]) [id number] Hyperlipidemia Hyperlipidemia Problem 03/12/2015 [place] (disorder) 12:00:00 AM ([facility]) [id number] Hematuria syndrome Hematuria Problem 03/12/2015 [place] (disorder) 12:00:00 AM ([facility]) [id number] Trichomonal Trichomoniasis Problem 03/12/2015 [place] urethritis Urethritis 12:00:00 AM ([place] (disorder) [facility]) 90170239 Hyperlipidemia Hyperlipidemia Problem 03/12/2015 [place] (disorder) 12:00:00 AM ([facility]) [id number] Hematuria syndrome Hematuria Problem 03/12/2015 [place] (disorder) 12:00:00 AM ([facility]) [id number] Trichomonal Trichomoniasis Problem 03/12/2015 [place] urethritis Urethritis 12:00:00 AM ([place] (disorder) [facility] [place]) [id number] Trichomonal Trichomoniasis Problem 03/12/2015 [place] urethritis Urethritis 12:00:00 AM ([place] (disorder) [facility] [place]) 19181138 Hyperlipidemia Hyperlipidemia Problem 03/12/2015 [place] (disorder) 12:00:00 AM ([facility]) [id number] Hematuria syndrome Hematuria Problem 03/12/2015 [place] (disorder) 12:00:00 AM ([facility]) 53411570 Trichomonal Trichomoniasis Problem 03/12/2015 [place] urethritis Urethritis 12:00:00 AM ([place] (disorder) [facility] [place]) 06915993 Hyperlipidemia Hyperlipidemia Problem 03/12/2015 [place] (disorder) 12:00:00 AM ([facility]) 27470236 Hematuria syndrome Hematuria Problem 03/12/2015 [place] (disorder) 12:00:00 AM ([facility]) [id number] Trichomonal Trichomoniasis Problem 03/12/2015 [place] urethritis Urethritis 12:00:00 AM ([place] (disorder) [facility]) [id number] Hyperlipidemia Hyperlipidemia Problem 03/12/2015 [place] (disorder) 12:00:00 AM ([facility]) [id number] Hematuria syndrome Hematuria Problem 03/12/2015 [place] (disorder) 12:00:00 AM ([facility]) [id number] Trichomonal Trichomoniasis Problem 03/12/2015 [place] urethritis Urethritis 12:00:00 AM ([place] (disorder) [facility]) 92485191 Hyperlipidemia Hyperlipidemia Problem 03/12/2015 [place] (disorder) 12:00:00 AM ([facility]) [id number] Hematuria syndrome Hematuria Problem 03/12/2015 [place] (disorder) 12:00:00 AM ([facility]) [id number] Trichomonal Trichomoniasis Problem 03/12/2015 [place] urethritis Urethritis 12:00:00 AM ([place] (disorder) [facility] [place]) 22323233 Hyperlipidemia Hyperlipidemia Problem 03/12/2015 [place] (disorder) 12:00:00 AM ([facility]) [id number] Hematuria syndrome Hematuria Problem 03/12/2015 [place] (disorder) 12:00:00 AM ([facility]) [id number] Trichomonal Trichomoniasis Problem 03/12/2015 [place] urethritis Urethritis 12:00:00 AM ([place] (disorder) [facility]) 84672074 Hyperlipidemia Hyperlipidemia Problem 03/12/2015 [place] (disorder) 12:00:00 AM ([facility]) [id number] Hematuria syndrome Hematuria Problem 03/12/2015 [place] (disorder) 12:00:00 AM ([facility]) 54786808 Trichomonal Trichomoniasis Problem 03/12/2015 [place] urethritis Urethritis 12:00:00 AM ([place] (disorder) [facility]) 51448035 Hyperlipidemia Hyperlipidemia Problem 03/12/2015 [place] (disorder) 12:00:00 AM ([facility]) 21634261 Hematuria syndrome Hematuria Problem 03/12/2015 [place] (disorder) 12:00:00 AM ([facility]) [id number] Trichomonal Trichomoniasis Problem 03/12/2015 [place] urethritis Urethritis 12:00:00 AM ([place] (disorder) [facility]) 89748749 Hyperlipidemia Hyperlipidemia Problem 03/12/2015 [place] (disorder) 12:00:00 AM ([facility]) [id number] Hematuria syndrome Hematuria Problem 03/12/2015 [place] (disorder) 12:00:00 AM ([facility]) [id number] Trichomonal Trichomoniasis Problem 03/12/2015 [place] urethritis Urethritis 12:00:00 AM ([place] (disorder) [facility]) 11499484 Hyperlipidemia Hyperlipidemia Problem 03/12/2015 [place] (disorder) 12:00:00 AM ([facility]) [id number] Hematuria syndrome Hematuria Problem 03/12/2015 [place] (disorder) 12:00:00 AM ([facility]) [id number] Trichomonal Trichomoniasis Problem 03/12/2015 [place] urethritis Urethritis 12:00:00 AM ([place] (disorder) [facility]) 41294555 Hyperlipidemia Hyperlipidemia Problem 03/12/2015 [place] (disorder) 12:00:00 AM ([facility]) 58267165 Hematuria syndrome Hematuria Problem 03/12/2015 [place] (disorder) 12:00:00 AM ([facility]) 40709569 Nicotine dependence Nicotine Dependence Problem 014 [place] (disorder) 12:00:00 AM ([facility]) 137040991 Overweight (finding) Overweight Finding 01/31/2014 [place] 12:00:00 AM ([facility]) [id number] Noncompliance with Noncompliance with Finding 4 JOSE treatment (finding) Medical Treatment 12:00:00 AM ([facility]) 81501474 Nicotine dependence Nicotine Dependence Problem 014 [place] (disorder) 12:00:00 AM ([facility]) 008476248 Overweight (finding) Overweight Finding 01/31/2014 [place] 12:00:00 AM ([facility]) [id number] Noncompliance with Noncompliance with Finding 4 JOSE treatment (finding) Medical Treatment 12:00:00 AM ([facility]) 41078031 Nicotine dependence Nicotine Dependence Problem 014 [place] (disorder) 12:00:00 AM ([facility]) 278571049 Overweight (finding) Overweight Finding 01/31/2014 [place] 12:00:00 AM ([facility]) [id number] Noncompliance with Noncompliance with Finding 4 JOSE treatment (finding) Medical Treatment 12:00:00 AM ([facility]) 85972478 Nicotine dependence Nicotine Dependence Problem 014 [place] (disorder) 12:00:00 AM ([facility]) 644972148 Overweight (finding) Overweight Finding 01/31/2014 [place] 12:00:00 AM ([facility]) [id number] Noncompliance with Noncompliance with Finding 4 JOSE treatment (finding) Medical Treatment 12:00:00 AM ([facility]) 91341121 Nicotine dependence Nicotine Dependence Problem 014 [place] (disorder) 12:00:00 AM ([facility]) 727173077 Overweight (finding) Overweight Finding 01/31/2014 [place] 12:00:00 AM ([facility]) [id number] Noncompliance with Noncompliance with Finding 4 JOSE treatment (finding) Medical Treatment 12:00:00 AM ([facility]) 73889581 Nicotine dependence Nicotine Dependence Problem 014 [place] (disorder) 12:00:00 AM ([facility]) [id number] Overweight (finding) Overweight Finding 01/31/2014 [place] 12:00:00 AM ([facility]) [id number] Noncompliance with Noncompliance with Finding 4 JOSE treatment (finding) Medical Treatment 12:00:00 AM ([facility]) 59560440 Nicotine dependence Nicotine Dependence Problem 014 [place] (disorder) 12:00:00 AM ([facility]) 949847445 Overweight (finding) Overweight Finding 01/31/2014 [place] 12:00:00 AM ([facility]) [id number] Noncompliance with Noncompliance with Finding 4 JOSE treatment (finding) Medical Treatment 12:00:00 AM ([facility]) 35489671 Nicotine dependence Nicotine Dependence Problem 014 [place] (disorder) 12:00:00 AM ([facility]) 979604360 Overweight (finding) Overweight Finding 01/31/2014 [place] 12:00:00 AM ([facility]) [id number] Noncompliance with Noncompliance with Finding 4 JOSE treatment (finding) Medical Treatment 12:00:00 AM ([facility]) 228716562 Overweight (finding) Overweight Finding 01/31/2014 [place] 12:00:00 AM ([facility]) [id number] Noncompliance with Noncompliance with Finding 4 JOSE treatment (finding) Medical Treatment 12:00:00 AM ([facility]) [id number] Nicotine dependence Nicotine Dependence Problem 014 [place] (disorder) 12:00:00 AM ([facility]) 71694076 Nicotine dependence Nicotine Dependence Problem 014 [place] (disorder) 12:00:00 AM ([facility]) 009795593 Overweight (finding) Overweight Finding 01/31/2014 [place] 12:00:00 AM ([facility]) [id number] Noncompliance with Noncompliance with Finding 4 JOSE treatment (finding) Medical Treatment 12:00:00 AM ([facility]) 43981794 Nicotine dependence Nicotine Dependence Problem 014 JO[place] (disorder) 12:00:00 AM ([facility]) 510286377 Overweight (finding) Overweight Finding 01/31/2014 [place] 12:00:00 AM ([facility]) [id number] Noncompliance with Noncompliance with Finding 4 JOSE treatment (finding) Medical Treatment 12:00:00 AM ([facility]) [id number] Overweight (finding) Overweight Finding 01/31/2014 [place] 12:00:00 AM ([facility]) [id number] Noncompliance with Noncompliance with Finding 4 JOSE treatment (finding) Medical Treatment 12:00:00 AM ([facility]) [id number] Nicotine dependence Nicotine Dependence Problem 014 JOSE (disorder) 12:00:00 AM ([facility]) [id number] Nicotine dependence Nicotine Dependence Problem 014 JOSE (disorder) 12:00:00 AM ([facility]) [id number] Overweight (finding) Overweight Finding 01/31/2014 [place] 12:00:00 AM ([facility]) [id number] Noncompliance with Noncompliance with Finding 4 JOSE treatment (finding) Medical Treatment 12:00:00 AM ([facility]) 21120721 Nicotine dependence Nicotine Dependence Problem 014 JOSE (disorder) 12:00:00 AM ([facility]) 149746196 Overweight (finding) Overweight Finding 01/31/2014 [place] 12:00:00 AM ([facility]) [id number] Noncompliance with Noncompliance with Finding 4 JOSE treatment (finding) Medical Treatment 12:00:00 AM ([facility]) 86461762 Nicotine dependence Nicotine Dependence Problem 014 JOSE (disorder) 12:00:00 AM ([facility]) [id number] Overweight (finding) Overweight Finding 01/31/2014 [place] NWAY 12:00:00 AM ([facility]) [id number] Noncompliance with Noncompliance with Finding 4 JOSE treatment (finding) Medical Treatment 12:00:00 AM ([facility]) 56180713 Nicotine dependence Nicotine Dependence Problem 014 JOSE (disorder) 12:00:00 AM ([facility]) 231267465 Overweight (finding) Overweight Finding 01/31/2014 [place] NW[place] 12:00:00 AM ([facility]) 1202520 Noncompliance with Noncompliance with Finding 4 JOSE treatment (finding) Medical Treatment 12:00:00 AM ([facility]) 53105796 Nicotine dependence Nicotine Dependence Problem 014 JOSE (disorder) 12:00:00 AM ([facility]) 344754638 Overweight (finding) Overweight Finding 01/31/2014 [place] NW[place] 12:00:00 AM ([facility]) 9627707 Noncompliance with Noncompliance with Finding 4 JOSE treatment (finding) Medical Treatment 12:00:00 AM (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 [place] organic mental Disorders 12:00:00 AM ([place] [facility]) 788.1 DYSURIA DYSURIA Problem 07/25/2013 JOSE 12:00:00 AM ([facility]) 62587186 Nicotine-induced Nicotine-related Problem 07/25/2013 [place] organic mental Disorders 12:00:00 AM ([place] [facility]) 788.1 DYSURIA DYSURIA Problem 07/25/2013 JOSE 12:00:00 AM ([facility]) 46416620 Nicotine-induced Nicotine-related Problem 07/25/2013 [place] organic mental Disorders 12:00:00 AM ([place] [facility]) 788.1 DYSURIA DYSURIA Problem 07/25/2013 JOSE 12:00:00 AM ([facility]) 31404033 Nicotine-induced Nicotine-related Problem 07/25/2013 [place] organic mental Disorders 12:00:00 AM ([place] [facility]) 788.1 DYSURIA DYSURIA Problem 07/25/2013 JOSE 12:00:00 AM ([facility]) 62285108 Nicotine-induced Nicotine-related Problem 07/25/2013 [place] organic mental Disorders 12:00:00 AM ([place] [facility]) 788.1 DYSURIA DYSURIA Problem 07/25/2013 JOSE 12:00:00 AM ([facility]) 39019053 Nicotine-induced Nicotine-related Problem 07/25/2013 [place] organic mental Disorders 12:00:00 AM ([place]order[place] [facility]) 788.1 DYSURIA DYSURIA Problem 07/25/2013 JOSE 12:00:00 AM ([facility]) 83255601 Nicotine-induced Nicotine-related Problem 07/25/2013 [place] organic mental Disorders 12:00:00 AM ([place] [facility]) 788.1 DYSURIA DYSURIA Problem 07/25/2013 JOSE 12:00:00 AM ([facility]) 07344905 Nicotine-induced Nicotine-related Problem 07/25/2013 [place] organic mental Disorders 12:00:00 AM ([place] [facility]) 788.1 DYSURIA DYSURIA Problem 07/25/2013 JOSE 12:00:00 AM ([facility]) 76081023 Nicotine-induced Nicotine-related Problem 07/25/2013 [place] organic mental Disorders 12:00:00 AM ([place]order[place] [facility]) 788.1 DYSURIA DYSURIA Problem 07/25/2013 JOSE 12:00:00 AM ([facility]) 28234020 Nicotine-induced Nicotine-related Problem 07/25/2013 [place] organic mental Disorders 12:00:00 AM ([place] [facility]) 788.1 DYSURIA DYSURIA Problem 07/25/2013 JOSE 12:00:00 AM ([facility]) 75354362 Nicotine-induced Nicotine-related Problem 07/25/2013 [place] organic mental Disorders 12:00:00 AM ([place]order[place] [facility]) 788.1 DYSURIA DYSURIA Problem 07/25/2013 JOSE 12:00:00 AM ([facility]) 87022172 Nicotine-induced Nicotine-related Problem 07/25/2013 [place] organic mental Disorders 12:00:00 AM ([place]order[place] [facility]) 788.1 DYSURIA DYSURIA Problem 07/25/2013 JOSE 12:00:00 AM ([facility]) 80145395 Nicotine-induced Nicotine-related Problem 07/25/2013 [place] organic mental Disorders 12:00:00 AM ([place]order[place] [facility]) 788.1 DYSURIA DYSURIA Problem 07/25/2013 JOSE 12:00:00 AM ([facility]) 66132934 Nicotine-induced Nicotine-related Problem 07/25/2013 [place] organic mental Disorders 12:00:00 AM ([place]order[place] [facility]) 788.1 DYSURIA DYSURIA Problem 07/25/2013 JOSE 12:00:00 AM ([facility]) 55274910 Nicotine-induced Nicotine-related Problem 07/25/2013 [place] organic mental Disorders 12:00:00 AM ([place]order[place] [facility]) 788.1 DYSURIA DYSURIA Problem 07/25/2013 JOSE 12:00:00 AM ([facility]) 28485733 Nicotine-induced Nicotine-related Problem 07/25/2013 [place] organic mental Disorders 12:00:00 AM ([place] [facility]) 788.1 DYSURIA DYSURIA Problem 07/25/2013 JOSE 12:00:00 AM ([facility]) 51971843 Nicotine-induced Nicotine-related Problem 07/25/2013 [place] organic mental Disorders 12:00:00 AM ([facility] disorder (disorder) [facility]) 788.1 DYSURIA DYSURIA Problem 07/25/2013 JOSE 12:00:00 AM ([facility]) 599.0 URIN TRACT INFECTION URIN TRACT Problem 03/03/2012 [place] INFECTION 12:00:00 AM ([facility]) 599.0 URIN TRACT INFECTION URIN TRACT Problem 03/03/2012 [place] INFECTION 12:00:00 AM ([facility]) 599.0 URIN TRACT INFECTION URIN TRACT Problem 03/03/2012 [place] INFECTION 12:00:00 AM ([facility]) 599.0 URIN TRACT INFECTION URIN TRACT Problem 03/03/2012 [place] INFECTION 12:00:00 AM ([facility]) 599.0 URIN TRACT INFECTION URIN TRACT Problem 03/03/2012 [place] INFECTION 12:00:00 AM ([facility]) 599.0 URIN TRACT INFECTION URIN TRACT Problem 03/03/2012 [place] INFECTION 12:00:00 AM ([facility]) 599.0 URIN TRACT INFECTION URIN TRACT Problem 03/03/2012 [place] INFECTION 12:00:00 AM ([facility]) 599.0 URIN TRACT INFECTION URIN TRACT Problem 03/03/2012 [place] INFECTION 12:00:00 AM ([facility]) 599.0 URIN TRACT INFECTION URIN TRACT Problem 03/03/2012 [place] INFECTION 12:00:00 AM ([facility]) 599.0 URIN TRACT INFECTION URIN TRACT Problem 03/03/2012 [place] INFECTION 12:00:00 AM ([facility]) 599.0 URIN TRACT INFECTION URIN TRACT Problem 03/03/2012 [place] INFECTION 12:00:00 AM ([facility]) 599.0 URIN TRACT INFECTION URIN TRACT Problem 03/03/2012 [place] INFECTION 12:00:00 AM ([facility]) 599.0 URIN TRACT INFECTION URIN TRACT Problem 03/03/2012 [place] INFECTION 12:00:00 AM ([facility]) 599.0 URIN TRACT INFECTION URIN TRACT Problem 03/03/2012 [place] INFECTION 12:00:00 AM ([facility]) 599.0 URIN TRACT INFECTION URIN TRACT Problem 03/03/2012 [place] INFECTION 12:00:00 AM ([facility]) 599.0 URIN TRACT INFECTION URIN TRACT Problem 03/03/2012 [place] INFECTION 12:00:00 AM ([facility]) 599.0 URIN TRACT INFECTION URIN TRACT Problem 03/03/2012 [place] INFECTION 12:00:00 AM ([facility]) 788.42 Polyuria Polyuria Problem 02/29/2012 JOSE 12:00:00 AM ([facility]) [id number] Type II diabetes Diabetes Mellitus Problem 02/29/2012 G RE[place]WAY mellitus without Type 2 - 12:00:00 AM ([place] complication Uncomplicated, EDT [facility]) 788.42 Polyuria Polyuria Problem 02/29/2012 JOSE 12:00:00 AM ([facility]) 770643158 Type II diabetes Diabetes Mellitus Problem 02/29/2012 G REENWAY mellitus without Type 2 - 12:00:00 AM ([place] complication Uncomplicated, EDT [facility]order[facility]) 788.42 Polyuria Polyuria Problem 02/29/2012 JOSE 12:00:00 AM ([facility]) 579810785 Type II diabetes Diabetes Mellitus Problem 02/29/2012 G [place]AY mellitus without Type 2 - 12:00:00 AM ([place] complication Uncomplicated, EDT [facility]disorder[facility]) 788.42 Polyuria Polyuria Problem 02/29/2012 JOSE 12:00:00 AM ([facility]) 232599228 Type II diabetes Diabetes Mellitus Problem 02/29/2012 [place] mellitus without Type 2 - 12:00:00 AM ([place] complication Uncomplicated, EDT [facility] [facility]disorder[facility]) 788.42 Polyuria Polyuria Problem 02/29/2012 JOSE 12:00:00 AM ([facility]) 157524807 Type II diabetes Diabetes Mellitus Problem 02/29/2012 G [place] mellitus without Type 2 - 12:00:00 AM ([place] complication Uncomplicated, EDT [facility]order[facility]) 788.42 Polyuria Polyuria Problem 02/29/2012 JOSE 12:00:00 AM ([facility]) 832300235 Type II diabetes Diabetes Mellitus Problem 02/29/2012 [place] mellitus without Type 2 - 12:00:00 AM ([place] complication Uncomplicated, EDT [facility] (disorder[facility]) 788.42 Polyuria Polyuria Problem 02/29/2012 JOSE 12:00:00 AM ([facility]) 325503027 Type II diabetes Diabetes Mellitus Problem 02/29/2012 [place] mellitus without Type 2 - 12:00:00 AM ([place] complication Uncomplicated, EDT [facility] (disorder) [facility]) 788.42 Polyuria Polyuria Problem 02/29/2012 JOSE 12:00:00 AM ([facility]) 955554342 Type II diabetes Diabetes Mellitus Problem 02/29/2012 [place] mellitus without Type 2 - 12:00:00 AM ([place] complication Uncomplicated, EDT [facility] (disorder[facility]) 788.42 Polyuria Polyuria Problem 02/29/2012 JOSE 12:00:00 AM ([facility]) 989195076 Type II diabetes Diabetes Mellitus Problem 02/29/2012 G [place] mellitus without Type 2 - 12:00:00 AM ([place] complication Uncomplicated, EDT [facility] (disorder[facility]) 788.42 Polyuria Polyuria Problem 02/29/2012 JOSE 12:00:00 AM ([facility]) 918969462 Type II diabetes Diabetes Mellitus Problem 02/29/2012 G [place] mellitus without Type 2 - 12:00:00 AM ([place] complication Uncomplicated, EDT [facility] (disorder) [facility]) 788.42 Polyuria Polyuria Problem 02/29/2012 JOSE 12:00:00 AM ([facility]) 513223417 Type II diabetes Diabetes Mellitus Problem 02/29/2012 G [place] mellitus without Type 2 - 12:00:00 AM ([place] complication Uncomplicated, EDT [facility] (disorder) [facility]) 788.42 Polyuria Polyuria Problem 02/29/2012 JOSE 12:00:00 AM ([facility]) 004159014 Type II diabetes Diabetes Mellitus Problem 02/29/2012 G [place] mellitus without Type 2 - 12:00:00 AM ([place] complication Uncomplicated, EDT [facility] (disorder) [facility]) 788.42 Polyuria Polyuria Problem 02/29/2012 JOSE 12:00:00 AM ([facility]) 871003026 Type II diabetes Diabetes Mellitus Problem 02/29/2012 G [place] mellitus without Type 2 - 12:00:00 AM ([place] complication Uncomplicated, EDT [facility] (disorder) [facility]) 788.42 Polyuria Polyuria Problem 02/29/2012 JOSE 12:00:00 AM ([facility]) [id number] Type II diabetes Diabetes Mellitus Problem 02/29/2012 G RE[place]AY mellitus without Type 2 - 12:00:00 AM ([place] complication Uncomplicated, EDT [facility] (disorder) [facility]) 788.42 Polyuria Polyuria Problem 02/29/2012 JOSE 12:00:00 AM ([facility]) 088525328 Type II diabetes Diabetes Mellitus Problem 02/29/2012 G [place]AY mellitus without Type 2 - 12:00:00 AM ([place] complication Uncomplicated, EDT [facility] (disorder) [facility]) 788.42 Polyuria Polyuria Problem 02/29/2012 JOSE 12:00:00 AM ([facility]) [id number] Type II diabetes Diabetes Mellitus Problem 02/29/2012 G RE[place]WAY mellitus without Type 2 - 12:00:00 AM ([place] complication Uncomplicated, EDT [facility] (disorder[facility]) 788.42 Polyuria Polyuria Problem 02/29/2012 JOSE 12:00:00 AM ([facility]) 223161729 Type II diabetes Diabetes Mellitus Problem 02/29/2012 G REENWAY mellitus without Type 2 - 12:00:00 AM ([place] complication Uncomplicated, EDT [place] (disorder) Uncontrolled [facility]) E11.9 Type 2 diabetes Type 2 diabetes Diagnosis 08/02/2018 SYLVIA HUTTONJHONY mellitus without mellitus without 06:57:26 PM ( [place] complications complications [facility]) B35.3 Tinea pedis Tinea pedis Diagnosis 08/02/2018 JOSE 06:57:26 PM ([facility]) L60.8 Other nail disorders Other nail Diagnosis 08/02/2018 SYLVIA NWJHONY disorders 06:57:26 PM ([facility]) L60.3 Nail dystrophy Nail dystrophy Diagnosis 08/02/2018 [facility] AY 06:57:26 PM ([facility]) Surgeries/Procedures Procedure Description Date Indications Data Source(s) Taking medication (?) Taking medication 06/28/2019 [place] ([facility] Compliance (?) Compliance 12:00:[address] [facility]) LIPID PANEL LIPID PANEL 06/28/2019 [place] ([facility] 12:00:[address] [facility]) HEMOGLOBIN A1C HEMOGLOBIN A1C 06/28/2019 [place] ([facility] 12:00:[address] [facility]) TSH-THYROID STIMULATING TSH-THYROID 06/28/2019 SYLVIA HUTTONJHONY ([facility] STIMULATING 12:00:[address] [facility]) THYROXINE FREE (FT4) THYROXINE FREE (FT4) 06/28/2019 [place] ([facility] 12:00:[address] [facility]) METABOLIC PANEL COMPREHE METABOLIC PANEL 06/28/2019 [place] ([place] COMPREHE 12:00:[address] [facility]) HEMOGLOBIN A1C HEMOGLOBIN A1C 03/20/2019 [place] ([facility] 12:00:00 [facility]) METABOLIC PANEL COMPREHE METABOLIC PANEL 03/20/2019 [place] ([facility] COMPREHE 12:00:00 [facility]) URINALYSIS MICROSCOPIC URINALYSIS 03/20/2019 [facility] ([facility] MICROSCOPIC 12:00:00 [facility]) MICROALBUMIN URINE MICROALBUMIN URINE 03/20/2019 [place] ([facility] 12:00:00 [facility]) [id number] 03/20/2019 [facility] ([facility] 12:00:00 [facility]) IMMUNIZATION ADMIN, >18 IMMUNIZATION ADMIN, 03/20/2019 [place] ([place] 1 VACCINE >18 1 VACCINE 12:00:00 [facility]) LIPID PANEL LIPID PANEL 03/20/2019 [place] ([facility] 12:00:00 [facility]) TSH-THYROID STIMULATING [facility] ST[facility] 12:00:00 [facility]) Bmi documented outside BMI OUTSIDE NORMAL 03/20/2019 [place] ([facility] normal parameters, no RANGE - NO F/U PLAN 12:00:00 [place] follow-up plan [facility] documented, no reason Health Center) given INFLUENZA VACCINE >3 YRS INFLUENZA VACCINE >3 03/20/2019 [place] ([facility] YRS 12:00:00 [facility]) URINALYSIS MICROSCOPIC URINALYSIS 08/10/2018 [facility] ([facility] MICROSCOPIC 12:00:00 [facility]) METABOLIC PANEL COMPREHE METABOLIC PANEL 08/10/2018 [place] ([facility] COMPREHE 12:00:00 [facility]) MICROALBUMIN URINE MICROALBUMIN URINE 08/10/2018 [facility] 12:00:00 [facility]) [id number] 08/10/2018 [facility] ([facility] 12:00:00 [facility]) CHLAMYDIA TRACHOMATIS, CHLAMYDIA 08/10/2018 [facility] ([facility] AMPLIFIED PROBE TRACHOMATIS, 12:00:00 Uziel TECHNIQUE AMPLIFIED PROBE [facility]) LIPID PANEL LIPID PANEL 08/10/2018 [place] ([facility] 12:00:00 [facility]) URINALYSIS URINALYSIS 08/10/2018 [place] ([facility] 12:00:00 [facility]) HEMOGLOBIN A1C HEMOGLOBIN A1C 08/10/2018 [place] ([facility] 12:00:00 [facility]) History of hypertension History of 06/27/2018 SYLVIA ROMO ([facility] hypertension 12:00:[address] [facility]) History of diabetes History of diabetes 06/27/2018 Chavo HANNAHJeffSAIRA ([facility] mellitus mellitus 12:00:[address] [facility]) DEBRIDEMENT NAILS SIX OR DEBRIDEMENT NAILS SIX 06/27/2018 [place] ([facility] MORE (Two Class B OR MORE (Two Class B 12:00:00 Ve rnon Findings) Findings) [facility]) History of hypertension History of 05/30/2018 SYLVIA ROMO ([facility] hypertension 12:00:[address] [facility]) History of diabetes History of diabetes 05/30/2018 [place] HANNAHCLARISSA ([facility] mellitus mellitus 12:00:[address] [facility]) Taking medication NON Taking medication 05/26/2018 [place] ([facility] COMPLIANT NON COMPLIANT 12:00:[address] [facility]) No intolerance to milk No intolerance to 05/23/2018 [place] ([facility] products milk products 12:00:[address] [facility]) NUTRITION THERAPY RE-ASS NUTRITION THERAPY 05/23/2018 [place] ([facility] RE-ASS 12:00:[address] [facility]) Tobacco assessment or Tobacco Assessment 05/16/2018 [place] ([facility] tobacco cessation 12:00:00 [place] intervention not AM [facility] [place] performed, reason not Health Center) otherwise specified IMMUNIZATION ADMIN, >18 IMMUNIZATION ADMIN, 05/16/2018 [place] ([facility] 1 VACCINE >18 1 VACCINE 12:00:[address] [facility]) ADACEL (TDAP) ADACEL (TDAP) 05/16/2018 [place] ([facility]nalise nt 12:00:[address] [facility]) Electrocardiogram 12 05/10/2018 [facility] 04:18:00 System PM EST - 05/10/2018 04:18:00 PM EST HEMOGLOBIN A1C HEMOGLOBIN A1C 04/18/2018 [place] ([facility] 12:00:[address] [facility]) LIPID PANEL LIPID PANEL 04/18/2018 [place] ([facility] 12:00:[address] [facility]) [id number] 04/18/2018 [facility] 12:00:[address] [facility]) MICROALBUMIN URINE MICROALBUMIN URINE 04/18/2018 [place] ([facility] 12:00:[address] [facility]) URINALYSIS MICROSCOPIC URINALYSIS 04/18/[address] ([place] MICROSCOPIC 12:00:[address] [facility]) METABOLIC PANEL COMPREHE METABOLIC PANEL 04/18/2018 [place] ([place] COMPREHE 12:00:[address] [facility]) CHLAMYDIA TRACHOMATIS, CHLAMYDIA 04/18/[address] ([place] AMPLIFIED PROBE TRACHOMATIS, 12:00:00 Uziel TECHNIQUE AMPLIFIED PROBE AM [facility]) NUTRITION THERAPY NUTRITION THERAPY 10/11/2017 [facility] ([facility] INITIAL INITIAL 12:00:00 [facility]) No intolerance to milk No intolerance to 10/11/2017 [place] ([place] products milk products 12:00:00 [facility]) PSA (PROSTATE SPECIFIC A PSA (PROSTATE 10/04/2017 [place] ([place] SPECIFIC A 12:00:00 [facility]) LIPID PANEL LIPID PANEL 10/04/2017 [place] ([facility] 12:00:00 [facility]) CHLAMYDIA TRACHOMATIS, CHLAMYDIA 10/04/2017 [facility] ([place] AMPLIFIED PROBE TRACHOMATIS, 12:00:00 Uziel TECHNIQUE AMPLIFIED PROBE AM [facility]) MICROALBUMIN URINE MICROALBUMIN URINE 10/04/2017 [place] ([facility] 12:00:00 [facility]) URINALYSIS MICROSCOPIC URINALYSIS 10/04/2017 [facility] ([place] MICROSCOPIC 12:00:00 [facility]) METABOLIC PANEL COMPREHE METABOLIC PANEL 10/04/2017 [place] ([place] COMPREHE 12:00:00 [facility]) HEMOGLOBIN A1C HEMOGLOBIN A1C 10/04/2017 [place] ([facility] 12:00:00 [facility]) VDRL (RPR) VDRL (RPR) 10/04/2017 [place] ([facility] 12:00:00 [facility]) [id number] 10/04/2017 [facility] ([facility] 12:00:00 [facility]) Recent episode(s) of Recent episode(s) of 02/22/2017 [place] ([place] angina angina 12:00:00 [facility]) Advance healthcare Advance healthcare 02/22/2017 [place] ([facility] directive on file directive on file 12:00:00 [place] AM [facility]) History of No carotid History of No carotid 10/21/2015 [place] ([facility] bruits bruits 12:00:00 Uziel [facility]) No history of surgery No history of surgery 10/21/2015 [place] ([facility] 12:00:00 Uziel AM [facility]) Past medical history Past medical history 03/15/2015 [place] ([facility] Uncontrolled DM Uncontrolled DM 12:00:00 Uziel ~Uncontrolled ~Uncontrolled AM [facility] Hyperlipidemia Hyperlipidemia Health [facility]) ~Hematuria ~Trichomonas ~Hematuria ~COPD CXR findings ~Lung ~Trichomonas ~COPD mass 7mm Left base CXR findings ~Lung ~Smoker ~Noncompliance mass 7mm Left base ~Smoker ~Noncompliance History of Eyes: normal History of Eyes: 03/11/2015 [place] ([facility] normal 12:00:00 Uziel AM [facility]) Venipuncture 01/31/2014 [facility] 09:16:00 System PM EDT - 01/31/2014 09:16:00 PM EDT No cholecystectomy No cholecystectomy 01/31/2014 [facility] No history of No history of 01/31/2014 [place] ([facility] nt appendectomy append[facility]:00[facility] Recent change in medical Recent change in 11/17/2013 [place] ([facility] history medical history 12:00:00 Uziel AM [facility]) No fall No fall 11/17/2013 [place] [facility] Results ID Date Data Source [id number] 07/03/2019 12:10:00 PM EST [place] ([facility]) Name Value Range Interpretation Description Data Source(s ) Supporting Code Document(s ) Thyrotropin 1.580 TSH [place] ([facility] [Units/volume] uIU/mL [place] in Serum or Neighborhood Plasma by [facility]) Detection limit <= 0.05 mIU/L ID Date Data Source [id number] 07/03/2019 12:10:00 PM EST [place] ([facility]) Name Value Range Interpretation Description Data Source(s ) Supporting Code Document(s ) Thyroxine 1.15 T4,Free(Direct [place] ([facility] (T4) free ng/dL ) [place] [Mass/volume Neighborhood ] in [facility] or Plasma ID Date Data Source [id number] 07/03/2019 12:10:00 PM EST JOSE ([facility]) Name Value Range Interpretation Description Data Source(s ) Supporting Code Document(s ) Hemoglobin 12.0 % Above high normal Hemoglobin A1c [place] ([facility] A1c/Hemoglobi [place] n.total in [facility]) Note: Prediabetes: 5.7 - 6.4 Diabetes: >6.4 Glycemic control for adults with diabetes: <7.0 ID Date Data Source [id number] 07/03/2019 12:10:00 PM EST JOSE ([facility]) Name Value Range Interpretation Description Data Source(s ) Supporting Code Document(s ) Cholesterol 133 Cholesterol, JOSE [Mass/volume] mg/dL Total ([place] in [facility] or [facility] Plasma [facility]) Triglyceride 85 Triglycerides JOSE [Mass/volume] mg/dL ([place] in [facility] or [facility]) Cholesterol in 35 Below low normal HDL Cholesterol GR [place] HDL mg/dL ([place] [Mass/volume] [facility] in Serum or [facility]) Plasma Cholesterol in 17 VLDL JOSE VLDL mg/dL Cholesterol Markel ([place] [Mass/volume] Neighborhood in [facility] or Health Center) Plasma by calculation Laboratory N/A Comment: JOSE comment [Text] ([place] in Report [facility]) Cholesterol in 81 LDL Cholesterol JOSE LDL mg/dL Calc ([place] [Mass/volume] Neighborhood in Serum or Health Center) Plasma by calculation ID Date Data Source [id number] 07/03/2019 12:10:00 PM EST JOSE ([facility]) Name Value Range Interpretation Description Data Source(s ) Supporting Code Document(s ) Calcium 9.1 Calcium JOSE ([place] [Mass/volum mg/dL [place]] in Serum [facility] or [facility]) Urea 13 mg/dL BUN [place] ([facility] nitrogen [place] [Mass/volum Neighborhood e] in [facility] or Plasma Glucose 267 Above high normal Glucose JOSE ([place] [Mass/volum mg/dL [place] e] in Serum [facility] or [facility]) Bilirubin.t 0.3 Bilirubin, JOSE ([facility] otal mg/dL Total [place] [Mass/volum Neighborhood e] in [facility] or Plasma Albumin 4.5 g/dL Albumin JOSE ([facility] [Mass/volum [place] e] in Serum [facility] or [facility]) Note: Ple ase note reference interval change Protein [Mass/volume] in 7.0 g/dL Protein, Total JOSE ([facility] Serum or Plasma [facility]) Potassium [Moles/volume] 4.6 mmol/L Potassium [place] ([facility] in Serum or Plasma [facility]) Sodium [Moles/volume] in 137 mmol/L Sodium [place] ([facility] Serum or Plasma [facility]) Alkaline phosphatase 76 IU/L Alkaline Phosphatas e JOSE ([facility] [Enzymatic [facility] activity/volume] in Serum [facility]) or Plasma Aspartate 16 IU/L AST (SGOT) JOSE ([facility] aminotransferase [facility] [[facility]) activity/volume] in Serum or Plasma Chloride [Moles/volume] 99 mmol/L Chloride [place] ([facility] in Serum or Plasma [facility]) Carbon dioxide, total 25 mmol/L Carbon Dioxide, GR [place] ([facility] [Moles/volume] in Serum Total [facility] or [facility]) Alanine aminotransferase 23 IU/L ALT (SGPT) [place] ([facility] [Enzymatic [facility] activity/volume] in Serum [facility]) or Plasma Creatinine [Mass/volume] 0.89 mg/dL Creatinine [place] ([facility] in Serum or Plasma [facility]) Albumin/Globulin [Mass 1.8 A/G Ratio [place] ([facility] Ratio] in Serum or Plasma [facility]) Globulin [Mass/volume] in 2.5 g/dL Globulin, Tota l JOSE ([facility] Serum by calculation [facility]) eGFR If NonAfricn Am 100 eGFR If NonAfricn A m JOSE ([facility] mL/min/1.73 [facility]) Urea nitrogen/Creatinine 15 BUN/Creatinine Ratio JOSE ([facility] [Mass Ratio] in Serum or [facility]) eGFR If Africn Am 116 eGFR If Africn Am [place] ([facility] mL/min/1.73 [facility]) ID Date Data Source [id number] 03/20/2019 03:15:00 PM EDT JOSE ([facility]) Name Value Range Interpretation Description Data Source(s ) Supporting Code Document(s ) Microalbumin 11.0 Albumin, JOSE [Mass/volume] ug/mL Urine ([place] in Urine [facility]) ID Date Data Source [id number] 03/20/2019 03:15:00 PM EDT JOSE ([facility]) Name Value Range Interpretation Description Data Source(s ) Supporting Code Document(s ) Hemoglobin 11.9 % Above high normal Hemoglobin A1c [facility] AY ([facility] A1c/Hemoglobi [place] n.total in [facility]) Note: Prediabetes: 5.7 - 6.4 Diabetes: >6.4 Glycemic control for adults with diabetes: <7.0 ID Date Data Source [id number] 03/20/2019 03:15:00 PM EDT JOSE ([facility]) Name Value Range Interpretation Description Data Source(s ) Supporting Code Document(s ) Thyrotropin 1.9 TSH-ICMA [place] ([facility] [Units/volume] uU/mL [place] in Serum or [facility]) Note: Reference Range:Pubertal Children and Adults:0.5 - 4.8PregnancyFirst Trimester 0.100-4.000Second Trimester 0.200-4.000T hird Trimester 0.300-4.500Non- Adult 0.450-4.500Effective April 03, 2019 TSH-ICMA reference interval will be changing to: Reference IntervalAge RangePremature (26 - 32w)Day 3 - 4 0.8 - 6.9F ull-term Day 4 1.3 - 16.0Newborn: TSH surges within the first 15 - 60 leena adrianna of life reaching peak levels between 25 - 160 at about 30 min utes. Values then decline rapidly within one week.1 - 11m 0.9 - 7.7Prepubertal Children and Adults 0.6 - 5.5PREGNANCY:First Trimester 0.100 - 4.000Second Trimester 0.200 - 4.000Third Trimester 0.30 0 - 4.000Non- Adult 0.450 - 4.500 ID Date Data Source [id number] 03/20/2019 03:15:00 PM EDT JOSE ([facility]) Name Value Range Interpretation Description Data Source(s ) Supporting Code Document(s ) Triglyceride 154 Above high Triglycerides JOSE [Mass/volume] mg/dL normal ([place] in Serum or [facility] Plasma [facility]) Cholesterol 229 Above high Cholesterol, JOSE [Mass/volume] mg/dL normal Total ([place] in Serum or [facility]) Cholesterol in 31 VLDL JOSE VLDL mg/dL Cholesterol Markel ([place] [Mass/volume] [facility] in [facility] or [facility]) Plasma by calculation Laboratory N/A Comment: JOSE comment [Text] ([place] in [facility]) Cholesterol in 41 HDL Cholesterol JOSE HDL mg/dL ([place] [Mass/volume] [facility] in [facility] or [facility]) Plasma Cholesterol in 157 Above high LDL Cholesterol JOSE LDL mg/dL normal Calc ([place] [Mass/volume] [facility] in [facility] or [facility]) Plasma by calculation ID Date Data Source [id number] 03/20/2019 03:15:00 PM EDT JOSE ([facility]) Name Value Range Interpretation Description Data Sup porting Code Source(s) Document(s ) Urea nitrogen 15 BUN JOSE [Mass/volume] in mg/dL ([place] Serum or [facility]) Glucose 249 Above high Glucose JOSE [Mass/volume] in mg/dL normal ([facility] or [facility]) Calcium 9.9 Calcium JOSE [Mass/volume] in mg/dL ([place] Serum or [facility]) Protein 7.8 Protein, JOSE [Mass/volume] in g/dL Total ([facility] or [facility]) Albumin 4.8 Albumin JOSE [Mass/volume] in g/dL ([facility]) Alkaline 85 IU/L Alkaline JOSE phosphatase Phosphatase ([place] [Enzymatic Neighborhood activity/volume] [facility] in Serum or [facility]) Bilirubin.total <0.2 Bilirubin, JOSE [Mass/volume] in mg/dL Total ([facility] or [facility]) Aspartate 11 IU/L AST (SGOT) JOSE aminotransferase ([place] [Enzymatic [facility] activity/volume] Health in Serum or Plasma Center) Creatinine 0.90 Creatinine JOSE [Mass/volume] in mg/dL ([facility] or [facility]) Chloride 98 Chloride JOSE [Moles/volume] in mmol/L ([facility] Serum or [facility]) Potassium 4.3 Potassium JOSE [Moles/volume] in mmol/L ([facility] or [facility]) Sodium 140 Sodium JOSE [Moles/volume] in mmol/L ([facility] Serum or [facility]) Alanine 17 IU/L ALT (SGPT) JOSE aminotransferase ([place] [Enzymatic [facility] activity/volume] [facility] in Serum or [facility]) Carbon dioxide, 26 Carbon JOSE total mmol/L Dioxide, ([place] [Moles/volume] in Total [facility] Serum or [facility]) Albumin/Globulin 1.6 A/G Ratio JOSE [Mass Ratio] in ([facility] or [facility]) eGFR If NonAfricn 100 eGFR If JOSE Am mL/min/ NonAfricn Am ([address]) Globulin 3.0 Globulin, JOSE [Mass/volume] in g/dL Total ([place] Serum by [facility]) Urea 17 BUN/Creatinin [place] nitrogen/Creatinin e Ratio ([facility] on e [Mass Ratio] in [facility]) eGFR If Africn Am 116 eGFR If JOSE mL/min/ Africn Am ([address]) ID Date Data Source [id number] 08/15/2018 10:13:00 AM EDT JOSE ([facility]) Name Value Range Interpretation Description Data Source(s ) Supporting Code Document(s ) Trichomonas Negative Trich vag by JOSE vaginalis rRNA JULIO CÉSAR ([place] [Presence] in [facility]) specimen by Probe and target amplification method ID Date Data Source [id number] 08/15/2018 10:13:00 AM EDT [place] ([facility]) Name Value Range Interpretation Description Data Source(s ) Supporting Code Document(s ) Microalbumin 31.1 Albumin, JOSE [Mass/volume] ug/mL Urine ([place] in Urine [facility]) ID Date Data Source [id number] 08/15/2018 10:13:00 AM EDT JOSE ([facility]) Name Value Range Interpretation Description Data Source(s ) Supporting Code Document(s ) Hemoglobin 12.3 % Above high normal Hemoglobin A1c [place] A[place] ([facility] A1c/Hemoglobi [place] n.total in [facility] Blood [facility]) Note: Prediabetes: 5.7 - 6.4 Diabetes: >6.4 Glycemic control for adults with diabetes: <7.0 ID Date Data Source [id number] 08/15/2018 10:13:00 AM EDT JOSE ([facility]) Name Value Range Interpretation Description Data Source(s ) Supporting Code Document(s ) Neisseria Negative Neisseria JOSE gonorrhoeae gonorrhoeae, ([place] rRNA [Presence] JULIO CÉSAR [facility] in [facility]) specimen by Probe and target amplification method Chlamydia Negative Chlamydia [place] trachomatis trachomatis, ([place] rRNA [Presence] JULIO CÉSAR [facility] in [facility]) specimen by Probe and target amplification method ID Date Data Source [id number] 08/15/2018 10:13:00 AM EDT JOSE ([facility]) Name Value Range Interpretation Description Data Source(s ) Supporting Code Document(s ) Cholesterol 182 Cholesterol, JOSE [Mass/volume] mg/dL Total (Jimbo Triplett in Serum or [facility]) Laboratory N/A Comment: JOSE comment [Text] (Jimbo Triplett in Report [facility]) Cholesterol in 2.9 LDL/HDL Ratio JOSE LDL/Cholestero ratio ([place] in HDL [Mass Neighborhood Ratio] in [facility]) Serum or Plasma Note: LDL/HDL Ratio Men Women 1/2 Avg.Risk 1.0 1.5 Avg.Risk 3.6 3.2 2X Avg.Risk 6.2 5.0 3X Avg.Risk 8.0 6.1 Cholesterol in HDL 43 mg/dL HDL Cholesterol [address] ([place] [Mass/volume] in [place] Serum or Plasma [facility]) Triglyceride 82 mg/dL Triglycerides JOSE ([facility]nal[facility] nt [Mass/volume] in [place] Serum or Plasma [facility]) Cholesterol in VLDL 16 mg/dL VLDL Cholesterol Markel JOSE ([place] [Mass/volume] in [place] Serum or Plasma by [facility]) Cholesterol in LDL 123 mg/dL Above high LDL Cholesterol Calc JOSE ([place] [Mass/volume] in normal [place] Serum or Plasma by [facility]) ID Date Data Source [id number] 08/15/2018 10:13:00 AM EDT JOSE ([facility]) Name Value Range Interpretation Description Data Sup porting Code Source(s) Document(s ) Calcium 9.7 Calcium JOSE [Mass/volume] in mg/dL ([facility]) Urea nitrogen 12 BUN JOSE [Mass/volume] in mg/dL ([facility]) Protein 7.7 Protein, JOSE [Mass/volume] in g/dL Total ([facility]) Glucose 308 Above high Glucose JOSE [Mass/volume] in mg/dL normal ([facility]) Albumin 4.6 Albumin JOSE [Mass/volume] in g/dL ([facility]) Alkaline 96 IU/L Alkaline JOSE phosphatase Phosphatase ([place] [Enzymatic Neighborhood activity/volume] [facility] in [facility] or [facility]) Sodium 138 Sodium JOSE [Moles/volume] in mmol/L ([facility]) Potassium 4.8 Potassium JOSE [Moles/volume] in mmol/L ([facility]) Aspartate 14 IU/L AST (SGOT) JOSE aminotransferase ([place] [Enzymatic Neighborhood activity/volume] [facility] in Serum or [facility]) Bilirubin.total 0.3 Bilirubin, JOSE [Mass/volume] in mg/dL Total ([facility]) Creatinine 0.89 Creatinine JOSE [Mass/volume] in mg/dL ([facility]) Alanine 19 IU/L ALT (SGPT) JOSE aminotransferase ([place] [Enzymatic Neighborhood activity/volume] [facility] in [facility] or [facility]) Chloride 99 Chloride JOSE [Moles/volume] in mmol/L ([facility]) Carbon dioxide, 25 Carbon JOSE total mmol/L Dioxide, ([place] [Moles/volume] in Total [facility]) Globulin 3.1 Globulin, JOSE [Mass/volume] in g/dL Total ([place] Serum by [facility]) eGFR If Africn Am 117 eGFR If JOSE mL/min/ Africn Am ([address]) Albumin/Globulin 1.5 A/G Ratio JOSE [Mass Ratio] in ([place] Serum or Plasma [facility]) Urea 13 BUN/Creatinin [place] nitrogen/Creatinin e Ratio ([facility] on e [Mass Ratio] in [facility] Serum or [facility]) eGFR If NonAfricn 101 eGFR If JOSE Am mL/min/ NonAfricn Am ([address]) ID Date Data Source [id number] 05/10/2018 06:32:00 PM EST [facility] Name Value Range Interpretation Description Data Sup porting Code Source(s) Document(s ) Troponin I 0.00 0.00 - Normal (applies Troponin I [facility] Quantitative - ng/mL 0.04 to non-numeric Quantitative - Healt h MV Only ng/mL results) MV Only System ID Date Data Source [id number] 05/10/2018 06:09:00 PM EST [facility] Name Value Range Interpretation Description Data Sup porting Code Source(s) Document(s ) Leukocytes 7.7 4.8 - Normal (applies WBC Count [facility] [#/volume] in {10^3_u 10.8 to non-numeric Health Unspecified L} 10^3 uL results) System specimen by Automated count Erythrocytes 5.37 4.40 - Normal (applies RBC Count [facility] [#/volume] in {10^6_u 5.90 to non-numeric Health Blood by L} 10^6 uL results) System Automated count Hemoglobin 15.6 14.0 - Normal (applies Hemoglobin [facility] [Mass/volume] in {gm/dL} 18.0 to non-numeric Health Blood gm/dL results) System Hematocrit 47.7 % 41.0 - Normal (applies Hematocrit [facility] [Volume 53.0 % to non-numeric Health Fraction] of results) System Blood Erythrocyte mean 88.8 fl 83.0 - Normal (applies MCV [facility] corpuscular 98.0 fl to non-numeric Health volume [Entitic results) System volume] by Automated count Erythrocyte mean 29.1 pg 26.0 - Normal (applies MCH [facility] corpuscular 34.0 pg to non-numeric Health hemoglobin results) System [Entitic mass] by Automated count Erythrocyte mean 32.7 33.0 - Below low normal MCHC [facility] corpuscular {gm/dL} 37.0 Health hemoglobin gm/dL System concentration [Mass/volume] by Automated count Erythrocyte 12.7 % 11.5 - Normal (applies RDW-CV [facility] distribution 14.5 % to non-numeric Health width [Entitic results) System volume] by Automated count Platelets 224 130 - Normal (applies Platelet Count [place] [facility] [#/volume] in {10^3_u 400 to non-numeric Health Plasma by L} 10^3 uL results) System Automated count Platelet mean 13.0 fl 7.4 - Above high MPV [facility] volume [Entitic 10.4 fl normal Health volume] in Blood System by Automated count Monocytes 0.6 0.3 - Normal (applies Monocyte # [facility] [#/volume] in {10^3_u 0.9 to non-numeric Health Blood by Manual L} 10^3 uL results) System count Eosinophils 0.15 0.05 - Normal (applies Eosinophil # [place] [facility] [#/volume] in {10^3_u 0.30 to non-numeric Health Blood L} 10^3 uL results) System Neutrophils 5.1 2.0 - Normal (applies Neutrophil # [place] [facility] [#/volume] in {10^3_u 8.1 to non-numeric Health Body fluid L} 10^3 uL results) System Basophils 0.02 0.00 - Normal (applies Basophil # [facility] [#/volume] in {10^3_u 0.10 to non-numeric Health Blood by L} 10^3 uL results) System Automated count Lymphocyte # 1.8 1.0 - Normal (applies Lymphocyte # [facility] {10^3_u 5.5 to non-numeric Health L} 10^3 uL results) System Neutrophils/100 65.9 % 55.0 - Normal (applies Neutrophil % Sai kirti leukocytes in 75.0 % to non-numeric Health Blood by results) System Automated count Monocytes/100 7.4 % 6.0 - Normal (applies Monocyte % [place] [facility] leukocytes in 9.0 % to non-numeric Health Blood results) System Eosinophils/100 2.0 % 0.0 - Normal (applies Eosinophil % Sai kirti leukocytes in 4.0 % to non-numeric Health Unspecified results) System specimen Basophils/100 0.3 % 0.0 - Normal (applies Basophil % [place] [facility] leukocytes in 1.0 % to non-numeric Health Unspecified results) System specimen by Manual count Lymphocytes 24.0 % 21.0 - Normal (applies Lymphocyte % [place] [facility] [#/volume] in 51.0 % to non-numeric Health Blood by results) System Automated count Immature 0.4 % 0.0 - Normal (applies Immature [facility] Granulocytes % 0.8 % to non-numeric Granulocytes % Healt h results) System Nucleated 0.0 0.0 - Normal (applies NRBC % [facility] erythrocytes {/100_W 0.0 to non-numeric Health [#/volume] in BC} /100 results) System Body fluid WBC Immature 0.03 0.00 - Normal (applies Immature [facility] Granulocytes # {10^3_u 0.09 to non-numeric Granulocytes # Healt h L} 10^3 uL results) System NRBC # 0.00 0.90 - Below low normal NRBC # [facility] {10^3_u 11.20 Health L} 10^3 uL System ID Date Data Source [id number] 05/10/2018 06:09:00 PM EST [facility] Name Value Range Interpretation Description Data Sup porting Code Source(s) Document(s ) Sodium 140 137 - Normal (applies Sodium, Serum [facility] [Moles/volume] in mmol/L 145 to non-numeric Health Serum or Plasma mmol/L results) System Potassium 4.5 3.6 - Normal (applies Potassium, [facility] [Mass/volume] in mmol/L 5.0 to non-numeric Serum Health Serum or Plasma mmol/L results) System Chloride 101 98 - Normal (applies Chloride, [facility] [Moles/volume] in mmol/L 107 to non-numeric Serum Health Serum or Plasma mmol/L results) System Carbon dioxide, 28.0 22.0 - Normal (applies CO2, Serum [facility] total mmol/L 30.0 to non-numeric Health [Moles/volume] in mmol/L results) System Serum or Plasma Total Protein 8.2 6.3 - Normal (applies Total Protein [facility] mg/dl 8.2 to non-numeric Health mg/dl results) System Glucose 239 75 - Above high Glucose, [facility] [Mass/volume] in mg/dL 110 normal Serum Health Serum or Plasma mg/dL System Urea nitrogen 15 9 - 21 Normal (applies Blood Urea [place] [facility] [Mass/volume] in mg/dl mg/dl to non-numeric Nitrogen, Health Serum or Plasma results) Serum System Creatinine 1.10 0.80 - Normal (applies Creatinine, [facility] [Mass/volume] in mg/dl 1.50 to non-numeric Serum Health Serum or Plasma mg/dl results) System Alkaline 86 38 - Normal (applies Alkaline [facility] phosphatase {IU/L} 126 to non-numeric Phosphatase, Health isoenzymes IU/L results) Serum System [Enzymatic activity/volume] in Serum or Plasma by Heat stability Bilirubin.total 0.6 0.2 - Normal (applies Bilirubin, [place] [Mass/volume] in mg/dl 1.3 to non-numeric Serum Total Health Serum or Plasma mg/dl results) System Direct Bilirubin 0.2 0.0 - Normal (applies Direct [place] mg/dl 0.4 to non-numeric Bilirubin Health mg/dl results) System Aspartate 16 5 - 40 Normal (applies Aspartate [facility] aminotransferase {IU/L} IU/L to non-numeric Transaminase, Heal [Enzymatic results) Serum System activity/volume] in Serum or Plasma by With P-5'-P Albumin 4.8 3.9 - Normal (applies Albumin, [facility] [Mass/volume] in {gm/dl} 5.0 to non-numeric Serum Health Serum or Plasma gm/dl results) System I. Phosphorus 3.7 2.5 - Normal (applies I. Phosphorus [facility] mg/dl 4.5 to non-numeric Health mg/dl results) System Alanine 25 7 - 56 Normal (applies Alanine [facility] aminotransferase {IU/L} IU/L to non-numeric Aminotransfer Heal [Enzymatic results) ase, Serum System activity/volume] in Serum or Plasma Calcium 10.2 8.4 - Normal (applies Calcium, [facility] [Mass/volume] in mg/dl 10.2 to non-numeric Total Serum Health Serum or Plasma mg/dl results) System A/G Ratio 1.41 Normal (applies A/G Ratio [facility] to non-numeric Health results) System Urate 5.5 3.5 - Normal (applies Uric Acid, [facility] [Mass/volume] in mg/dl 8.5 to non-numeric Serum Health Serum or Plasma mg/dl results) System Anion gap in Serum 11.00 8.00 - Normal (applies Anion Gap Sai kirti or Plasma mmol/L 12.00 to non-numeric Health mmol/L results) System Glomerular 71.00 Normal (applies GFR [facility] filtration to non-numeric Health rate/1.73 sq results) System M.predicted [Volume Rate/Area] in Serum or Plasma by Creatinine-based formula (CKD-EPI) eGFR will provide clinicians with a more accurate indicator of renal function then the serum creatinine. The eGFR is automa tically calculated from an empiric formula (endorsed by the [employer] ion) which incorporates age, sex, and race.Clinicians may notice surprisingly low GFR's with serum creatinine valueswithin normal range- particularly in elderly wo men (with low muscle mass).In the hospital setting, the eGFR should add an element of safety in drug dosing, in assessing the risk of IV contrast administration, and in assessing vascular risk.The NKF staging system is as follows:Normal: eGFR >90 with no kidney markersStage 1: eGFR >90 with kidney markers*Stage 2: eGFR 60- 89Stage 3: eGFR 30-59Stage 4: eGFR 15-29Stage 5: eGFR <15 (usually requir ing dialysis)*Markers include: Proteinuria, Hematuria, abnormal imaging-studies, or other blood or urine test abnormalities ID Date Data Source [id number] 05/10/2018 06:09:00 PM EST [facility] Name Value Range Interpretation Description Data Sup porting Code Source(s) Document(s ) Lipase 14 U/L 8 - 78 Normal (applies to Lipase, Serum [place] [Enzymatic U/L non-numeric Health System activity/v results) olume] in Serum or Plasma ID Date Data Source [id number] 04/18/2018 02:58:00 PM EST JOSE ([facility]) Name Value Range Interpretation Description Data Source(s ) Supporting Code Document(s ) Trichomonas Negative Trich vag by JOSE vaginalis rRNA JULIO CÉSAR ([place] [Presence] in [facility]) specimen by Probe and target amplification method ID Date Data Source [id number] 04/18/2018 02:58:00 PM EST JOSE ([facility]) Name Value Range Interpretation Description Data Source(s ) Supporting Code Document(s ) Microalbumin 18.8 Albumin, JOSE [Mass/volume] ug/mL Urine ([place] in Urine [facility]) ID Date Data Source [id number] 04/18/2018 02:58:00 PM EST JOSE ([facility]) Name Value Range Interpretation Description Data Source(s ) Supporting Code Document(s ) Hemoglobin 13.1 % Above high normal Hemoglobin A1c GRE[place] A[place] ([place] A1c/Hemoglobi [place] n.total in [facility] Blood [facility]) Note: Prediabetes: 5.7 - 6.4 Diabetes: >6.4 Glycemic control for adults with diabetes: <7.0 ID Date Data Source [id number] 04/18/2018 02:58:00 PM EST [place] ([facility]) Name Value Range Interpretation Description Data Source(s ) Supporting Code Document(s ) Chlamydia Negative Chlamydia JOSE trachomatis trachomatis, ([place] rRNA [Presence] JULIO CÉSAR [facility]) specimen by Probe and target amplification method Neisseria Negative Neisseria [place] gonorrhoeae gonorrhoeae, ([place] rRNA [Presence] JULIO CÉSAR [facility]) specimen by Probe and target amplification method ID Date Data Source [id number] 04/18/2018 02:58:00 PM EST [place] ([facility]) Name Value Range Interpretation Description Data Source(s ) Supporting Code Document(s ) Cholesterol 225 Above high normal Cholesterol, GREENKS Y [Mass/volume] mg/dL Total ([place] in Serum or [facility] Plasma [facility]) Laboratory N/A Comment: JOSE comment [Text] ([place] in Report [facility] Narrative [facility]) Cholesterol in 3.9 Above high normal LDL/HDL Ratio GRE FLOR[place] LDL/Cholestero ratio ([place] l in HDL [Mass Neighborhood Ratio] in [facility] [place]) Serum or Plasma Note: LDL/HDL Ratio Men Women 1/2 Avg.Risk 1.0 1.5 Avg.Risk 3.6 3.2 2X Avg.Risk 6.2 5.0 3X Avg.Risk 8.0 6.1 Cholesterol in HDL 42 mg/dL HDL Cholesterol [address] ([facility] [Mass/volume] in [facility] or [facility]) Triglyceride 101 mg/dL Triglycerides JOSE ([facility] [Mass/volume] in [facility]) Cholesterol in VLDL 20 mg/dL VLDL Cholesterol Markel JOSE ([facility] [Mass/volume] in [place] Serum or Plasma by [facility] calculation [facility]) Cholesterol in LDL 163 mg/dL Above high LDL Cholesterol Calc JOSE ([facility] [Mass/volume] in normal [place] Serum or Plasma by [facility]) ID Date Data Source [id number] 04/18/2018 02:58:00 PM EST JOSE ([facility]) Name Value Range Interpretation Description Data Sup porting Code Source(s) Document(s ) Urea nitrogen 12 BUN JOSE [Mass/volume] in mg/dL ([facility]) Calcium 10.3 Above high Calcium JOSE [Mass/volume] in mg/dL normal ([facility]) Glucose 317 Above high Glucose JOSE [Mass/volume] in mg/dL normal ([facility]) Protein 8.0 Protein, JOSE [Mass/volume] in g/dL Total ([facility]) Bilirubin.total 0.3 Bilirubin, JOSE [Mass/volume] in mg/dL Total ([facility]) Alkaline 89 IU/L Alkaline JOSE phosphatase Phosphatase ([place] [Enzymatic Neighborhood activity/volume] Health in Serum or [facility]) Aspartate 14 IU/L AST (SGOT) JOSE aminotransferase ([place] [Enzymatic Neighborhood activity/volume] [facility] in [facility] or [facility]) Potassium 4.7 Potassium JOSE [Moles/volume] in mmol/L ([facility]) Albumin 4.9 Albumin JOSE [Mass/volume] in g/dL ([facility]) Creatinine 0.98 Creatinine JOSE [Mass/volume] in mg/dL ([facility]) Alanine 21 IU/L ALT (SGPT) JOSE aminotransferase ([place] [Enzymatic Neighborhood activity/volume] Health in Serum or Plasma Center) Chloride 96 Chloride JOSE [Moles/volume] in mmol/L ([facility] Serum or Plasma [facility]) Carbon dioxide, 25 Carbon JOSE total mmol/L Dioxide, ([place] [Moles/volume] in Total [facility] Serum or [facility]) Sodium 138 Sodium JOSE [Moles/volume] in mmol/L ([facility] Serum or Plasma [facility]) eGFR If Africn Am 105 eGFR If JOSE mL/min/ Africn Am ([address]) Albumin/Globulin 1.6 A/G Ratio JOSE [Mass Ratio] in ([place] Serum or Plasma [facility]) Globulin 3.1 Globulin, JOSE [Mass/volume] in g/dL Total ([place] Serum by [facility]) Urea 12 BUN/Creatinin JOSE nitrogen/Creatinin e Ratio ([facility] on e [Mass Ratio] in [facility] Serum or [facility]) eGFR If NonAfricn 91 eGFR If JOSE Am mL/min/ NonAfricn Am ([address]) ID Date Data Source [id number] 10/04/2017 02:53:00 PM EDT JOSE ([facility]) Name Value Range Interpretation Description Data Source(s ) Supporting Code Document(s ) Trichomonas Negative Trich vag by JOSE vaginalis rRNA JULIO CÉSAR ([place] [Presence] in [facility]) specimen by Probe and target amplification method ID Date Data Source [id number] 10/04/2017 02:53:00 PM EDT JOSE ([facility]) Name Value Range Interpretation Description Data Source(s ) Supporting Code Document(s ) Microalbumin 12.2 Albumin, JOSE [Mass/volume] ug/mL Urine ([place] in Urine [facility]) ID Date Data Source [id number] 10/04/2017 02:53:00 PM EDT JOSE ([facility]) Name Value Range Interpretation Description Data Source(s ) Supporting Code Document(s ) Prostate 0.4 Prostate JOSE ([facility] specific Ag ng/mL Specific Ag, [place] [Mass/volum Serum Neighborhood e] in [facility] or Plasma Note: Marsha ECLIA methodology.According to the [place] [employer], Serum PSA shoulddecrease and remain at undetec table levels after radicalprostatectomy. The AUA defines biochemical recurrence as an initialPSA value 0.2 ng/mL or greater followed by a subsequent confirmatoryPSA value 0.2 ng/mL or greater.Values obtained with different assay methods or kits can not be usedinterchangeably. Results cannot be interpreted as absolute evidenceof the p resence or absence of malignant disease. ID Date Data Source [id number] 10/04/2017 02:53:00 PM EDT [place] ([facility]) Name Value Range Interpretation Description Data Source(s ) Supporting Code Document(s ) Hemoglobin 13.1 % Above high normal Hemoglobin A1c [facility] AY ([facility] A1c/Hemoglobi [place] n.total in [facility] Blood [facility]) Note: Pre-diabetes: 5.7 - 6.4 Diabetes: >6.4 Glycemic control for adults with diabetes: <7.0 ID Date Data Source [id number] 10/04/2017 02:53:00 PM EDT [place] ([facility]) Name Value Range Interpretation Description Data Source(s ) Supporting Code Document(s ) Chlamydia Negative Chlamydia JOSE trachomatis trachomatis, ([place] rRNA [Presence] JULIO CÉSAR [facility] in [facility]) specimen by Probe and target amplification method Neisseria Negative Neisseria [place] gonorrhoeae gonorrhoeae, ([place] rRNA [Presence] JULIO CÉSAR [facility] in [facility]) specimen by Probe and target amplification method ID Date Data Source [id number] 10/04/2017 02:53:00 PM EDT [place] ([facility]) Name Value Range Interpretation Description Data Source(s ) Supporting Code Document(s ) Cholesterol 179 Cholesterol, JOSE [Mass/volume] mg/dL Total ([place] in Serum or [facility] Plasma [facility]) Cholesterol in 26 mg/dL VLDL JOSE VLDL Cholesterol ([place] [Mass/volume] [facility] in Serum or [facility]) Plasma by calculation Cholesterol in 2.6 LDL/HDL Ratio JOSE LDL/Cholestero ratio ([place] in HDL [Mass Neighborhood Ratio] in [facility] [place]) Serum or Plasma Note: LDL/HDL Ratio Men Women 1/2 Avg.Risk 1.0 1.5 Avg.Risk 3.6 3.2 2X Avg.Risk 6.2 5.0 3X Avg.Risk 8.0 6.1 Triglyceride 132 mg/dL Triglycerides JOSE ([facility] [Mass/volume] in [place] Serum or [facility]) Laboratory comment N/A Comment: JOSE ([place]osa h[place] [Text] in Report [facility]) Cholesterol in HDL 42 mg/dL HDL Cholesterol [address] ([place] [Mass/volume] in [place] Serum or [facility]) Cholesterol in LDL 111 mg/dL Above high LDL Cholesterol Calc JOSE ([facility] [Mass/volume] in normal [place] Serum or Plasma by [facility]) ID Date Data Source [id number] 10/04/2017 02:53:00 PM EDT JOSE ([facility]) Name Value Range Interpretation Description Data Sup porting Code Source(s) Document(s ) Glucose 251 Above high Glucose JOSE [Mass/volume] in mg/dL normal ([facility] or [facility]) Calcium 9.7 Calcium JOSE [Mass/volume] in mg/dL ([facility]) Protein 7.6 Protein, JOSE [Mass/volume] in g/dL Total ([facility] or [facility]) Urea nitrogen 15 BUN JOSE [Mass/volume] in mg/dL ([facility]) Bilirubin.total 0.3 Bilirubin, JOSE [Mass/volume] in mg/dL Total ([facility] or [facility]) Albumin 4.8 Albumin JOSE [Mass/volume] in g/dL ([facility]) Alkaline 80 IU/L Alkaline JOSE phosphatase Phosphatase ([place] [Enzymatic Neighborhood activity/volume] Health in Serum or [facility]) Sodium 138 Sodium JOSE [Moles/volume] in mmol/L ([facility]) Aspartate 17 IU/L AST (SGOT) JOSE aminotransferase ([place] [Enzymatic Neighborhood activity/volume] Health in Serum or [facility]) Potassium 4.3 Potassium JOSE [Moles/volume] in mmol/L ([facility]) Carbon dioxide, 26 Carbon JOSE total mmol/L Dioxide, ([place] [Moles/volume] in Total [facility]) Chloride 97 Chloride JOSE [Moles/volume] in mmol/L ([facility] or Plasma [facility]) Creatinine 0.83 Creatinine JOSE [Mass/volume] in mg/dL ([place] Serum or Plasma [facility]) Urea 18 BUN/Creatinin JOSE nitrogen/Creatinin e Ratio ([facility] on e [Mass Ratio] in [facility] Serum or [facility]) Alanine 29 IU/L ALT (SGPT) [place] aminotransferase ([place] [Enzymatic [facility] activity/volume] Health in Serum or [facility] [place]) Globulin 2.8 Globulin, [place] [Mass/volume] in g/dL Total ([place] Serum by [facility]) eGFR If Africn Am 121 eGFR If JOSE mL/min/ Africn Am ([address]) eGFR If NonAfricn 105 eGFR If JOSE Am mL/min/ NonAfricn Am ([address]) Albumin/Globulin 1.7 A/G Ratio JOSE [Mass Ratio] in ([facility] or [facility]) ID Date Data Source [id number] 09/14/2016 08:17:00 PM EDT [facility] Name Value Range Interpretation Description Data Sup porting Code Source(s) Document(s ) Polys 37 % 55 - 75 Below low normal Polys [place] % [facility] Lymphocyte %. 45 % 21 - 51 Normal (applies Lymphocyte %. [place] % to non-numeric Health results) System Variant 6 % Normal (applies Atypical [place] lymphocytes to non-numeric Lymphocyte Health [Presence] in results) Count System Blood by Automated count Platelets Adequate Normal (applies Platelet [place] [#/volume] in to non-numeric Count Health Blood by results) Estimate System Estimate Monocyte %. 9 % 6 - 9 % Normal (applies Monocyte %. [place] to non-numeric Health results) System Eosinophils %. 3 % Normal (applies Eosinophils [place] to non-numeric %. Health results) System NORM Yes Normal (applies NORM [place] to non-numeric Health results) System ID Date Data Source [id number] 09/14/2016 08:17:00 PM EDT [facility] Name Value Range Interpretation Description Data Sup porting Code Source(s) Document(s ) Leukocytes 6.7 4.8 - Normal (applies WBC Count [place] [#/volume] in {10^3_u 10.8 to non-numeric Health Unspecified L} 10^3 uL results) System specimen by Automated count Erythrocytes 5.13 4.40 - Normal (applies RBC Count [place] [#/volume] in {10^6_u 5.90 to non-numeric Health Blood by L} 10^6 uL results) System Automated count Hemoglobin 15.0 14.0 - Normal (applies Hemoglobin [place] [Mass/volume] in {gm/dL} 18.0 to non-numeric Health Blood gm/dL results) System Hematocrit 45.1 % 41.0 - Normal (applies Hematocrit [place] [Volume 53.0 % to non-numeric Health Fraction] of results) System Blood Erythrocyte mean 87.9 fl 83.0 - Normal (applies MCV [place] corpuscular 98.0 fl to non-numeric Health volume [Entitic results) System volume] by Automated count Erythrocyte mean 29.2 pg 26.0 - Normal (applies MCH [place] corpuscular 34.0 pg to non-numeric Health hemoglobin results) System [Entitic mass] by Automated count Erythrocyte mean 33.3 33.0 - Normal (applies MCHC [place] corpuscular {gm/dL} 37.0 to non-numeric Health hemoglobin gm/dL results) System concentration [Mass/volume] by Automated count Erythrocyte 12.8 % 11.5 - Normal (applies RDW-CV [place] distribution 14.5 % to non-numeric Health width [Ent[place] results) System volume] by Automated count Platelets 200 130 - Normal (applies Platelet Count [place] [#/volume] in {10^3_u 400 to non-numeric Health Plasma by L} 10^3 uL results) System Automated count Monocytes 0.7 0.3 - Normal (applies Monocyte # [place] [#/volume] in {10^3_u 0.9 to non-numeric Health Blood by Manual L} 10^3 uL results) System count Platelet mean 12.5 fl 7.4 - Above high MPV [place] volume [Entitic 10.4 fl normal Health volume] in Blood System by Automated count Eosinophils 0.33 0.05 - Above high Eosinophil # [place] [#/volume] in {10^3_u 0.30 normal Health Blood L} 10^3 uL System Basophils 0.03 0.00 - Normal (applies Basophil # [place] [#/volume] in {10^3_u 0.10 to non-numeric Health Blood by L} 10^3 uL results) System Automated count Neutrophils 2.1 2.0 - Normal (applies Neutrophil # [place] [#/volume] in {10^3_u 8.1 to non-numeric Health Body fluid L} 10^3 uL results) System Lymphocyte # 3.5 1.0 - Normal (applies Lymphocyte # [place] {10^3_u 5.5 to non-numeric Health L} 10^3 uL results) System Monocytes/100 10.8 % 6.0 - Above high Monocyte % [place] leukocytes in 9.0 % normal Health Blood System Neutrophils/100 31.1 % 55.0 - Below low normal Neutrophil % [place] leukocytes in 75.0 % Health Blood by System Automated count Eosinophils/100 4.9 % 0.0 - Above high Eosinophil % [place] leukocytes in 4.0 % normal Health Unspecified System specimen Basophils/100 0.4 % 0.0 - Normal (applies Basophil % [place] leukocytes in 1.0 % to non-numeric Health Unspecified results) System specimen by Manual count Immature 0.3 % 0.0 - Normal (applies Immature [place] Granulocytes % 0.8 % to non-numeric Granulocytes % Healt h results) System Lymphocytes 52.5 % 21.0 - Above high Lymphocyte % [place] [#/volume] in 51.0 % normal Health Blood by System Automated count Nucleated 0.0 0.0 - Normal (applies NRBC % [place] erythrocytes {/100_W 0.0 to non-numeric Health [#/volume] in BC} /100 results) System Body fluid WBC Immature 0.02 0.00 - Normal (applies Immature [facility] Granulocytes # {10^3_u 0.09 to non-numeric Granulocytes # Healt h L} 10^3 uL results) System NRBC # 0.00 0.90 - Below low normal NRBC # [facility] {10^3_u 11.20 Health L} 10^3 uL System ID Date Data Source [id number] 09/14/2016 08:17:00 PM EDT [facility] Name Value Range Interpretation Description Data Sup porting Code Source(s) Document(s ) Sodium 137 137 - Normal (applies Sodium, Serum [place] [Moles/volume mmol/L 145 to non-numeric Health ] in Serum or mmol/L results) System Plasma Potassium 4.5 3.6 - Normal (applies Potassium, [place] [Mass/volume] mmol/L 5.0 to non-numeric Serum Health in Serum or mmol/L results) System Plasma Carbon 25.0 22.0 - Normal (applies CO2, Serum [place] dioxide, mmol/L 30.0 to non-numeric Health total mmol/L results) System [Moles/volume ] in Serum or Plasma Chloride 103 98 - 107 Normal (applies Chloride, [place] [Moles/volume mmol/L mmol/L to non-numeric Serum Health ] in Serum or results) System Plasma Glucose 363 75 - 110 Above high normal Glucose, Serum [place] [Mass/volume] mg/dL mg/dL Health in Serum or System Plasma Urea nitrogen 18 mg/dl 9 - 21 Normal (applies Blood Urea [place] [Mass/volume] mg/dl to non-numeric Nitrogen, Health in Serum or results) Serum System Plasma Creatinine 1.30 0.80 - Normal (applies Creatinine, [facility] [Mass/volume] mg/dl 1.50 to non-numeric Serum Health in Serum or mg/dl results) System Plasma Calcium 9.9 8.4 - Normal (applies Calcium, Total [place] [Mass/volume] mg/dl 10.2 to non-numeric Serum Health in Serum or mg/dl results) System Plasma Anion gap in 9.00 8.00 - Normal (applies Anion Gap [facility] Serum or mmol/L 12.00 to non-numeric Health Plasma mmol/L results) System ID Date Data Source [id number] 01/31/2014 08:40:00 PM EDT [facility] Name Value Range Interpretation Description Data Sup porting Code Source(s) Document(s ) Deprecated Micro Normal (applies Aerobic [place] Bacteria ResultNO to non-numeric Culture, Health identified in GROWTH results) Urine System Urine by Aerobe culture ID Date Data Source [id number] 01/31/2014 08:40:00 PM EDT [facility] Name Value Range Interpretation Description Data Sup porting Code Source(s) Document(s ) Specific 1.025 1.001 - Normal (applies Urine Specific [place] gravity of 1.035 to non-numeric [place] [facility] Urine results) System Appearance of CLEAR Clear Normal (applies Urine [facility] Urine to non-numeric Appearance Health results) System Color YELLOW Yellow Normal (applies Color [place] to non-numeric Health results) System Bilirubin NEGATIVE Negative Normal (applies Bilirubin [facility] Urine Sm to Lg to non-numeric Urine Health results) System Protein NEGATIVE < 30 Normal (applies Protein [place] [Mass/volume] mg/dl to non-numeric Health in Serum or results) System Plasma Glucose, UA Greater < 50 Normal (applies Glucose, UA [facility] than =1000 mg/dl to non-numeric Health results) System pH.. 6.0 4.6 - 8.0 Normal (applies pH.. [facility] {pH_units} pH units to non-numeric Health results) System Nitrate+Nitrit NEGATIVE Negative Normal (applies Nitrite [place] Neg/Pos to non-numeric Health [Mass/volume] results) System in Unspecified specimen Leukocyte NEGATIVE Negative Normal (applies Leukocyte [place] esterase Tr to Lg to non-numeric Esterase Health [Units/volume] results) Concentration System in Urine Urobilinogen 0.20 mg/dL 0.20 - Normal (applies Urobilinogen [place] [Mass/volume] 1.00 to non-numeric UA Health in Urine mg/dL results) System Ketones NEGATIVE Negative Normal (applies Ketones UA [facility] [Mass/volume] Tr to Lg to non-numeric Health in Urine results) System Urine Blood NEGATIVE Normal (applies Urine Blood [facility] to non-numeric Health results) System ID Date Data Source [id number] 01/31/2014 08:40:00 PM EDT [facility] Name Value Range Interpretation Description Data Sup porting Code Source(s) Document(s ) Leukocytes 7.3 10 4.8 - Normal (applies WBC Count [place] [#/volume] in 10.8 10 to non-numeric Health Unspecified results) System specimen by Automated count Erythrocytes 5.10 10 4.40 - Normal (applies RBC Count [facility] [#/volume] in 5.90 10 to non-numeric Health Blood by results) System Automated count Hemoglobin 15.1 14.0 - Normal (applies Hemoglobin, [facility] [Mass/volume] in {gm/dL} 18.0 to non-numeric Whole Blood Health Blood gm/dL results) System Erythrocyte mean 29.6 pg 26.0 - Normal (applies MCH [place] corpuscular 34.0 pg to non-numeric Health hemoglobin results) System [Entitic mass] by Automated count Erythrocyte mean 85.9 fl 83.0 - Normal (applies MCV [place] corpuscular 98.0 fl to non-numeric Health volume [Entitic results) System volume] by Automated count Hematocrit 43.8 % 41.0 - Normal (applies Hematocrit, [facility] [Volume 53.0 % to non-numeric Whole Blood Health Fraction] of results) System Blood Platelets 210 10 130 - Normal (applies Platelet [place] [#/volume] in 400 10 to non-numeric Count Health Plasma by results) System Automated count Erythrocyte mean 34.5 33.0 - Normal (applies MCHC [place] corpuscular {gm/dL} 37.0 to non-numeric Health hemoglobin gm/dL results) System concentration [Mass/volume] by Automated count Erythrocyte 13.3 % 11.5 - Normal (applies RDW-CV [place] distribution 14.5 % to non-numeric Health width [Entitic results) System volume] by Automated count Platelet mean 13.1 fl 7.4 - Above high MPV [facility] volume [Entitic 10.4 fl normal Health volume] in Blood System by Automated count Monocytes 0.6 10 0.3 - Normal (applies Monocyte [place] [#/volume] in 0.9 10 to non-numeric Count Health Blood by Manual results) System count Eosinophils 0.5 10 0.1 - Above high Eosinophil [place] [#/volume] in 0.3 10 normal Count Blood Health Blood System Neutrophils 2.3 10 2.0 - Normal (applies Absolute [place] [#/volume] in 8.1 10 to non-numeric Neutrophil Health Body fluid results) Count System Basophils 0.1 10 0.0 - Normal (applies Basophil [place] [#/volume] in 0.1 10 to non-numeric Count Health Blood by results) System Automated count Lymphocyte 3.9 10 1.0 - Normal (applies Lymphocyte [facility] Absolute 5.5 10 to non-numeric Absolute Health results) System Monocytes/100 8.2 % 6.0 - Normal (applies Monocyte % [place] leukocytes in 9.0 % to non-numeric Health Blood results) System Eosinophils/100 6.1 % 1.0 - Above high Eosinophil % [facility] leukocytes in 3.0 % normal Health Unspecified System specimen Neutrophils/100 31.2 % 0.0 - Normal (applies Neutrophil % Sai kirti leukocytes in 120.0 % to non-numeric Health Blood by results) System Automated count Lymphocytes 53.8 % 21.0 - Above high Lymphocyte % [facility] [#/volume] in 51.0 % normal Health Blood by System Automated count Basophils/100 0.7 % 0.0 - Normal (applies Basophil % [place] leukocytes in 1.0 % to non-numeric Health Unspecified results) System specimen by Manual count ID Date Data Source [id number] 01/31/2014 08:40:00 PM EDT [facility] Name Value Range Interpretation Description Data Sup porting Code Source(s) Document(s ) Sodium 137 137 - Normal (applies Sodium, Serum [facility] [Moles/volume] in mmol/L 145 to non-numeric Health Serum or Plasma mmol/L results) System Potassium 3.9 3.6 - Normal (applies Potassium, [facility] [Mass/volume] in mmol/L 5.0 to non-numeric Serum Health Serum or Plasma mmol/L results) System Carbon dioxide, 24.0 22.0 - Normal (applies CO2, Serum [place] total mmol/L 30.0 to non-numeric Health [Moles/volume] in mmol/L results) System Serum or Plasma Chloride 103 98 - Normal (applies Chloride, [facility] [Moles/volume] in mmol/L 107 to non-numeric Serum Health Serum or Plasma mmol/L results) System Glucose 205 75 - Above high Glucose, [facility] [Mass/volume] in mg/dL 110 normal Serum Health Serum or Plasma mg/dL System Total Protein 7.8 6.3 - Normal (applies Total Protein [facility] mg/dl 8.2 to non-numeric Health mg/dl results) System Creatinine 1.00 0.80 - Normal (applies Creatinine, [facility] [Mass/volume] in mg/dl 1.50 to non-numeric Serum Health Serum or Plasma mg/dl results) System Alkaline 109 38 - Normal (applies Alkaline [facility] phosphatase {IU/L} 126 to non-numeric Phosphatase, Health isoenzymes IU/L results) Serum System [Enzymatic activity/volume] in Serum or Plasma by Heat stability Urea nitrogen 12 9 - 21 Normal (applies Blood Urea [facility] [Mass/volume] in mg/dl mg/dl to non-numeric Nitrogen, Health Serum or Plasma results) Serum System Bilirubin direct 0.3 0.2 - Normal (applies Bilirubin, [facility] and total panel mg/dl 1.3 to non-numeric Serum Total [facility] [Mass/volume] - mg/dl results) System Serum or Plasma Aspartate 16 5 - 40 Normal (applies Aspartate [facility] aminotransferase {IU/L} IU/L to non-numeric Transaminase, Heal th [Enzymatic results) Serum System activity/volume] in Serum or Plasma by With P-5'-P I. Phosphorus 3.1 2.5 - Normal (applies I. Phosphorus [facility] mg/dl 4.5 to non-numeric Health mg/dl results) System Albumin 4.4 3.9 - Normal (applies Albumin, [facility] [Mass/volume] in {gm/dl} 5.0 to non-numeric Serum Health Serum or Plasma gm/dl results) System Calcium 9.7 8.4 - Normal (applies Calcium, [facility] [Mass/volume] in mg/dl 10.2 to non-numeric Total Serum Health Serum or Plasma mg/dl results) System Alanine 27 7 - 56 Normal (applies Alanine [facility] aminotransferase {IU/L} IU/L to non-numeric Aminotransfer Heal th [Enzymatic results) ase, Serum System activity/volume] in Serum or Plasma A/G Ratio 1.29 Normal (applies A/G Ratio [facility] to non-numeric [facility] results) System Urate 4.4 3.5 - Normal (applies Uric Acid, [facility] [Mass/volume] in mg/dl 8.5 to non-numeric Serum Health Serum or Plasma mg/dl results) System Anion gap in Serum 10.00 8.00 - Normal (applies Anion Gap Sai kirti or Plasma mmol/L 12.00 to non-numeric Health mmol/L results) System Glomerular 81.00 Normal (applies GFR [facility] filtration to non-numeric [facility] rate/1.73 sq results) System M.predicted [Volume Rate/Area] in Serum or Plasma by Creatinine-based formula (CKD-EPI) eGFR will provide clinicians with a more accurate indicator of renal function then the serum creatinine. The eGFR is automa tically calculated from an empiric formula (endorsed by the National [employer] ion) which incorporates age, sex, and race.Clinicians may notice surprisingly low GFR's with serum creatinine valueswithin normal range- particularly in elderly wo men (with low muscle mass).In the hospital setting, the eGFR should add an element of safety in drug dosing, in assessing the risk of IV contrast administration, and in assessing vascular risk.The NKF staging system is as follows:Normal: eGFR >90 with no kidney markersStage 1: eGFR >90 with kidney markers*Stage 2: eGFR 60- 89Stage 3: eGFR 30-59Stage 4: eGFR 15-29Stage 5: eGFR <15 (usually requir ing dialysis)*Markers include: Proteinuria, Hematuria, abnormal imaging-studies, or other blood or urine test abnormalities ID Date Data Source [id number] 11/18/2013 05:21:00 PM EDT [facility] Name Value Range Interpretation Description Data Sup porting Code Source(s) Document(s ) Specific 1.015 Normal (applies Urine Specific [facility] gravity of to non-numeric [facility] Urine results) System pH.. 5.5 4.6 - Normal (applies pH.. [facility] {pH_units} 8.0 pH to non-numeric Health units results) System Color YELLOW YELLOW Normal (applies Color [facility] to non-numeric [facility] results) System Appearance of CLEAR CLEAR Normal (applies Urine [facility] Urine to non-numeric Appearance Health results) System Urobilinogen 0.20 0.20 - Normal (applies Urobilinogen [facility] [Mass/volume] {eu/dL} 1.00 to non-numeric UA [facility] in Urine eu/dL results) System Ketones NEGATIVE Normal (applies Ketones UA [facility] [Mass/volume] to non-numeric Health in Urine results) System Negative Bilirubin Urine NEGATIVE Normal (applies to Bilirubin Urine [facility] non-numeric results) System Negative Protein 30 mg/dl Normal (applies to Protein [facility] [Mass/volume] in non-numeric Health Syst em Serum or Plasma results) Glucose, UA Greater than Normal (applies to Glucose, UA Derrek [facility] =1000 Negative non-numeric Health System results) Nitrate+Nitrite NEGATIVE Normal (applies to Nitrite Sai kirti [Mass/volume] in non-numeric Health Syst em Unspecified specimen results) Negative Leukocytes 0-2 Normal (applies to White Blood Cells [facility] [#/volume] in non-numeric Health System Unspecified results) specimen by Automated count Bacteria FEW Normal (applies to Bacteria [facility] [Presence] in non-numeric Health System Unspecified results) specimen Trichomonas sp 0-2 Normal (applies to Trichomonas [facility] [#/area] in Urine non-numeric Health Sys tem sediment by results) Microscopy high power field Leukocyte esterase NEGATIVE Normal (applies to Leukocyte Es terase [facility] [Units/volume] in non-numeric Concentration Health System Urine results) Negative Red Blood Cells 0-2 Normal (applies to Red Blood Sai kirti Health non-numeric results) Cells System Urine Blood TRACE-INTACT Normal (applies to Urine Blood [facility] non-numeric results) System Procedure Social History Code Duration Value Status Description Data Source(s ) Smoking 10/06/2019 Never smoked completed Never smoked JOSE ( [facility] 01:05:25 PM tobacco (finding) tobacco Uziel EDT (finding) [facility]) Smoking 06/28/2019 Tobacco smoking completed Tobacco smoking GREE NWAY ([facility] 05:14:49 PM consumption consumption Uziel EST unknown (finding) unknown [facility] (finding) [facility]) Smoking 05/26/2018 Tobacco smoking completed Tobacco smoking GREE NWAY ([facility] 05:21:45 PM consumption consumption Uziel EST unknown (finding) unknown [facility] Smoking 05/16/2018 Ex-smoker completed Ex-smoker JOSE ([facility] 03:53:44 PM (finding) (finding) Uziel EST [facility]) Smoking 02/22/2017 Occasional tobacco completed Occasional GREENW AY ([facility] 06:47:46 PM smoker (finding) tobacco smoker Kevan non EDT (finding) [facility]) Assertion Social drinker completed Social drinker ARYAN AY ([facility] (finding) (finding) [facility]) Assertion Finding relating completed Finding relating GR EENWAY ([facility] to drug misuse to drug misuse Uzile behavior (finding) behavior Neighb orhood (finding) [facility]) Assertion sexual history completed JOSE ( [facility]) Assertion Finding of life completed Finding of life GREOralia NWJHONY ([facility] event (finding) event (finding) [place] on [facility]) Assertion Exercise history completed Exercise history GR EENWAY ([facility] finding (finding) finding [place] ([facility]) Assertion Cigarette smoker completed Cigarette smoker GR EENWAY ([facility] ([facility]) ([facility]) [facility]) Assertion Nutritional completed Nutritional JOSE ([facility] deficiency deficiency [place] disorder disorder [facility] (disorder) (disorder) [facility]) Assertion Eats junk food ++ completed Eats junk food GRE ENWAY ([facility] ([facility]) ++ ([facility]) [facility]) Assertion Restricted fiber completed Restricted fiber GR EENWAY ([facility] diet ([facility]) diet ([facility]) [facility]) Assertion Irregular meal completed Irregular meal GREENMalinda AY ([facility] frequency frequency [place] ([facility]) ([facility]) Assertion Dietary intake completed Dietary intake GREENW AY ([facility] finding ([facility]) [facility] ([facility]) Assertion Inadequate food completed Inadequate food GREE NWAY ([facility] diet ([facility]) diet ([facility]) [facility]) Assertion Finding of completed Finding of JOSE (Moun t activity of daily activity of [facility] ([facility]) daily living [facility]) Assertion Tobacco user completed Tobacco user JOSE ( [facility] ([facility]) ([facility]) [facility]) Assertion Physical handicap completed Physical GREENWA Y ([facility] ([facility]) handicap [facility]) Assertion Excessive dietary completed Excessive GREENWA Y ([facility] intake of fat dietary intake [place] ([facility]) of fat ([facility]) Assertion frequent high completed JOSE (M ount carbohydrate meals [facility]) Assertion dietary excesses completed JOSE ([facility] juices [facility]) Assertion dietary excesses completed JOSE ([facility]) Assertion meals taken at completed JOSE ( [facility] home (___ [place] times/week) [facility] ) Assertion Exercises completed Exercises JOSE (Moun t regularly regularly [place] ([facility]) ([facility]) Assertion Eats snacks completed Eats snacks JOSE ([facility] frequently frequently [place] ([facility]) ([facility]) Assertion Nutritional completed Nutritional JOSE ([place] [facility] deficiency deficiency [place] disorder disorder [facility] (disorder) (disorder) [facility]) Assertion Excessive dietary completed Excessive GREENWA Y ([facility] intake of fat dietary intake Uziel (finding) of fat ([facility]) [facility]) Assertion High fat diet completed High fat diet JOSE ([facility] (finding) ([facility]) [facility]) Assertion High fat diet completed High fat diet JOSE ([facility] (finding) (finding) [facility]) Assertion High fat diet completed High fat diet JOSE ([facility] (finding) ([facility]) [facility]) Assertion Caffeine user completed Caffeine user JOSE ([facility] (finding) ([facility]) [facility]) Assertion High sugar diet completed High sugar diet GREE NWAY ([facility] ([facility]) ([facility]) [facility]) Assertion High sugar diet completed High sugar diet GREE NWAY ([facility] ([facility]) ([facility]) [facility]) Assertion High sugar diet completed High sugar diet GREE NWAY ([facility] ([facility]) ([facility]) [facility]) Assertion High sodium diet completed High sodium diet GR EENWAY ([facility] ([facility]) ([facility]) [facility]) Assertion High residue diet completed High residue GREEN WAY ([facility] ([facility]) diet ([facility]) [facility]) Assertion current diet completed JOSE (Mo unt frequency of meals Uziel ___ per day [facility]) Assertion current diet completed JOSE (Mo unt frequency of meals Uziel ___ snacks per day [facility]) Assertion social history completed JOSE ( [facility]) Assertion Current drinker of completed Current drinker Chavo THURMAN ([facility] alcohol (finding) of alcohol [place] ([facility]) [facility]) Assertion Smoker (finding) completed Smoker (finding) GR EENWAY ([facility]) Assertion Nutritional completed Nutritional JOSE ([place] deficiency deficiency [place] disorder disorder [facility] (disorder) (disorder) [facility]) Assertion Excessive dietary completed Excessive GREENWA Y ([facility] caloric intake dietary caloric [place] (finding) intake (finding) [facility]) Assertion High sodium diet completed High sodium diet GR EENWAY ([facility] (finding) (finding) [facility]) Assertion Smoker (finding) completed Smoker (finding) GR EENWAY ([facility]) Assertion Current drinker of completed Current drinker Chavo THURMAN ([facility] alcohol (finding) of alcohol [place] ([facility]) [facility]) Assertion social history completed JOSE ( [facility] unchanged [facility]) Assertion Nutritional completed Nutritional JOSE (Mo unt deficiency deficiency [place] disorder disorder [facility] (disorder) (disorder) [facility]) Assertion Excessive dietary completed Excessive GREENWA Y ([facility] caloric intake dietary caloric Vern[place] (finding) intake ([facility]) [facility]) Assertion Smoker (finding) completed Smoker ([facility]) [place] ([facility]) Assertion social history completed JOSE ( [facility] unchanged [facility]) Assertion Dietary intake completed Dietary intake GREENW AY ([facility] finding ([facility]) finding [place] ([facility]) Assertion Current drinker of completed Current drinker G CAMDENJeffWAY ([facility] alcohol (finding) of alcohol [place] ([facility]) Assertion Inadequate food completed Inadequate food GREE NWAY ([facility] diet ([facility]) diet ([facility]) [facility]) Assertion Finding of completed Finding of JOSE (Moun t activity of daily activity of [facility] ([facility]) daily living [place]) Assertion Tobacco user completed Tobacco user JOSE ( [facility] ([facility]) ([facility]) [facility]) Assertion Physical handicap completed Physical GREENWA Y ([facility] ([facility]) handicap [facility]) Assertion Irregular meal completed Irregular meal GREENW AY ([facility] frequency frequency [place] ([facility]) ([facility]) Assertion meals taken at completed JOSE ( [facility] home (___ [place] times/week) [facility] ) Assertion frequent high completed JOSE (M ount carbohydrate meals [facility]) Assertion Exercises completed Exercises JOSE (Moun t regularly regularly [place] ([facility]) ([facility]) Assertion dietary excesses completed JOSE ([facility] juices [facility]) Assertion Eats snacks completed Eats snacks JOSE (Mo unt frequently frequently [place] ([facility]) ([facility]) Assertion dietary excesses completed JOSE ([facility]) Assertion Nutritional completed Nutritional JOSE (Mo unt deficiency deficiency [place] disorder disorder [facility] (disorder) (disorder) [facility]) Assertion Excessive dietary completed Excessive GREENWA Y ([facility] caloric intake dietary caloric [place] (finding) intake (finding) [facility]) Assertion Excessive dietary completed Excessive GREENWA Y ([facility] intake of fat dietary intake Uziel (finding) of fat (finding) [facility]) Assertion High fat diet completed High fat diet JOSE ([facility] (finding) (finding) [facility]) Assertion High fat diet completed High fat diet JOSE ([facility] (finding) (finding) [facility]) Assertion High fat diet completed High fat diet JOSE ([facility] (finding) (finding) [facility]) Assertion Caffeine user completed Caffeine user JOSE ([facility] (finding) (finding) [facility]) Assertion High sugar diet completed High sugar diet GREE NWAY ([facility] (finding) ([facility]) Assertion High sugar diet completed High sugar diet GREE NWAY ([facility] (finding) ([facility]) [facility]) Assertion High sugar diet completed High sugar diet GREE NWAY ([facility] (finding) ([facility]) [facility]) Assertion High sodium diet completed High sodium diet GR EENWAY ([facility] (finding) ([facility]) [facility]) Assertion Excessive dietary completed Excessive GREENWA Y ([facility] intake of fat dietary intake Uziel (finding) of fat ([facility]) [facility]) Assertion current diet completed JOSE (Mo unt frequency of meals Uziel ___ per day [facility]) Assertion current diet completed [place] (Mo unt frequency of meals Uziel ___ snacks per day [facility]) Assertion social history completed JOSE ( [facility]) Vital Signs ID Date Data Source UNK Name Value Range Interpretation Code Description Data Source(s) Body weight 165 [lb_av] 165 [lb_av] [place] (M ount [facility]) 48 year old m here for eye exam. Body height 65 [in_us] 65 [in_us] [place] (Annalise nt [facility]) 48 year old m here for eye exam. Body temperature 98 [degF] 98 [degF] [place] ([facility]) 48 year old m here for eye exam. Heart rate 73 /min 73 /min [place] (Moun t [facility]) 48 year old m here for eye exam. Diastolic blood pressure 77 mm[Hg] 77 mm[Hg] JOSE ([facility]) 48 year old m here for eye exam. Systolic blood pressure 133 mm[Hg] 133 mm[Hg] [facility] 48 year old m here for eye exam. PhenX - pain, abdominal - type and 0 0 JOSE ([facility] 48 year old m here for eye exam. Body surface area Derived from 1.82 m2 1.82 m2 [place] ([facility]) 48 year old m here for eye exam. Body mass index (BMI) 27.5 kg/m2 27.5 kg/m2 GRE ENWAY ([place] [[facility]] [facility]) 48 year old m here for eye exam. Body weight 167 [lb_av] 167 [lb_av] JOSE ([facility]) patient here for follow up Body height 65 [in_us] 65 [in_us] JOSE ([facility]) patient here for follow up Body temperature 98.9 [degF] 98.9 [degF] [facility] ([facility]) patient here for follow up Respiratory rate 18 /min 18 /min JOSE ([facility]) patient here for follow up Heart rate 84 /min 84 /min [place] ([facility]) patient here for follow up Diastolic blood pressure 70 mm[Hg] 70 mm[Hg] JOSE ([facility]) patient here for follow up Systolic blood pressure 130 mm[Hg] 130 mm[Hg] [facility] patient here for follow up PhenX - pain, abdominal - type and 0 0 JOSE ([facility] patient here for follow up Body surface area Derived from 1.83 m2 1.83 m2 [place] ([facility]) patient here for follow up Body mass index (BMI) 27.8 kg/m2 27.8 kg/m2 GRE ENWAY ([place] [[facility]] [facility]) patient here for follow up Body weight 169.25 [lb_av] 169.25 [lb_av] [place] [address] ([facility]) Patient is here for office visit. Body height 65 [in_us] 65 [in_us] [place] ([facility]) Patient is here for office visit. Body temperature 98.1 [degF] 98.1 [degF] [place]ENW AY ([facility]) Patient is here for office visit. Heart rate 86 /min 86 /min [place] ([facility]) Patient is here for office visit. Diastolic blood pressure 74 mm[Hg] 74 mm[Hg] [place] ([facility]) Patient is here for office visit. Systolic blood pressure 171 mm[Hg] 171 mm[Hg] [facility] ([facility]) Patient is here for office visit. PhenX - pain, abdominal - type and 0 0 [place] ([facility] Patient is here for office visit. Body surface area Derived from 1.84 m2 1.84 m2 [place] ([facility]) Patient is here for office visit. Body mass index (BMI) 28.2 kg/m2 28.2 kg/m2 MARKUS BARNHARTWAY ([place] [[facility]] [facility]) Patient is here for office visit. Body weight 170 [lb_av] 170 [lb_av] [place] ([facility]) 48 year old male patient here for eye ex am. Body height 65 [in_us] 65 [in_us] [place] ([facility]) 48 year old male patient here for eye ex am. Body temperature 97.9 [degF] 97.9 [degF] [place] A[place] ([facility]) 48 year old male patient here for eye ex am. Heart rate 79 /min 79 /min [place] ([facility]) 48 year old male patient here for eye ex am. Diastolic blood pressure 64 mm[Hg] 64 mm[Hg] [place] ([facility]) 48 year old male patient here for eye ex am. Systolic blood pressure 139 mm[Hg] 139 mm[Hg] [facility] ([facility]) 48 year old male patient here for eye ex am. PhenX - pain, abdominal - type and 0 0 [place] ([facility] 48 year old male patient here for eye ex am. Body surface area Derived from 1.85 m2 1.85 m2 JOSE ([facility]) 48 year old male patient here for eye ex am. Body mass index (BMI) 28.3 kg/m2 28.3 kg/m2 GRE ENWAY ([place] [[facility]) 48 year old male patient here for eye ex am. Body weight 166 [lb_av] 166 [lb_av] JOSE ([facility]) Patient states he is here for a folow up visit Body height 65 [in_us] 65 [in_us] JOSE ([facility]) Patient states he is here for a folow up visit Body temperature 98.4 [degF] 98.4 [degF] [facility] ([facility]) Patient states he is here for a folow up visit Heart rate 75 /min 75 /min [place] ([facility]) Patient states he is here for a folow up visit Diastolic blood pressure 87 mm[Hg] 87 mm[Hg] JOSE ([facility]) Patient states he is here for a folow up visit Systolic blood pressure 153 mm[Hg] 153 mm[Hg] G REENWAY ([facility]) Patient states he is here for a folow up visit PhenX - pain, abdominal - type and 0 0 JOSE ([facility] Patient states he is here for a folow up visit Body surface area Derived from 1.83 m2 1.83 m2 JOSE ([facility]) Patient states he is here for a folow up visit Body mass index (BMI) 27.6 kg/m2 27.6 kg/m2 GRE ENWAY ([place] [facility]) Patient states he is here for a folow up visit Body weight 161 [lb_av] 161 [lb_av] JOSE ([facility]) Patient here for a follow up visit. Body height 65 [in_us] 65 [in_us] JOSE ([facility]) Patient here for a follow up visit. Body temperature 98.6 [degF] 98.6 [degF] [facility] ([facility]) Patient here for a follow up visit. Respiratory rate 20 /min 20 /min [place] ([facility]) Patient here for a follow up visit. Heart rate 87 /min 87 /min [place] ([facility]) Patient here for a follow up visit. Diastolic blood pressure 88 mm[Hg] 88 mm[Hg] [place] ([facility]) Patient here for a follow up visit. Systolic blood pressure 158 mm[Hg] 158 mm[Hg] [facility] ([facility]) Patient here for a follow up visit. PhenX - pain, abdominal - type and 0 0 [place] ([facility] Patient here for a follow up visit. Body surface area Derived from 1.80 m2 1.80 m2 [place] ([facility]) Patient here for a follow up visit. Body mass index (BMI) 26.8 kg/m2 26.8 kg/m2 [facility] [facility]) Patient here for a follow up visit. Body mass index (BMI) 27.0 kg/m2 27.0 kg/m2 [facility] ([place] [[facility]] [facility]) 47 year old m here for for follow up. Body weight 162 [lb_av] 162 [lb_av] [place] ([facility]) 47 year old m here for for follow up. Body height 65 [in_us] 65 [in_us] [place] ([facility]) 47 year old m here for for follow up. Body temperature 98 [degF] 98 [degF] [place] ([facility]) 47 year old m here for for follow up. Heart rate 68 /min 68 /min [place] ([facility]) 47 year old m here for for follow up. Diastolic blood pressure 88 mm[Hg] 88 mm[Hg] [place] ([facility]) 47 year old m here for for follow up. Systolic blood pressure 156 mm[Hg] 156 mm[Hg] [facility] ([facility]) 47 year old m here for for follow up. PhenX - pain, abdominal - type and 0 0 [place] ([facility] 47 year old m here for for follow up. Body surface area Derived from 1.81 m2 1.81 m2 [place] ([facility]) 47 year old m here for for follow up. Body mass index (BMI) 27.3 kg/m2 27.3 kg/m2 [facility] ([place] [[facility]] [facility]) Patient is here for endo visit. Body weight 164 [lb_av] 164 [lb_av] [place] ([facility]) Patient is here for endo visit. Body height 65 [in_us] 65 [in_us] [place] ([facility]) Patient is here for endo visit. Body temperature 98.7 [degF] 98.7 [degF] [facility] ([facility]) Patient is here for endo visit. Heart rate 91 /min 91 /min [place] ([facility]) Patient is here for endo visit. Diastolic blood pressure 72 mm[Hg] 72 mm[Hg] [place] ([facility]) Patient is here for endo visit. Systolic blood pressure 121 mm[Hg] 121 mm[Hg] [place] ([facility]) Patient is here for endo visit. PhenX - pain, abdominal - type and 0 0 [place] ([facility] Patient is here for endo visit. Body surface area Derived from 1.82 m2 1.82 m2 [place] ([facility]) Patient is here for endo visit. Body mass index (BMI) 27.0 kg/m2 27.0 kg/m2 [facility] ([place] [facility]] [facility]) Body weight 162 [lb_av] 162 [lb_av] [place] ([facility]) Body height 65 [in_us] 65 [in_us] [place] ([facility]) Body surface area Derived 1.81 m2 1.81 m2 [place] ([facility]) Body mass index (BMI) 27.0 kg/m2 27.0 kg/m2 [facility] ([place] [[facility]] [facility]) 47 year old m here first time visit. Body weight 162 [lb_av] 162 [lb_av] [place] ( [facility]) 47 year old m here first time visit. Body height 65 [in_us] 65 [in_us] [place] ([facility]) 47 year old m here first time visit. Body temperature 98 [degF] 98 [degF] [place] ([facility]) 47 year old m here first time visit. Heart rate 71 /min 71 /min [place] ([facility]) 47 year old m here first time visit. Diastolic blood pressure 80 mm[Hg] 80 mm[Hg] [place] ([facility]) 47 year old m here first time visit. Systolic blood pressure 130 mm[Hg] 130 mm[Hg] [facility] ([facility]) 47 year old m here first time visit. PhenX - pain, abdominal - type and 0 0 [place] ([facility] 47 year old m here first time visit. Body surface area Derived from 1.81 m2 1.81 m2 [place] ([facility]) 47 year old m here first time visit. Diastolic blood pressure 72 mm[Hg] 72 mm[Hg] [place] ([facility]) Patient was referred by Kike myrick in [facility] to do a followup visit after being treated siddhartha dizziness and v omiting Systolic blood pressure 118 mm[Hg] 118 mm[Hg] [facility] ([facility]) Patient was referred by Kike myrick in [facility] to do a followup visit after being treated siddhartha dizziness and v omiting PhenX - pain, abdominal - type and 0 0 [place] ([facility] Patient was referred by Kike myrick in [facility] to do a followup visit after being treated siddhartha dizziness and v omiting Body surface area Derived from 1.81 m2 1.81 m2 [place] ([facility]) Patient was referred by Kike myrick in [facility] to do a followup visit after being treated siddhartha dizziness and v omiting Body mass index (BMI) 27.0 kg/m2 27.0 kg/m2 [facility] ([place] [facility]] [facility]) Patient was referred by Kike myrick in [facility] to do a followup visit after being treated siddhartha dizziness and v omiting Body weight 162 [lb_av] 162 [lb_av] [facility] Patient was referred by Kike myrick in [facility] to do a followup visit after being treated siddhartha dizziness and v omiting Body height 65 [in_us] 65 [in_us] [place] ([facility]) Patient was referred by Kike myrick in [facility] to do a followup visit after being treated siddhartha dizziness and v omiting Body temperature 97.6 [degF] 97.6 [degF] [facility] ([facility]) Patient was referred by Kike myrick in [facility] to do a followup visit after being treated siddhartha dizziness and v omiting Heart rate 75 /min 75 /min [place] ([facility]) Patient was referred by Kike myrick in [facility] to do a followup visit after being treated siddhartha dizziness and v omiting Body temperature 99.9 [degF] 0 - 200 Normal (applies 99.9 [degF] [facility]numeric System results) Body temperature 37.7 Haley 0 - 99.9 Normal (applies 37.7 Haley [facility] CIVICONGRAIN to non-numeric System results) Diastolic blood 88 mm[Hg] 0 - 999 Above high normal 88 mm[Hg] [facility] pressure System Systolic blood 141 mm[Hg] 0 - 999 Above high normal 141 mm[Hg] [facility] CIVICONGRAIN pressure System Deprecated Oxygen 98 % 0 - 999 Normal (applies 98 % Ca ntReichhold saturation in to non-numeric System Capillary blood results) by Oximetry Respiratory rate 16 0 - 999 Normal (applies 16 Mon Authy to non-numeric System results) Heart rate 88 0 - 999 Normal (applies 88 [facility] to non-numeric System results) Body surface area 1.8 m2 1.8 m2 [facility] Derived from System formula Body mass index 26.6 kg/m2 26.6 kg/m2 [facility] (BMI) [Ratio] System Body weight 74.84 kg 74.84 kg [facility] Measured System Body height 167.64 cm 167.64 cm [facility] alth System PhenX - pain, 0 0 [place] ([facility]) Patient is here for office visit. Body surface area Derived from 1.86 m2 1.86 m2 [place] ([facility]) Patient is here for office visit. Body mass index (BMI) 28.6 kg/m2 28.6 kg/m2 [facility] ([place] [facility]) Patient is here for office visit. Body weight 172 [lb_av] 172 [lb_av] [place] ([facility]) Patient is here for office visit. Body height 65 [in_us] 65 [in_us] [place] ([facility]) Patient is here for office visit. Body temperature 98.2 [degF] 98.2 [degF] [facility] ([facility]) Patient is here for office visit. Respiratory rate 18 /min 18 /min [place] ([facility]) Patient is here for office visit. Heart rate 69 /min 69 /min [place] ([facility]) Patient is here for office visit. Diastolic blood pressure 79 mm[Hg] 79 mm[Hg] [place] ([facility]) Patient is here for office visit. Systolic blood pressure 141 mm[Hg] 141 mm[Hg] [place] ([facility]) Patient is here for office visit. Body height 65 [in_us] 65 [in_us] [place] ([facility]) Body surface area Derived 1.82 m2 1.82 m2 [place] ([facility]) Body mass index (BMI) 27.5 kg/m2 27.5 kg/m2 [facility] ([place] [Ratio] [facility]) Body weight 165 [lb_av] 165 [lb_av] [place] ([facility]) Body height 65 [in_us] 65 [in_us] [facility] ([facility]) Body temperature 98.6 [degF] 98.6 [degF] [facility] ([facility]) Patient here for Follow up visit and Tin gling in fingers and toes. Respiratory rate 18 /min 18 /min [place] ([facility]) Patient here for Follow up visit and Tin gling in fingers and toes. Heart rate 74 /min 74 /min [place] ([facility]) Patient here for Follow up visit and Tin gling in fingers and toes. Diastolic blood pressure 77 mm[Hg] 77 mm[Hg] [place] ([facility]) Patient here for Follow up visit and Tin gling in fingers and toes. Systolic blood pressure 122 mm[Hg] 122 mm[Hg] [place] ([facility]) Patient here for Follow up visit and Tin gling in fingers and toes. PhenX - pain, abdominal - type and 0 0 [place] ([facility] Patient here for Follow up visit and Tin gling in fingers and toes. Body surface area Derived from 1.80 m2 1.80 m2 [place] ([facility]) Patient here for Follow up visit and Tin gling in fingers and toes. Body mass index (BMI) 26.6 kg/m2 26.6 kg/m2 [facility] ([place] [Ratio] [facility]) Patient here for Follow up visit and Tin gling in fingers and toes. Body weight 160 [lb_av] 160 [lb_av] [place] ([facility]) Patient here for Follow up visit and Tin gling in fingers and toes. Body height 65 [in_us] 65 [in_us] [place] ([facility]) Patient here for Follow up visit and Tin gling in fingers and toes. Patient Treatment Plan of Care Planned Activity Planned Date Details Description Data Source (s) Pen [place] 31G X 6 MM 08/07/[address] ([place] Miscellaneous 12:00:00 AM [facility]) Neurontin 100MG Oral 08/07/2019 [place] ([place] Capsule 12:00:00 AM [facility]) FreeStyle Lite Test In 08/07/[address] ([place] Vitro Strip 12:00:00 AM [facility]) Admelog SoloStar 08/07/2019 [facility] ([facility] 100UNIT/ML Subcutaneous 12:00:[address] [facility] Pen-injector [place] ) atorvastatin 40 MG Oral 08/07/2019 [facility] ([place] Tablet 12:00:00 AM [facility]) Alcohol Pads 70% 08/07/2019 [facility] ([facility] [place] 12:00:00 AM [facility]) Basaglar KwikPen 08/07/2019 [facility] ([facility] 100UNIT/ML Subcutaneous 12:00:[address] [facility] Pen-injector [place] ) Coreg 3.125MG Oral 08/07/2019 JO[place] ([place] Tablet 12:00:00 AM [facility]) Enalapril Maleate 5 MG 08/07/[address] ([place] Oral Tablet 12:00:00 AM [facility]) Pen [place] 31G X 6 MM 03/20/[address] ([place] Miscellaneous 12:00:00 AM [facility]) FreeStyle Lite Test In 03/20/[address] ([place] Vitro Strip 12:00:00 AM [facility]) atorvastatin 40 MG Oral 03/20/2019 [place] ([place] Tablet 12:00:00 AM [facility]) Admelog SoloStar 03/20/2019 [place] ([facility] [place] 100UNIT/[facility] [place] Alcohol Pads 70% 03/20/2019 [place] ([facility] 12:00:00 AM [facility]) Enalapril Maleate 5 MG 03/20/[address] ([place] Oral Tablet 12:00:00 AM [facility]) Coreg 3.125MG Oral 03/20/2019 [place] ([place] Tablet 12:00:00 AM [facility]) Basaglar KwikPen 03/20/2019 [place] ([facility] [place] 100UNIT/ML Subcutaneous 12:00:[address] [facility] Pen-injector [place] ) Alcohol Pads 70% 08/10/2018 [place] ([facility] 12:00:00 AM [facility]) Enalapril Maleate 5 MG 08/10/[address] ([place] Oral Tablet 12:00:00 AM [facility]) Pen [place] 31G X 6 MM 08/10/[address] ([place] Miscellaneous 12:00:00 AM [facility]) Admelog SoloStar 08/10/2018 [place] ([facility] [place] 100UNIT/ML Subcutaneous 12:00:[address] [facility] Pen-injector [place] ) Basaglar KwikPen 08/10/2018 [place] ([facility] [place] 100UNIT/ML Subcutaneous 12:00:[address] [facility] Pen-injector [place] ) Coreg 3.125MG Oral 08/10/2018 [place] ([place] Tablet 12:00:00 AM [facility]) atorvastatin 40 MG Oral 08/10/2018 [place] ([place] Tablet 12:00:00 AM [facility]) FreeStyle Lite Test In 08/10/2018 [facility] ([place] Vitro Strip 12:00:00 AM [facility]) Loratadine 10 MG Oral 08/10/2018 [facility] [facility] ([place] Capsule 12:00:00 AM [facility]) NovoLOG FlexPen 08/10/2018 [facility] ([facility] [place] 100UNIT/ML Subcutaneous 12:00:[address] [facility] Pen-injector [place] ) Flonase Allergy Relief 08/10/[address] ([place] 50MCG/ACT Nasal 12:00:00 AM EDT [facility]) Ketoconazole 20 MG/ML 06/27/2018 [place] [facility] ([place] Topical Cream 12:00:00 AM [facility]) Ketoconazole 20 MG/ML 05/23/2018 [place] ([place] Topical Cream 12:00:00 AM [facility]) Ultra-Thin II Pen Needle 05/16/2018 [facility] ([place] Short 31G X 8 MM [facility] Boostrix 05/16/2018 [facility] ([place] 5-2.5-18.5LF-MCG/0.5 12:00:00 AM [facility] Intramuscular Suspension [address]) Loratadine 10 MG Oral 04/18/2018 [place] [facility] ([place] Capsule 12:00:00 AM [facility]) Basaglar KwikPen 04/18/2018 [place] ([facility] 100UNIT/ML Subcutaneous 12:00:00 AM [facility] Pen-injector Center ) Alcohol Pads 70% 04/18/2018 [place] ([facility] [place] 12:00:00 AM [facility]) atorvastatin 40 MG Oral 04/18/2018 [place] ([place] Tablet 12:00:00 AM [facility]) Alcohol Pads 70% 04/18/2018 [place] ([facility] [place] 12:00:00 AM [facility]) Coreg 3.125MG Oral 04/18/2018 [place] ([place] Tablet 12:00:00 AM [facility]) Flonase Allergy Relief 04/18/[address] ([place] 50MCG/ACT Nasal 12:00:00 AM [facility]) Enalapril Maleate 5 MG 04/18/[address] ([place] Oral Tablet 12:00:00 AM [facility]) Enalapril Maleate 5 MG 04/18/[address] ([place] Oral Tablet 12:00:00 AM [facility]) FreeStyle Lancets 04/18/2018 JOSE ( [place] Miscellaneous 12:00:00 AM [facility]) NovoLOG Mix 70/30 04/18/2018 JO[place] ( [place] FlexPen (70-30) 12:00:00 AM [facility] 100UNIT/ML Subcutaneous Cent er) Suspension Pen-injector [place] 31G X 6 MM 04/18/[address] ([place] Miscellaneous 12:00:00 AM [facility]) FreeStyle Lancets 04/18/2018 JOSE ( [place] Miscellaneous 12:00:00 AM [facility]) NovoLOG Mix 70/30 10/04/2017 JO[place] ( [place] FlexPen (70-30) 12:00:00 AM [facility] 100UNIT/ML Subcutaneous Cent er) Suspension Pen-injector Enalapril Maleate 5 MG 10/04/[address] ([place] Oral Tablet 12:00:00 AM [facility]) Coreg 3.125MG Oral 10/04/2017 [place] ([place] Tablet 12:00:00 AM [facility]) atorvastatin 40 MG Oral 10/04/2017 [place] ([place] Tablet 12:00:00 AM [facility]) Pen [place] 31G X 6 MM 10/04/[address] ([place] Miscellaneous 12:00:00 AM [facility]) Simvastatin 20 MG Oral 10/04/[address] ([place] Tablet 12:00:00 AM [facility]) Flonase Allergy Relief 10/04/[address] ([place] 50MCG/ACT Nasal 12:00:00 AM [facility]) NovoLOG Mix 70/30 10/04/2017 JO[place] ( [place] FlexPen (70-30) 12:00:00 AM [facility] 100UNIT/ML Subcutaneous Cent er) Suspension Pen-injector [place] 31G X 6 MM 10/04/[address] ([place] Miscellaneous 12:00:00 AM [facility]) FreeStyle Lite Test In 10/04/[address] ([place] Vitro Strip 12:00:00 AM [facility]) Alcohol Pads 70% 10/04/2017 [place] ([facility] [place] 12:00:00 AM [facility]) FreeStyle Lite Test In 10/04/[address] ([place] Vitro Strip 12:00:00 AM [facility]) FreeStyle Lancets 10/04/2017 JO[place] ( [place] Miscellaneous 12:00:00 AM [facility]) Loratadine 10 MG Oral 10/04/2017 [place] ([place] Capsule 12:00:00 AM [facility]) Basaglar KwikPen 10/04/2017 [place] ([facility] [place] 100UNIT/ML Subcutaneous 12:00:[address] [facility] Pen-injector Center ) NovoLOG Mix 70/30 10/04/2017 [place] ( [place] FlexPen (70-30) 12:00:00 AM [facility] Cent er) Suspension Pen-injector Alcohol Pads 70% 10/04/2017 [place] ([facility] [place] 12:00:00 AM [facility]) Coreg 3.125MG Oral 10/04/2017 [place] ([place] Tablet 12:00:00 AM [facility]) Enalapril Maleate 5 MG 10/04/[address] ([place] Oral Tablet 12:00:00 AM [facility]) Alcohol Pads 70% 02/22/2017 [place] ([facility] [place] 12:00:00 AM [facility]) NovoLOG Mix 70/30 02/22/2017 [place] ( [place] FlexPen (70-30) 12:00:00 AM [facility] Subcutaneous Cent er) Suspension Pen-injector Coreg 3.125MG Oral 02/22/2017 [place] ([place] Tablet 12:00:00 AM [facility]) NovoLOG FlexPen 01/06/2017 [facility] ([facility] 100UNIT/ML Subcutaneous 12:00:[address] [facility] Pen-injector Center ) Loratadine 10 MG Oral 01/04/2017 [place] [facility] ([place] Capsule 12:00:00 AM [facility]) FreeStyle Lancets 01/04/2017 JOSE ( [place] Miscellaneous 12:00:00 AM [facility]) FreeStyle Lite Test In 01/04/[address] ([place] Vitro Strip 12:00:00 AM [facility]) Pen [place] 31G X 6 MM 01/04/[address] ([place] Miscellaneous 12:00:00 AM [facility]) atorvastatin 40 MG Oral 01/04/2017 [place] ([place] Tablet 12:00:00 AM [facility]) Enalapril Maleate 5 MG 01/04/[address] ([place] Oral Tablet 12:00:00 AM [facility]) NovoLOG Mix 70/30 01/04/2017 JOSE ( [place] FlexPen (70-30) 12:00:00 AM EDT [facility] 100UNIT/ML Subcutaneous Cent er) Suspension Pen-injector Basaglar KwikPen 11/04/2016 [facility] ([facility] 100UNIT/ML Subcutaneous 12:00:[address] [facility] Pen-injector Center ) Basaglar KwikPen 100 09/14/2016 [place] ([place] UNIT/ML Solution 12:00:00 AM [facility] Pen-injector [place]) Lantus SoloStar 100 08/24/2016 JO[place] ([place] UNIT/ML Solution 12:00:00 AM [facility] Pen-injector [place]) Enalapril Maleate 5 MG 08/24/[address] ([place] Oral Tablet 12:00:00 AM [facility]) Pen [place] 31G X 6 MM 08/24/[address] ([place] Miscellaneous 12:00:00 AM [facility]) Basaglar KwikPen 100 08/24/2016 [place] ([place] UNIT/ML Solution 12:00:00 AM [facility] Pen-injector [place]) FreeStyle Lite Test 08/24/2016 JOSE ([place] Strip 12:00:00 AM [facility]) FreeStyle Lancets 08/24/2016 JOSE ( [place] Miscellaneous 12:00:00 AM [facility]) Loratadine-D 24HR 10-240 08/24/2016 [address] ([place] MG Tablet Extended 12:00:00 AM [facility] 24 Hour Center) Metformin hydrochloride 08/24/2016 [place] ([place] 1000 MG Oral Tablet 12:00:00 AM [facility]) Simvastatin 20 MG Oral 08/24/[address] ([place] Tablet 12:00:00 AM [facility]) Glipizide 5 MG Oral 08/24/2016 JOSE ([place] Tablet 12:00:00 AM [facility]) Bacitracin 0.5 UNT/MG 12/24/2015 [place] [facility] ([place] Ophthalmic Ointment 12:00:00 AM [facility]) Erythromycin 0.005 MG/MG 12/24/2015 [place] ([place] Ophthalmic Ointment 12:00:00 AM [facility]) Loratadine-D 24HR 10-240 11/18/2015 [place] ([place] MG Tablet Extended 12:00:00 AM [facility] 24 Hour [place]) Ultra-Thin II Pen Needle 11/18/2015 [place] ([place] Short 31G X 8 MM 12:00:00 AM [facility] Lantus SoloStar 100 11/18/2015 JOSE ([place] UNIT/ML Solution 12:00:00 AM [facility] Pen-injector [place]) Flonase Allergy Relief 10/21/[address] ([place] 50 MCG/ACT Suspension 12:00:[address] [facility]) Enalapril Maleate 5 MG 10/21/[address] ([place] Oral Tablet 12:00:00 AM [facility]) FreeStyle Lancets 10/21/2015 JOSE ( [place] Miscellaneous 12:00:00 AM [facility]) FreeStyle Lite Test 10/21/2015 JOSE ([place] Strip 12:00:00 AM [facility]) Glipizide 5 MG Oral 10/21/2015 JOSE ([place] Tablet 12:00:00 AM [facility]) Metformin hydrochloride 10/21/2015 [place] ([place] 1000 MG Oral Tablet 12:00:00 AM [facility]) Simvastatin 20 MG Oral 10/21/[address] ([place] Tablet 12:00:00 AM [facility]) Erythromycin 0.005 MG/MG 08/29/2015 [place] ([place] Ophthalmic Ointment 12:00:00 AM [facility]) Glipizide 5 MG Oral 04/23/2015 JOSE ([place] Tablet 12:00:00 AM [facility]) Metformin hydrochloride 04/23/2015 [place] ([place] 1000 MG Oral Tablet 12:00:00 AM [facility]) Simvastatin 20 MG Oral 04/23/[address] ([place] Tablet 12:00:00 AM [facility]) FreeStyle Lancets 04/23/2015 JOSE ( [place] Miscellaneous 12:00:00 AM [facility]) FreeStyle Lite Test 04/23/2015 JOSE ([place] Strip 12:00:00 AM [facility]) Enalapril Maleate 5 MG 04/23/[address] ([place] Oral Tablet 12:00:00 AM [facility]) Aspirin 81 MG Oral 03/15/2015 JOSE ([place] Tablet 12:00:00 AM [facility]) Enalapril Maleate 5 MG 03/15/[address] ([place] Oral Tablet 12:00:00 AM [facility]) FreeStyle Lancets 03/15/2015 JOSE ( [place] Miscellaneous 12:00:00 AM [facility]) FreeStyle Lite Test 03/15/2015 JOSE ([place] Strip 12:00:00 AM [facility]) Ultra-Thin II Pen Needle 03/15/2015 [place] ([place] Short 31G X 8 MM 12:00:00 AM [facility]) Enalapril Maleate 5 MG 03/15/[address] ([place] Oral Tablet 12:00:00 AM [facility]) Flonase Allergy Relief 03/15/[address] ([place] 50 MCG/ACT Suspension 12:00:[address] [facility]) Lantus SoloStar 100 03/15/2015 JOSE ([place] UNIT/ML Solution 12:00:00 AM [facility] Pen-injector [place]ona) Glipizide 5 MG Oral 03/15/2015 JOSE ([place] Tablet 12:00:00 AM [facility]) Metformin hydrochloride 03/15/2015 [place] ([place] 1000 MG Oral Tablet 12:00:00 AM EDT [facility]) Metronidazole 500 MG 03/15/2015 GREENWA Y ([place] Oral Tablet 12:00:00 AM [facility]) Simvastatin 20 MG Oral 03/15/[address] ([place] Tablet 12:00:00 AM [facility]) FreeStyle Lite Device 03/15/2015 GREENW AY ([place] 12:00:00 AM [facility]) Saline 0.9 % SOLN 02/21/2015 JOSE ( [place] 12:00:00 AM [facility]) Ramonita Contour Test 02/21/2015 GREENW AY ([place] STRP 12:00:00 AM [facility]) Augmentin 500-125MG OR 02/21/[address] ([place] TABS 12:00:00 AM [facility]) Triamcinolone Acetonide 08/21/2014 GREE NWAY ([place] 55MCG/ACT NA AERO 12:00:00 AM EDT [facility]) Saline 0.9 % SOLN 08/21/2014 JOSE ( [place] 12:00:00 AM [facility]) Metformin hydrochloride 01/31/2014 [facility] Oral Tablet 11:29:50 PM EDT System [Glucophage] Augmentin 500-125MG OR 11/16/[address] ([place] TABS 12:00:00 AM [facility] [place]) Flonase 50MCG/ACT NA 11/16/2013 GREENWA Y ([place] SUSP 12:00:00 AM [facility]) ZyrTEC Allergy 10MG OR 11/16/[address] ([place] TABS 12:00:00 AM [facility]) Glyburide 5 MG / 05/09/2012 JOSE ([facility] Metformin hydrochloride 12:00:00 AM [facility] 500 MG Oral Tablet Center) Enalapril Maleate 2.5 MG 05/09/2012 GRE ENWAY ([place] Oral Tablet 12:00:00 AM [facility]) Viagra 25MG OR TABS 05/09/2012 JOSE ([place] 12:00:00 AM [facility]) Ramonita Contour Monitor 03/07/2012 ARYAN BOOKER ([place] w/Device KIT 12:00:00 AM [facility]) Ciprofloxacin 500 MG 03/07/2012 GORDO Y ([place] Oral Tablet 12:00:00 AM [facility]) Glyburide 5 MG / 03/07/2012 JOSE ([facility] [place] Metformin hydrochloride 12:00:00 AM EDT [facility] 500 MG Oral Tablet Center) Ramonita Contour Test 03/07/2012 ARYAN AY ([place] STRP 12:00:00 AM [facility]) Monolet Lancets MISC 03/07/2012 GORDO Lacey ([place] 12:00:00 AM [facility]) Enalapril Maleate 2.5 MG 03/07/2012 MARKUS CATHERINE ([place] Oral Tablet 12:00:00 AM [facility]) Basaglar KwikPen 100 [facility] units/mL subcutaneous System solution Enalapril Maleate 5 MG [facility] Oral Tablet System Glipizide 5 MG Oral [facility] Tablet System Aspirin 81 MG Delayed [facility] Release Oral Tablet System Simvastatin 20 MG Oral [facility] Tablet System Metformin hydrochloride Health system 1000 MG Oral Tablet System 3 ML Insulin Glargine [facility] 100 UNT/ML Pen Injector Syst em [Lantus]
== END 2020-02-26 11:27 | disposition home or self-care (01) ==
LOC: JERFT 10:27
DX: H57.12 Ocular pain, left eye (principal)
CPT/HCPCS: 99283-25

== ENCOUNTER 2021-07-13 11:23 | Emergency (ER) | payer OTHER ==
[2021-07-13 11:28] VITALS: BP 185/86; PULSE 85; TEMP 99.4; BMI 25.8
[2021-07-13] MEDS ORDERED: KETOROLAC TROMETHAMINE 30 MG/1 ML VIAL IM ONE (12:32)
[2021-07-13] MEDS ORDERED: KETOROLAC TROMETHAMINE 30 MG/1 ML VIAL ONE (13:00)
== END 2021-07-13 13:19 | disposition home or self-care (01) ==
LOC: JER 11:23 → JERFT 11:23
PROC: 3E023GC Introduction of Other Therapeutic Substance into Muscle, Percutaneous Approach (ICD-10-PCS; principal; 2021-07-13)
DX: M25.511 Pain in right shoulder (principal)
CPT/HCPCS: 73030-TC-RT-FY; 96372; 99284-25

== ENCOUNTER 2022-02-16 11:23 | Emergency (ER) | payer OTHER ==
[2022-02-16 11:46] VITALS: BP 173/80; PULSE 75; RESP 18; TEMP 98.1; BMI 25.8
[2022-02-16] MEDS ORDERED: ACETAMINOPHEN 1000 MG/100 ML BAG IVPB ONE (12:22)
[2022-02-16] MEDS ORDERED: ACETAMINOPHEN INJECTION 100 ML IVPB ONE (12:30)
[2022-02-16 13:20] LABS: BASO % 0.5 % (0-2.0); EOS % 4.1 % (0-4.5); HEMOGLOBIN 13.7 GM/dL (11.7-16.9); LYMPH % 36.7 % (8-40); MCH 29.4 pg (25.7-33.7); MCHC 33.3 g/dl (32.0-35.9); MEAN CELL VOLUME 88.3 fl (80-96); MEAN PLT VOLUME 9.9 fl (7.5-11.1); MONO % 14.7 % (3.8-10.2); PLATELET COUNT 235 10^3/uL (134-434); RBC 4.64 M/mm3 (4.00-5.60); RDW 13.2 % (11.9-15.9); WHITE BLOOD COUNT 5.4 K/mm3 (4.0-10.0)
[2022-02-16 13:22] LABS: EPI CELLS 19 /uL (0-25.1); HYALINE CASTS 1 /uL (0-3.1); URINE APPEARANCE CLEAR; URINE BACTERIA 30 /uL (0-1359); URINE BILIRUBIN NEGATIVE (NEGATIVE); URINE COLOR YELLOW; URINE GLUCOSE (UA) 3+ (NEGATIVE); URINE KETONE NEGATIVE (NEGATIVE); URINE LEUK ESTERASE 1+ (NEGATIVE); URINE NITRITE NEGATIVE (NEGATIVE); URINE PROTEIN NEGATIVE (NEGATIVE); URINE RBC 12 /uL (0-23.9); URINE UROBILINOGEN 0.2 mg/dL (0.2-1.0); URINE WBC 388 /uL (0-25.8)
[2022-02-16 13:31] LABS: ALBUMIN 3.8 g/dl (3.4-5.0); CALCIUM 9.3 mg/dL (8.5-10.1)
[2022-02-16 13:32] LABS: BLOOD UREA NITROGEN 19.2 mg/dL (7-18)
[2022-02-16 13:35] LABS: CREATININE 1.1 mg/dL (0.55-1.3)
[2022-02-16 13:36] LABS: BILIRUBIN,TOTAL 0.2 mg/dL (0.2-1); TOT PROT 7.5 g/dl (6.4-8.2)
== END 2022-02-16 15:42 | disposition home or self-care (01) ==
LOC: JERFT 11:23
PROC: 3E0333Z Introduction of Anti-inflammatory into Peripheral Vein, Percutaneous Approach (ICD-10-PCS; principal; 2022-02-16)
DX: R10.32 Left lower quadrant pain (principal)
CPT/HCPCS: 36415; 74176-TC; 76870-TC; 80053; 81003; 85025; 99285-25

== ENCOUNTER 2022-02-25 17:54 | Emergency (ER) | payer OTHER ==
[2022-02-25 18:07] VITALS: BP 190/91; PULSE 72; RESP 18; TEMP 97.9; BMI 25.8
[2022-02-25] MEDS ORDERED: AMOXICILLIN 500 MG CAPSULE (FP) PO ONE (20:24)
[2022-02-25] MEDS ORDERED: AMOXICILLIN 250 MG CAPSULE ONE (20:26)
[2022-02-25] MEDS ORDERED: KETOROLAC TROMETHAMINE 30 MG/1 ML VIAL IM ONE (20:27)
[2022-02-25] MEDS ORDERED: KETOROLAC TROMETHAMINE 30 MG/1 ML VIAL ONE (20:29)
== END 2022-02-25 20:38 | disposition home or self-care (01) ==
LOC: JERFT 17:54
PROC: 3E0233Z Introduction of Anti-inflammatory into Muscle, Percutaneous Approach (ICD-10-PCS; principal; 2022-02-25)
DX: K04.7 Periapical abscess without sinus (principal)
CPT/HCPCS: 99284-25

== ENCOUNTER 2022-12-29 12:48 | Emergency (ER) | payer OTHER ==
[2022-12-29 12:56] VITALS: BP 192/74; PULSE 73; RESP 19; TEMP 97.6; BMI 25.8
[2022-12-29] MEDS ORDERED: IBUPROFEN 600 MG TABLET (FP) PO ONE ×2 (13:31→13:41)
== END 2022-12-29 17:31 | disposition home or self-care (01) ==
LOC: JERFT 12:48
DX: M25.531 Pain in right wrist (principal)
CPT/HCPCS: 73110-TC-RT-FY; 73130-TC-RT-FY; 99283-25